=== PATIENT | male | born 1935 | race Caucasian/White ===

== ENCOUNTER → 2016-08-16 | Outpatient (REF) | payer MEDICARE ==
[~2016-08-16] MED LIST: /RISE35TA; /TAMS4CA PO; AMLO5TAB2 PO; ATEN25TA PO; BABY81CH PO; CALC600T10; CALCTAB54 PO; GABA300T; LISI10TA4; LOVA20TA2; LOVA40TA PO; NEUR100C; PLAV75TA2 PO; PREV15CA PO; TYLE325T5 PO; VITA-122 PO; VITAMIN D; VITAMIN D50000 UNT; ZEST20TA8 PO
== END ==
LOC: M LAB REF 16:19
PROVIDERS: ATTEND Internal Medicine
DX: E79.0 Hyperuricemia without signs of inflammatory arthritis and tophaceous disease (principal)

== ENCOUNTER → 2016-11-24 | Outpatient (REF) | payer MEDICARE | LOC: M LAB REF 16:22 | PROVIDERS: ATTEND Internal Medicine | DX: E79.0 Hyperuricemia without signs of inflammatory arthritis and tophaceous disease (principal) ==

== ENCOUNTER → 2017-02-07 | Outpatient (REF) | payer MEDICARE ==
[~2017-02-07] MED LIST changes: +ACET30TAB PO; +AMOX500C PO; +ASPI81TA24 PO; +CARB25TA PO; +CLOT10TR MT; +COLA100C5 PO; +COLC1TAB13 PO; +DOXY100C PO; +FERR1TAB8 PO; +FLOM5CAP PO; +HYDR12.55 PO; +HYDR25TAB PO; +LANS15CA PO; +MAGN400T5 PO; +MAGN64TASA PO; +MIRT1TAB PO; +PLAV1TAB2 PO; +SIMV20TA2 PO; +TRAM50TA2 PO; +VITA100066 PO; +ZYLO300T4 PO
[2017-02-07 21:30] LABS: BASO # 0.1 K/mm3 (0.0-0.2); BASO % 0.8 % (0.0-1.0); EOS # 0.3 K/mm3 (0.0-0.50); EOS % 3.5 % (0.0-3.0); LARGE UNSTAINED CELL # 0.1 K/mm3 (0.0-0.4); LARGE UNSTAINED CELL % 0.9 % (0.0-4.0); LYMPH # 1.4 K/mm3 (1.5-4.5); LYMPH % 16.7 % (24.0-44.0); MEAN CORPUSCULAR HEMOGLOBIN 33.7 pg (27.0-33.0); MEAN CORPUSCULAR HGB CONC 32.7 g/dl (32.0-36.5); MONO # 0.5 K/mm3 (0.0-0.8); MONO % 6.9 % (0.0-5.0); NEUTROPHILS # 5.6 K/mm3 (1.8-7.7); NEUTROPHILS % 71.3 % (36.0-66.0); PLATELET COUNT, AUTOMATED 304 k/mm3 (150-450); RED CELL DISTRIBUTION WIDTH 13.6 % (11.5-14.5); WHITE BLOOD COUNT 7.9 K/mm3 (4.0-10.0)
[2017-02-07 21:34] LABS: ALBUMIN 3.2 GM/DL (3.2-5.2); ALBUMIN/GLOBULIN RATIO 0.78 (1.00-1.93); BILIRUBIN,TOTAL 0.7 MG/DL (0.2-1.0); CREATININE FOR GFR 1.67 MG/DL (0.70-1.30); GLOMERULAR FILTRATION RATE 42.4 (>35); POTASSIUM SERUM 4.3 MEQ/L (3.5-5.1); TOTAL PROTEIN 7.3 GM/DL (6.4-8.2)
[2017-02-10 08:07] LABS: Lyme Disease IgG Ab 18 kDa Ban Absent (.); Lyme Disease IgG Ab 23 kDa Ban Absent (.); Lyme Disease IgG Ab 28 kDa Ban Absent (.); Lyme Disease IgG Ab 30 kDa Ban Absent (.); Lyme Disease IgG Ab 39 kDa Ban Absent (.); Lyme Disease IgG Ab 41 kDa Ban Absent (.); Lyme Disease IgG Ab 45 kDa Ban Absent (.); Lyme Disease IgG Ab 58 kDa Ban Absent (.); Lyme Disease IgG Ab 66 kDa Ban Absent (.); Lyme Disease IgG Ab 93 kDa Ban Absent (.); Lyme Disease IgG West Blot Int Negative (.); Lyme Disease IgG/IgM Antibodie <0.91 ISR (0.00-0.90); Lyme Disease IgM Ab 23 kDa Ban Present (.); Lyme Disease IgM Ab 39 kDa Ban Absent (.); Lyme Disease IgM Ab 41 kDa Ban Present (.); Lyme Disease IgM Ab Quantitati 1.52 index (0.00-0.79); Lyme Disease IgM West Blot Int Positive (.)
== END ==
LOC: M LABDRWAD 20:54
PROVIDERS: ATTEND Physician Assistant
DX: R53.83 Other fatigue (principal)

== ENCOUNTER 2017-02-18 11:31 | Emergency (ER) | payer MEDICARE ==
[~2017-02-18] VITALS: Ht 167.6 cm; Wt 75.5 kg
[~2017-02-18 11:31] MED LIST changes: -ACET30TAB PO; -AMOX500C PO; -ASPI81TA24 PO; -CARB25TA PO; -CLOT10TR MT; -COLA100C5 PO; -COLC1TAB13 PO; -DOXY100C PO; -FERR1TAB8 PO; -FLOM5CAP PO; -HYDR12.55 PO; -HYDR25TAB PO; -LANS15CA PO; -MAGN400T5 PO; -MAGN64TASA PO; -MIRT1TAB PO; -PLAV1TAB2 PO; -SIMV20TA2 PO; -TRAM50TA2 PO; -VITA100066 PO; -ZYLO300T4 PO
[2017-02-18 11:32] VITALS: BP_DIAS 74
[2017-02-18] MEDS ORDERED: DOXY100C PO (11:50)
[2017-02-18] MEDS ORDERED: COLC1TAB13 PO (11:50)
[2017-02-18] MEDS ORDERED: HYDR12.55 PO (11:50)
[2017-02-18] MEDS ORDERED: MAGN64TASA PO (11:51)
[2017-02-18] MEDS ORDERED: MORPHINE 2 MG/ML 1ML SYRINGE IV ONE (12:15)
[2017-02-18 12:42] LABS: BASO # 0.1 K/mm3 (0.0-0.2); BASO % 0.6 % (0.0-1.0); EOS % 0.2 % (0.0-3.0); LARGE UNSTAINED CELL # 0.1 K/mm3 (0.0-0.4); LYMPH # 1.1 K/mm3 (1.5-4.5); LYMPH % 10.7 % (24.0-44.0); MEAN CORPUSCULAR HEMOGLOBIN 33.5 pg (27.0-33.0); MEAN CORPUSCULAR HGB CONC 32.9 g/dl (32.0-36.5); MEAN CORPUSCULAR VOLUME 101.9 fl (80.0-96.0); MONO # 0.7 K/mm3 (0.0-0.8); MONO % 6.4 % (0.0-5.0); NEUTROPHILS # 8.5 K/mm3 (1.8-7.7); PLATELET COUNT, AUTOMATED 327 k/mm3 (150-450); RED CELL DISTRIBUTION WIDTH 13.7 % (11.5-14.5); WHITE BLOOD COUNT 10.5 K/mm3 (4.0-10.0)
[2017-02-18 13:05] LABS: ALBUMIN 2.6 GM/DL (3.2-5.2); ALBUMIN/GLOBULIN RATIO 0.62 (1.00-1.93); BILIRUBIN,DIRECT 0.3 MG/DL (0.0-0.2); BILIRUBIN,TOTAL 0.9 MG/DL (0.2-1.0); CALCIUM LEVEL 9.3 MG/DL (8.8-10.2); CREATININE FOR GFR 1.52 MG/DL (0.70-1.30); GLOMERULAR FILTRATION RATE 47.2 (>35); POTASSIUM SERUM 4.2 MEQ/L (3.5-5.1); TOTAL PROTEIN 6.8 GM/DL (6.4-8.2)
[2017-02-18 13:33] LABS: ERYTHROCYTE SEDIMENTATION RATE 80 mm/hr (0-20)
[2017-02-18 13:52] VITALS: BP_SYST 120
[2017-02-18 14:03] LABS: INR 1.28
[2017-02-18] MEDS ORDERED: AMOX500C PO (14:32)
[2017-02-18] MEDS ORDERED: ACET30TAB PO (14:32)
--- NOTE | 2017-02-20 02:14 | ECGEPIP ---
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
== END 2017-02-18 14:45 | disposition home or self-care (01) ==
LOC: M ED 11:31
DX: A69.23 Arthritis due to Lyme disease (principal); I10 Essential (primary) hypertension; K21.9 Gastro-esophageal reflux disease without esophagitis; Z86.73 Personal history of transient ischemic attack (TIA), and cerebral infarction without residual deficits; Z87.891 Personal history of nicotine dependence; Z79.899 Other long term (current) drug therapy; Z79.82 Long term (current) use of aspirin; Z79.02 Long term (current) use of antithrombotics/antiplatelets; Z95.1 Presence of aortocoronary bypass graft

== ENCOUNTER → 2017-02-23 | Outpatient (REF) | payer MEDICARE ==
[~2017-02-23] MED LIST changes: +ACET30TAB PO; +AMOX500C PO; +ASPI81TA24 PO; +CARB25TA PO; +CLOT10TR MT; +COLA100C5 PO; +COLC1TAB13 PO; +DOXY100C PO; +FERR1TAB8 PO; +FLOM5CAP PO; +HYDR12.55 PO; +HYDR25TAB PO; +LANS15CA PO; +MAGN400T5 PO; +MAGN64TASA PO; +MIRT1TAB PO; +PLAV1TAB2 PO; +SIMV20TA2 PO; +TRAM50TA2 PO; +VITA100066 PO; +ZYLO300T4 PO
== END ==
LOC: M LAB REF 16:33
PROVIDERS: ATTEND Nurse Practitioner Adult Health
DX: R79.82 Elevated C-reactive protein (CRP) (principal); N18.3 Chronic kidney disease, stage 3 (moderate); I12.9 Hypertensive chronic kidney disease with stage 1 through stage 4 chronic kidney disease, or unspecified chronic kidney disease

== ENCOUNTER 2017-02-28 09:04 | Inpatient (IN) | payer MEDICARE ==
[~2017-02-28] VITALS: Ht 167.6 cm; Wt 69.4 kg
[~2017-02-28 09:04] MED LIST changes: -ASPI81TA24 PO; -CARB25TA PO; -CLOT10TR MT; -COLA100C5 PO; -FERR1TAB8 PO; -FLOM5CAP PO; -HYDR25TAB PO; -LANS15CA PO; -MAGN400T5 PO; -MIRT1TAB PO; -PLAV1TAB2 PO; -SIMV20TA2 PO; -TRAM50TA2 PO; -VITA100066 PO; -ZYLO300T4 PO
[2017-02-28] MEDS ORDERED: TRAM50TA2 PO ×2 (09:22→14:24)
[2017-02-28] MEDS ORDERED: CLOT10TR MT ×2 (09:22→14:24)
[2017-02-28 09:47] LABS: BASO % 0.3 % (0.0-1.0); EOS % 0.4 % (0.0-3.0); LARGE UNSTAINED CELL # 0.1 K/mm3 (0.0-0.4); LARGE UNSTAINED CELL % 0.6 % (0.0-4.0); LYMPH # 0.7 K/mm3 (1.5-4.5); LYMPH % 6.1 % (24.0-44.0); MEAN CORPUSCULAR HEMOGLOBIN 33.8 pg (27.0-33.0); MEAN CORPUSCULAR VOLUME 102.5 fl (80.0-96.0); MONO # 0.8 K/mm3 (0.0-0.8); MONO % 7.6 % (0.0-5.0); NEUTROPHILS # 9.2 K/mm3 (1.8-7.7); PLATELET COUNT, AUTOMATED 396 k/mm3 (150-450); RED CELL DISTRIBUTION WIDTH 13.9 % (11.5-14.5); WHITE BLOOD COUNT 10.8 K/mm3 (4.0-10.0)
[2017-02-28 10:08] LABS: ALBUMIN 2.4 GM/DL (3.2-5.2); ALBUMIN/GLOBULIN RATIO 0.49 (1.00-1.93); BILIRUBIN,DIRECT 0.3 MG/DL (0.0-0.2); BILIRUBIN,TOTAL 0.7 MG/DL (0.2-1.0); CALCIUM LEVEL 9.3 MG/DL (8.8-10.2); CREATININE FOR GFR 1.6 MG/DL (0.70-1.30); GLOMERULAR FILTRATION RATE 44.5 (>35); POTASSIUM SERUM 4.4 MEQ/L (3.5-5.1); TOTAL PROTEIN 7.3 GM/DL (6.4-8.2)
[2017-02-28 10:23] LABS: ERYTHROCYTE SEDIMENTATION RATE 107 mm/hr (0-20)
--- NOTE | 2017-02-28 10:23 | REP ---
CT Head without contrast HISTORY: Trauma COMPARISON: 02/23/2017 Areas of decreased attenuation are present in the periventricular white matter. This represents small-vessel ischemic disease. There is no intraparenchymal hemorrhage, acute infarct, mass or midline shift. The ventricular system and cortical sulci as well as subarachnoid space in the posterior fossa are dilated consistent with moderate volume loss. There is no extra cerebral collection. There is no fracture. The visualized sinuses are clear. IMPRESSION: 1. Small vessel ischemic disease. 2. Moderate volume loss. Signed by Angel Wick MD 02/28/2017 10:15 A
--- NOTE | 2017-02-28 10:52 | REP ---
CT CERVICAL SPINE WITHOUT CONTRAST: HISTORY: Trauma. There is no acute fracture or subluxation. Disc bulges are present at the C2-3 and C3-4 levels. Disc bulges with associated osteophyte formation are present at the C4-5 through C6-7 levels. There is minimal narrowing of the spinal canal. Uncinate process and/or facet hypertrophy are present at the C2-3 through C7-T1 levels. These finding produce minimal to moderate narrowing of the neural foramina. The C3-4 through C7-T1 intervertebral discs are decreased in height consistent with disc degeneration. Bridging osteophytes are present on C3 through T1. Anterior osteophytes are present at the C1-2 level. IMPRESSION: 1. There is no acute fracture or subluxation. 2. There is cervical spondylosis the C1-2 through C7-T1 levels. Signed by Angel Wick MD 02/28/2017 11:04 A
--- NOTE | 2017-02-28 11:00 | REP ---
THORACIC SPINE: Three views of the thoracic spine are performed in the AP and lateral projections. There is no compression fracture or malalignment with normal thoracic kyphosis. Diffuse bridging osteophytosis is noted particularly in the mid to lower thoracic spine. There is mild disc space narrowing and subchondral sclerosis at all levels. Posterior elements appear intact. IMPRESSION: Diffuse degenerative changes without evidence of acute fracture or dislocation. Signed by Danish Medina MD 03/01/2017 08:38 A
--- NOTE | 2017-02-28 12:25 | REP ---
MRI BRAIN WITHOUT CONTRAST: HISTORY: Infarction. COMPARISON: 05/22/2012. A punctate focus of increased signal intensity on diffusion and T2-weighted images is present in the right frontal lobe. This is decreased in signal intensity on ADC images and is consistent with an acute infarction. A small area of increased signal intensity on T2-weighted images is present in the left cerebellum. This represents an old lacunar infarction. Several punctate areas of increased signal intensity on T2-weighted images are present in the periventricular and subcortical white matter and cerebellum. This represents small vessel ischemic disease. There is no intraparenchymal hemorrhage, mass or midline shift. The ventricular system and cortical sulci, as well as subarachnoid space of the posterior fossa are dilated consistent with moderate volume loss. There is no extracerebral collection. The sinuses are clear. IMPRESSION: 1. Punctate acute right frontal lobe infarction . 2. Old left cerebellar lacunar infarction. 3. Small vessel ischemic disease. 4. Moderate volume loss. Signed by Angel Wick MD 02/28/2017 12:30 P
--- NOTE | 2017-02-28 14:15 | HPEPDOC ---
Medical History and Physical Date of Admission 02/28/17 History and Physical ATTENDING: Dr. Bains PCP: Dr Puga CC: Fall HPI: 81yoM with a past medical history significant for HTN, HLD,GERD, who reports he fell in the bathroom and hit his back on the vanity, Dtr reported he had hit his head as well. Reported that he had fallen 3 times in past 1 week. Daughter states he has been getting up in the morning to go to the bathroom and not using his walker. He typically loses his balance and has been falling. They state his symptoms began approximately 1 week ago when he was seen in the emergency department 02/18/17 and was diagnosed with Lyme disease. His daughter states he has lost 20 pounds in the past 3 weeks. Generally he has been feeling fatigued and achy. He reports generalized weakness however no paresthesias. Denies blurred vision, diplopia, vertigo, dysarthria. He does report some difficulty swallowing. He does not cough when swallowing. Denies any fevers, chills,YORK, CP, SOB, cough, palpitations, abdominal pain, N/V/ D or changes in bowel or bladder habits. Upon presentation to the hospital the patient was found to have acute CVA, thus the hospitalist team was consulted. PMHx: HTN HLD GERD BPH CKD3 baseline 1.4-1.6 H/O TIA 10/12 H/O kidney stones unsteady gait/H/O fall. Pt declines to use walker at home Lyme disease PSHX: CABG Fempop bypass AAA repair Rt inguinal hernia appendectomy SOCHX: Resides in: [facility] Marital Status: Kids: 5 Employment: retired [employer] Tobacco use: denies ETOH: denies Illicit Drugs: Denies Recent travel: denies Advanced directives: None FAMHX: Siblings: Alive, hypertension, CAD, lung cancer Children: Alive, breast cancer Unexpected deaths due to medical reasons: None. ROS: As noted in HPI, otherwise 11pt ROS of systems reviewed and remarkable only for pt seen in ED 02/18/17 for joint pains and was treated for Lyme disease. PE: GEN: 81yoM, appears stated age. Well-nourished, well developed. No acute distress. Alert and oriented x 3. Pleasant, interactive. HEENT: Normocephalic, atraumatic. Pupils are equal, round, and reactive to light. Extraocular movements are intact. No nystagmus appreciated. Sclera are nonicteric. Conjunctiva without injection. Nose midline. Nasal turbinates without bogginess. No facial asymmetry. Moist mucous membranes. Dentition fair. Pharynx pink and moist, no cobblestoning. Neck supple, trachea midline. No lymphadenopathy or thyromegaly appreciated. CHEST: Regular rate and rhythm, +S1, +S2 LUNGS: Clear to auscultation bilaterally. No wheezes, rales, or rhonchi. Breathing appears symmetric and easy. Patient is speaking in full sentences. No accessory muscle use. ABD: Round, soft, non-tender, non-distended. +Bowel sounds throughout. No rebound or guarding. No costovertebral angle tenderness. EXT: Pulses 2+ bilaterally dorsalis pedis and radial. No lower extremity edema appreciated. SKIN: [place], dry, warm. Capillary refill <2sec. There is an ecchymotic area noted upper thoracic area. NEURO: Alert and oriented x 3. Cranial nerves III-XII are intact. No focal deficits appreciated. MRI brain 1. Punctate acute right frontal lobe infarction . 2. Old left cerebellar lacunar infarction. 3. Small vessel ischemic disease. 4. Moderate volume loss. CT: head 1. Small vessel ischemic disease. 2. Moderate volume loss CT C spine 1. There is no acute fracture or subluxation. 2. There is cervical spondylosis the C1-2 through C7-T1 levels. EKG: pending XR Thoracic Diffuse degenerative changes without evidence of acute fracture or dislocation. A&P: 81yoM with a past medical history significant for HTN, HLD,GERD, who reports he fell in the bathroomand hit his back on the vanity, Dtr reported he had hit his head as well. Reported that he had fallen 3 times in past 1 week 1. The patient will be admitted to PCU for at least [address] Bains' s service. 2. Acute CVA. Neurology consulted, spoke with Dr Mills who will see the pt. Continue lovastatin 40 mg daily. Add fasting lipids. PT/OT/speech therapy. Carotid U/S pending TTE pending. 3. Lyme disease. Patient currently on amoxicillin 500 mg Q8hrs,D9/10. Tramadol as needed for joint pain. Possibly consider ID opinion when available. 4. CAD/CABG. Serial CIP/Troponin. EKG pending. Continue statin. Continue aspirin 81 mg/Plavix 75 mg daily. 5. HTN. Hold HCTZ. Monitor blood pressures. Check orthostatic VS as well. 6. HLD. Continue statin. Check fasting lipids in AM. 7 BPH. Continue tamsulosin. 8. CKD 3. Baseline 1.4-1.6. Monitor. 9. Gout. Continue allopurinol. 10. Hypomagnesemia. Cont supplement. Check Mag level. 11. Anemia. Check Fe Studies, B12. folate. Stool OB. No previous colonoscopy on record. DVT prophylaxis. The patient is a Full code Vital Signs Vital Signs Date Time Temp Pulse Resp B/P (MAP) Pulse Ox O2 Delivery O2 Flow Rate FiO2 02/28/17 12:52 99.2 76 16 122/61 (81) 97 Room Air Laboratory Data Labs 24H Laboratory Tests 2 02/28/17 09:35: Anion Gap 11, Glomerular Filtration Rate 44.5, Calcium Level 9.3, Aspartate Amino Transf (AST/SGOT) 25, Alanine Aminotransferase (ALT/SGPT) 26, Alkaline Phosphatase 81, Total Bilirubin 0.7, Direct Bilirubin 0.3H, C-Reactive Protein, Quantitative 14.00H, Total Protein 7.3, Albumin 2.4L, Albumin/Globulin Ratio 0.49L 02/28/17 09:36: White Blood Count 10.8H, Red Blood Count 3.10L, Hemoglobin 10.5L, Hematocrit 31.8L, Mean Corpuscular Volume 102.5H, Mean Corpuscular Hemoglobin 33.8H, Mean Corpuscular Hemoglobin Concent 33.0, Red Cell Distribution Width 13.9, Platelet Count 396, Neutrophils (%) (Auto) 85.0H, Lymphocytes (%) (Auto) 6.1L, Monocytes (%) (Auto) 7.6H, Eosinophils (%) (Auto) 0.4, Basophils (%) (Auto) 0.3, Neutrophils # (Auto) 9.2H, Lymphocytes # (Auto) 0.7L, Monocytes # (Auto) 0.8, Eosinophils # (Auto) 0.0, Basophils # (Auto) 0.0, Large Unclassified Cells % 0.6 , Large Unclassified Cells # 0.1, Erythrocyte Sedimentation Rate 107H CBC/BMP Item Value Date Time Lyme Disease IgG/IgM Antibodies <0.91 ISR 02/07/17 140 Lyme Disease IgG Ab 18 kDa Band Absent 02/07/171402 Lyme Disease IgG Ab 23 kDa Band Absent 02/07/17 140 Lyme Disease IgG Ab 28 kDa Band Absent 02/07/171402 Lyme Disease IgG Ab 30 kDa Band Absent 02/07/17 140 Lyme Disease IgG Ab 39 kDa Band Absent 02/07/17 140 Lyme Disease IgG Ab 41 kDa Band Absent 02/07/17 140 Lyme Disease IgG Ab 45 kDa Band Absent 02/07/171402 Lyme Disease IgG Ab 58 kDa Band Absent 02/07/171402 Lyme Disease IgG Ab 66 kDa Band Absent 02/07/171402 Lyme Disease IgG Ab 93 kDa Band Absent 02/07/171402 Lyme Disease IgG West Blot Interp Negative 02/07/171402 Lyme Disease IgM Ab Quantitation 1.52 index H 02/07/171402 Lyme Disease IgM Ab 23 kDa Band Present A 02/07/171402 Lyme Disease IgM Ab 39 kDa Band Absent 02/07/171402 Lyme Disease IgM Ab 41 kDa Band Present A 02/07/173 Lyme Disease IgM West Blot Interp Positive A 02/07/171402 Laboratory Tests 02/28/17 09:35 02/28/17 09:36 Red Blood Count 3.10 L, Mean Corpuscular Volume 102.5 H, Mean Corpuscular Hemoglobin 33.8 H, Mean Corpuscular Hemoglobin Concent 33.0, Red Cell Distribution Width 13.9, Neutrophils (%) (Auto) 85.0 H, Lymphocytes (%) (Auto) 6.1 L, Monocytes (%) (Auto) 7.6 H, Eosinophils (%) (Auto) 0.4, Basophils (%) ( Auto) 0.3, Neutrophils # (Auto) 9.2 H, Lymphocytes # (Auto) 0.7 L, Monocytes # ( Auto) 0.8, Eosinophils # (Auto) 0.0, Basophils # (Auto) 0.0 Home Medications Scheduled Allopurinol (Zyloprim) 300 Mg Tab, 300 MG PO DAILY Amoxicillin (Amoxicillin) 500 Mg Cap, 500 MG PO Q8H FILLED 02/18/17 FOR 10 DAYS Aspirin (Aspirin EC) 81 Mg Tab, 81 MG PO DAILY Cholecalciferol (Vitamin D) 1,000 Unit Tab, 1,000 UNIT PO DAILY Clopidogrel Bisulfate (Plavix) 75 Mg Tab, 75 MG PO DAILY Clotrimazole (Clotrimazole) 10 Mg Troc, 10 MG MT TID FILLED 02/25/17 FOR 10 DAYS Colchicine (Colchicine) 0.6 Mg Tab, 0.6 MG PO DAILY Docusate Sodium (Colace) 100 Mg Cap, 100 MG PO BID Hydrochlorothiazide (Hydrochlorothiazide) 25 Mg Tab, 12.5 MG PO DAILY Lansoprazole (Lansoprazole) 15 Mg Cap, 15 MG PO QPM Lovastatin (Lovastatin) 40 Mg Tab, 40 MG PO DAILY HAS BEEN ON HOLD DUE TO JOINT PAIN AND TRYING TO DETERMINE IF THIS IS THE CAUSE Magnesium Oxide (Magnesium Oxide 400) 400 Mg Tab, 400 MG PO BID Mirtazapine (Mirtazapine) 7.5 Mg Tab, 7.5 MG PO QHS Tamsulosin Hydrochloride (Flomax) 0.4 Mg Cap, 0.4 MG PO DAILY Scheduled PRN Tramadol HCl (Tramadol HCl) 50 Mg Tab, 50 MG PO QID PRN for PAIN Allergies Coded Allergies: No Known Drug Allergy (Verified Allergy, Unknown, 02/28/17) Kristan Alexander Feb 28, 2017 14:15
[2017-02-28] MEDS ORDERED: AMOX500C PO (14:24)
[2017-02-28] MEDS ORDERED: COLA100C5 PO (14:24)
[2017-02-28] MEDS ORDERED: MIRT1TAB PO (14:24)
[2017-02-28] MEDS ORDERED: ZYLO300T4 PO (14:24)
[2017-02-28] MEDS ORDERED: HYDR25TAB PO (14:24)
[2017-02-28] MEDS ORDERED: COLC1TAB13 PO (14:24)
[2017-02-28] MEDS ORDERED: ASPI81TA24 PO (14:24)
[2017-02-28] MEDS ORDERED: PLAV1TAB2 PO (14:24)
[2017-02-28] MEDS ORDERED: LOVA40TA PO (14:24)
[2017-02-28] MEDS ORDERED: VITA100066 PO (14:24)
[2017-02-28] MEDS ORDERED: MAGN400T5 PO (14:24)
[2017-02-28] MEDS ORDERED: LANS15CA PO (14:24)
[2017-02-28] MEDS ORDERED: FLOM5CAP PO (14:24)
[2017-02-28] MEDS ORDERED: traMADol 50 MG TAB PO PRN (15:30)
[2017-02-28] MEDS ORDERED: ACETAMINOPHEN TAB 650MG DOSE (2X325MG) PO PRN (15:30)
[2017-02-28 15:44] LABS: FOLATE 6.8 NG/ML (>5.4)
[2017-02-28] MEDS: CLOTRIMAZOLE 10 MG TROCHE MT SCH ×2 (16:00→21:51)
[2017-02-28 16:03] LABS: MAGNESIUM LEVEL 2.4 MG/DL (1.8-2.4); PERCENT SATURATION 20.4 % (19.7-50.0)
[2017-02-28 17:34] VITALS: BP 137/87
--- NOTE | 2017-02-28 17:44 | REP ---
BILATERAL CAROTID DUPLEX ULTRASOUND: 02/28/2017. Clinical history: CVA Findings: No prior study. Standard duplex techniques show the right common carotid with scattered soft plaque and intimal thickening. There is some mixed plaque in the distal common carotid and bulb extending into the ICA and ECA. The left internal carotid also shows intimal thickening with some soft plaque and then mixed plaque in the mid and distal CCA, bulb and into both ICA and ECA on the left. Peak velocities chart Right Left CCA systolic 1.82 m/s 0.88 m/s ICA systolic 0.63 m/s 0.63 m/s ICA diastolic 0.17 m/s 0.17 m/s ECA systolic 0.60 m/s 0.88 m/s ICA/CCA ratio 0.35 0.71 The Doppler waveform analysis does not show significant spectral broadening or filling in of the systolic window for either the right or the left internal carotid. However, there is an irregular rhythm. Vertebral artery flow is cranial direction on the left. It cannot be identified on the right. Impression: 1. Atherosclerotic plaque with less than 50% stenosis of the ICA on both sides, no hemodynamically significant or flow restricting lesion. High peak velocity in the right CCA suggests a more proximal right CCA stenosis. ICAs do not have such data suggesting severe stenosis. 2. Cranial direction of flow in the left vertebral artery, the right is not seen. 3. Atherosclerotic plaque in the distal CCA, bulb and proximal ICAs on both sides. Signed by Haider Juan MD 03/01/2017 10:24 A
[2017-02-28] MEDS: TAMSULOSIN 0.4 MG CAP PO SCH (18:34)
[2017-02-28] MEDS: ASPIRIN 81 MG ENTERIC TAB PO SCH (18:34)
[2017-02-28] MEDS: CLOPIDOGREL 75 MG TAB PO SCH (18:35)
[2017-02-28] MEDS: VITAMIN D 1,000 INTERNATIONAL UNITS TABLET PO SCH (18:35)
[2017-02-28] MEDS: ALLOPURINOL 300 MG TAB PO SCH (18:35)
[2017-02-28] MEDS: PANTOPRAZOLE 40MG TAB (PROTONIX) PO SCH (18:35)
[2017-02-28] MEDS: ENOXAPARIN 30 MG/0.3 ML SYR (J1650) SC SCH (18:37)
[2017-02-28] MEDS: SIMVASTATIN 20 MG TAB PO SCH (18:37)
[2017-02-28] MEDS: AMOXICILLIN 500 MG CAP PO SCH ×2 (18:38→21:51)
[2017-02-28 19:18] VITALS: BP 153/70
[2017-02-28 19:19] VITALS: BP_SYST 140; BP_SYST 150; BP_DIAS 63; BP_DIAS 67
[2017-02-28 20:00] VITALS: BP 126/65
[2017-02-28] MEDS: DOCUSATE SODIUM 100 MG CAP PO SCH (21:51)
[2017-02-28] MEDS: MIRTAZAPINE 7.5MG PER 1/2 TABLET PO SCH (21:51)
[2017-02-28] MEDS: MAGNESIUM OXIDE 400 MG TAB (MAG-OX) PO SCH (21:52)
[2017-02-28 23:59] VITALS: BP 99/55
[2017-03-01] VITALS (9 sets, daily range): BP systolic 67–178; BP diastolic 46–83
[2017-03-01] MEDS ORDERED: SODIUM CHLORIDE 0.9% 1000 ML IV ONE ×2 (04:00→04:30)
[2017-03-01 05:10] LABS: BASO % 0.5 % (0.0-1.0); EOS # 0.1 K/mm3 (0.0-0.50); EOS % 1.7 % (0.0-3.0); LARGE UNSTAINED CELL # 0.1 K/mm3 (0.0-0.4); LARGE UNSTAINED CELL % 0.7 % (0.0-4.0); LYMPH # 0.9 K/mm3 (1.5-4.5); MEAN CORPUSCULAR HEMOGLOBIN 32.7 pg (27.0-33.0); MEAN CORPUSCULAR HGB CONC 32.2 g/dl (32.0-36.5); MEAN CORPUSCULAR VOLUME 101.5 fl (80.0-96.0); MONO # 0.6 K/mm3 (0.0-0.8); MONO % 7.4 % (0.0-5.0); NEUTROPHILS # 6.2 K/mm3 (1.8-7.7); NEUTROPHILS % 78.8 % (36.0-66.0); PLATELET COUNT, AUTOMATED 330 k/mm3 (150-450); RED CELL DISTRIBUTION WIDTH 14.2 % (11.5-14.5); WHITE BLOOD COUNT 7.9 K/mm3 (4.0-10.0)
[2017-03-01 05:13] LABS: ALBUMIN/GLOBULIN RATIO 0.5 (1.00-1.93); BILIRUBIN,TOTAL 0.5 MG/DL (0.2-1.0); CALCIUM LEVEL 8.5 MG/DL (8.8-10.2); CREATININE FOR GFR 1.3 MG/DL (0.70-1.30); GLOMERULAR FILTRATION RATE 56.5 (>35); MAGNESIUM LEVEL 2.4 MG/DL (1.8-2.4); POTASSIUM SERUM 4.1 MEQ/L (3.5-5.1); URIC ACID 3.4 MG/DL (3.5-7.2)
[2017-03-01] MEDS: AMOXICILLIN 500 MG CAP PO SCH (06:01)
[2017-03-01] MEDS: MAGNESIUM OXIDE 400 MG TAB (MAG-OX) PO SCH ×2 (09:00→22:08)
[2017-03-01] MEDS: FERROUS SULFATE 325MG TAB PO SCH ×2 (09:00→22:07)
--- NOTE | 2017-03-01 09:02 | CR ---
DATE OF CONSULTATION: 02/28/2017 REFERRING PHYSICIAN: Vu Bains MD REASON FOR CONSULTATION: Imbalance and incoordination. HISTORY OF PRESENT ILLNESS: Shreyas Miner is an 81-year-old man with history of hypertension, acid reflux, chronic back pain, who was at his baseline state of health until three weeks ago when he developed more joint pain and started falling down. He has fallen three times in the last one week. They have been more in the morning when he is trying to get out of bed to go to bathroom. He does not use walker. He denies any loss of consciousness. He was diagnosed with Lyme disease 5 years ago and was appropriately treated. He was again diagnosed with Lyme disease in the emergency department and was started on doxycycline, which was recently changed to amoxicillin. He has difficulty swallowing. He has lost 20 pounds of weight over the last couple of months. He denies any neck pain. He denies any headaches. He denies any loss of consciousness or urinary incontinence. The patient has history of chronic back pain. He was diagnosed with lumbosacral spinal stenosis many years ago. He was seen by Dr. Tommy Carrera, who did not recommend lumbosacral laminectomy. He was going to pain clinic for epidural injections which did not help his back pain. PAST MEDICAL HISTORY: 1. Hypertension. 2. Benign prostate enlargement 3. Acid reflux 4. Chronic kidney disease 5. History of stroke in 2011 6. Kidney stones. 5. Lyme disease 6. Coronary artery bypass graft 7. Peripheral arterial bypass graft in legs 8. Abdominal aortic aneurysm repair 9. Inguinal hernia 10. Appendectomy. SOCIAL HISTORY: He denies smoking, alcohol or illicit drugs. He lives with his . FAMILY HISTORY: One of his daughters had breast cancer. One sibling had lung cancer. REVIEW OF SYSTEMS: All systems were reviewed and were found to be noncontributory except as mentioned history present illness. HOME MEDICATIONS: - allopurinol 300 mg by mouth daily - amoxicillin 5 mg by mouth every 8 hours - aspirin 81 mg by mouth daily - Plavix 75 mg by mouth daily - vitamin D3 1000 units by mouth daily - colchicine 0.6 mg by mouth daily - hydrochlorothiazide 25 mg by mouth half a tablet daily - Prevacid 15 mg by mouth daily - lovastatin 40 mg by mouth daily - Remeron 7.5 mg by mouth at bedtime (q.h.s.) - Flomax 0.4 mg by mouth daily - tramadol 50 mg by mouth four times a day as needed. PHYSICAL EXAMINATION: Temperature 99.2, pulse 76, respiratory 16, blood pressure 122/61, 97% saturation on room air. HEART: Regular rate and rhythm. LUNGS: clear to auscultation. ABDOMEN: Soft, nontender, nondistended. NEUROLOGIC EXAM: The patient is awake, alert, oriented to place, person and time. Normal speech, comprehension and repetition. Extraocular muscles are intact. No facial weakness. Tongue Uvula midline. 5/5 strength in all four extremities. Deep tendon flexes are 2+ throughout. Plantars are downgoing. He has normal light touch, pinprick, vibration sensation, etc in his feet. His gait is unsteady and mildly shuffling. I do not see clear rigidity or tremor. He cannot do tandem walking. His Romberg testing is mildly positive. DIAGNOSTIC STUDIES: His Magnetic Resonance Imaging (MRI) scan of brain showed a small right frontal acute ischemic stroke. His Lyme IgM Western blot is positive in addition to positive WOOD. His white blood count (WBC) was 10.8, hematocrit 31.8, platelet count 396, creatinine 1.6, vitamin B12 313, folic acid 6.8 and TSH was 1.4. ASSESSMENT: 1. Multifactorial gait difficulty. 2. Small right frontal acute ischemic stroke. 3. Lyme disease which likely is not the cause of his imbalance and incoordination. 4. Lumbosacral spinal stenosis for which the patient was not a surgical candidate in past and failed pain management. PLAN: 1. Physical and occupational therapy. 2. Telemetry monitoring and echocardiogram. 3. Continue aspirin 81 mg by mouth daily and Plavix 75 mg by mouth daily. 4. I cannot exclude parkinsonism in his current state and that will be reassessed during his hospitalization once his acute symptoms improve. Trial of Sinemet 25/100 by mouth four times a day will also be considered. 5. Family declined Magnetic Resonance Imaging (MRI) scan of his lumbosacral spine as they do not want to pursue any surgical options. He has multilevel degenerative cervical changes seen on CT scan of cervical spine. 6. Follow with our office in 2-3 weeks after hospital discharge.
[2017-03-01] MEDS: TAMSULOSIN 0.4 MG CAP PO SCH (09:58)
[2017-03-01] MEDS: ENOXAPARIN 30 MG/0.3 ML SYR (J1650) SC SCH (09:58)
[2017-03-01] MEDS: PANTOPRAZOLE 40MG TAB (PROTONIX) PO SCH (09:58)
[2017-03-01] MEDS: CLOPIDOGREL 75 MG TAB PO SCH (09:58)
[2017-03-01] MEDS: VITAMIN D 1,000 INTERNATIONAL UNITS TABLET PO SCH (09:59)
[2017-03-01] MEDS: DOCUSATE SODIUM 100 MG CAP PO SCH ×2 (09:59→22:07)
[2017-03-01] MEDS: ALLOPURINOL 300 MG TAB PO SCH (09:59)
[2017-03-01] MEDS: SIMVASTATIN 20 MG TAB PO SCH (09:59)
[2017-03-01] MEDS: ASPIRIN 81 MG ENTERIC TAB PO SCH (09:59)
[2017-03-01] MEDS: CLOTRIMAZOLE 10 MG TROCHE MT SCH ×3 (10:02→22:08)
--- NOTE | 2017-03-01 13:56 | IPN ---
DATE OF EXAMINATION: 03/01/2017 SUBJECTIVE: The patient tells me that he is feeling weak. He denies shortness of breath, but he tells me that when he stands up or gets up, he does feel weak. He denies lightheadedness, dizziness, chest pain, paralysis, paresthesias. or slurred speech. OBJECTIVE: VITAL SIGNS: Temperature is 98, pulse 65, respiratory rate 20, blood pressure (BP) 123/60, oxygen (O2) saturation 97% on room air. GENERAL: He is a pleasant elderly man sitting up in bed eating breakfast. He does not appear to be in acute distress. HEENT: Cranial nerves II-XII are grossly intact. Appears to be mildly dysarthric. His tongue is midline. CARDIOVASCULAR EXAMINATION: S1, S2, regular. RESPIRATORY EXAMINATION: Is clear. ABDOMINAL EXAMINATION: Is benign. EXTREMITIES: No clubbing, cyanosis, or edema. He has 5/5 strength in all four extremities. NEUROLOGICAL EXAMINATION: Appears to be nonfocal. LABORATORY STUDIES: WBC 7.9, hemoglobin 8.8 down from 10.5, hematocrit 27.2, platelet count 330, erythrocyte sedimentation rate (ESR) was 107 yesterday. Chemistry panel: Sodium 139, potassium 4.1, chloride 104, bicarbonate 26, BUN 27, creatinine 1.3 down from 1.6, hemoglobin A1c of 5.8. He has a TSH within normal limits. Multiple sets of cardiac enzymes, which are negative. A CRP which was 14 yesterday. Lipid panel with a low non-HDL. His B12 and folate appear to be within normal limits. His MCV is elevated at 101.5. His iron level is low. His total iron-binding capacity (TIBC) is low. His ferritin is elevated. IMAGING: The patient did have a thoracic spine review that revealed diffuse degenerative changes without evidence of acute fracture or dislocations. He did have a CT scan of the head that revealed small vessel ischemic disease, moderate volume loss. He had a cervical spine CT that revealed no acute fracture or subluxation. There was cervical spondyloses at C1-2 through C7-T1. He did have an MRI of the brain that revealed punctate acute right frontal lobe infarction, old left cerebellar lacunar infarction, small vessel ischemic disease, and moderate volume loss. He did have a vascular ultrasound that revealed no hemodynamically significant or flow restricting lesions on the ICA of both sides. High peak velocity in the right CCA suggests a more proximal right CCA stenosis atherosclerotic plaque in the distal CCA. ASSESSMENT AND PLAN: This is an 81-year-old man with multifactorial gait difficulties. PROBLEMS: 1. Multifactorial gait difficulty and small right frontal acute ischemic stroke. Dr. Mills's help, of neurology, is greatly appreciated. The patient has lumbosacral spinal stenosis. The patient was reportedly told he was not a surgical candidate and failed pain management in the past. The family declined MRI of the lumbosacral spine, as they do not want to pursue any surgical options. The patient is on aspirin, Plavix, and Zocor. Physical therapy (PT) and occupational therapy (OT) have been ordered, as well as a speech therapy evaluation. The patient remains on telemetry. We are awaiting an echocardiogram, which has been ordered. Dr. Mills could not exclude parkinsonism. Sinemet will possibly be considered once his acute symptoms have resolved. He will have to followup with neurology on the outpatient setting. 2. Constipation. Continue with Colace. 3. Insomnia. Continue with Remeron. 4. Lyme disease. The patient is on amoxicillin. Continue. 5. Gout. Continue with allopurinol. 6. Vitamin D deficiency. Continue with supplementation. 7. Benign prostatic hypertrophy (BPH). Continue with Flomax. 8. Gastroesophageal reflux disease. Continue with Protonix. 9. Deep venous thrombosis (DVT) prophylaxis. The patient is on Lovenox. 10. Iron-deficiency anemia. Will start the patient on iron supplementation. He should have an outpatient colonoscopy. MASOOD
[2017-03-01] MEDS: SINEMET 25-100 MG TAB PO SCH (18:52)
[2017-03-01] MEDS: MIRTAZAPINE 7.5MG PER 1/2 TABLET PO SCH (22:40)
[2017-03-02 00:27] VITALS: BP 130/66
[2017-03-02 05:26] LABS: BASO % 0.7 % (0.0-1.0); EOS # 0.2 K/mm3 (0.0-0.50); EOS % 2.3 % (0.0-3.0); LARGE UNSTAINED CELL # 0.1 K/mm3 (0.0-0.4); LARGE UNSTAINED CELL % 1.5 % (0.0-4.0); LYMPH # 1.1 K/mm3 (1.5-4.5); LYMPH % 15.6 % (24.0-44.0); MEAN CORPUSCULAR HGB CONC 32.6 g/dl (32.0-36.5); MEAN CORPUSCULAR VOLUME 101.1 fl (80.0-96.0); MONO # 0.5 K/mm3 (0.0-0.8); MONO % 7.4 % (0.0-5.0); NEUTROPHILS # 4.9 K/mm3 (1.8-7.7); NEUTROPHILS % 72.5 % (36.0-66.0); PLATELET COUNT, AUTOMATED 340 k/mm3 (150-450); RED CELL DISTRIBUTION WIDTH 14.2 % (11.5-14.5); WHITE BLOOD COUNT 6.7 K/mm3 (4.0-10.0)
[2017-03-02 05:37] LABS: ALBUMIN/GLOBULIN RATIO 0.49 (1.00-1.93); BILIRUBIN,TOTAL 0.5 MG/DL (0.2-1.0); CALCIUM LEVEL 8.3 MG/DL (8.8-10.2); CREATININE FOR GFR 1.3 MG/DL (0.70-1.30); GLOMERULAR FILTRATION RATE 56.5 (>35); POTASSIUM SERUM 4.1 MEQ/L (3.5-5.1); TOTAL PROTEIN 6.1 GM/DL (6.4-8.2)
[2017-03-02 05:40] VITALS: BP_SYST 102; BP_SYST 128; BP_SYST 151; BP_DIAS 59; BP_DIAS 60; BP_DIAS 62
--- NOTE | 2017-03-02 07:33 | ECHO ---
DATE OF PROCEDURE: 03/01/2017 REFERRING PHYSICIAN: Dr. Vu Bains. INDICATION: Cerebrovascular accident. History of coronary artery bypass graft (CABG). HEIGHT: 67 inches. WEIGHT: 156 pounds. DIMENSION: IVS: 1.2 LV: 4.4 LVPW: 1.2 LA: 5.5 Aorta: 3.7 RV: 3.6 LV systolic: 3.2 FINDINGS: The study is of acceptable technical quality. Left ventricle is of normal size and grossly normal contractility. There is septal wall motion abnormality likely related to prior open heart surgery. Right ventricle is also normal size and systolic function. Left atrium is severely enlarged. Right atrium appears grossly normal. Aortic valve is mildly sclerotic but it has three cusps and normal contractility. Mitral and tricuspid valves appear normal. Pulmonic valve was not well seen. No pericardial effusion is noted. Inferior vena cava was not visualized. Aortic root is normal. Aortic arch and abdominal aorta were not well seen. Doppler interrogation reveals no significant aortic stenosis or insufficiency. There is mild or naye-ww-fqjmdasa mitral insufficiency and only trace tricuspid insufficiency. Estimated pulmonary artery pressure is within normal limits, but based on fair quality of TR jet and consequently should not be considered completely reliable. Evaluation of the diastolic function is inconclusive. There is normal mitral inflow pattern and normal flow in pulmonary veins but tissue Doppler velocities were not obtained. CONCLUSIONS: 1. Study is of acceptable technical quality. 2. Normal LV size with mild left ventricular hypertrophy and grossly preserved LV systolic function. 3. Spfw-di-hmsjfwvl mitral insufficiency. 4. No further significant valvular disease. 5. Unable to estimate central venous pressure and pulmonary artery pressure. COMMENT: Subacute bacterial endocarditis (SBE) prophylaxis is not recommended. Study does not provide obvious explanation for cerebrovascular accident.
[2017-03-02 08:00] VITALS: BP_SYST 107; BP_SYST 131; BP_SYST 68; BP_DIAS 51; BP_DIAS 59; BP_DIAS 68
[2017-03-02] MEDS: MAGNESIUM OXIDE 400 MG TAB (MAG-OX) PO SCH ×2 (09:00→21:15)
[2017-03-02] MEDS: ENOXAPARIN 30 MG/0.3 ML SYR (J1650) SC SCH (09:59)
[2017-03-02] MEDS: SIMVASTATIN 20 MG TAB PO SCH (10:00)
[2017-03-02] MEDS: TAMSULOSIN 0.4 MG CAP PO SCH (10:00)
[2017-03-02] MEDS: PANTOPRAZOLE 40MG TAB (PROTONIX) PO SCH (10:00)
[2017-03-02] MEDS: CLOPIDOGREL 75 MG TAB PO SCH (10:00)
[2017-03-02] MEDS: ALLOPURINOL 300 MG TAB PO SCH (10:00)
[2017-03-02] MEDS: VITAMIN D 1,000 INTERNATIONAL UNITS TABLET PO SCH (10:00)
[2017-03-02] MEDS: SINEMET 25-100 MG TAB PO SCH ×3 (10:00→16:47)
[2017-03-02] MEDS: FERROUS SULFATE 325MG TAB PO SCH ×2 (10:00→21:15)
[2017-03-02] MEDS: ASPIRIN 81 MG ENTERIC TAB PO SCH (10:00)
[2017-03-02] MEDS: DOCUSATE SODIUM 100 MG CAP PO SCH ×2 (10:00→21:00)
[2017-03-02] MEDS: CLOTRIMAZOLE 10 MG TROCHE MT SCH ×3 (10:01→21:15)
[2017-03-02 11:40] LABS: MAGNESIUM LEVEL 2.6 MG/DL (1.8-2.4)
[2017-03-02] MEDS ORDERED: MOM 30ML SUSPENSION UDC PO PRN (11:45)
[2017-03-02 12:00] VITALS: BP 119/58
--- NOTE | 2017-03-02 12:52 | IPN ---
DATE: 03/02/2017 SUBJECTIVE: Today the patient tells me that he feels fine. He tells me that he did have a fall last evening when he stood up from the toilet. He denies lightheadedness or dizziness upon standing and he did not lose consciousness or hit his head. He tells me that he does not feel lightheadedness or dizziness when he stands this morning either and that he feels well without any complaints. OBJECTIVE: Vital signs while lying supine: Blood pressure is 138/68 with a pulse of 89. While standing his blood pressure is 68/51 with pulse of 57. Temperature is 98.9, pulse 55, respiratory rate 18, oxygen saturation 96% on room air. General: He is a frail, elderly, male lying flat in bed. He did not appear to be in any acute distress. He is awake, alert, oriented times three. HEENT: Cranial nerves II through XII appear to be grossly intact. He has moist mucous membranes and elevation of CVP. Cardiovascular exam: S1, S2, regular. Respiratory exam: Fairly clear. Abdominal exam: Benign. Somewhat scaphoid. Extremities: No clubbing, cyanosis or edema. He does appear wasted. LABORATORY STUDIES: WBC 6.7, hemoglobin 8.7, hematocrit 26.7, platelet count 340. MCV 101. Chemistry panel: Sodium 138, potassium 4.1, chloride 105, bicarbonate 27, BUN 24, creatinine 1.3. Magnesium is 2.6. Both sets of cardiac enzymes are negative. Folate, B12, and TSH levels are all within normal limits. No new imaging. ASSESSMENT AND PLAN: This is an 81-year-old man with multifactorial gait difficulties. PROBLEMS: 1. Multifactorial gait difficulties. Dr. Mills's help was greatly appreciated. The patient has a small right frontal acute ischemic stroke. Patient has lumbosacral spinal stenosis and he was told he is not a surgical candidate. Family declined an MRI of the lumbosacral region. Patient is also notably orthostatic. There is also concern the patient may have Parkinson's and as such, he has begun a trial of Sinemet. The patient is also anemic with a hemoglobin in the 8s and he does have symptoms of orthostasis. All of the above are likely contributing factors to his gait difficulty and falls. 2. Acute ischemic stroke. No clear etiology is determined at this time. He is on Plavix, aspirin, Zocor. Physical therapy and occupational therapy are working with him. Speech therapy has recommended mechanical soft diet. Dr. Mills's help has been appreciated. 3. Suspected Parkinsonism. The patient is orthostatic, hypotensive. He does have some Parkinsonism features. He has been started on Sinemet yesterday evening. He only received one dose and did not notice any significant change in his symptoms. Will continue to monitor closely. 4. Symptomatic anemia. The patient had a blood transfusion apparently 1 month ago he tells me from his primary care provider Dr. Puga. He tells me he had a colonoscopy many, many years ago and does not remember the results. Given that he has had weight loss, poor appetite and is orthostatic, I will transfuse him two units of packed red blood cells and I have asked Dr. Solo of general surgery to evaluate him for the need for potential colonoscopy to rule out a colonic malignancy given that he has symptomatic iron deficiency anemia and an elderly man. 5. Lumbosacral spinal stenosis. Patient was told he was not a surgical candidate in the past. Family declined further work and further imaging. Patient continues to work with physical therapy. 6. Non-sustained ventricular tachycardia. The patient had several episodes of tachycardia and revealed a preserved ejection fraction. His electrolytes have been optimized. Simply monitor for now. He is asymptomatic during brief episodes of PVCs. 7. Chronic constipation, continue with bowel regimen. 8. Lyme disease. The patient completed a 10 day course of amoxicillin as per outpatient provider. 9. Mood disorder. The patient is on Remeron at night. This could be a contributing factor to his orthostatics, however, he is on a very low dose. For now, we will try a trial of fluid resuscitation with blood products and continue to monitor. If his orthostatics fail to improve, could consider discontinuing this medication. 10. Gout. Continue with allopurinol. 11. Vitamin D deficiency. Continue with supplementation. 12. Decreased oral intake. Unclear etiology. He is on a soft mechanical diet. He has no evidence of dysphagia. He has had a swallow evaluation but I do have concern for an occult malignancy and as such, colonoscopy has been requested by Dr. Solo. 13. Benign prostatic hypertrophy (BPH), the patient is on Flomax. 14. Gastroesophageal reflux disease, patient is on Protonix. 15. Deep venous thrombosis (DVT) prophylaxis. Patient is on Lovenox. Will continue to follow this patient very closely. MTDD
[2017-03-02] MEDS: SENOKOT S TAB PO SCH ×2 (13:43→21:15)
[2017-03-02 19:32] VITALS: BP 137/71
--- NOTE | 2017-03-02 19:56 | ECGEPIP ---
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
--- NOTE | 2017-03-02 20:51 | CR ---
DATE OF CONSULTATION: 03/02/2017 REASON FOR CONSULTATION: Iron-deficient anemia. HISTORY OF PRESENT ILLNESS: The patient is an 81-year-old male with a history of hypertension, hyperlipidemia, gastroesophageal reflux disease (GERD), stroke, and coronary artery disease presents to the hospital on 02/28/2017 with a history of multiple falls and weakness as well as a 20-pound weight loss over the last 3 weeks. He currently is being treated for a new onset of frontal lobe stroke. However, during this admission they have noticed increasing drop of his hemoglobin. He has had an outpatient transfusion by Dr. Puga just over a month ago and his hemoglobin has now dropped back down to 8.7. He is positive orthostatic hypotension and will be receiving two more units of blood this afternoon. Because of this anemia that is without a source, I was asked to see him for possible colonoscopy and endoscopy. There is no signs of difficulty swallowing and coughing with swallowing from the records. However, the patient denies any difficulty with eating or swallowing to me and he says that he has just had a lack of appetite for last 3 weeks. He does admit to the weight loss, but again he says it is not because he eating, it just because of lack of interest in food. Denies any fevers or chills. No night sweats. No family history of colon cancer or colon diseases. He thinks he had a colonoscopy many years ago, but is not sure of what it was or what they found. No signs of any blood in his stool. No coughing up blood. No vomiting blood. I talked to him about a colonoscopy and at this point he is completely uninterested. PAST MEDICAL HISTORY: Hypertension. Hyperlipidemia. GERD. Benign prostatic hypertrophy (BPH). Chronic kidney disease. History of transient ischemic attack (TIA). History of kidney stones. Unsteady gait. Lyme disease. PAST SURGICAL HISTORY: Coronary artery bypass graft (CABG). Fem-pop bypass. Abdominal aortic aneurysm repair. Right inguinal hernia. Appendectomy. SOCIAL HISTORY: Denies drug, alcohol, tobacco usage. FAMILY HISTORY: Noncontributory. REVIEW OF SYSTEMS: Pertinent positive and negatives stated in the HPI. PHYSICAL EXAMINATION: General: Patient is awake and alert, oriented times three. Vitals: Temperature 98, pulse 80, respirations 18, blood pressure 119/58, pulse oximetry 94% on room air. HEENT: Pupils equal, round, react to light and accommodation. Heart: S1-S2, regular rate and rhythm. Lungs: Clear to auscultation bilaterally. Abdomen: Soft, nontender, nondistended. Bowel sounds positive. Extremities: No clubbing, cyanosis or edema. LABORATORY DATA: White count 6.7, hemoglobin 10.5 on admission, down to 8.7 today, platelets 340. Iron is 28, total iron-binding concentration is 137, albumin is 2. IMAGING STUDIES: Brain MRI shows a punctate acute right frontal lobe infarct, old left cerebellar lacunar infarct. Small vessel ischemic disease and moderate volume loss. ASSESSMENT/PLAN: Patient is an 81-year-old male currently being hospitalized for stroke. He has weight loss of over 20 pounds in the past month as well as loss of appetite. There is possibility of some dysphagia and he has got iron-deficient anemia that he has already received one outpatient transfusion for and he has receiving another one today due to orthostatic hypotension. I was asked to evaluate him for upper and lower endoscopy to find a source for this anemia. However, after discussing this with the patient, he is uninterested at this time. I had this conversation with him as well as his and his daughter in the room and none of them seemed interested in having any endoscopy completed. So at this point we will continue to watch the patient; if he does well after this transfusion then he will likely be discharged home. However, if he shows signs of continued blood loss then I would recommend he see me as an outpatient to have this endoscopy completed.
[2017-03-02] MEDS: MIRALAX *UNIT DOSE* 17GM PACKET PO SCH (21:14)
[2017-03-02] MEDS: MIRTAZAPINE 7.5MG PER 1/2 TABLET PO SCH (21:15)
[2017-03-02 23:56] VITALS: BP_SYST 101; BP_SYST 102; BP_SYST 138; BP_DIAS 58; BP_DIAS 62; BP_DIAS 80
[2017-03-03 05:56] LABS: BASO # 0.1 K/mm3 (0.0-0.2); BASO % 0.6 % (0.0-1.0); EOS # 0.1 K/mm3 (0.0-0.50); EOS % 0.7 % (0.0-3.0); LARGE UNSTAINED CELL # 0.1 K/mm3 (0.0-0.4); LARGE UNSTAINED CELL % 0.9 % (0.0-4.0); LYMPH # 1.1 K/mm3 (1.5-4.5); LYMPH % 10.9 % (24.0-44.0); MEAN CORPUSCULAR HEMOGLOBIN 32.7 pg (27.0-33.0); MEAN CORPUSCULAR HGB CONC 32.8 g/dl (32.0-36.5); MEAN CORPUSCULAR VOLUME 99.8 fl (80.0-96.0); MONO # 0.5 K/mm3 (0.0-0.8); MONO % 5.5 % (0.0-5.0); NEUTROPHILS # 7.6 K/mm3 (1.8-7.7); NEUTROPHILS % 81.3 % (36.0-66.0); PLATELET COUNT, AUTOMATED 326 k/mm3 (150-450); RED CELL DISTRIBUTION WIDTH 16.4 % (11.5-14.5); WHITE BLOOD COUNT 9.3 K/mm3 (4.0-10.0)
[2017-03-03 06:02] LABS: ALBUMIN 2.1 GM/DL (3.2-5.2); ALBUMIN/GLOBULIN RATIO 0.49 (1.00-1.93); BILIRUBIN,TOTAL 0.9 MG/DL (0.2-1.0); CALCIUM LEVEL 8.6 MG/DL (8.8-10.2); CREATININE FOR GFR 1.24 MG/DL (0.70-1.30); GLOMERULAR FILTRATION RATE 59.7 (>35); POTASSIUM SERUM 4.3 MEQ/L (3.5-5.1); TOTAL PROTEIN 6.4 GM/DL (6.4-8.2)
[2017-03-03] MEDS ORDERED: PREVNAR 13 VACCINE SYRINGE (CPT CODE:90670) IM ONE (09:00)
[2017-03-03] MEDS: MIRALAX *UNIT DOSE* 17GM PACKET PO SCH ×2 (09:36→20:30)
[2017-03-03] MEDS: SENOKOT S TAB PO SCH ×2 (09:37→20:30)
[2017-03-03] MEDS: SINEMET 25-100 MG TAB PO SCH ×3 (09:37→17:12)
[2017-03-03] MEDS: ENOXAPARIN 30 MG/0.3 ML SYR (J1650) SC SCH (09:37)
[2017-03-03] MEDS: FERROUS SULFATE 325MG TAB PO SCH ×2 (09:37→20:30)
[2017-03-03] MEDS: TAMSULOSIN 0.4 MG CAP PO SCH (09:38)
[2017-03-03] MEDS: ASPIRIN 81 MG ENTERIC TAB PO SCH (09:38)
[2017-03-03] MEDS: ALLOPURINOL 300 MG TAB PO SCH (09:38)
[2017-03-03] MEDS: VITAMIN D 1,000 INTERNATIONAL UNITS TABLET PO SCH (09:38)
[2017-03-03] MEDS: SIMVASTATIN 20 MG TAB PO SCH (09:38)
[2017-03-03] MEDS: PANTOPRAZOLE 40MG TAB (PROTONIX) PO SCH (09:38)
[2017-03-03] MEDS: CLOPIDOGREL 75 MG TAB PO SCH (09:38)
[2017-03-03] MEDS: DOCUSATE SODIUM 100 MG CAP PO SCH ×2 (09:38→20:30)
[2017-03-03] MEDS: CLOTRIMAZOLE 10 MG TROCHE MT SCH ×3 (09:38→20:30)
[2017-03-03 11:15] VITALS: BP 114/64
[2017-03-03 11:28] LABS: MAGNESIUM LEVEL 2.6 MG/DL (1.8-2.4)
[2017-03-03] MEDS: MAGNESIUM OXIDE 400 MG TAB (MAG-OX) PO SCH (12:10)
--- NOTE | 2017-03-03 12:56 | IPN ---
DATE: 03/03/2017 SUBJECTIVE: Today the patient tells me that he still feels weak, although he feels somewhat better after getting blood. Denies chest pain, shortness of breath, fevers, chills, nausea, vomiting. He still complains of poor appetite, unsteadiness on his feet. OBJECTIVE: VITAL SIGNS: Temperature 98.6, pulse 84, respiratory rate 20, blood pressure 114/64, oxygen saturation 100% on room air. General: He is a pleasant, elderly, male lying flat in bed. He is accompanied by his daughter, who is at [facility]. He does not appear to be in any acute distress. HEENT: Cranial nerves II through XII are grossly intact. He has moist mucous membranes. No elevation of central venous pressure. Cardiovascular exam: S1, S2, regular. Respiratory exam: Fairly clear. Abdominal exam: Benign. Extremities: No clubbing, cyanosis or edema. LABORATORY STUDIES: WBC 9.3, hemoglobin 11.1, up from 8.7, hematocrit 33.8, platelet count 326. Chemistry panel: Sodium 141, potassium 4.3, chloride 107, bicarbonate 25, BUN 20, creatinine 1.2. Occult stool for blood was positive. No new imaging. ASSESSMENT AND PLAN: This is an 81-year-old man with multifactorial gait difficulties. PROBLEMS: 1. Multifactorial gait difficulties. Dr. Mills's help was greatly appreciated. Many contributing factors. He has had a small acute right frontal ischemic stroke, he has lumbosacral spinal stenosis and declined interventions and further evaluation regarding it in the past. There is also concern that he may have Parkinson's, as well as he has been orthostatic and iron deficiency anemia. He is continuing to work with physical therapy. I have encouraged physical therapy to work with him today. 2. Acute ischemic stroke. No clear etiology. He is on aspirin, Plavix and Zocor. He continues to work with physical therapy and occupational therapy. Dr. Mills's help is appreciated. 3. Suspected Parkinsonism. He has orthostasis, maybe related to this. He has been started on Sinemet. He does not notice any significant change in his complaints. We will defer to neurology. 4. Symptomatic anemia. He did receive a transfusion of 2 units yesterday. He is still orthostatic this morning following that. As such, I feel that it is less likely that he is volume depleted and this more likely related an autonomic dysfunction. A B12 level and TSH were within normal limits. At this time, I will discontinue his mirtazapine, as it could be potential etiology. If this fails to improve, I suspect that it is likely related to autonomic dysfunction and will warrant further outpatient workup. 5. Lumbosacral spinal stenosis. Patient has been told that he is not a surgical candidate in the past. Family declined further workup, including MRI at this time. As outlined above. 6. With weight loss, poor oral intake, decreased appetite, iron deficiency anemia, occult stool positive for blood, there is certainly concern for colon cancer. I have asked Dr. Solo to see the patient and consider a colonoscopy. At this time, the patient declines it. He is considering do not resuscitate and do not intubate, but is not prepared to sign the paperwork. It seems as though he is very limited in what medical interventions he wants. Given his advanced age, it is certainly a conversation that should be completed; however, he is declining this now and it can be considered in the outpatient setting. 7. Lyme disease. The patient completed a 10 day course of amoxicillin as per outpatient provider. 8. Mood disorder. We are discontinuing his Remeron as outlined above. Should his orthostatics fail to improve after discontinuing this low dose of Remeron, could consider restarting it. 9 Gout. Continue with allopurinol. 10. Vitamin D deficiency. Continue with supplementation. 11. Benign prostatic hypertrophy (BPH), the patient is on Flomax. 12. Gastroesophageal reflux disease, patient is on Protonix. 13. Deep venous thrombosis (DVT) prophylaxis. He is on Lovenox. Awaiting physical therapy (PT) recommendations. He may be a candidate for Physical Medicine and Rehabilitation (PM R). WE will discuss further with neurology. He may be able to be discharged in the next 24 to 48 hours.
[2017-03-03 14:00] VITALS: BP 143/79
[2017-03-03 18:00] VITALS: BP 129/72
[2017-03-03 21:00] VITALS: BP_SYST 102; BP_SYST 129; BP_SYST 76; BP_DIAS 50; BP_DIAS 63; BP_DIAS 73
[2017-03-04 02:00] VITALS: BP 124/73
[2017-03-04 06:00] VITALS: BP 154/75
[2017-03-04 07:07] LABS: ALBUMIN 2.2 GM/DL (3.2-5.2); ALBUMIN/GLOBULIN RATIO 0.51 (1.00-1.93); BILIRUBIN,TOTAL 0.5 MG/DL (0.2-1.0); CALCIUM LEVEL 8.4 MG/DL (8.8-10.2); CREATININE FOR GFR 1.28 MG/DL (0.70-1.30); GLOMERULAR FILTRATION RATE 57.6 (>35); MAGNESIUM LEVEL 2.7 MG/DL (1.8-2.4); POTASSIUM SERUM 4.5 MEQ/L (3.5-5.1); TOTAL PROTEIN 6.5 GM/DL (6.4-8.2)
[2017-03-04 07:12] LABS: BASO % 0.6 % (0.0-1.0); EOS # 0.2 K/mm3 (0.0-0.50); EOS % 2.2 % (0.0-3.0); LARGE UNSTAINED CELL # 0.1 K/mm3 (0.0-0.4); LARGE UNSTAINED CELL % 0.9 % (0.0-4.0); LYMPH # 0.9 K/mm3 (1.5-4.5); MEAN CORPUSCULAR HEMOGLOBIN 32.1 pg (27.0-33.0); MEAN CORPUSCULAR VOLUME 100.2 fl (80.0-96.0); MONO # 0.6 K/mm3 (0.0-0.8); MONO % 7.3 % (0.0-5.0); NEUTROPHILS # 5.9 K/mm3 (1.8-7.7); PLATELET COUNT, AUTOMATED 398 k/mm3 (150-450); RED CELL DISTRIBUTION WIDTH 15.9 % (11.5-14.5); WHITE BLOOD COUNT 7.6 K/mm3 (4.0-10.0)
[2017-03-04 08:26] VITALS: BP_SYST 127; BP_SYST 142; BP_SYST 89; BP_DIAS 50; BP_DIAS 59; BP_DIAS 66
[2017-03-04] MEDS: CLOPIDOGREL 75 MG TAB PO SCH (08:34)
[2017-03-04] MEDS: VITAMIN D 1,000 INTERNATIONAL UNITS TABLET PO SCH (08:34)
[2017-03-04] MEDS: ALLOPURINOL 300 MG TAB PO SCH (08:34)
[2017-03-04] MEDS: SIMVASTATIN 20 MG TAB PO SCH (08:34)
[2017-03-04] MEDS: PANTOPRAZOLE 40MG TAB (PROTONIX) PO SCH (08:34)
[2017-03-04] MEDS: ASPIRIN 81 MG ENTERIC TAB PO SCH (08:34)
[2017-03-04] MEDS: SINEMET 25-100 MG TAB PO SCH ×2 (08:34→12:23)
[2017-03-04] MEDS: TAMSULOSIN 0.4 MG CAP PO SCH (08:34)
[2017-03-04] MEDS: ENOXAPARIN 30 MG/0.3 ML SYR (J1650) SC SCH (08:35)
[2017-03-04] MEDS: MIRALAX *UNIT DOSE* 17GM PACKET PO SCH (08:35)
[2017-03-04] MEDS: CLOTRIMAZOLE 10 MG TROCHE MT SCH (08:35)
[2017-03-04] MEDS: SENOKOT S TAB PO SCH (08:35)
[2017-03-04] MEDS: DOCUSATE SODIUM 100 MG CAP PO SCH (08:35)
[2017-03-04] MEDS: FERROUS SULFATE 325MG TAB PO SCH (08:35)
[2017-03-04 10:00] VITALS: BP 132/69
[2017-03-04] MEDS ORDERED: SIMV20TA2 PO (11:33)
[2017-03-04] MEDS ORDERED: CARB25TA PO (11:33)
[2017-03-04] MEDS ORDERED: FERR1TAB8 PO (11:33)
--- NOTE | 2017-03-05 21:40 | DSES ---
DATE OF ADMISSION: 02/28/2917 DATE OF DISCHARGE: 03/04/2017 CONSULTS: 1. Dr. Mills, neurology. 2. Dr. Solo, general surgery. DISCHARGE DIAGNOSIS: Multifactorial gait difficulties. SECONDARY DIAGNOSES: 1. Acute right frontal cerebrovascular accident (CVA). 2. 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 3. Symptomatic anemia. 4. Lumbosacral spinal stenosis. 5. Lyme disease. 6. Mood disorder. 7. Gout. 8. Vitamin D deficiency. 9. Benign prostatic hypertrophy (BPH). 10. Gastroesophageal reflux disease. HOSPITAL COURSE: The patient is an 81-year-old man who presented on 02/28/2017, who had a fall in the bathroom and hit his back on the vanity. Patient reportedly had three falls in the last one week and then he has reportedly been getting up and going to the bathroom without using his walker. Patient has recently been seen in the emergency room on 02/18/2017 and diagnosed with Lyme disease. He also has had significant weight loss over the last several weeks. Patient was admitted to the hospitalist service on telemetry unit. He did have a supraventricular tachycardia (SVT). An echocardiogram did not reveal any gross abnormalities. He had preserved ejection fraction, mild to moderate mitral insufficiency. He was seen by Dr. Mills of neurology who thought that he had multifactorial gait difficulty secondary to many of the above: Parkinsonism, lumbosacral spinal stenosis, orthostasis, symptomatic anemia, acute ischemic stroke. SUBJECTIVE: This morning, the patient reports he is feeling well. He has no complaints. He denies feeling lightheaded or dizzy when standing up. OBJECTIVE: VITAL SIGNS: Temperature 97, pulse 82, respiratory rate 20, blood pressure 142/66 while laying supine and standing 89/50, oxygen saturation 99% on room air. GENERAL: He is a pleasant, elderly man sitting up eating breakfast. He does not appear to be in any acute distress. He is awake, alert, oriented times three. HEENT: Cranial nerves II-XII are grossly intact. He has moist mucous membranes. He does have a flat, masklike face. CARDIOVASCULAR EXAMINATION: S1, S2. Regular rhythm. CHEST EXAMINATION: Clear. ABDOMINAL EXAMINATION: Benign. EXTREMITIES: No clubbing, cyanosis or edema. There is some cogwheel rigidity appreciated. LABORATORY STUDIES: WBC 7.6, hemoglobin 11.2, MCV 100.2, platelet count 398. Chemistry panel: Sodium 144, potassium 4.5, chloride 109, bicarbonate 28, BUN 22, creatinine 1.2. He had three sets of cardiac enzymes, which were negative. Folate and B12 levels are within normal limits. He did have a stool occult for blood, which was positive. He had a vascular ultrasound which revealed less than 50% stenosis of the internal carotid artery (ICA). No hemodynamically significant flow. Proximal right common carotid artery (CCA) stenosis with high peak velocity. Cranial direction flow of the left vertebral artery. Atherosclerotic plaque in the distal common carotid artery. Patient had an MRI of the brain, which revealed punctate acute right frontal lobe infarction, old left cerebellar lacunar infarction. Cervical CT revealed spondylosis C1-2 through C7-T1. No fractures or subluxation. Patient did have a CT scan of the head that reveals small vessel ischemic disease and moderate volume loss. He had a thoracic spine x-ray that revealed diffuse degenerative changes without evidence of acute fracture or dislocation. ASSESSMENT AND PLAN: This is an 81-year-old man with an acute cerebrovascular accident (CVA) and multifactorial gait difficulty. PROBLEMS: 1. Multifactorial gait difficulty. Dr. Mills's help is appreciated. Many contributing factors, including Parkinsonism, new diagnosis with orthostasis, lumbosacral spinal stenosis, iron deficiency anemia. 2. Acute cerebrovascular accident (CVA). No clear etiology. He is on aspirin, Plavix and Zocor. Dr. Mills of neurology's help is greatly appreciated. Will be on secondary prevention. He will follow up with neurology in the outpatient setting. He continues to work with physical therapy (PT) and occupational therapy (OT). A swallowing evaluation was conducted while he was here. He will be discharged to physical medicine and rehabilitation (PM and R) to continue physical therapy. 3. Suspected Parkinsonism. He has been started on Sinemet as a trial. He will follow up with neurology. His orthostasis may be related to this. All medications have been reviewed and optimized. He will require gait training with physical medicine and rehabilitation (PM and R) and continued rehabilitation. 4. Symptomatic anemia. He received 2 units of packed red blood cells while in hospital. It has not improved his orthostasis, but he did feel better after it. He has had weight loss and poor oral intake. Given his occult stool for being positive, there is certainly concern for an occult malignancy. I did discuss this in great length with the patient and his daughter. They declined any colonoscopy at this time, which was offered by Dr. Solo. When explained the severity of the situation, they suggested they might be more willing to do it on the outpatient setting, but not while in the hospital. I did discuss code status with the patient. He did express to me he wished to be a DO NOT RESUSCITATE/DO NOT INTUBATE, but he was never prepared to sign any forms, despite numerous visits and conversations. He wanted to discuss further with family and, although much of family has been bedside during these conversations, he wished to discuss it with other family. 5. Lyme disease. The patient completed a 10-day course of amoxicillin, as per prescribed prior to his hospitalization. 6. Lumbosacral spinal stenosis. Patient has been told he is not a surgical candidate in the past and the family declined any further workup including MRI of the lumbosacral spine at this time. 7. Mood disorder. Patient was admitted to the hospital on Remeron, but as he did have orthostasis, we will discontinue this and monitor orthostatics in the outpatient setting and see if his orthostatics improve with discontinuing of this medication. 8. Gout. Continue allopurinol. 9. Vitamin D deficiency. Continue with supplementation. 10. Benign prostatic hypertrophy (BPH). Continue with Flomax. 11. Gastroesophageal reflux disease. He is on Protonix. 12. Deep venous thrombosis (DVT) prophylaxis. He has been on Lovenox. DISPOSITION: The patient is being discharged to physical medicine and rehabilitation (PM and R). I did give an oral assignment to Dr. Bar and discussed the case with Dr. Mills and Dr. Solo. He is to follow up with neurology in two weeks. Follow up with Dr. Solo in one month and his primary care provider (PCP) within seven days. Activity as tolerated. Diet is soft mechanical. MEDICATIONS AT TIME OF DISCHARGE: - Sinemet 250/100 one tablet three times a day - ferrous sulfate 325 mg twice a day - simvastatin 40 mg daily - allopurinol 300 mg daily - aspirin 81 mg daily - vitamin D 1000 units daily - Plavix 75 mg daily - clotrimazole 10 mg three times a day - Colace 100 mg twice a day - lansoprazole 50 mg every evening - magnesium oxide 400 mg twice a day - tamsulosin 0.4 mg daily - tramadol 50 mg four times a day Greater than 30 spent organizing disposition.
== END 2017-03-04 15:00 | DRG 65 ==
LOC: M ED 09:04 → M ED INP 15:34 → M PCU 17:33 → OBSVTOIN 03-01 08:45 → M MSPAV 03-03 11:18
PROVIDERS: ADMIT Internal Medicine; ATTEND Internal Medicine
PROC: 30253N1 (ICD-10-PCS; principal; 2017-03-02)
DX: I63.9 Cerebral infarction, unspecified (principal); A69.20 Lyme disease, unspecified; I12.9 Hypertensive chronic kidney disease with stage 1 through stage 4 chronic kidney disease, or unspecified chronic kidney disease; E78.5 Hyperlipidemia, unspecified; K21.9 Gastro-esophageal reflux disease without esophagitis; R29.6 Repeated falls; N40.0 Benign prostatic hyperplasia without lower urinary tract symptoms; N18.3 Chronic kidney disease, stage 3 (moderate); R26.81 Unsteadiness on feet; M48.06 Spinal stenosis, lumbar region; D50.9 Iron deficiency anemia, unspecified; G20 Parkinson's disease; M10.9 Gout, unspecified; Z95.1 Presence of aortocoronary bypass graft; I95.1 Orthostatic hypotension; K59.00 Constipation, unspecified; F39 Unspecified mood [affective] disorder; E55.9 Vitamin D deficiency, unspecified; R63.4 Abnormal weight loss; Z98.62 Peripheral vascular angioplasty status; Z79.82 Long term (current) use of aspirin; Z79.02 Long term (current) use of antithrombotics/antiplatelets; Z79.899 Other long term (current) drug therapy

== ENCOUNTER 2017-03-04 14:55 | Inpatient (IN) | payer MEDICARE ==
[~2017-03-04 14:55] MED LIST changes: +ASPI81TA24 PO; +CARB25TA PO; +CLOT10TR MT; +COLA100C5 PO; +FERR1TAB8 PO; +FLOM5CAP PO; +HYDR25TAB PO; +LANS15CA PO; +MAGN400T5 PO; +MIRT1TAB PO; +PLAV1TAB2 PO; +SIMV20TA2 PO; +TRAM50TA2 PO; +VITA100066 PO; +ZYLO300T4 PO
[2017-03-04 15:10] VITALS: BP 114/70
[2017-03-04] MEDS ORDERED: MIRALAX *UNIT DOSE* 17GM PACKET PO PRN (15:45)
[2017-03-04] MEDS ORDERED: MOM 30ML SUSPENSION UDC PO PRN (15:45)
[2017-03-04] MEDS ORDERED: traMADol 50 MG TAB PO PRN (15:45)
[2017-03-04] MEDS ORDERED: ACETAMINOPHEN TAB 650MG DOSE (2X325MG) PO PRN (15:45)
[2017-03-04] MEDS: SINEMET 25-100 MG TAB PO SCH (17:33)
[2017-03-04 20:30] VITALS: BP 134/63
[2017-03-04] MEDS: DOCUSATE SODIUM 100 MG CAP PO SCH (21:20)
[2017-03-04] MEDS: SENOKOT S TAB PO SCH (21:20)
[2017-03-04] MEDS: FERROUS SULFATE 325MG TAB PO SCH (21:20)
[2017-03-05 05:38] VITALS: BP_SYST 121; BP_SYST 126; BP_SYST 158; BP_DIAS 61; BP_DIAS 69; BP_DIAS 77
[2017-03-05 07:18] LABS: BASO # 0.1 K/mm3 (0.0-0.2); BASO % 0.8 % (0.0-1.0); EOS # 0.2 K/mm3 (0.0-0.50); EOS % 2.4 % (0.0-3.0); LARGE UNSTAINED CELL # 0.1 K/mm3 (0.0-0.4); LARGE UNSTAINED CELL % 0.8 % (0.0-4.0); LYMPH # 1.1 K/mm3 (1.5-4.5); LYMPH % 12.3 % (24.0-44.0); MEAN CORPUSCULAR HEMOGLOBIN 31.8 pg (27.0-33.0); MEAN CORPUSCULAR HGB CONC 31.9 g/dl (32.0-36.5); MEAN CORPUSCULAR VOLUME 99.7 fl (80.0-96.0); MONO # 0.5 K/mm3 (0.0-0.8); MONO % 6.4 % (0.0-5.0); NEUTROPHILS # 6.5 K/mm3 (1.8-7.7); NEUTROPHILS % 77.4 % (36.0-66.0); PLATELET COUNT, AUTOMATED 361 k/mm3 (150-450); RED CELL DISTRIBUTION WIDTH 16.1 % (11.5-14.5); WHITE BLOOD COUNT 8.3 K/mm3 (4.0-10.0)
[2017-03-05 07:36] LABS: ALBUMIN 2.2 GM/DL (3.2-5.2); ALBUMIN/GLOBULIN RATIO 0.61 (1.00-1.93); ALKALINE PHOSPHATASE 73 U/L (45-117); ALT/SGPT 10 U/L (12-78); ANION GAP 9 MEQ/L (8-16); AST/SGOT 11 U/L (15-37); BILIRUBIN,TOTAL 0.6 MG/DL (0.2-1.0); BLOOD UREA NITROGEN 23 MG/DL (7-18); CALCIUM LEVEL 8.7 MG/DL (8.8-10.2); CARBON DIOXIDE LEVEL 26 MEQ/L (21-32); CHLORIDE LEVEL 105 MEQ/L (98-107); CREATININE FOR GFR 1.19 MG/DL (0.70-1.30); GLOMERULAR FILTRATION RATE > 60.0 (>35); GLUCOSE, FASTING 89 MG/DL (83-110); MAGNESIUM LEVEL 2.4 MG/DL (1.8-2.4); POTASSIUM SERUM 4.8 MEQ/L (3.5-5.1); SODIUM LEVEL 140 MEQ/L (136-145); TOTAL PROTEIN 5.8 GM/DL (6.4-8.2)
[2017-03-05] MEDS: VITAMIN D 1,000 INTERNATIONAL UNITS TABLET PO SCH (09:14)
[2017-03-05] MEDS: PANTOPRAZOLE 40MG TAB (PROTONIX) PO SCH (09:14)
[2017-03-05] MEDS: SIMVASTATIN 40 MG TAB PO SCH (09:14)
[2017-03-05] MEDS: CLOPIDOGREL 75 MG TAB PO SCH (09:14)
[2017-03-05] MEDS: FERROUS SULFATE 325MG TAB PO SCH ×2 (09:14→20:25)
[2017-03-05] MEDS: DOCUSATE SODIUM 100 MG CAP PO SCH ×2 (09:14→20:25)
[2017-03-05] MEDS: ALLOPURINOL 300 MG TAB PO SCH (09:14)
[2017-03-05] MEDS: SINEMET 25-100 MG TAB PO SCH ×3 (09:14→16:39)
[2017-03-05] MEDS: ASPIRIN 81 MG ENTERIC TAB PO SCH (09:14)
[2017-03-05] MEDS: SENOKOT S TAB PO SCH ×2 (09:14→20:25)
[2017-03-05] MEDS: TAMSULOSIN 0.4 MG CAP PO SCH (09:14)
[2017-03-05] MEDS: ENOXAPARIN 30 MG/0.3 ML SYR (J1650) SC SCH (09:15)
--- NOTE | 2017-03-05 11:07 | PMRHPE ---
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 The patient is also status post old cerebellar CVA. HISTORY OF PRESENT ILLNESS: The patient is an 81-year-old right handed white male who has fallen three times in the last 2 weeks and even fell off the toilet while inpatient. The patient had hit his head. 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 However, the patient has been noted to have increased tone in the upper and lower extremities, shaky gait, and has been plagued by orthostatic hypotension when moved fairly rapidly from sitting to standing or from lying to sitting. The patient has been assessed for a variety of reasons and no clear source has been found, that combined with tone and occasional spontaneous movements suggest the patient may have Parkinson's disease and is now being started on a trial of Sinemet. The patient has recently been seen and felt to have exposure to Lyme disease and has completed an antibiotic course for that. PAST MEDICAL HISTORY: Includes: 1. Atherosclerotic cardiovascular disease, including hypertension, hyperlipidemia, transient ischemic attack in April 2012. 2. Gastroesophageal reflux disease (GERD). 3. Benign prostatic hypertrophy (BPH). 4. Chronic kidney disease stage III with baseline creatinine of 1.4 to 1.6. 5. History of kidney stones. 6. Recent Lyme disease. PAST SURGICAL HISTORY: Includes: 1. Coronary artery bypass graft (CABG). The family believes it is three vessel. 2. Status post femoral-popliteal bypass. 3. Abdominal aortic aneurysm repair. 4. Right inguinal hernia repair. 5. Appendectomy. ALLERGIES: No known drug allergies. MEDICATIONS: On admission: - Tylenol - allopurinol for gout - enteric coated aspirin - Sinemet 25/100 three times a day - Plavix 75 mg daily - Senokot S one tablet twice a day - Colace 100 mg twice a day - Lovenox for deep vein thrombosis (DVT) prevention, 30 mg daily - iron sulfate 325 mg twice a day for anemia - milk of magnesia 30 mg as needed for constipation - omeprazole 40 mg daily for GERD - MiraLAX one packet daily as needed for constipation - simvastatin 40 mg daily for hyperlipidemia - tamsulosin 0.4 mg daily for benign prostatic hypertrophy (BPH) - Tramadol 50 mg every 6 hours as needed for pain - vitamin D 1000 units daily REVIEW OF SYSTEMS: Basically, those things reviewed in the history above. 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 PHYSICAL EXAMINATION: The patient is slightly below average height, 5 feet 7 inches, 72 kg, elderly, white male who looks stated age with extensive balding with a little bit of hair left at the temples and graying of the hair. HEENT: Pupils are equal, round and reactive to light and accommodation at approximately 4 mm in diameter. Extraocular motions are intact. Hearing is fair. Oropharynx shows a little bit of thrush on the posterior tongue, otherwise no significant lesions. Nasal passages are open with straight septum. NECK: Supple. Thyroid is normal size and texture. No carotid bruits are appreciated. LUNGS: Clear in all garcia to auscultation. CORONARY: Shows a regular rate and rhythm with normal S1, S2 with a little bit of holosystolic murmur, about grade 3 present. 2/4 bilateral radial pulses. ABDOMEN: Benign with normal bowel sounds in all quadrants. No masses present. A little bit tympany distributed throughout. EXTREMITIES: Upper and lower extremities with functional range of motion; however, the patient does have cogwheeling tone on movement to the upper and also, to a lesser degree, lower extremities. NEUROLOGIC: The patient is alert and oriented to person, place, general time and general situation. Speech is clear, coherent and appropriate. Affect is pleasant and cooperative. Memory was not tested. Daughter tends to fill in the answers for him anyway. Motor strength is 4+ to 5 in the upper and lower extremities. Rapid alternating movements are decreased. The patient tends to have rolling continuous motions with his thumbs and questionable mild resting tremor. However, clearly cogwheeling in bilateral arms. Deep tendon reflexes are 1 to 2 out of 4 bilateral upper and lower extremities. Light touch is intact to bilateral upper and lower extremities. ASSESSMENT AND PLAN: 1. Rehabilitation of neurologic deficits leading to falls, most likely a combination of CVA and new onset very likely Parkinson's disease. The patient chemically is being treated with anti Parkinson medication, Sinemet, but additionally balance training with physical and occupational therapy using adaptive equipment for better support, such as a walker and stretching and tone control techniques should be beneficial to this gentleman. 2. Atherosclerotic cardiovascular diseae. Medicine consult has been sent. They are familiar with the patient. We will continue aspirin for clot prevention, along with the Lovenox for deep vein thrombosis (DVT) prevention at this time and the tamsulosin, which is also helping blood pressure, as well as the urinary retention from the benign prostatic hypertrophy (BPH). Also for prevention of clots, the patient will continue on Plavix 75 mg daily. 3. Chronic kidney disease with a history of kidney stones and elevated creatinine. We will continue the patient on current diet and have medicine service advise if any changes need to be made. POST ADMISSION PHYSICAL EVALUATION: Patient is consistent with his preadmission screening and definitely needs to learn appropriate compensation to avoid future recurrent falls. I am hopeful that we can get appropriate support hose to try and keep him from having drop outs of his blood pressure and whether or not we are able to get a good response to Parkinson medications for the autonomic dysfunction, but also teaching the patient to make slow adjustments between levels and other techniques, such as muscle tightening in the legs to prevent a drop in pressure may be of help and avoid these falls. I do think that the patient should be able to tolerate the three hours of therapy today and anticipating discharging him to home with family. I think his prognosis is fair to good. I estimate his length of stay to be approximately 10 days. Time spent on chart review, history and physical and documentation is greater than 70 minutes. MASOOD
[2017-03-05 14:00] VITALS: BP 108/61
[2017-03-05 20:00] VITALS: BP 116/68
[2017-03-06 04:30] VITALS: BP 150/76
[2017-03-06] MEDS: TAMSULOSIN 0.4 MG CAP PO SCH (09:16)
[2017-03-06] MEDS: CLOPIDOGREL 75 MG TAB PO SCH (09:16)
[2017-03-06] MEDS: VITAMIN D 1,000 INTERNATIONAL UNITS TABLET PO SCH (09:16)
[2017-03-06] MEDS: PANTOPRAZOLE 40MG TAB (PROTONIX) PO SCH (09:16)
[2017-03-06] MEDS: ALLOPURINOL 300 MG TAB PO SCH (09:16)
[2017-03-06] MEDS: SIMVASTATIN 40 MG TAB PO SCH (09:16)
[2017-03-06] MEDS: SINEMET 25-100 MG TAB PO SCH ×3 (09:16→16:12)
[2017-03-06] MEDS: ENOXAPARIN 30 MG/0.3 ML SYR (J1650) SC SCH (09:16)
[2017-03-06] MEDS: DOCUSATE SODIUM 100 MG CAP PO SCH ×2 (09:16→19:47)
[2017-03-06] MEDS: FERROUS SULFATE 325MG TAB PO SCH ×2 (09:17→19:47)
[2017-03-06] MEDS: SENOKOT S TAB PO SCH ×2 (09:17→19:47)
[2017-03-06] MEDS: ASPIRIN 81 MG ENTERIC TAB PO SCH (09:17)
[2017-03-06 14:00] VITALS: BP 126/69
[2017-03-06 20:00] VITALS: BP 121/61
[2017-03-07 08:10] LABS: MEAN CORPUSCULAR HEMOGLOBIN 32.3 pg (27.0-33.0); MEAN CORPUSCULAR VOLUME 100.8 fl (80.0-96.0)
[2017-03-07] MEDS: SIMVASTATIN 40 MG TAB PO SCH (08:53)
[2017-03-07] MEDS: TAMSULOSIN 0.4 MG CAP PO SCH (08:53)
[2017-03-07] MEDS: ALLOPURINOL 300 MG TAB PO SCH (08:53)
[2017-03-07] MEDS: ENOXAPARIN 30 MG/0.3 ML SYR (J1650) SC SCH (08:53)
[2017-03-07] MEDS: SINEMET 25-100 MG TAB PO SCH ×3 (08:53→16:27)
[2017-03-07] MEDS: DOCUSATE SODIUM 100 MG CAP PO SCH ×2 (08:53→21:11)
[2017-03-07] MEDS: SENOKOT S TAB PO SCH ×2 (08:53→21:11)
[2017-03-07] MEDS: FERROUS SULFATE 325MG TAB PO SCH ×2 (08:54→21:11)
[2017-03-07] MEDS: VITAMIN D 1,000 INTERNATIONAL UNITS TABLET PO SCH (08:54)
[2017-03-07] MEDS: PANTOPRAZOLE 40MG TAB (PROTONIX) PO SCH (08:54)
[2017-03-07] MEDS: CLOPIDOGREL 75 MG TAB PO SCH (08:54)
[2017-03-07] MEDS: ASPIRIN 81 MG ENTERIC TAB PO SCH (08:54)
--- NOTE | 2017-03-07 11:15 | IPNPDOC ---
Date Seen The patient was seen on 03/07/17. Progress Note HPI: 81yoM transferred to ARU to the care of Dr Bar S/P acute Right frontal CVA. Pt completed 10 day treatment for Lyme disease. Was seen by Neurology with suspected Parkinsonism with orthostasis. Denies any fevers, chills,YORK, CP, SOB, cough, palpitations, abdominal pain, N/V/ D or changes in bowel or bladder habits. Hospitalist consulted for medical management. PMHx: HTN HLD GERD BPH CKD3 baseline 1.4-1.6 H/O TIA 10/12 H/O kidney stones unsteady gait/H/O fall. Pt declines to use walker at home Lyme disease Suspected Parkinson's disease Fe def anemia. Declined colonoscopy. LS Spinal stenosis. PSHX: CABG Fempop bypass AAA repair Rt inguinal hernia appendectomy PE: GEN: 81yoM, appears stated age. Well-nourished, well developed. No acute distress. Alert and oriented x 3. Pleasant, interactive. HEENT: Normocephalic, atraumatic. Sclera are nonicteric. Conjunctiva without injection. Nose midline. No facial asymmetry. Moist mucous membranes. Dentition fair. Pharynx pink and moist. Neck supple, trachea midline. CHEST: Regular rate and rhythm, +S1, +S2 LUNGS: Clear to auscultation bilaterally. No wheezes, rales, or rhonchi. ABD: Round, soft, non-tender, non-distended. +Bowel sounds throughout. No rebound or guarding. No costovertebral angle tenderness. EXT: Pulses 2+ bilaterally dorsalis pedis and radial. No lower extremity edema appreciated. SKIN: [place], dry, warm. Capillary refill <2sec. There is an ecchymotic area noted upper thoracic area. NEURO: Alert and oriented x 3. Cranial nerves III-XII are intact. No focal deficits appreciated. MRI brain 1. Punctate acute right frontal lobe infarction . 2. Old left cerebellar lacunar infarction. 3. Small vessel ischemic disease. 4. Moderate volume loss. CT: head 1. Small vessel ischemic disease. 2. Moderate volume loss CT C spine 1. There is no acute fracture or subluxation. 2. There is cervical spondylosis the C1-2 through C7-T1 levels. XR Thoracic Diffuse degenerative changes without evidence of acute fracture or dislocation. Carotid U/S 1. Atherosclerotic plaque with less than 50% stenosis of the ICA on both sides, no hemodynamically significant or flow restricting lesion. High peak velocity in the right CCA suggests a more proximal right CCA stenosis. ICAs do not have such data suggesting severe stenosis. 2. Cranial direction of flow in the left vertebral artery, the right is not seen. 3. Atherosclerotic plaque in the distal CCA, bulb and proximal ICAs on both sides. A&P: 81yoM transferred to ARU to the care of Dr Bar S/P acute Right frontal CVA. Pt completed treatment for Lyme disease. Was seen by Neurology with suspected Parkinson's disease with orthostasis. 1. The patient is admitted to ARU to Dr. Bar's service. 2. Acute CVA. ASA 81mg daily Plavix 75 mg daily. Zocor 40 mg daily Outpt F/U with Neurology. PT/OT/speech therapy as per Dr Bar. pain control as per Dr Bar. DVT prophylaxis. As per Dr Bar. Lovenox. 3. Lyme disease. Patient completed 10 day course of amoxicillin. 4. CAD/CABG. Zocor 40 mg daily. Continue aspirin 81 mg/Plavix 75 mg daily. 5. HTN. Monitor blood pressures. Monitor orthostatic VS as well. 6. HLD. Continue statin. 7 BPH. Continue tamsulosin. 8. CKD 3. Baseline 1.4-1.6. Monitor. 9. Gout. Continue allopurinol. 10. Suspected Parkinsonism. Mgmt as per Neurology. Sinemet TID. Oupt f/u. Possibly also contributing to orthostasis. Apply TEDS during day. Monitor. 11. Fe def Anemia. Cont Fe supplement. 2 u PRBC 03/02/17. Stool OB pos. No previous colonoscopy on record. This was discussed with Pt and Dtr as per D/C Summary. Pt was seen by Dr Solo. Pt declines colonoscopy however possibly considering as outpt. VS, I&O, 24H, Fishbone Vital Signs/I&O Vital Signs Date Time Temp Pulse Resp B/P (MAP) Pulse Ox O2 Delivery O2 Flow Rate FiO2 03/06/17 20:00 99.3 62 18 121/61 (81) 97 Room Air I&O- Last 24 Hours up to 6 AM 03/07/17 05:59 Intake Total 1200 ml Output Total 200 ml Balance 1000 ml Laboratory Data 24H LABS Laboratory Tests 2 03/07/17 07:43: Magnesium Level 2.5H CBC/BMP Laboratory Tests 03/07/17 07:43 Red Blood Count 3.26 L, Mean Corpuscular Volume 100.8 H, Mean Corpuscular Hemoglobin 32.3, Mean Corpuscular Hemoglobin Concent 32.0, Red Cell Distribution Width 16.0 H Kristan Alexander Mar 07, 2017 11:15
[2017-03-07 14:53] VITALS: BP 114/76
--- NOTE | 2017-03-07 17:31 | IPNPDOC ---
[facility] Progress Note DATE OF SERVICE: 03/07/17 DATE OF ADMISSION: Mar 04, 2017 at 14:55 INPATIENT REHABILITATION ADMISSION DAY: #4 SUBJECTIVE: Patient is a The patient is an 81-year-old right handed white male who has fallen three times in the last 2 weeks and even fell off the toilet while inpatient. The patient had hit his head. 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 ALLERGIES: See Below MEDICATIONS: Reviewed, see below. OBJECTIVE: VITAL SIGNS: Please see below. PHYSICAL EXAMINATION: GENERAL: All elderly white male who is alert and general well oriented in no acute distress. Patient seen in his room standing using a standard walker gaiting his blood pressure checked by occupational therapy. HEENT: Normocephalic/atraumatic with no tremors or pill-rolling. CARDIOVASCULAR: Regular rate and rhythm with a holosystolic murmur. 2 out 4 bilateral radial pulses. Blood pressure on initial standing 84/37 with patient denying a lightheadedness and a heart rate of 82. After sitting for a minute blood pressure 100/57 with a pulse of 80. LUNGS: All garcia clear to auscultation. ABDOMEN: Benign with normal bowel sounds in all quadrants. NEUROLOGICAL: Patient alert and oriented to person place and most elements of time with good understanding of situation. Clock drawing test however shows organizational problems and skewing to the right. Patient continues to have cogwheeling tone in the upper extremities but improved from Tuesday. However balance was stable with the walker. There is a mild resting tremor and some element of intention tremor present on upper extremity actions. SKIN: Grossly intact. LABORATORY DATA: Reviewed. Please see below. MICROBIOLOGY: Please see below. IMAGING: No new imaging. DVT prophylaxis ordered?: Lovenox and XIMENA hose. We'll look to get 20 to 30 mm compression thigh high support hose which will will be more helpful and she'll also keep blood pressure from dropping as much when patient sits up and then stands up. ASSESSMENT AND PLAN: 1. Rehabilitation of CVA and Parkinson's disease: Patient clearly has features of Parkinson's and very little of his deficits in mobility and safety seem to be consistent with right frontal lobe CVA. Patient is participating well in physical and occupational therapy and showing gains in endurance and balance. Rehabilitation team rounds: In light of the clock drawing test and some other deficits patient has shown I will go ahead and have speech-language pathology did a more formal cognitive assessment of this gentleman. Overall patient is doing very well and should reach discharge to home goals with family around March 11. It is anticipated he will need a commode. In light of the stroke and the very likely nature of having Parkinson's disease I do not feel patient is appropriate to return to driving until cleared by the [facility].. 2. Hypotension: Patient seems to be not dropping as low and tolerating it better , but definitely if given a little bit time at each level and doing some muscle contractions in the leg doesn't seem to drop blood pressure is much. I definitely think that support hose will make a difference for this gentleman will try to get him some appropriate thigh high 20-30 mg compression hose. 3. Anemia: Overall seems reasonably stable with a hemoglobin of 10.5 and hematocrit of 32.8%. Of concern is the macrocytosis which we will continue to watch. 4. Hypo-albumenemia: Currently 2.3 and we will watch this. 5. Magnesium: Currently elevated at 2.5 we will reassess this. TIME SPENT: Chart Review, examination and documentation required greater than 25 minutes. Allergies Coded Allergies: No Known Drug Allergy (Verified Allergy, Unknown, 02/28/17) Vital Signs Vital Signs Date Time Temp Pulse Resp B/P (MAP) Pulse Ox O2 Delivery O2 Flow Rate FiO2 03/07/17 14:53 98.9 87 20 114/76 (89) 96 Room Air Laboratory Data CBC/BMP Laboratory Tests 03/07/17 07:43 Red Blood Count 3.26 L, Mean Corpuscular Volume 100.8 H, Mean Corpuscular Hemoglobin 32.3, Mean Corpuscular Hemoglobin Concent 32.0, Red Cell Distribution Width 16.0 H Labs 24H Laboratory Tests 2 03/07/17 07:43: Magnesium Level 2.5H Current Medications Current Medications Current Medications Acetaminophen (Tylenol Tab) 650 mg Q6HP PRN PO PAIN OR FEVER; Start 03/04/17 at 15:45; Stop 04/03/17 at 15:44 Allopurinol (Zyloprim) 300 mg DAILY PO Last administered on 03/07/17t 08:53; Start 03/05/17 at 09:00; Stop 04/04/17 at 08:59 Aspirin (Ecotrin) 81 mg DAILY PO Last administered on 03/07/17 08:54; Start at 09:00; Stop 04/04/17 at 08:59 Carbidopa/Levodopa (Sinemet 25/100) 1 tab TID@0800,1200,1600 PO Last administered on 03/07/17 16:27; Start 03/04/17 at 16:00; Stop 04/03/17 at 15:59 Clopidogrel Bisulfate (PLAVix) 75 mg DAILY PO Last administered on 03/07/17 08 :54; Start 03/05/17 at 09:00; Stop 04/04/17 at 08:59 Docusate Sodium (Colace) 100 mg BID PO Last administered on 03/07/17 08:53; Start 03/04/17 at 21:00; Stop 04/03/17 at 20:59 Enoxaparin Sodium (Lovenox) 30 mg DAILY SC Last administered on 03/07/17 08:53 ; Start 03/05/17 at 09:00; Stop 03/10/17 at 08:59 Ferrous Sulfate (Ferrous Sulfate) 325 mg BID PO Last administered on 03/07/17 08:54; Start 03/04/17 at 21:00; Stop 04/03/17 at 20:59 Magnesium Hydroxide (Milk Of Magnesia) 30 ml BIDP PRN PO CONSTIPATION; Start at 15:45; Stop 04/03/17 at 15:44 Pantoprazole Sodium (Protonix) 40 mg DAILY PO Last administered on 03/07/17 08 :54; Start 03/05/17 at 09:00; Stop 04/04/17 at 08:59 Polyethylene Glycol (Miralax) 1 pkt DAILY PRN PO CONSTIPATION; Start 03/04/17 at 15:45; Stop 04/03/17 at 15:44 Senna/Docusate Sodium (Senokot S) 1 tab BID PO Last administered on 03/07/17 08:53; Start 03/04/17 at 21:00; Stop 04/03/17 at 20:59 Simvastatin (Zocor) 40 mg DAILY PO Last administered on 03/07/17 08:53; Start 03/05/17 at 09:00; Stop 04/04/17 at 08:59 Tamsulosin HCl (Flomax) 0.4 mg DAILY PO Last administered on 03/07/17 08:53; Start 03/05/17 at 09:00; Stop 04/04/17 at 08:59 Tramadol HCl (Ultram) 50 mg Q6HP PRN PO PAIN; Start 03/04/17 at 15:45; Stop at 15:44 Vitamin D (Vitamin D) 1,000 units DAILY PO Last administered on 03/07/17 08:54 ; Start 03/05/17 at 09:00; Stop 04/04/17 at 08:59 DENISHA KNAPP MD Mar 07, 2017 17:31
[2017-03-07 20:00] VITALS: BP 123/64
[2017-03-08 06:00] VITALS: BP 141/74
[2017-03-08] MEDS: SENOKOT S TAB PO SCH ×2 (08:22→20:33)
[2017-03-08] MEDS: ENOXAPARIN 30 MG/0.3 ML SYR (J1650) SC SCH (08:22)
[2017-03-08] MEDS: ALLOPURINOL 300 MG TAB PO SCH (08:23)
[2017-03-08] MEDS: FERROUS SULFATE 325MG TAB PO SCH ×2 (08:23→20:33)
[2017-03-08] MEDS: TAMSULOSIN 0.4 MG CAP PO SCH (08:23)
[2017-03-08] MEDS: DOCUSATE SODIUM 100 MG CAP PO SCH ×2 (08:23→20:33)
[2017-03-08] MEDS: SIMVASTATIN 40 MG TAB PO SCH (08:23)
[2017-03-08] MEDS: SINEMET 25-100 MG TAB PO SCH ×3 (08:23→16:54)
[2017-03-08] MEDS: VITAMIN D 1,000 INTERNATIONAL UNITS TABLET PO SCH (08:23)
[2017-03-08] MEDS: PANTOPRAZOLE 40MG TAB (PROTONIX) PO SCH (08:23)
[2017-03-08] MEDS: ASPIRIN 81 MG ENTERIC TAB PO SCH (08:23)
[2017-03-08] MEDS: CLOPIDOGREL 75 MG TAB PO SCH (08:23)
--- NOTE | 2017-03-08 11:13 | IPNPDOC ---
Drug Abuse Program Coordinator Progress Note DATE OF SERVICE: 03/08/17 DATE OF ADMISSION: Mar 04, 2017 at 14:55 INPATIENT REHABILITATION ADMISSION DAY: #5 SUBJECTIVE: Patient is a The patient is an 81-year-old right handed white male who has fallen three times in the last 2 weeks and even fell off the toilet while inpatient. The patient had hit his head. 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 He denies any recent lightheadedness or dizziness. No pain complaints. ALLERGIES: See Below MEDICATIONS: Reviewed, see below. OBJECTIVE: VITAL SIGNS: Please see below. PHYSICAL EXAMINATION: GENERAL: All elderly white male who is alert and general well oriented in no acute distress. Patient seen in his room standing using a standard walker gaiting his blood pressure checked by occupational therapy. HEENT: Normocephalic/atraumatic with no tremors or pill-rolling. CARDIOVASCULAR: Regular rate and rhythm with a holosystolic murmur. 2 out 4 bilateral radial pulses. LUNGS: All garcia clear to auscultation. ABDOMEN: Benign with normal bowel sounds in all quadrants. NEUROLOGICAL: Patient alert and oriented to person place and most elements of time with good understanding of situation. Clock drawing test however shows organizational problems and skewing to the right. Patient continues to have cogwheeling tone in the upper extremities but improved from Tuesday. However balance was stable with the walker. There is a mild resting tremor and some element of intention tremor present on upper extremity actions. SKIN: Grossly intact. LABORATORY DATA: Reviewed. Please see below. MICROBIOLOGY: Please see below. IMAGING: No new imaging. DVT prophylaxis ordered?: Lovenox and XIMENA hose. We'll look to get 20 to 30 mm compression thigh high support hose which will will be more helpful and she'll also keep blood pressure from dropping as much when patient sits up and then stands up. ASSESSMENT AND PLAN: 1. Rehabilitation of CVA and Parkinson's disease: Patient clearly has features of Parkinson's and very little of his deficits in mobility and safety seem to be consistent with right frontal lobe CVA. Patient is participating well in physical and occupational therapy and showing gains in endurance and balance. Rehabilitation team rounds: In light of the clock drawing test and some other deficits patient has shown I will go ahead and have speech-language pathology did a more formal cognitive assessment of this gentleman. Overall patient is doing very well and should reach discharge to home goals with family around March 11. It is anticipated he will need a commode. In light of the stroke and the very likely that he has Parkinson's disease, I do not feel patient is appropriate to return to driving until cleared by the [facility]. 2. Hypotension: Patient seems to be not dropping as low and tolerating it better , but definitely if given a little bit time at each level and doing some muscle contractions in the leg doesn't seem to drop blood pressure as much. I definitely think that support hose will make a difference for this gentleman will try to get him some appropriate thigh high 20-30 mg compression hose, but for now Sammy wrapping. 3. Anemia: Overall seems reasonably stable with a hemoglobin of 10.5 and hematocrit of 32.8% on 03/07/17. Of concern is the macrocytosis which we will continue to watch. 4. Hypo-albuminemia: On 03/07/17 was 2.3 and we will watch this. 5. Magnesium: Currently normal at 2.3, we will watch this. TIME SPENT: Chart Review, examination and documentation required greater than 25 minutes. Allergies Coded Allergies: No Known Drug Allergy (Verified Allergy, Unknown, 02/28/17) Vital Signs Vital Signs Date Time Temp Pulse Resp B/P (MAP) Pulse Ox O2 Delivery O2 Flow Rate FiO2 03/08/17 09:00 Room Air 03/08/17 06:00 98.9 69 18 141/74 (96) 97 Laboratory Data Labs 24H Laboratory Tests 2 03/08/17 07:06: Magnesium Level 2.3 Current Medications Current Medications Current Medications Acetaminophen (Tylenol Tab) 650 mg Q6HP PRN PO PAIN OR FEVER; Start 03/04/17 at 15:45; Stop 04/03/17 at 15:44 Allopurinol (Zyloprim) 300 mg DAILY PO Last administered on 03/08/17 08:23; Start 03/05/17 at 09:00; Stop 04/04/17 at 08:59 Aspirin (Ecotrin) 81 mg DAILY PO Last administered on 03/08/17 08:23; Start at 09:00; Stop 04/04/17 at 08:59 Carbidopa/Levodopa (Sinemet 25/100) 1 tab TID@0800,1200,1600 PO Last administered on 03/08/17 08:23; Start 03/04/17 at 16:00; Stop 04/03/17 at 15:59 Clopidogrel Bisulfate (PLAVix) 75 mg DAILY PO Last administered on 03/08/17 08 :23; Start 03/05/17 at 09:00; Stop 04/04/17 at 08:59 Docusate Sodium (Colace) 100 mg BID PO Last administered on 03/08/17 08:23; Start 03/04/17 at 21:00; Stop 04/03/17 at 20:59 Enoxaparin Sodium (Lovenox) 30 mg DAILY SC Last administered on 03/08/17 08:22 ; Start 03/05/17 at 09:00; Stop 03/15/17 at 23:55 Ferrous Sulfate (Ferrous Sulfate) 325 mg BID PO Last administered on 03/08/17 08:23; Start 03/04/17 at 21:00; Stop 04/03/17 at 20:59 Magnesium Hydroxide (Milk Of Magnesia) 30 ml BIDP PRN PO CONSTIPATION; Start at 15:45; Stop 04/03/17 at 15:44 Pantoprazole Sodium (Protonix) 40 mg DAILY PO Last administered on 03/08/17 08 :23; Start 03/05/17 at 09:00; Stop 04/04/17 at 08:59 Polyethylene Glycol (Miralax) 1 pkt DAILY PRN PO CONSTIPATION; Start 03/04/17 at 15:45; Stop 04/03/17 at 15:44 Senna/Docusate Sodium (Senokot S) 1 tab BID PO Last administered on 03/08/17 08:22; Start 03/04/17 at 21:00; Stop 04/03/17 at 20:59 Simvastatin (Zocor) 40 mg DAILY PO Last administered on 03/08/17 08:23; Start 03/05/17 at 09:00; Stop 04/04/17 at 08:59 Tamsulosin HCl (Flomax) 0.4 mg DAILY PO Last administered on 03/08/17 08:23; Start 03/05/17 at 09:00; Stop 04/04/17 at 08:59 Tramadol HCl (Ultram) 50 mg Q6HP PRN PO PAIN; Start 03/04/17 at 15:45; Stop at 15:44 Vitamin D (Vitamin D) 1,000 units DAILY PO Last administered on 03/08/17t 08:23 ; Start 03/05/17 at 09:00; Stop 04/04/17 at 08:59 DENISHA KNAPP MD Mar 08, 2017 11:13
[2017-03-08 14:00] VITALS: BP 117/61
[2017-03-08 20:00] VITALS: BP 118/60
[2017-03-09 06:00] VITALS: BP 140/76
[2017-03-09] MEDS: ENOXAPARIN 30 MG/0.3 ML SYR (J1650) SC SCH (08:38)
[2017-03-09] MEDS: TAMSULOSIN 0.4 MG CAP PO SCH (08:38)
[2017-03-09] MEDS: CLOPIDOGREL 75 MG TAB PO SCH (08:38)
[2017-03-09] MEDS: DOCUSATE SODIUM 100 MG CAP PO SCH ×2 (08:38→21:21)
[2017-03-09] MEDS: SENOKOT S TAB PO SCH ×2 (08:38→21:21)
[2017-03-09] MEDS: SINEMET 25-100 MG TAB PO SCH ×3 (08:38→15:36)
[2017-03-09] MEDS: SIMVASTATIN 40 MG TAB PO SCH (08:38)
[2017-03-09] MEDS: ASPIRIN 81 MG ENTERIC TAB PO SCH (08:39)
[2017-03-09] MEDS: FERROUS SULFATE 325MG TAB PO SCH ×2 (08:39→21:21)
[2017-03-09] MEDS: VITAMIN D 1,000 INTERNATIONAL UNITS TABLET PO SCH (08:39)
[2017-03-09] MEDS: ALLOPURINOL 300 MG TAB PO SCH (08:39)
[2017-03-09] MEDS: PANTOPRAZOLE 40MG TAB (PROTONIX) PO SCH (08:39)
[2017-03-09 14:00] VITALS: BP 126/72
--- NOTE | 2017-03-09 14:56 | IPNPDOC ---
[facility] Progress Note DATE OF SERVICE: 03/09/17 DATE OF ADMISSION: Mar 04, 2017 at 14:55 INPATIENT REHABILITATION ADMISSION DAY: #6 SUBJECTIVE: Patient is a The patient is an 81-year-old right handed white male who has fallen three times in the last 2 weeks and even fell off the toilet while inpatient. The patient had hit his head. 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 He denies any recent lightheadedness or dizziness. No pain complaints. ALLERGIES: See Below MEDICATIONS: Reviewed, see below. OBJECTIVE: VITAL SIGNS: Please see below. PHYSICAL EXAMINATION: GENERAL: All elderly white male who is alert and general well oriented in no acute distress. Patient seen in his room standing using a standard walker gaiting his blood pressure checked by occupational therapy. HEENT: Normocephalic/atraumatic with no tremors or pill-rolling. CARDIOVASCULAR: Generally a regular rate and rhythm with a holosystolic murmur and today some PVC beats every 15 to 20 seconds. 2 out 4 bilateral radial pulses. LUNGS: All garcia clear to auscultation. ABDOMEN: Benign with normal bowel sounds in all quadrants. NEUROLOGICAL: Patient alert and oriented to person place and most elements of time with good understanding of situation. Clock drawing test however showed organizational problems and skewing to the right. Patient continues to have cogwheeling tone in the upper extremities. However balance was stable with the walker. There is a mild resting tremor and some element of intention tremor present on upper extremity actions. SKIN: Grossly intact. LABORATORY DATA: Reviewed. Please see below. MICROBIOLOGY: Please see below. IMAGING: No new imaging. DVT prophylaxis ordered?: Lovenox and XIMENA hose. We'll look to get 20 to 30 mm compression thigh high support hose which will will be more helpful and she'll also keep blood pressure from dropping as much when patient sits up and then stands up. ASSESSMENT AND PLAN: 1. Rehabilitation of CVA and Parkinson's disease: Patient clearly has features of Parkinson's and very little of his deficits in mobility and safety seem to be consistent with right frontal lobe CVA. Patient is participating well in physical and occupational therapy and showing gains in endurance and balance. Rehabilitation team rounds: In light of the clock drawing test and some other deficits patient has shown I will go ahead and have speech-language pathology did a more formal cognitive assessment of this gentleman. Overall patient is doing very well and should reach discharge to home goals with family around March 11. It is anticipated he will need a commode. In light of the stroke and the very likely that he has Parkinson's disease, I do not feel patient is appropriate to return to driving until cleared by the [facility]. Patient progressing well, and will look to d/c to home with family on Tuesday. 2. Hypotension: Patient seems to be not dropping as low and tolerating it better , but definitely if given a little bit time at each level and doing some muscle contractions in the leg doesn't seem to drop blood pressure as much. I definitely think that support hose will make a difference for this gentleman will try to get him some appropriate thigh high 20-30 mg compression hose, but for now Sammy wrapping. Thigh high XIMENA hose inadequate, but since being on Sinemet , BP not dropping as much and no complaints of lightheadedness. 3. Anemia: Overall seems reasonably stable with a hemoglobin of 10.5 and hematocrit of 32.8% on 03/07/17. Of concern is the macrocytosis which we will continue to watch. 4. Hypo-albuminemia: On 03/07/17 was 2.3 and we will watch this. 5. Magnesium: 03/08/17 normal at 2.3, we will watch this. TIME SPENT: Chart Review, examination and documentation required greater than 25 minutes. Allergies Coded Allergies: No Known Drug Allergy (Verified Allergy, Unknown, 02/28/17) Vital Signs Vital Signs Date Time Temp Pulse Resp B/P (MAP) Pulse Ox O2 Delivery O2 Flow Rate FiO2 03/09/17 14:00 97.5 84 17 126/72 (90) 99 Room Air Current Medications Current Medications Current Medications Acetaminophen (Tylenol Tab) 650 mg Q6HP PRN PO PAIN OR FEVER; Start 03/04/17 at 15:45; Stop 04/03/17 at 15:44 Allopurinol (Zyloprim) 300 mg DAILY PO Last administered on 03/09/17t 08:39; Start 03/05/17 at 09:00; Stop 04/04/17 at 08:59 Aspirin (Ecotrin) 81 mg DAILY PO Last administered on 03/09/17 08:39; Start at 09:00; Stop 04/04/17 at 08:59 Carbidopa/Levodopa (Sinemet 25/100) 1 tab TID@0800,1200,1600 PO Last administered on 03/09/17 12:07; Start 03/04/17 at 16:00; Stop 04/03/17 at 15:59 Clopidogrel Bisulfate (PLAVix) 75 mg DAILY PO Last administered on 03/09/17 08 :38; Start 03/05/17 at 09:00; Stop 04/04/17 at 08:59 Docusate Sodium (Colace) 100 mg BID PO Last administered on 03/09/17 08:38; Start 03/04/17 at 21:00; Stop 04/03/17 at 20:59 Enoxaparin Sodium (Lovenox) 30 mg DAILY SC Last administered on 03/09/17 08:38 ; Start 03/05/17 at 09:00; Stop 03/15/17 at 23:55 Ferrous Sulfate (Ferrous Sulfate) 325 mg BID PO Last administered on 03/09/17 08:39; Start 03/04/17 at 21:00; Stop 04/03/17 at 20:59 Magnesium Hydroxide (Milk Of Magnesia) 30 ml BIDP PRN PO CONSTIPATION; Start at 15:45; Stop 04/03/17 at 15:44 Pantoprazole Sodium (Protonix) 40 mg DAILY PO Last administered on 03/09/17 08 :39; Start 03/05/17 at 09:00; Stop 04/04/17 at 08:59 Polyethylene Glycol (Miralax) 1 pkt DAILY PRN PO CONSTIPATION; Start 03/04/17 at 15:45; Stop 04/03/17 at 15:44 Senna/Docusate Sodium (Senokot S) 1 tab BID PO Last administered on 03/09/17 08:38; Start 03/04/17 at 21:00; Stop 04/03/17 at 20:59 Simvastatin (Zocor) 40 mg DAILY PO Last administered on 03/09/17 08:38; Start 03/05/17 at 09:00; Stop 04/04/17 at 08:59 Tamsulosin HCl (Flomax) 0.4 mg DAILY PO Last administered on 03/09/17 08:38; Start 03/05/17 at 09:00; Stop 04/04/17 at 08:59 Tramadol HCl (Ultram) 50 mg Q6HP PRN PO PAIN; Start 03/04/17 at 15:45; Stop at 23:55 Vitamin D (Vitamin D) 1,000 units DAILY PO Last administered on 03/09/17 08:39 ; Start 03/05/17 at 09:00; Stop 04/04/17 at 08:59 DENISHA KNAPP MD Mar 09, 2017 14:56
[2017-03-09 20:00] VITALS: BP 138/76
[2017-03-10 06:00] VITALS: BP 131/69
[2017-03-10 07:32] LABS: MEAN CORPUSCULAR HGB CONC 33.6 g/dl (32.0-36.5); MEAN CORPUSCULAR VOLUME 98.4 fl (80.0-96.0); RED CELL DISTRIBUTION WIDTH 15.6 % (11.5-14.5)
[2017-03-10] MEDS: SINEMET 25-100 MG TAB PO SCH ×3 (09:16→15:47)
[2017-03-10] MEDS: CLOPIDOGREL 75 MG TAB PO SCH (09:16)
[2017-03-10] MEDS: TAMSULOSIN 0.4 MG CAP PO SCH (09:16)
[2017-03-10] MEDS: SENOKOT S TAB PO SCH ×2 (09:16→20:25)
[2017-03-10] MEDS: VITAMIN D 1,000 INTERNATIONAL UNITS TABLET PO SCH (09:16)
[2017-03-10] MEDS: ASPIRIN 81 MG ENTERIC TAB PO SCH (09:16)
[2017-03-10] MEDS: PANTOPRAZOLE 40MG TAB (PROTONIX) PO SCH (09:17)
[2017-03-10] MEDS: DOCUSATE SODIUM 100 MG CAP PO SCH ×2 (09:17→20:25)
[2017-03-10] MEDS: SIMVASTATIN 40 MG TAB PO SCH (09:17)
[2017-03-10] MEDS: FERROUS SULFATE 325MG TAB PO SCH ×2 (09:17→20:25)
[2017-03-10] MEDS: ALLOPURINOL 300 MG TAB PO SCH (09:17)
[2017-03-10] MEDS: ENOXAPARIN 30 MG/0.3 ML SYR (J1650) SC SCH (09:17)
--- NOTE | 2017-03-10 10:49 | IPNPDOC ---
Laser/Elect[employer]ics Technician Progress Note DATE OF SERVICE: 03/10/17 DATE OF ADMISSION: Mar 04, 2017 at 14:55 INPATIENT REHABILITATION ADMISSION DAY: #7 SUBJECTIVE: Patient is a The patient is an 81-year-old right handed white male who has fallen three times in the last 2 weeks and even fell off the toilet while inpatient. The patient had hit his head. 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 He denies any recent lightheadedness or dizziness. No pain complaints. ALLERGIES: See Below MEDICATIONS: Reviewed, see below. OBJECTIVE: VITAL SIGNS: Please see below. PHYSICAL EXAMINATION: GENERAL: All elderly white male who is alert and general well oriented in no acute distress. Patient seen in his room standing using a standard walker gaiting his blood pressure checked by occupational therapy. HEENT: Normocephalic/atraumatic with no tremors or pill-rolling. CARDIOVASCULAR: Generally a regular rate and rhythm with a holosystolic murmur and today some PVC beats every 15 to 20 seconds. 2 out 4 bilateral radial pulses. LUNGS: All garcia clear to auscultation. ABDOMEN: Benign with normal bowel sounds in all quadrants. NEUROLOGICAL: Patient alert and oriented to person place and most elements of time with good understanding of situation. Clock drawing test however showed organizational problems and skewing to the right, but less today in [facility]. Patient continues to have cogwheeling tone in the upper extremities. However balance was stable with the walker. There is a mild resting tremor and some element of intention tremor present on upper extremity actions. SKIN: Grossly intact. LABORATORY DATA: Reviewed. Please see below. MICROBIOLOGY: Please see below. IMAGING: No new imaging. DVT prophylaxis ordered?: Lovenox and XIMENA hose. We'll looking to get 20 to 30 mm compression thigh high support hose which will will be more helpful and they should also keep blood pressure from dropping as much when patient sits up and then stands up. ASSESSMENT AND PLAN: 1. Rehabilitation of CVA and Parkinson's disease: Patient clearly has features of Parkinson's and very little of his deficits in mobility and safety seem to be consistent with right frontal lobe CVA. Patient is participating well in physical and occupational therapy and showing gains in endurance and balance. Rehabilitation team rounds: In light of the clock drawing test and some other deficits patient has shown I will go ahead and have speech-language pathology did a more formal cognitive assessment of this gentleman. Overall patient is doing very well and should reach discharge to home goals with family around March 11. It is anticipated he will need a commode. In light of the stroke and the very likely that he has Parkinson's disease, I do not feel patient is appropriate to return to driving until cleared by the [facility]. Patient progressing well, and will look to d/c to home with family on Tuesday. 2. Hypotension: Patient seems to be not dropping as low and tolerating it better , but definitely if given a little bit time at each level and doing some muscle contractions in the leg doesn't seem to drop blood pressure as much. I definitely think that support hose will make a difference for this gentleman will try to get him some appropriate thigh high 20-30 mg compression hose, but for now Sammy wrapping. Thigh high XIMENA hose inadequate, but since being on Sinemet , BP not dropping as much and no complaints of lightheadedness. 3. Anemia: Overall seems reasonably stable with a hemoglobin of 10.5 and hematocrit of 31.3% on 03/10/17. Of concern is the macrocytosis which we will continue to watch. 4. Hypo-albuminemia: On 03/07/17 was 2.3 and we will watch this. 5. Magnesium: 03/08/17 normal at 2.3, we will watch this. TIME SPENT: Chart Review, examination and documentation required greater than 25 minutes. Allergies Coded Allergies: No Known Drug Allergy (Verified Allergy, Unknown, 02/28/17) Vital Signs Vital Signs Date Time Temp Pulse Resp B/P (MAP) Pulse Ox O2 Delivery O2 Flow Rate FiO2 03/10/17 06:00 99.1 63 18 131/69 (89) 97 Room Air Laboratory Data CBC/BMP Laboratory Tests 03/10/17 07:11 Red Blood Count 3.18 L, Mean Corpuscular Volume 98.4 H, Mean Corpuscular Hemoglobin 33.0, Mean Corpuscular Hemoglobin Concent 33.6, Red Cell Distribution Width 15.6 H Current Medications Current Medications Current Medications Acetaminophen (Tylenol Tab) 650 mg Q6HP PRN PO PAIN OR FEVER; Start 03/04/17 at 15:45; Stop 04/03/17 at 15:44 Allopurinol (Zyloprim) 300 mg DAILY PO Last administered on 03/10/17 09:17; Start 03/05/17 at 09:00; Stop 04/04/17 at 08:59 Aspirin (Ecotrin) 81 mg DAILY PO Last administered on 03/10/17 09:16; Start at 09:00; Stop 04/04/17 at 08:59 Carbidopa/Levodopa (Sinemet 25/100) 1 tab TID@0800,1200,1600 PO Last administered on 03/10/17 09:16; Start 03/04/17 at 16:00; Stop 04/03/17 at 15:59 Clopidogrel Bisulfate (PLAVix) 75 mg DAILY PO Last administered on 03/10/17 09 :16; Start 03/05/17 at 09:00; Stop 04/04/17 at 08:59 Docusate Sodium (Colace) 100 mg BID PO Last administered on 03/10/17 09:17; Start 03/04/17 at 21:00; Stop 04/03/17 at 20:59 Enoxaparin Sodium (Lovenox) 30 mg DAILY SC Last administered on 03/10/17 09:17 ; Start 03/05/17 at 09:00; Stop 03/15/17 at 23:55 Ferrous Sulfate (Ferrous Sulfate) 325 mg BID PO Last administered on 03/10/17 09:17; Start 03/04/17 at 21:00; Stop 04/03/17 at 20:59 Magnesium Hydroxide (Milk Of Magnesia) 30 ml BIDP PRN PO CONSTIPATION; Start at 15:45; Stop 04/03/17 at 15:44 Pantoprazole Sodium (Protonix) 40 mg DAILY PO Last administered on 03/10/17 09 :17; Start 03/05/17 at 09:00; Stop 04/04/17 at 08:59 Polyethylene Glycol (Miralax) 1 pkt DAILY PRN PO CONSTIPATION; Start 03/04/17 at 15:45; Stop 04/03/17 at 15:44 Senna/Docusate Sodium (Senokot S) 1 tab BID PO Last administered on 03/10/17 09:16; Start 03/04/17 at 21:00; Stop 04/03/17 at 20:59 Simvastatin (Zocor) 40 mg DAILY PO Last administered on 03/10/17 09:17; Start 03/05/17 at 09:00; Stop 04/04/17 at 08:59 Tamsulosin HCl (Flomax) 0.4 mg DAILY PO Last administered on 03/10/17 09:16; Start 03/05/17 at 09:00; Stop 04/04/17 at 08:59 Tramadol HCl (Ultram) 50 mg Q6HP PRN PO PAIN; Start 03/04/17 at 15:45; Stop at 23:55 Vitamin D (Vitamin D) 1,000 units DAILY PO Last administered on 03/10/17 09:16 ; Start 03/05/17 at 09:00; Stop 04/04/17 at 08:59 DENISHA KNAPP MD Mar 10, 2017 10:49
[2017-03-10 14:00] VITALS: BP_SYST 138; BP_SYST 85; BP_SYST 95; BP_DIAS 53; BP_DIAS 63; BP_DIAS 65
[2017-03-10 14:03] VITALS: BP 102/76
[2017-03-10 19:39] VITALS: BP 115/71
[2017-03-11 05:19] VITALS: BP 130/64
[2017-03-11] MEDS: CLOPIDOGREL 75 MG TAB PO SCH (08:11)
[2017-03-11] MEDS: ALLOPURINOL 300 MG TAB PO SCH (08:11)
[2017-03-11] MEDS: TAMSULOSIN 0.4 MG CAP PO SCH (08:11)
[2017-03-11] MEDS: ASPIRIN 81 MG ENTERIC TAB PO SCH (08:11)
[2017-03-11] MEDS: FERROUS SULFATE 325MG TAB PO SCH (08:11)
[2017-03-11] MEDS: SIMVASTATIN 40 MG TAB PO SCH (08:12)
[2017-03-11] MEDS: VITAMIN D 1,000 INTERNATIONAL UNITS TABLET PO SCH (08:12)
[2017-03-11] MEDS: SENOKOT S TAB PO SCH (08:12)
[2017-03-11] MEDS: SINEMET 25-100 MG TAB PO SCH (08:12)
[2017-03-11] MEDS: PANTOPRAZOLE 40MG TAB (PROTONIX) PO SCH (08:13)
[2017-03-11] MEDS: DOCUSATE SODIUM 100 MG CAP PO SCH (08:13)
[2017-03-11] MEDS: ENOXAPARIN 30 MG/0.3 ML SYR (J1650) SC SCH (08:13)
[2017-03-11] MEDS ORDERED: SIMV20TA2 PO (09:38)
[2017-03-11] MEDS ORDERED: CARB25TA PO (09:38)
[2017-03-11] MEDS ORDERED: FERR1TAB8 PO (09:38)
[2017-03-11] MEDS ORDERED: FLOM5CAP PO (09:38)
[2017-03-11] MEDS ORDERED: PLAV1TAB2 PO (09:38)
--- NOTE | 2017-03-13 22:01 | PMRDS ---
DATE OF ADMISSION: 03/04/2017 DATE OF DISCHARGE: 03/11/2017 DISCHARGE DIAGNOSES: 1. Rehabilitation of right frontal cerebrovascular accident (CVA) with apparent new-onset Parkinson's disease causing recurrent falls and physical trauma. 2. History of old cerebellar CVA along with atherosclerotic cardiovascular disease including hypertension, hyperlipidemia, transient ischemic attack. 3. Recent Lyme disease completing a course of antibiotics during this admission. 4. Gastroesophageal reflux disease (GERD). 5. Benign prostatic hypertrophy (BPH) with urinary retention. 6. Chronic kidney disease stage III. 7. History of kidney disease. 8. Past surgical history includes coronary artery bypass grafting of three vessels, status post femoral-popliteal bypass, status post abdominal aortic aneurysm repairs, status post right inguinal hernia repair, and status post appendectomy. PROCEDURES PERFORMED DURING THIS ADMISSION: None. DIAGNOSTIC LABORATORY DATA: The patient with mild to moderate anemia consistent showing hemoglobin and hematocrit (H and H) of around 10.5 and 31.3 for hematocrit with elevation of the MCV most recently 98.4, and RDW elevated at 15.6, and platelet count normal at 300. Chemistry showing magnesium elevated at one point to 2.5, but otherwise has been in the normal range, including most recent at 2.3 with normal electrolytes, BUN of 23 and creatinine of 1.19 on admission to the unit. Normal liver function tests and diminished albumin of 2.2, with secondary decline in calcium at 8.7. HOSPITAL COURSE: Patient admitted on 03/04/2017, for evaluation which includes physical therapy, occupational therapy and speech therapy, along with rehabilitation nursing, physiatry and medicine. Examination has basically been consistent with Parkinson's disease, and there is some concern with the anemia of possibility of bowel cancer; however, the patient's family have declined further evaluation and workup though Dr. Solo would like a followup visit as an outpatient, and we will arrange that. The patient in participating in occupational therapy (OT) has gone from standby and contact guard assistance levels in mobility with only fair plus standing balances to modified independent in transferring, standby assistance to independent in bathing, dressing and grooming, and modified independent in toileting with good sitting and standing balances. Physical therapy showing ambulation distance initially of 150 feet with contact guard assistance not up to attempting stairs, to standby assistance greater than 150 feet, increase in repetitive exercises, and able to do 14 stairs with a rail on the right side ascending or bilateral rales both ascending and descending. Speech therapy cognitive lingual assessment and work with patient to provide structure and mnemonic techniques to facilitate memory and self organization. DISCHARGE MEDICATIONS: - allopurinol 300 mg for gout - aspirin 81 mg a day for clot prevention - vitamin D 1000 international units daily - Plavix 75 mg daily for clot prevention and improved perfusion - Colace 100 mg twice a day for bowel program - iron sulfate 325 mg twice a day for anemia - lansoprazole 15 mg a day for GERD protection - simvastatin 40 mg daily for cholesterol control - Sinemet 25/100 one tablet three times a day - tamsulosin hydrochloride 0.4 mg at bedtime for urinary retention and BPH. DISCHARGE INSTRUCTIONS: The patient is to followup with his primary care, Dr. Solo, and also Dr. Mills in neurology for further assessment of what is probably Parkinson's disease. The patient is discharged on a regular diet. TIME SPENT ON DISCHARGE: Greater than 35 minutes. [facility]
== END 2017-03-11 11:00 | disposition home health service (06) | DRG 57 ==
LOC: M PM&R 14:55
PROVIDERS: ADMIT Physical Medicine & Rehabilitation; ATTEND Physical Medicine & Rehabilitation
DX: I69.398 Other sequelae of cerebral infarction (principal); B37.0 Candidal stomatitis; R26.81 Unsteadiness on feet; G20 Parkinson's disease; I25.10 Atherosclerotic heart disease of native coronary artery without angina pectoris; K21.9 Gastro-esophageal reflux disease without esophagitis; N40.1 Benign prostatic hyperplasia with lower urinary tract symptoms; M48.07 Spinal stenosis, lumbosacral region; D50.9 Iron deficiency anemia, unspecified; E88.09 Other disorders of plasma-protein metabolism, not elsewhere classified; Z66 Do not resuscitate; R33.9 Retention of urine, unspecified; N18.3 Chronic kidney disease, stage 3 (moderate); E83.42 Hypomagnesemia; R29.6 Repeated falls; Z87.442 Personal history of urinary calculi; Z95.1 Presence of aortocoronary bypass graft; Z98.62 Peripheral vascular angioplasty status; Z79.02 Long term (current) use of antithrombotics/antiplatelets; Z79.891 Long term (current) use of opiate analgesic; Z79.899 Other long term (current) drug therapy

== ENCOUNTER → 2017-03-14 | Outpatient (REF) | payer MEDICARE ==
[2017-03-14 12:38] LABS: MEAN CORPUSCULAR HEMOGLOBIN 31.9 pg (27.0-33.0); MEAN CORPUSCULAR HGB CONC 31.4 g/dl (32.0-36.5); MEAN CORPUSCULAR VOLUME 101.5 fl (80.0-96.0); RED CELL DISTRIBUTION WIDTH 15.8 % (11.5-14.5); WHITE BLOOD COUNT 8.4 K/mm3 (4.0-10.0)
[2017-03-14 13:15] LABS: CALCIUM LEVEL 9.1 MG/DL (8.8-10.2); CREATININE FOR GFR 1.34 MG/DL (0.70-1.30); GLOMERULAR FILTRATION RATE 54.6 (>35); POTASSIUM SERUM 4.5 MEQ/L (3.5-5.1)
== END ==
LOC: M LAB REF 11:25
PROVIDERS: ATTEND Physical Medicine & Rehabilitation
DX: D64.9 Anemia, unspecified (principal); N17.9 Acute kidney failure, unspecified

== ENCOUNTER → 2017-05-10 | Outpatient (CLI) | payer MEDICARE ==
[2017-05-10 18:48] LABS: CALCIUM LEVEL 9.5 MG/DL (8.8-10.2); CREATININE FOR GFR 1.28 MG/DL (0.70-1.30); GLOMERULAR FILTRATION RATE 57.6 (>35); PHOSPHORUS LEVEL 3.4 MG/DL (2.5-4.9); POTASSIUM SERUM 4.5 MEQ/L (3.5-5.1); URIC ACID 3.8 MG/DL (3.5-7.2)
== END ==
LOC: M WUC 12:39
PROVIDERS: ATTEND Physician Assistant
DX: M10.00 Idiopathic gout, unspecified site (principal)

== ENCOUNTER → 2017-08-29 | Outpatient (REF) | payer MEDICARE ==
[2017-08-29 19:44] LABS: IRON (FE) 28 UG/DL (65-175); PERCENT SATURATION 17.6 % (19.7-50.0); TOTAL IRON BINDING CAPACITY 159 UG/DL (250-450)
[2017-08-29 19:44] LABS: URIC ACID 3.6 MG/DL (3.5-7.2)
== END ==
LOC: M LAB REF 18:51
DX: E79.0 Hyperuricemia without signs of inflammatory arthritis and tophaceous disease (principal); D64.9 Anemia, unspecified
CPT/HCPCS: 83550

== ENCOUNTER → 2017-11-28 | Outpatient (REF) | payer MEDICARE ==
[2017-11-28 13:21] LABS: IRON (FE) 45 UG/DL (65-175); TOTAL IRON BINDING CAPACITY 155 UG/DL (250-450)
== END ==
LOC: M LAB REF 12:05
DX: D64.9 Anemia, unspecified (principal)
CPT/HCPCS: 83550

== ENCOUNTER → 2018-04-17 | Outpatient (REF) | payer MEDICARE ==
[2018-04-17 18:58] LABS: URIC ACID 7.2 MG/DL (3.5-7.2)
== END ==
LOC: M LAB REF 17:39
DX: E79.0 Hyperuricemia without signs of inflammatory arthritis and tophaceous disease (principal)
CPT/HCPCS: 84550

== ENCOUNTER 2018-06-01 07:04 | Day surgery (SDC) | payer MEDICARE ==
[2018-06-01] MEDS ORDERED: MIDAZOLAM INJ 2 MG/2 ML VIAL (J2250) As Ordered (07:14)
[2018-06-01] MEDS: PHENYLEPHRINE 2.5% OPHTH SOL 2ML OS (07:52)
[2018-06-01] MEDS: PROPARACAINE 0.5% OPHTH SOL 15ML OS (07:52)
[2018-06-01] MEDS: TROPICAMIDE 1% OPHTH SOLN 2ML OS (07:52)
[2018-06-01] MEDS: OFLOXACIN 0.3 % (OCUFLOX) OPTH SOL 5ML OS (07:52)
[2018-06-01] MEDS: POVIDONE-IODINE 5% OPHTH PREP SOL 30ML As Ordered (09:13)
[2018-06-01] MEDS: LIDOCAINE 0.75%/EPINEPHRINE 0.025% IN BSS 1ML SYR INTRACAMERAL (OR ONLY) As Ordered (09:18)
[2018-06-01] MEDS: DUOVISC (0.50ML VISCOAT/0.55ML PROVISC) OPHTH KIT As Ordered (09:23)
[2018-06-01] MEDS: BALANCED SALT IRRIGATION SOLUTION 500ML BAG (FOR OR EYE MACHINE) As Ordered (09:23)
[2018-06-01] MEDS: CEFUROXIME 1MG/0.1ML INTRACAMERAL INJ As Ordered (09:24)
== END 2018-06-01 10:20 | disposition home or self-care (01) ==
LOC: M SDC 07:04
DX: H25.12 Age-related nuclear cataract, left eye (principal); I10 Essential (primary) hypertension; Z79.82 Long term (current) use of aspirin; Z79.01 Long term (current) use of anticoagulants; M10.9 Gout, unspecified; K21.9 Gastro-esophageal reflux disease without esophagitis; F03.90 Unspecified dementia, unspecified severity, without behavioral disturbance, psychotic disturbance, mood disturbance, and anxiety; Z86.73 Personal history of transient ischemic attack (TIA), and cerebral infarction without residual deficits; N40.0 Benign prostatic hyperplasia without lower urinary tract symptoms
CPT/HCPCS: 66984

== ENCOUNTER 2018-06-08 09:22 | Day surgery (SDC) | payer MEDICARE ==
[~2018-06-08 09:22] MED LIST changes: -/RISE35TA; -/TAMS4CA PO; -ACET30TAB PO; -AMLO5TAB2 PO; -AMOX500C PO; -ASPI81TA24 PO; -ATEN25TA PO; -BABY81CH PO; -CALC600T10; -CALCTAB54 PO; -CARB25TA PO; -CLOT10TR MT; -COLA100C5 PO; -COLC1TAB13 PO; -DOXY100C PO; -FERR1TAB8 PO; -FLOM5CAP PO; -GABA300T; -HYDR12.55 PO; -HYDR25TAB PO; -LANS15CA PO; -LISI10TA4; -LOVA20TA2; -LOVA40TA PO; -MAGN400T5 PO; -MAGN64TASA PO; +MIDAZOLAM INJ 2 MG/2 ML VIAL (J2250) As Ordered; -MIRT1TAB PO; -NEUR100C; -PLAV1TAB2 PO; -PLAV75TA2 PO; -PREV15CA PO; -SIMV20TA2 PO; -TRAM50TA2 PO; -TYLE325T5 PO; -VITA-122 PO; -VITA100066 PO; -VITAMIN D; -VITAMIN D50000 UNT; -ZEST20TA8 PO; -ZYLO300T4 PO; +fentaNYL 100 MCG/2 ML INJECTION (J3010) As Ordered
[2018-06-08] MEDS: TROPICAMIDE 1% OPHTH SOLN 2ML OD (10:24)
[2018-06-08] MEDS: PROPARACAINE 0.5% OPHTH SOL 15ML OD (10:24)
[2018-06-08] MEDS: PHENYLEPHRINE 2.5% OPHTH SOL 2ML OD (10:24)
[2018-06-08] MEDS: OFLOXACIN 0.3 % (OCUFLOX) OPTH SOL 5ML OD (10:25)
[2018-06-08] MEDS: POVIDONE-IODINE 5% OPHTH PREP SOL 30ML As Ordered (11:30)
[2018-06-08] MEDS: DUOVISC (0.50ML VISCOAT/0.55ML PROVISC) OPHTH KIT As Ordered (11:35)
[2018-06-08] MEDS: BALANCED SALT IRRIGATION SOLUTION 500ML BAG (FOR OR EYE MACHINE) As Ordered (11:35)
[2018-06-08] MEDS: CEFUROXIME 1MG/0.1ML INTRACAMERAL INJ As Ordered (11:35)
[2018-06-08] MEDS: LIDOCAINE 0.75%/EPINEPHRINE 0.025% IN BSS 1ML SYR INTRACAMERAL (OR ONLY) As Ordered (11:35)
== END 2018-06-08 12:25 | disposition home or self-care (01) ==
LOC: M SDC 09:22
DX: H25.11 Age-related nuclear cataract, right eye (principal); I10 Essential (primary) hypertension; I73.9 Peripheral vascular disease, unspecified; M10.9 Gout, unspecified; G20 Parkinson's disease; K21.9 Gastro-esophageal reflux disease without esophagitis; M12.9 Arthropathy, unspecified; F03.90 Unspecified dementia, unspecified severity, without behavioral disturbance, psychotic disturbance, mood disturbance, and anxiety; N40.0 Benign prostatic hyperplasia without lower urinary tract symptoms; D64.9 Anemia, unspecified; I71.4 Abdominal aortic aneurysm, without rupture; Z79.899 Other long term (current) drug therapy; Z79.01 Long term (current) use of anticoagulants; Z79.82 Long term (current) use of aspirin; Z98.42 Cataract extraction status, left eye; Z86.73 Personal history of transient ischemic attack (TIA), and cerebral infarction without residual deficits; Z87.891 Personal history of nicotine dependence; Z95.1 Presence of aortocoronary bypass graft; Z95.828 Presence of other vascular implants and grafts
CPT/HCPCS: 66984

== ENCOUNTER → 2019-04-03 | Outpatient (REF) | payer MEDICARE ==
[~2019-04-03] MED LIST changes: +/RISE35TA; +ACET-716 PO; +AMLO5TAB2 PO; +AMOX500C PO; +ASPI81TA24 PO; +ATEN25TA PO; +BABY81CH PO; +CALC600T10; +CALCTAB54 PO; +CARB25TA9 PO; +CARBIDOPA PA; +CLOT10TR MT; +COLA100C5 PO; +COLC1TAB13 PO; +DOXY100C PO; +FERR1TAB8 PO; +FLOM0.4C39 PO; +GABA300T; +HYDR12.55 PO; +HYDR25TAB PO; +LANS15CA PO; +LEVODOPA PA; +LISI10TA4; +LOVA20TA2; +LOVA40TA PO; +MAGN400C2 PO; +MAGN400T5 PO; +MAGN64TASA PO; -MIDAZOLAM INJ 2 MG/2 ML VIAL (J2250) As Ordered; +MIRT-15 PO; +MIRT1TAB PO; +NEUR100C; +PLAV1TAB2 PO; +PLAV75TA2 PO; +PREV15CA PO; +SIMV20TA2 PO; +TRAM50TA2 PO; +TYLE325T5 PO; +VITA-122 PO; +VITA100066 PO; +VITAMIN D; +VITAMIN D50000 UNT; +ZEST20TA8 PO; +ZYLO300T6 PO; -fentaNYL 100 MCG/2 ML INJECTION (J3010) As Ordered
[2019-04-03 17:56] LABS: PERCENT SATURATION 37.4 % (19.7-50.0)
== END ==
LOC: M LAB REF 16:30
PROVIDERS: ATTEND Internal Medicine
DX: D64.9 Anemia, unspecified (principal)

== ENCOUNTER 2019-04-15 19:50 | Inpatient (IN) | payer MEDICARE ==
[~2019-04-15] VITALS: Ht 170.2 cm; Wt 86.0 kg
--- NOTE | 2019-04-15 20:20 | REPVR ---
PROCEDURE INFORMATION: Exam: CT Head Without Contrast Exam date and time: 04/15/2019 8:12 PM Clinical history: 83 years old, male; Numbness / parasthesia and speech disturbance; Bilateral; Dysphasia; Additional info: Possible stroke TECHNIQUE: Imaging protocol: Computed tomography of the head without contrast. Radiation optimization: All CT scans at this facility use at least one of these dose optimization techniques: automated exposure control; mA and/or kV adjustment per patient size (includes targeted exams where dose is matched to clinical indication); or iterative reconstruction. Other technique: STROKE PROTOCOL was implemented. COMPARISON: CT Head without contrast 02/28/2017 9:57 AM FINDINGS: Brain: No intracranial mass, focal mass effect or midline shift. No acute intracranial hemorrhage. Mild decreased attenuation in periventricular/centrum semiovale white matter. No focal effacement of cortical sulci to indicate acute cortical infarct. Punctate remote left cerebellar lacunar infarct. Ventricles: Prominent ventricles and CSF spaces suggest parenchymal volume loss. Bones/joints: No calvarial fracture or destructive process. Sinuses: Visualized paranasal sinuses are unremarkable. Mastoid air cells: Mastoid air cells are normally aerated. Orbits: Visualized globes and orbits are unremarkable. Soft tissues: No focal extracranial soft tissue swelling. IMPRESSION: 1. No acute intracranial abnormality. 2. Atrophy and chronic microangiopathic change in supratentorial white matter. ASSESSMENT: ASPECTS ([place] Stroke Program Early CT Score) is 10 Electronically signed by: Arnold Barrios On 04/15/2019 20:19:49 PM
[2019-04-15] MEDS ORDERED: NS 500 ML IV ONE (20:30)
[2019-04-15 20:40] LABS: BASO # 0.1 10^3/uL (0.0-0.2); BASO % 0.5 % (0.0-1.0); EOS % 0.2 % (0.0-3.0); HEMATOCRIT 34.8 % (42.0-52.0); HEMOGLOBIN 10.9 g/dl (13.5-17.5); LYMPH # 0.9 10^3/uL (1.5-5.0); MEAN CORPUSCULAR HEMOGLOBIN 33.7 pg (27.0-33.0); MEAN CORPUSCULAR HGB CONC 31.3 g/dl (32.0-36.5); MEAN CORPUSCULAR VOLUME 107.7 fl (80.0-96.0); MONO # 0.9 10^3/uL (0.0-0.8); MONO % 9.7 % (0.0-5.0); NEUTROPHILS # 7.6 10^3/uL (1.5-8.5); NEUTROPHILS % 79.6 % (36.0-66.0); PLATELET COUNT, AUTOMATED 149 10^3/uL (150-450); RED BLOOD COUNT 3.23 10^6/uL (4.30-6.10); WHITE BLOOD COUNT 9.6 10^3/uL (4.0-10.0)
[2019-04-15 20:58] LABS: ALBUMIN 3.4 GM/DL (3.2-5.2); BILIRUBIN,DIRECT 0.2 MG/DL (0.0-0.2); BILIRUBIN,TOTAL 0.8 MG/DL (0.2-1.0); CALCIUM LEVEL 8.8 MG/DL (8.8-10.2); CK-MB VALUE MASS 2.4 NG/ML (<3.6); CREATININE FOR GFR 2.08 MG/DL (0.70-1.30); ETHYL ALCOHOL (ETHANOL) 0.003 % (0.000-0.010); GLOMERULAR FILTRATION RATE 32.7 (>35); MB/CK RELATIVE INDEX 1.22 (< OR =4); POTASSIUM SERUM 4.3 MEQ/L (3.5-5.1); THYROID STIMULATING HORMONE 1.18 uIU/ML (0.358-3.740); TOTAL PROTEIN 7.3 GM/DL (6.4-8.2); TROPONIN I 0.04 NG/ML (< 0.10)
--- NOTE | 2019-04-15 21:41 | REPVR ---
PROCEDURE INFORMATION: Exam: US Duplex Bilateral Lower Extremity Veins Exam date and time: 04/15/2019 9:19 PM Clinical history: 83 years old, male; Edema, localized; Lower extremity, bilateral; Additional info: B/l lower extremity swelling TECHNIQUE: Imaging protocol: Real-time duplex ultrasound of the Bilateral Lower Extremities with 2-D hahn scale, color Doppler flow and spectral waveform analysis with image documentation. Complete exam focused on the bilateral lower extremity veins. COMPARISON: No relevant prior studies available. FINDINGS: Vascular structures evaluated include bilateral common femoral, superficial femoral, greater saphenous and popliteal veins into the proximal calf. Doppler evaluation shows normal venous flow with respiratory variation and augmentation with distal compression. No intraluminal filling defect. Doppler waveforms and flow directionality are normal. No abnormal focal fluid collections present. IMPRESSION: No evidence of deep venous thrombosis in visualized lower extremity veins. Electronically signed by: Arnold Barrios On 04/15/2019 21:41:37 PM
[2019-04-15] MEDS: GASTROGRAFIN SOLUTION 30ML PO SCH ×2 (22:20→23:12)
[2019-04-15] MEDS ORDERED: PLAV1TAB2 PO (22:38)
[2019-04-15] MEDS ORDERED: ACET-897 PO (22:40)
[2019-04-15] MEDS ORDERED: SINE25TA5 PO (22:40)
[2019-04-15] MEDS ORDERED: REME15TA PO (22:40)
[2019-04-15] MEDS ORDERED: FERR1TAB8 PO (22:40)
[2019-04-15] MEDS ORDERED: FLOM0.4C39 PO (22:41)
--- NOTE | 2019-04-16 00:01 | REPVR ---
PROCEDURE INFORMATION: Exam: CT Abdomen and Pelvis Without Contrast Exam date and time: 04/15/2019 11:37 PM Clinical history: 83 years old, male; Abdominal pain; Additional info: N/v/d, loss of appetite TECHNIQUE: Imaging protocol: Computed tomography of the abdomen and pelvis without contrast. Radiation optimization: All CT scans at this facility use at least one of these dose optimization techniques: automated exposure control; mA and/or kV adjustment per patient size (includes targeted exams where dose is matched to clinical indication); or iterative reconstruction. COMPARISON: No relevant prior studies available. FINDINGS: Lungs: Atelectatic change is present at the left lung base. Mediastinum: Hiatal hernia is present. Liver: Noncontrast liver shows no obvious lesion. Gallbladder and bile ducts: Gallstones are present in the gallbladder lumen. No adjacent fluid or duct dilatation. Pancreas: Noncontrast pancreas shows no obvious mass or adjacent fluid. Spleen: Noncontrast spleen shows no obvious focal deformity. Adrenals: Adrenal glands are normal in appearance. Kidneys and ureters: Kidneys demonstrate no obstruction. Punctate right renal stone Simple fluid density 2.3 cm exophytic right renal cyst Stomach and bowel: No evidence of small bowel obstruction. Diverticular changes are present within the colon without inflammation. Appendix: Appendix is not seen. No RLQ inflammation to suggest appendicitis. Intraperitoneal space: No pneumoperitoneum. Vasculature: Aortoiliac endograft is present, spanning a 5 cm abdominal aortic aneurysm. Femoral-femoral graft is present with adjacent probable scarring. Lymph nodes: No enlarged lymph nodes. Bladder: Urinary bladder appears normal. Bones/joints: Bony structures show no acute fracture or destructive process. Soft tissues: Unremarkable. Other findings: Evaluation of solid organs is limited without IV contrast. Exam is limited by artifact from patient being scanned with arms at the sides. Images are limited due to patient motion. IMPRESSION: 1. No acute bowel process. 2. Colonic diverticulosis without evidence of active inflammation. 3. Nonobstructive right renal calculus. 4. Large hiatal hernia with adjacent atelectasis. Electronically signed by: Arnold Barrios On 04/16/2019 00:01:18 AM
[2019-04-16] MEDS ORDERED: MOM 30ML SUSPENSION UDC PO PRN (01:15)
[2019-04-16] MEDS ORDERED: ACETAMINOPHEN TAB 650MG DOSE (2X325MG) PO PRN (01:15)
[2019-04-16] MEDS ORDERED: MAALOX 30 ML SUSP *UDC PO PRN (01:15)
[2019-04-16] MEDS ORDERED: ONDANSETRON 4MG/2ML VIAL (J2405) IV PRN (01:30)
--- NOTE | 2019-04-16 02:15 | HPEPDOC ---
General Date of Admission Apr 16, 2019 at 01:13 Date of Service: Apr 16, 2019 Chief Complaint The patient is a 83-year-old male admitted with a reason for visit of Acute Kidney Injury. Source: Patient, Family Exam Limitations: No limitations Timing/Duration: Day(s) Severity: Moderate History of Present Illness Mr. Miner is an 83 years old man with hx/o Parkinson's disease, CVA and PAD. He was brought to ER tonight for evaluation of multiple problems: right arm difficulty, leaning to the right, unable to walk, three episodes of loose watery diarrhea and poor oral intake (no dysphagia). This happened today. Recently he has been generally weak; baseline leg swelling has worsened; he used to take diuretic, but is not prescribed anymore. Pt has slurry voice which is old. Pt denies chest pain, fever, chills, SOB or cough. In ER, pt had normal vitals. Mental status is good. CT head, CXT are negative for any acute process. US of the legs are negative for DVT. Labs are significant for Cr 2.08 (baseline 1.2) and Lactate of 3.4. Tongue and skin are dry. There is JVD. Pt has received half liter of IV fluid int he ER. Home Medications Scheduled Acetaminophen (Tylenol Extra Strength) 500 Mg Tablet, 1,000 MG PO BID, (Reported) Aspirin (Aspirin EC) 81 Mg Tab, 81 MG PO DAILY, (Reported) Carbidopa/Levodopa (Sinemet 25-100 mg Tablet) 1 Each Tablet, 1 TAB PO BID, (Reported) Clopidogrel Bisulfate (Plavix) 75 Mg Tablet, 75 MG PO DAILY, (Reported) Ferrous Sulfate (Ferrous Sulfate) 325 Mg Tablet, 325 MG PO DAILY, (Reported) Lansoprazole (Lansoprazole) 15 Mg Cap, 15 MG PO QPM, (Reported) Magnesium Oxide (Magnesium) 400 Mg Cap, 400 MG PO DAILY, (Reported) Mirtazapine (Remeron) 15 Mg Tablet, 15 MG PO QPM, (Reported) Tamsulosin HCl (Flomax) 0.4 Mg Capsule, 0.4 MG PO QPM, (Reported) Allergies Coded Allergies: No Known Drug Allergies (Verified Allergy, Unknown, 04/15/19) Past Medical History Medical History Parkinson's disease, CVA, PAD, CKD 3, Anemia, BPH Family History Significant Family History: No pertinent family hx Social History * Smoker: Denies Alcohol: Denies Drugs: denies A-FIB/CHADSVASC A-FIB History Current/History of A-Fib/PAF?: No Review of Systems Constitutional: Reports: Weakness; Denies: Chills, Fever, Malaise Eyes: Denies: Pain, Vision change ENT: Denies: Head Aches, Ear Pain, Dysphagia, Sore Throat Skin: Denies: Rash, Lesions, Breakdown Pulmonary: Denies: Dyspnea, Cough, Pleuritic Chest Pain Cardiovascular: Reports: Edema; Denies: Chest Pain, Palpitations, Paroxysmal Noc. Dyspnea Gastrointestinal: Reports: Diarrhea; Denies: Nausea, Vomiting, Abdominal Pain Genitourinary: Denies: Dysuria, Frequency Hematologic: Denies: Bruising, Bleeding Excessively Endocrine: Denies: Polydipsia, Polyphagia Musculoskeletal: Denies: Neck Pain, Back Pain Neurological: Reports: Weakness; Denies: Numbness, Change in speech, Confusion, Seizures Psych: Reports: Mood Normal; Denies: Anxiety, Depression Physical Examination General Exam: Positive: Alert, Cooperative, No Acute Distress Eye Exam: Positive: PERRLA, Conjunctiva & lids normal ENT Exam: Positive: Atraumatic, Other ENT (dry oral mucosa) Neck Exam: Positive: Supple, JVD Chest Exam: Positive: Clear to auscultation, Normal air movement Heart Exam: Positive: Rate Normal, Regular Rhythm; Negative: Murmurs Abdomen Exam: Positive: Normal bowel sounds, Soft; Negative: Tenderness Extremity Exam: Positive: Edema (3+ edema of both legs), Normal pulses; Negative: Tenderness Skin Exam: Positive: Other skin issue (poor skin turgor); Negative: Rash Neuro Exam: Positive: Normal Speech (chronic slurred speech), Strength at 5/5 X4 ext, Normal Tone, Cranial Nerves 3-12 NL, Reflexes 2+ Psych Exam: Positive: Mental status NL, Mood NL, Memory Intact, Oriented x 3; Negative: Anxiety Vital Signs Vital Signs Date Time Temp Pulse Resp B/P (MAP) Pulse Ox O2 Delivery O2 Flow Rate FiO2 04/16/19 01:45 63 151/78 (102) 94 04/16/19 01:30 20 04/15/19 20:04 99.0 04/15/19 19:54 Room Air Laboratory Data Labs 24H Laboratory Tests 2 04/15/19 19:55: Immature Granulocyte % (Auto) 1.0, White Blood Count 9.6, Red Blood Count 3.23L, Hemoglobin 10.9L, Hematocrit 34.8L, Mean Corpuscular Volume 107.7H, Mean Corpuscular Hemoglobin 33.7H, Mean Corpuscular Hemoglobin Concent 31.3L, Red Cell Distribution Width 14.2, Platelet Count 149L, Neutrophils (%) (Auto) 79.6H, Lymphocytes (%) (Auto) 9.0L, Monocytes (%) (Auto) 9.7H, Eosinophils (%) (Auto) 0.2, Basophils (%) (Auto) 0.5, Neutrophils # (Auto) 7.6, Lymphocytes # (Auto) 0.9L, Monocytes # (Auto) 0.9H, Eosinophils # (Auto) 0.0, Basophils # (Auto) 0.1, Nucleated Red Blood Cells % (auto) 0.0, Anion Gap 12, Glomerular Filtration Rate 32.7L, Lactic Acid Level 3.4*H, Calcium Level 8.8, Aspartate Amino Transf (AST/SGOT) 13, Alanine Aminotransferase (ALT/SGPT) 9L, Alkaline Phosphatase 74, Total Bilirubin 0.8, Direct Bilirubin 0.2, Total Creatine Kinase 197, Creatine Kinase MB 2.4, Creatine Kinase MB Relative Index 1.22, Troponin I 0.04, Total Protein 7.3, Albumin 3.4, Albumin/Globulin Ratio 0.87L, Thyroid Stimulating Hormone (TSH) 1.180, Ethyl Alcohol Level 0.003 04/15/19 20:36: Bedside Glucose (Misc Panel) 108 04/16/19 01:03: Lactic Acid Followup at 4 Hours 1.1 CBC/BMP Laboratory Tests 04/15/19 19:55 Red Blood Count 3.23 L, Mean Corpuscular Volume 107.7 H, Mean Corpuscular Hemo globin 33.7 H, Mean Corpuscular Hemoglobin Concent 31.3 L, Red Cell Distribution Width 14.2, Neutrophils (%) (Auto) 79.6 H, Lymphocytes (%) (Auto) 9.0 L, Monocytes (%) (Auto) 9.7 H, Eosinophils (%) (Auto) 0.2, Basophils (%) (Auto) 0.5, Neutrophils # (Auto) 7.6, Lymphocytes # (Auto) 0.9 L, Monocytes # (Auto) 0.9 H, Eosinophils # (Auto) 0.0, Basophils # (Auto) 0.1 Microbiology Microbiology 04/16/19 Blood Culture, Received Pending 04/15/19 Blood Culture, Received Pending 04/16/19 Gastrointestinal Tract Panel (PCR), Received Pending Assessment/Plan Peripheral Edema, JVD in the setting of SALOMON; Suspect CHF - Admit to inpatient - Avoid IV fluid for now - low dose Lasix - Check BNP - Echo in the morning - I/O, daily weight Balance Problem, worsening of Parkinson's or r/o stroke - MRI brain in the morning - neuro watch - Pt/OT Continue home meds for other chronic conditions. Plan / VTE VTE Prophylaxis Ordered?: Yes Plan Diet: Continue Current Activity: Continue Current Therapy: PT, OT Diagnostics: Repeat Labs in AM Anticipated Discharge: Home With Services VALENTINA TURK MD Apr 16, 2019 02:15
[2019-04-16 02:30] VITALS: BP 141/54
[2019-04-16] MEDS ORDERED: CIPROFLOXACIN 250 MG TAB PO ONE (03:30)
[2019-04-16] MEDS: VANCOMYCIN ORAL SOL 250MG/5ML ORAL SYRINGE PO SCH ×3 (05:05→18:34)
[2019-04-16 06:00] VITALS: BP 138/79
--- NOTE | 2019-04-16 07:51 | REP ---
Portable chest, 08:39 p.m., single AP view with the patient upright: Comparison is 05/22/2012. The lung garcia are clear. Cardiac size is upper normal for portable positioning, unchanged. The gwen, mediastinum, skeletal structures are unchanged. There is a hiatal hernia. 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 There are sternotomy wires, unchanged. Impression: There are no acute cardiopulmonary findings. Electronically Signed by Danish Ron MD 04/16/2019 07:43 A
[2019-04-16 08:38] LABS: HEMATOCRIT 30.8 % (42.0-52.0); HEMOGLOBIN 9.9 g/dl (13.5-17.5); MEAN CORPUSCULAR HEMOGLOBIN 33.9 pg (27.0-33.0); MEAN CORPUSCULAR HGB CONC 32.1 g/dl (32.0-36.5); MEAN CORPUSCULAR VOLUME 105.5 fl (80.0-96.0); PLATELET COUNT, AUTOMATED 146 10^3/uL (150-450); RED BLOOD COUNT 2.92 10^6/uL (4.30-6.10); WHITE BLOOD COUNT 7.3 10^3/uL (4.0-10.0)
[2019-04-16] MEDS ORDERED: FUROSEMIDE 20 MG TAB PO SCH (09:00)
[2019-04-16 09:05] LABS: ALBUMIN 2.9 GM/DL (3.2-5.2); BILIRUBIN,TOTAL 0.6 MG/DL (0.2-1.0); CALCIUM LEVEL 8.8 MG/DL (8.8-10.2); CREATININE FOR GFR 1.68 MG/DL (0.70-1.30); GLOMERULAR FILTRATION RATE 41.9 (>35); POTASSIUM SERUM 4.4 MEQ/L (3.5-5.1); TOTAL PROTEIN 6.6 GM/DL (6.4-8.2)
[2019-04-16] MEDS: SINEMET 25-100 MG TAB PO SCH ×2 (09:25→18:33)
[2019-04-16] MEDS: FERROUS SULFATE 325MG TAB PO SCH (09:25)
[2019-04-16] MEDS: ASPIRIN 81 MG ENTERIC TAB PO SCH (09:25)
[2019-04-16] MEDS: CLOPIDOGREL 75 MG TAB PO SCH (09:25)
[2019-04-16] MEDS: ENOXAPARIN 30 MG/0.3 ML SYR (J1650) SC SCH (09:26)
[2019-04-16 14:00] VITALS: BP 131/63
[2019-04-16] MEDS: NS 1,000 ML IV SCH (16:42)
--- NOTE | 2019-04-16 16:49 | IPNPDOC ---
Subjective Date Seen The patient was seen on 04/16/19. Subjective Chief Complaint/HPI Diarrhea persists. Afebrile, hemodynamics are stable, does not feel any better after admission. Objective Physical Examination General Exam: Positive: Alert, Cooperative, Other (appears ill) Eye Exam: Positive: PERRLA, Conjunctiva & lids normal ENT Exam: Positive: Atraumatic, Other ENT (very dry oral mucosa, oral ulcers noted) Neck Exam: Positive: Supple, JVD Chest Exam: Positive: Clear to auscultation, Normal air movement Heart Exam: Positive: Rate Normal, Regular Rhythm; Negative: Murmurs Telemetry: Positive: Atrial fibrillation (rate controlled afib overnight) Abdomen Exam: Positive: Normal bowel sounds, Soft, Other (diarrhea); Negative: Tenderness Extremity Exam: Positive: Edema (2+ edema of legs and ankles), Normal pulses; Negative: Tenderness Skin Exam: Positive: Other skin issue (poor skin turgor); Negative: Rash Neuro Exam: Positive: Normal Speech (chronic slurred speech), Strength at 5/5 X4 ext, Normal Tone, Cranial Nerves 3-12 NL, Reflexes 2+ Psych Exam: Positive: Mental status NL, Memory Intact, Oriented x 3; Negative: Anxiety Assessment /Plan Assessment # Acute Infectious diarrhea (GI panel +ve for c.diff, enterohemorrhagic e. coli, and yersinia) - continue vanco 125 mg q 6 orally - cipro 250 mg bid - no evidence of STEC continue with abx - LA has normalized from 3.4 to 1 - gentle hydration ns @ 75 ml/hr # Right sided/Generalized weakness - MRI brain pending to r/o CVA - Likely due to acute diarrhea/dehydration - PT/OT - May need placement at discharge # Bilateral LE swelling - Echo 2017 reviewed and normal - repeat Echo pending, NT-proBNP 4025, CXR clear - holding lasix with acute volume loss associated with diarrhea - B/l venous duplex normal on admission # Acute on Chronic renal failure/CKD stage 3 (baseline creat 1.4-1.6) - creat improved overnight with fluid bolus - start IVFs @ 75 ml/hr and monitor - avoid nephrotoxins # Rate controlled Paroxysmal atrial fib likely exaccerbated by acute diarrhea/dehydration - CHADS2-Vasc2 = 5, will need transition to coumadin or renal dose eliquis during this hospitalization once acute issues resolve - Echo pending - TSH 1.18 - not on rate control medications # Parkinson's Disease - continue Sinemet, monitor for toxic side effects # Chronic CVA - continue asa + Plavix, consider transition to OAC if patient desires. # Chronic CAD - stable # S/p 3V CABG # S/p AAA repair # S/p fem-pop bypass for PAD # Chronic anemia with macrocytosis - continue iron tablets - check b12, folate levels # BPH - continue Flomax # Insomnia - continue Remeron # Hx of Lyme disease - treated with amoxicillin in the past # DVT prophylaxis - SCDs + lovenox 30 mg Plan/VTE VTE Prophylaxis Ordered?: Yes VTE Exclusion Mechanical Proph: N/A:VTE Prophy Ordered VTE Exclusion Pharmacological: N/A:VTE Prophy Ordered VS, I&O, 24H, Fishbone Vital Signs/I&O Vital Signs Date Time Temp Pulse Resp B/P (MAP) Pulse Ox O2 Delivery O2 Flow Rate FiO2 04/16/19 14:00 98.9 62 18 131/63 (85) 92 04/15/19 19:54 Room Air I&O- Last 24 Hours up to 6 AM 04/16/19 06:00 Intake Total 500 ml Output Total 500 ml Balance 0 ml Laboratory Data 24H LABS Laboratory Tests 2 04/15/19 19:55: Immature Granulocyte % (Auto) 1.0, White Blood Count 9.6, Red Blood Count 3.23L, Hemoglobin 10.9L, Hematocrit 34.8L, Mean Corpuscular Volume 107.7H, Mean Corpuscular Hemoglobin 33.7H, Mean Corpuscular Hemoglobin Concent 31.3L, Red Cell Distribution Width 14.2, Platelet Count 149L, Neutrophils (%) (Auto) 79.6H, Lymphocytes (%) (Auto) 9.0L, Monocytes (%) (Auto) 9.7H, Eosinophils (%) (Auto) 0.2, Basophils (%) (Auto) 0.5, Neutrophils # (Auto) 7.6, Lymphocytes # (Auto) 0.9L, Monocytes # (Auto) 0.9H, Eosinophils # (Auto) 0.0, Basophils # (Auto) 0.1, Nucleated Red Blood Cells % (auto) 0.0, Anion Gap 12, Glomerular Filtration Rate 32.7L, Lactic Acid Level 3.4*H, Calcium Level 8.8, Aspartate Amino Transf (AST/SGOT) 13, Alanine Aminotransferase (ALT/SGPT) 9L, Alkaline Phosphatase 74, Total Bilirubin 0.8, Direct Bilirubin 0.2, Total Creatine Kinase 197, Creatine Kinase MB 2.4, Creatine Kinase MB Relative Index 1.22, Troponin I 0.04, [id number]-Type Natriuretic Peptide 4025H, Total Protein 7.3, Albumin 3.4, Albumin/Globulin Ratio 0.87L, Thyroid Stimulating Hormone (TSH) 1.180, Ethyl Alcohol Level 0.003 04/15/19 20:36: Bedside Glucose (Misc Panel) 108 04/16/19 01:03: Lactic Acid Followup at 4 Hours 1.1 04/16/19 02:55: Urine Color YELLOW, Urine Appearance HAZY, Urine pH 5.0, Urine Specific [place] 1.015, Urine Protein NEGATIVE, Urine Glucose (UA) NEGATIVE, Urine Ketones NEGATIVE, Urine Blood 1+H, Urine Nitrite NEGATIVE, Urine Bilirubin NEGATIVE, Urine Urobilinogen 0.2, Urine Leukocyte Esterase TRACEH, Urine WBC (Auto) 2, Urine RBC (Auto) 2, Urine Hyaline Casts (Auto) 6, Urine Bacteria (Auto) NEGATIVE, Urine Squamous Epithelial Cells 0, Urine Transitional Epithelial Cells <1, Urine Mucus (Auto) SMALL, Urine Sperm (Auto) 04/16/19 08:08: Nucleated Red Blood Cells % (auto) 0.0, Anion Gap 7L, Glomerular Filtration Rate 41.9, Blood Urea Nitrogen 21H, Creatinine 1.68H, Sodium Level 138, Potassium Level 4.4, Chloride Level 107, Carbon Dioxide Level 24, Calcium Level 8.8, Aspartate Amino Transf (AST/SGOT) 17, Alanine Aminotransferase (ALT/SGPT) 12, Alkaline Phosphatase 62, Total Bilirubin 0.6, Total Protein 6.6, Albumin 2.9L, Albumin/Globulin Ratio 0.78L CBC/BMP Laboratory Tests 04/15/19 19:55 Red Blood Count 3.23 L, Mean Corpuscular Volume 107.7 H, Mean Corpuscular Hemoglobin 33.7 H, Mean Corpuscular Hemoglobin Concent 31.3 L, Red Cell Distribution Width 14.2, Neutrophils (%) (Auto) 79.6 H, Lymphocytes (%) (Auto) 9.0 L, Monocytes (%) (Auto) 9.7 H, Eosinophils (%) (Auto) 0.2, Basophils (%) (Auto) 0.5, Neutrophils # (Auto) 7.6, Lymphocytes # (Auto) 0.9 L, Monocytes # (Auto) 0.9 H, Eosinophils # (Auto) 0.0, Basophils # (Auto) 0.1 04/16/19 08:08 Red Blood Count 2.92 L, Mean Corpuscular Volume 105.5 H, Mean Corpuscular Hemoglobin 33.9 H, Mean Corpuscular Hemoglobin Concent 32.1, Red Cell Distribution Width 14.0, Calcium Level 8.8, Aspartate Amino Transf (AST/SGOT) 17, Alanine Aminotransferase (ALT/SGPT) 12, Alkaline Phosphatase 62, Total Bilirubin 0.6, Total Protein 6.6, Albumin 2.9 L Microbiology Microbiology 04/16/19 Blood Culture, Received Pending 04/15/19 Blood Culture, Received Pending 04/16/19 Gastrointestinal Tract Panel (PCR) - Final, Complete Clostridium Difficile A/B Yersinia Enterocolitica Sp Enteropathogenic E.coli 04/16/19 Urine Culture, Received Pending JEVON WALTERS MD Apr 16, 2019 16:49
[2019-04-16 17:22] LABS: HEMATOCRIT 30.8 % (42.0-52.0)
--- NOTE | 2019-04-16 17:39 | REP ---
MRI brain without contrast: History: Right-sided balance problems. Acute kidney injury. Technique: Axial and sagittal imaging planes are utilized for T1 and T2-weighted scans. Sequences include spin-echo, fast spin echo, FLAIR, and diffusion weighted sequences. Comparison MRI study of the brain is from a February 28, 2017. Comparison CT study April 15, 2019. MRI findings: No bony calvarial lesion is seen. Craniocervical junction upper cervical cord are unremarkable. There is a lacunar infarct again noted in the left cerebellar hemisphere. This is unchanged. There is generalized volume loss as noted previously. Diffusion weighted scans show no evidence to suggest acute ischemia. The recently noted punctate focus of a restricted diffusion in the right frontal lobe is no longer visible. No new evidence of restricted diffusion is seen to suggest an acute infarct. No mass or midline shift is observed. Impression: Moderate to marked generalized volume loss. No evidence of acute infarct, bleed, mass or midline shift. Old lacunar infarct left cerebellar hemisphere. Electronically Signed by Marcus Bennett MD 04/17/2019 08:47 A
[2019-04-16] MEDS ORDERED: PANTOPRAZOLE 40MG TAB (PROTONIX) PO SCH (18:00)
[2019-04-16] MEDS: MIRTAZAPINE 15 MG TAB PO SCH (18:33)
[2019-04-16] MEDS: CIPROFLOXACIN 250 MG TAB PO SCH (18:33)
[2019-04-16] MEDS: TAMSULOSIN 0.4 MG CAP PO SCH (18:33)
--- NOTE | 2019-04-16 21:18 | ECGEPIP ---
[facility] - ED Test Date: 2019-04-15 Pat Name: TORIBIO ZARAGOZA Department: Room: [place] [address] Gender: Male Chief Console Operator: ALEJA : [id number] Requested By: RADHA Duarte Order Number: [id number] Reading MD: Alexx Soto Measurements Intervals [place] Rate: 81 P: [place]: 0 QRS: 7 QRSD: 102 T: 10 QT: 388 QTc: 452 Interpretive Statements ATRIAL FIBRILLATION MODERATE ST DEPRESSION Previous tracing done 02-28-17 was sinus rhythm Baseline artifact Electronically Signed on 04-16-2019 21:17:44 EDT by Alexx Soto
[2019-04-16 22:00] VITALS: BP 126/76
[2019-04-17] MEDS: VANCOMYCIN ORAL SOL 250MG/5ML ORAL SYRINGE PO SCH ×5 (00:31→23:26)
[2019-04-17] MEDS: CIPROFLOXACIN 250 MG TAB PO SCH ×2 (05:32→18:50)
[2019-04-17] MEDS: NS 1,000 ML IV SCH (05:33)
[2019-04-17 06:00] VITALS: BP 119/74
[2019-04-17] MEDS: ASPIRIN 81 MG ENTERIC TAB PO SCH (08:12)
[2019-04-17] MEDS: SINEMET 25-100 MG TAB PO SCH ×2 (08:12→18:49)
[2019-04-17] MEDS: FERROUS SULFATE 325MG TAB PO SCH (08:12)
[2019-04-17] MEDS: ENOXAPARIN 30 MG/0.3 ML SYR (J1650) SC SCH (08:13)
[2019-04-17] MEDS: CLOPIDOGREL 75 MG TAB PO SCH (08:13)
[2019-04-17 09:53] LABS: HEMATOCRIT 32.1 % (42.0-52.0); HEMOGLOBIN 10.2 g/dl (13.5-17.5); MEAN CORPUSCULAR HEMOGLOBIN 33.9 pg (27.0-33.0); MEAN CORPUSCULAR HGB CONC 31.8 g/dl (32.0-36.5); MEAN CORPUSCULAR VOLUME 106.6 fl (80.0-96.0); PLATELET COUNT, AUTOMATED 153 10^3/uL (150-450); RED BLOOD COUNT 3.01 10^6/uL (4.30-6.10); WHITE BLOOD COUNT 5.8 10^3/uL (4.0-10.0)
[2019-04-17 10:11] LABS: CALCIUM LEVEL 9.1 MG/DL (8.8-10.2); CREATININE FOR GFR 1.62 MG/DL (0.70-1.30); GLOMERULAR FILTRATION RATE 43.6 (>35); POTASSIUM SERUM 4.3 MEQ/L (3.5-5.1)
[2019-04-17 14:00] VITALS: BP 153/86
[2019-04-17] MEDS: MIRTAZAPINE 15 MG TAB PO SCH (18:49)
[2019-04-17] MEDS: TAMSULOSIN 0.4 MG CAP PO SCH (18:50)
--- NOTE | 2019-04-17 19:10 | IPNPDOC ---
Text Note Date of Service The patient was seen on 04/17/19. NOTE Subjective: Feels better this morning Afebrile, hemodynamically stable Objective Physical Examination General Exam: Awake, alert, sitting up and visiting with family, cooperative Eye Exam: Positive: PERRLA, EOMI, anicteric ENT Exam: Atraumatic, MMM, shallow oral ulcers Neck Exam: Supple Chest Exam: CTAB Heart Exam: Rate Normal, Regular Rhythm with a few skipped beats, no murmurs Telemetry: Atrial fibrillation (rate controlled afib overnight) Abdomen Exam: Normoactive bowel sounds, soft, non tender Extremity Exam: 2+ LE edema to midshins, 2+ DP normal pulses, non tender Neuro Exam: Positive: Chronic slurred speech, otherwise unchanged, Strength at 5/5 X4 ext, Normal Tone, Cranial Nerves 3-12 NL Psych Exam: Positive: Mental status NL, Memory Intact, Oriented x 3; Assessment /Plan 83 yo M who was admitted for infectious colitis with C.diff, yersinia and e.coli on vanc and cipro with improvement of copious diarrhea and dehydration s/p fluids, whose couse has been c/b significant asymptomatic ectopy with paroxysmal AFib and NSVT. This afternoon I discussed his risk for clots with the family and patient and they were open to the idea of anticoagulation. Will speak with cardiology about management since he was placed on ASA/plavix. Assessment # Acute Infectious diarrhea (GI panel +ve for c.diff, enterohemorrhagic e. coli, and yersinia) - continue vanco 125 mg q 6 orally - cipro 250 mg bid - no evidence of STEC continue with abx - DC gentle hydration ns @ 75 ml/hr given significant volume overloaded state and improved PO and no dryness anymore on exam # Right sided/Generalized weakness - MRI brain was w/o evidence of an acute CVA - Likely due to acute diarrhea/dehydration - PT/OT -> May need placement at discharge # Bilateral LE swelling - Echo 2017 reviewed and normal - repeat TTE pending, NT-proBNP 4025, CXR clear - holding lasix with acute volume loss associated with diarrhea, although significant LE edema, remains stable on room air without vascular congestion. - B/l venous duplex normal on admission # Acute on Chronic renal failure/CKD stage 3 (baseline creat 1.4-1.6) - creat improved with fluids - DC fluids at this time - avoid nephrotoxins # Rate controlled Paroxysmal atrial fib likely exaccerbated by acute diarrhea/dehydration - CHADS2-Vasc2 = 5, will need transition to renal dose eliquis during this hospitalization once acute issues resolve, to discuss this with cardiology since he is on DAPT - f/u TTE - TSH 1.18 - has not required rate control, continue to monitor # Parkinson's Disease - continue Sinemet, monitor for toxic side effects # Chronic CVA - continue asa + Plavix, consider transition to ASA/eliquis, will discuss with cardiology first # Chronic CAD - stable # S/p 3V CABG # S/p AAA repair # S/p fem-pop bypass for PAD # Chronic anemia with macrocytosis - continue iron tablets - check b12, folate levels # BPH - continue Flomax # Insomnia - continue Remeron # Hx of Lyme disease - treated with amoxicillin in the past # DVT prophylaxis - SCDs + lovenox 30 mg Plan/VTE VTE Prophylaxis Ordered?: Yes VTE Exclusion Mechanical Proph: N/A:VTE Prophy Ordered VTE Exclusion Pharmacological: N/A:VTE Prophy Ordered VS,Fishbone, I+O VS, Fishbone, I+O Laboratory Tests 04/17/19 08:59 Red Blood Count 3.01 L, Mean Corpuscular Volume 106.6 H, Mean Corpuscular Hemoglobin 33.9 H, Mean Corpuscular Hemoglobin Concent 31.8 L, Red Cell Distribution Width 13.9, Calcium Level 9.1 Vital Signs Date Time Temp Pulse Resp B/P (MAP) Pulse Ox O2 Delivery O2 Flow Rate FiO2 04/17/19 14:00 98.0 95 20 153/86 (108) 86 04/15/19 19:54 Room Air I&O- Last 24 Hours up to 6 AM 04/17/19 06:00 Intake Total 1675 ml Output Total 50 ml Balance 1625 ml ALMA BRADLEY MD Apr 17, 2019 19:10
[2019-04-17 22:00] VITALS: BP 147/88
[2019-04-18] MEDS: CIPROFLOXACIN 250 MG TAB PO SCH ×2 (05:21→17:55)
[2019-04-18] MEDS: VANCOMYCIN ORAL SOL 250MG/5ML ORAL SYRINGE PO SCH ×3 (05:21→17:54)
[2019-04-18 06:00] VITALS: BP 127/69
--- NOTE | 2019-04-18 06:04 | ECGEPIP ---
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
[2019-04-18 06:06] LABS: HEMOGLOBIN 9.6 g/dl (13.5-17.5); MEAN CORPUSCULAR HEMOGLOBIN 33.2 pg (27.0-33.0); MEAN CORPUSCULAR VOLUME 103.8 fl (80.0-96.0); PLATELET COUNT, AUTOMATED 159 10^3/uL (150-450); RED BLOOD COUNT 2.89 10^6/uL (4.30-6.10); WHITE BLOOD COUNT 4.8 10^3/uL (4.0-10.0)
[2019-04-18 06:32] LABS: CALCIUM LEVEL 9.1 MG/DL (8.8-10.2); CREATININE FOR GFR 1.51 MG/DL (0.70-1.30); GLOMERULAR FILTRATION RATE 47.3 (>35); MAGNESIUM LEVEL 2.1 MG/DL (1.8-2.4); POTASSIUM SERUM 4.2 MEQ/L (3.5-5.1)
[2019-04-18] MEDS: CLOPIDOGREL 75 MG TAB PO SCH (08:22)
[2019-04-18] MEDS: SINEMET 25-100 MG TAB PO SCH ×2 (08:23→17:55)
[2019-04-18] MEDS: ASPIRIN 81 MG ENTERIC TAB PO SCH (08:23)
[2019-04-18] MEDS: FERROUS SULFATE 325MG TAB PO SCH (08:23)
[2019-04-18] MEDS: ENOXAPARIN 30 MG/0.3 ML SYR (J1650) SC SCH (08:23)
[2019-04-18] MEDS ORDERED: AMIODARONE 200 MG TAB (PACERONE) PO SCH (12:00)
[2019-04-18 14:00] VITALS: BP 154/82
--- NOTE | 2019-04-18 14:14 | IPNPDOC ---
Text Note Date of Service The patient was seen on 04/18/19. NOTE Subjective: Feels well this morning Afebrile, hemodynamically stable, no chest pain, shortness of breath or palpitations Objective Physical Examination General Exam: Awake, alert, sitting up, eating Eye Exam: Positive: PERRLA, EOMI, anicteric ENT Exam: Atraumatic, MMM Neck Exam: Supple Chest Exam: CTAB Heart Exam: Rate Normal, Regular Rhythm, no murmurs Abdomen Exam: Normoactive bowel sounds, soft, non tender Extremity Exam: 2+ LE edema to ankles, 2+ DP normal pulses, non tender Neuro Exam: Positive: Normal speech with a slight slurring per baseline, Strength at 5/5 X4 ext, Normal Tone, Cranial Nerves 3-12 NL Psych Exam: Positive: Mental status NL, Memory Intact, Oriented x 3; Assessment /Plan 83 yo M who was admitted for infectious colitis with C.diff, yersinia and e.coli on vanc and cipro with improvement of copious diarrhea and dehydration s/p fluids, whose couse has been c/b significant asymptomatic ectopy with paroxysmal AFib and NSVT. Consulted cardiology about ectopy and paroxysmal AF management since he was placed on ASA/plavix. Assessment # Acute Infectious diarrhea (GI panel +ve for c.diff, enterohemorrhagic e. coli, and yersinia) - continue vanco 125 mg q 6 orally - cipro 250 mg bid - no evidence of STEC continue with abx # Right sided/Generalized weakness: much improved - MRI brain was w/o evidence of an acute CVA - Likely due to acute diarrhea/dehydration - PT/OT -> May need placement at discharge # Bilateral LE swelling - Echo 2017 reviewed and normal - repeat TTE pending, NT-proBNP 4025, CXR clear - restart home lasix that was held with acute volume loss associated with diarrhea, that is now resolving - B/l venous duplex normal on admission # Acute on Chronic renal failure/CKD stage 3 (baseline creat 1.4-1.6): prerenal azotemia in the setting of GI losses - creat improved with fluids - avoid nephrotoxins # Rate controlled Paroxysmal atrial fib likely exacerbated by acute diarrhea/dehydration and infection - CHADS2-Vasc2 = 5, in speaking with Dr. Flores, will start eliquis 2.5 BID and discontinue plavix, such that he will be on ASA/eliquis -Dr. Flores also suggested 200 QID amio, but given the patient is also on cipro which is QT prolonging, will await his final recs. - f/u TTE - TSH 1.18 - has not required rate control, continue to monitor # Parkinson's Disease - continue Sinemet, monitor for toxic side effects # Chronic CVA - continue asa, dc Plavix, now transitioning to ASA 81/eliquis 2.5 BID # Chronic CAD - stable # S/p 3V CABG # S/p AAA repair # S/p fem-pop bypass for PAD # Chronic anemia with macrocytosis - continue iron tablets - check b12, folate levels # BPH - continue Flomax # Insomnia - continue Remeron # Hx of Lyme disease - treated with amoxicillin in the past # DVT prophylaxis - SCDs + lovenox 30 mg DVT prophylaxis: on eliquis Dispo: pending clinical improvement, stool starting to be formed. VS,Fishbone, I+O VS, Fishbone, I+O Laboratory Tests 04/18/19 05:43 Red Blood Count 2.89 L, Mean Corpuscular Volume 103.8 H, Mean Corpuscular Hemoglobin 33.2 H, Mean Corpuscular Hemoglobin Concent 32.0, Red Cell Distribution Width 13.7, Calcium Level 9.1 Vital Signs Date Time Temp Pulse Resp B/P (MAP) Pulse Ox O2 Delivery O2 Flow Rate FiO2 04/18/19 06:00 98.1 69 17 127/69 (88) 98 04/15/19 19:54 Room Air I&O- Last 24 Hours up to 6 AM 04/18/19 05:59 Intake Total 975 ml Output Total 1025 ml Balance -50 ml ALMA BRADLEY MD Apr 18, 2019 14:14
[2019-04-18] MEDS: AMIODARONE 200 MG TAB (PACERONE) PO SCH (17:55)
[2019-04-18] MEDS: TAMSULOSIN 0.4 MG CAP PO SCH (17:55)
[2019-04-18] MEDS: MIRTAZAPINE 15 MG TAB PO SCH (17:55)
[2019-04-18] MEDS: APIXABAN 2.5 MG TAB (ELIQUIS) PO SCH (20:00)
[2019-04-18 22:00] VITALS: BP_SYST 118; BP_SYST 149; BP_DIAS 69; BP_DIAS 76
--- NOTE | 2019-04-18 22:08 | ECHO ---
DATE OF PROCEDURE: 04/18/2019 AGE: 83 GENDER: Male HEIGHT: 67 inches WEIGHT: 194 pounds BODY SURFACE AREA: 1.99 m2 PATIENT LOCATION: Inpatient, [address] [place] [address], room 4213 REFERRING PHYSICIAN: Jose Sanon MD INDICATION: Leg swelling. 2-D MEASUREMENTS: RV: 4.2 cm LV: 5.0 cm Septum: 1.6 cm Posterior wall: 1.44 cm Aortic root: 4.2 cm LA: 4.8 cm LVEF: 60% DOPPLER MEASUREMENTS AV: 1.56 m/s LVOT: 0.99 m/s LVOT diameter: 2.2 cm MV-E: 95, A: 52, EA ratio 1.8 Early mitral deceleration time: 186 ms E prime: 6.3, A prime: 5.8, E/E prime ratio: 15 PCWP: 17.3 mmHg PV: 1.0 m/s Pulmonary artery acceleration time: 95 ms RVSP: 40 mmHg IVC: 2.4 cm COMMENTS Sinus arrhythmia without intraventricular conduction disturbance. Rate averaging 70 bpm. Technically challenging study in light of the patient's body habitus, but diagnostically useful information was still obtained. M-mode and two-dimensional echocardiography was performed with pulsed, continuous wave, color flow and moderate concentric left ventricle hypertrophy with subtle straightening of the septum suggestive of right ventricular pressure overload yet preserved global resting left ventricular systolic function. Moderately dilated left atrium with Doppler evidence of impairment of LV diastolic function and at least mildly elevated mean left atrial pressure. Mildly dilated right heart chambers with normal wall motion with Doppler evidence of at least moderate pulmonary hypertension. Mildly dilated inferior vena cava with slightly reduced respiratory collapse in keeping with elevated central venous pressure. Mild aortic valvular sclerosis without functional abnormality. Mildly dilated aortic root. Moderate mitral annular calcification without inflow tract obstruction and only very mild insufficiency. Normal appearing tricuspid valve with very mild insufficiency. No apparent intracardiac mass or pericardial effusion.
[2019-04-19] MEDS: VANCOMYCIN ORAL SOL 250MG/5ML ORAL SYRINGE PO SCH ×4 (00:38→17:20)
[2019-04-19] MEDS: AMIODARONE 200 MG TAB (PACERONE) PO SCH ×2 (00:38→05:13)
[2019-04-19] MEDS: CIPROFLOXACIN 250 MG TAB PO SCH ×2 (05:13→17:19)
[2019-04-19 06:00] VITALS: BP 158/77
[2019-04-19 07:15] LABS: HEMATOCRIT 31.9 % (42.0-52.0); MEAN CORPUSCULAR HEMOGLOBIN 33.3 pg (27.0-33.0); MEAN CORPUSCULAR HGB CONC 31.3 g/dl (32.0-36.5); MEAN CORPUSCULAR VOLUME 106.3 fl (80.0-96.0); PLATELET COUNT, AUTOMATED 189 10^3/uL (150-450); WHITE BLOOD COUNT 4.1 10^3/uL (4.0-10.0)
[2019-04-19 07:42] LABS: CREATININE FOR GFR 1.54 MG/DL (0.70-1.30); GLOMERULAR FILTRATION RATE 46.3 (>35); POTASSIUM SERUM 4.4 MEQ/L (3.5-5.1)
--- NOTE | 2019-04-19 08:19 | IPNPDOC ---
Text Note Date of Service The patient was seen on 04/19/19. NOTE Subjective: Feels well this morning Afebrile, hemodynamically stable, no chest pain, shortness of breath or palpitations Interim events: -Dc'd plavix, started on eliqius, also placed on [address] Flores for the frequent ectopy and pAF Objective: Physical Examination General Exam: Awake, alert, sitting up, eating breakfast Eye Exam: Positive: PERRLA, EOMI, anicteric ENT Exam: Atraumatic, MMM Neck Exam: Supple Chest Exam: CTAB Heart Exam: RRR this AM, no mrg Abdomen Exam: Normoactive bowel sounds, soft, non tender Extremity Exam: 2+ LE edema to ankles, 2+ DP normal pulses, non tender Neuro Exam: Normal speech, Strength at 5/5 X4 ext, Cranial Nerves 3-12 NL Psych Exam: Positive: Mental status NL, Memory Intact, Oriented x 3 Assessment /Plan 83 yo M who was admitted for infectious colitis with C.diff, yersinia and e.coli on vanc and cipro with improvement of copious diarrhea and dehydration s/p fluids, whose couse has been c/b significant asymptomatic ectopy with paroxysmal AFib and NSVT. Consulted cardiology about ectopy and paroxysmal AF management since he was placed on ASA/plavix and per Dr. Flores, started on amio 200QID as well as dc'd plavix and started eliquis, tolerating it well. Assessment # Acute Infectious diarrhea (GI panel +ve for c.diff, enterohemorrhagic e. coli, and yersinia) - continue vanco 125 mg q 6 orally - cipro 250 mg bid - no evidence of STEC continue with abx # Right sided/Generalized weakness: much improved - MRI brain was w/o evidence of an acute CVA - Likely due to acute diarrhea/dehydration - PT/OT # Bilateral LE swelling - f/u TTE report, NT-proBNP 4025, CXR clear - B/l venous duplex normal on admission - monitor, stable on room air # Acute on Chronic renal failure/CKD stage 3 (baseline creat 1.4-1.6): prerenal azotemia in the setting of GI losses - creat improved with fluids - avoid nephrotoxins # Rate controlled Paroxysmal atrial fib likely exacerbated by acute diarrhea/dehydration and infection - CHADS2-Vasc2 = 5, in speaking with Dr. Flores, will start eliquis 2.5 BID and discontinue plavix, such that he will be on ASA/eliquis -Dr. Flores also suggested 200 QID amio, but given the patient is also on cipro which is QT prolonging, will await his final recs. - f/u TTE report - TSH 1.18 - has not required rate control, continue to monitor, however started on amio [address] Flores consult -Dc'd plavix and started on eliquis 2.5 BID, therefore now on ASA81/eliquis 2.5 BID # Parkinson's Disease - continue Sinemet, monitor for toxic side effects # Chronic CVA - continue asa, dc Plavix, now on ASA 81/eliquis 2.5 BID # Chronic CAD - stable # S/p 3V CABG # S/p AAA repair # S/p fem-pop bypass for PAD # Chronic anemia with macrocytosis - continue iron tablets - check b12, folate levels # BPH - continue Flomax # Insomnia - continue Remeron # Hx of Lyme disease - treated with amoxicillin in the past # DVT prophylaxis - SCDs + dc'd lovenox DVT prophylaxis: on eliquis Dispo: pending clinical improvement Saritha DURAN, I+O VSSaritha, I+O Laboratory Tests 04/19/19 06:40 Red Blood Count 3.00 L, Mean Corpuscular Volume 106.3 H, Mean Corpuscular Hemoglobin 33.3 H, Mean Corpuscular Hemoglobin Concent 31.3 L, Red Cell Distribution Width 13.7, Calcium Level 9.0 Vital Signs Date Time Temp Pulse Resp B/P (MAP) Pulse Ox O2 Delivery O2 Flow Rate FiO2 04/19/19 06:00 98.1 77 18 158/77 (104) 94 04/15/19 19:54 Room Air I&O- Last 24 Hours up to 6 AM 04/19/19 06:00 Intake Total 1000 ml Output Total 1025 ml Balance -25 ml ALMA BRADLEY MD Apr 19, 2019 08:19
[2019-04-19] MEDS: APIXABAN 2.5 MG TAB (ELIQUIS) PO SCH ×2 (08:44→20:23)
[2019-04-19] MEDS: FERROUS SULFATE 325MG TAB PO SCH (08:44)
[2019-04-19] MEDS: ASPIRIN 81 MG ENTERIC TAB PO SCH (08:44)
[2019-04-19] MEDS: SINEMET 25-100 MG TAB PO SCH ×2 (08:44→17:20)
[2019-04-19 14:00] VITALS: BP 156/70
[2019-04-19] MEDS: MIRTAZAPINE 15 MG TAB PO SCH (17:19)
[2019-04-19] MEDS: TAMSULOSIN 0.4 MG CAP PO SCH (17:19)
[2019-04-19 22:00] VITALS: BP 157/87
--- NOTE | 2019-04-19 23:11 | CR ---
DATE OF CONSULTATION: 04/19/2019 CARDIOLOGY CONSULTATION REFERRING PHYSICIAN: Dr. Ashley Wang INDICATION: Suspected atrial fibrillation and nonsustained ventricular tachycardia (VT). HISTORY: This 83-year-old father, retired resident of [place], [place] has been followed by Dr. Puga for multiple medical problems including generalized vascular disease (carotid, coronary, aortic and peripheral vascular disease) and longstanding hypertension. Has also had a history of worsening chronic renal insufficiency. Current limitation is fatigue and lower leg weakness with history of spinal stenosis. Presented to the emergency room April 15, 2019 with change in mental status, suspected cerebrovascular accident with possible right arm weakness. Had also been having a problem with loose bowel movements, anorexia and weakness. Was found to have significant lower leg swelling with chest x-ray showing cardiomegaly and pro-BNP level 4025. Was given a dose of Lasix by mouth and admitted to a telemetry floor. An echocardiogram/Doppler study was ordered. Cardiology consultation was placed in light of EKG interpretation of atrial fibrillation, suspected recent onset and nonsustained runs of ventricular tachycardia. At this point, the patient is relatively sedentary, walks only short distances limited by leg weakness and discomfort. Will become dyspneic with effort but denies orthopnea or nocturnal dyspnea. Has noticed increasing lower leg swelling. Had previously been on diuretic therapy, but this was discontinued some time ago. He is unaware of a diagnosis of congestive heart failure or cardiac enlargement. Coronary bypass surgery 20 years ago without recurrent chest pain. Last stress study was years ago. Treated hypertension since his 50s. Denies any awareness of his heart action. Falls have been related to balance problems. Denies dizziness or loss of consciousness. History of transient ischemic attack 2011 and cerebral infarction February [address] scans and MRIs of the brain showing severe cerebral atrophy, evidence of chronic small-vessel disease, and old left cerebellar lacunar infarct. This was unchanged from prior study dating back to 2017. Denies any current claudication. Unaware of prior rheumatic fever or heart murmur. CORONARY RISK FACTORS: Advanced age. Male gender. Chronic hypertension. Weight problem. Remote smoking history. No diabetes mellitus. Hyperlipidemia. FAMILY HISTORY: Not applicable. OTHER PAST MEDICAL/SURGICAL HISTORY: Prior renal colic, osteoporosis, lumbosacral spondylosis with degenerative disc disease and spinal stenosis. Esophageal reflux. Benign prostatic hypertrophy. Chronic renal insufficiency. Peripheral vascular disease. Abdominal aortic aneurysm, status post endovascular grafting. Prior iron deficiency anemia. Prior gout. Parkinson's disease. MEDICATIONS: At the time of admission, he was taking aspirin 81 mg daily, Plavix 75 mg daily, lansoprazole 15 mg daily, carbidopa-levadopa 25-100 one tablet twice a day, Remeron 15 mg nightly, Flomax 0.4 mg nightly, ferrous sulfate 325 mg by mouth daily, magnesium oxide 400 mg daily and Tylenol Extra Strength by mouth twice a day. ALLERGIES: He had no known allergies. PHYSICAL EXAMINATION: Constitutional: Pleasant elderly male, slightly barrel-chested and mildly overweight, lay comfortably flat. Vital signs: Heart rate 75 beats per minute and regular with some irregularity. Blood pressure 156/70 supine, respiratory rate 18, oxygen (O2) saturation 98% on room air. Afebrile. Weight 190 pounds, height 67 inches, body mass index (BMI) 27.7. Eyes: Normal conjunctivae and lids. No xanthelasma. ENT/mouth: Edentulous with normal oral moisture. No central cyanosis. Neck: Trachea midline. Neck veins were elevated 4- 6 cm above the sternal angle. Thyroid not enlarged. Respiratory: Slightly increased anteroposterior chest diameter with well-healed sternotomy incision. Fairly good air entry over both lung garcia with no inspiratory rales. Slight prolongation of expiration but no audible wheeze. Cardiovascular: Apical impulse not palpable. Heart sounds were somewhat distant. Unable to detect S2 splitting. S4 gallop with systolic ejection murmur grade 1-2 out of 6 along the left sternal border radiating to right base but not to the neck. No diastolic murmur or rub. Normal carotid upstrokes and volume. No bruits. Abdominal aorta was not palpable. Femoral pulses were symmetrical. Pedal pulses were difficult to palpate through edema fluid. Asymmetrical swelling of both lower legs, especially the left related to his remote saphenous vein donor site incision but also had pitting over his sacrum and lower lumbar spine posteriorly. Extremities: No clubbing, peripheral cyanosis or splinter hemorrhages. GI: Soft, nontender abdomen with palpable liver edge but no splenomegaly. Normal bowel sounds. Rectal examination not indicated. Musculoskeletal: No obvious joint deformities. Spinal curvature appeared to be normal. Proximal muscle weakness but normal tone. Neurologic/psych: Bright, alert and oriented, gave a fair history. Eye, facial, and extremity movements appear to be symmetrical and normal with no involuntary movements. Skin: Some degenerative changes skin both lower legs but no rashes, ecchymotic lesions, pallor or icterus. INVESTIGATIONS: Chest x-ray: Portable upright study taken in the emergency room April 15, 2019 was reviewed independently and shows cardiomegaly even allowing for this portable technique. Obvious sternotomy wire sutures and multiple vascular clips related to his remote bypass surgery. Slightly prominent pulmonary vasculature but no localized infiltrate or obvious pleural effusion. Some degenerative changes of his thoracic spine. EKGs: Serial studies were reviewed, officially interpreted as showing atrial fibrillation in error. On close scrutiny, there is a P-wave prior to each QRS complex but of varying morphology consistent with multifocal atrial rhythm. Somewhat low voltages with incomplete right bundle branch block. No evidence of prior infarction but diffuse ST/T-wave abnormalities that are not evolving. ECHOCARDIOGRAM: April 18, 2019 showed moderate concentric left ventricular hypertrophy with septal wall motion abnormality due to right ventricular pressure overload, but preserved global left ventricular systolic function, left ventricular ejection fraction (LVEF) 60%. Moderately dilated left atrium with impairment of LV diastolic function and at least mildly elevated estimated mean left atrial pressure. Mildly dilated right heart chambers with normal wall motion and at least moderate pulmonary hypertension. Mildly dilated inferior vena cava with reduced respiratory collapse in keeping with elevated central venous pressure. Mildly dilated aortic root measuring 4.2 cm with mild aortic valvular sclerosis without functional abnormality. There was moderate mitral annular calcification with only very mild insufficiency. Normal tricuspid valve with very mild insufficiency. No intracardiac mass or pericardial effusion. LABORATORY DATA: Blood work today shows a hemoglobin of 10. Normal white blood cell count and platelet count. Chemistry today showed electrolyte balance with BUN 24, creatinine 1.5. These values are actually somewhat improved from admission values of 22 and 2.0, albumin was 2.9 on admission but other liver function studies were normal. Ultrasensitive TSH was normal at 1.18. Troponin I level was indeterminate, meaningless in the setting his renal insufficiency. Pro-BNP level 4025. IMPRESSION/PLAN: 1. Multifocal atrial rhythm: Initially reported as atrial fibrillation and started on amiodarone. As discussed with her primary provider, there is no need for amiodarone or oral anticoagulation here. In fact, amiodarone may provoke symptomatic bradyarrhythmia. This rhythm disturbance is usually a manifestation of sinus node dysfunction and likely a reflection of his cor pulmonale. He will be restarted on his combination Plavix and aspirin. 2. Heart failure (diastolic/acute on chronic): Has echocardiographic evidence to suggest longstanding hypertensive heart disease as well as pulmonary heart disease. I suspect his gradually worsening renal insufficiency is contributing to his congested state. Condition of some chronicity in light of his lack of respiratory symptoms. I have placed him on a modest salt and fluid intake restriction and have started low-dose torsemide 10 mg daily with spirolactone 12.5 mg daily. Angiotensin-converting enzyme (ANTOINE) inhibitor or angiotensin receptor katerina somewhat contraindicated in light of his renal insufficiency. We will monitor his chemistry closely with you, but judging from his available recorded weights, he has gained approximately 8 kg of fluid since last fall. 3. Abnormal EKG: Appearance the result of a combination of his body habitus, pulmonary disease and hypertension. Fortunately no serial repolarization changes. 4. Coronary artery disease ([place] vessel)/post CABG: Has done remarkably well with surgical revascularization 20 years ago. No evidence of acute myocardial ischemic event. Beta katerina relatively contraindicated in light of his sinus node dysfunction. ANTOINE inhibitor/angiotensin receptor katerina somewhat contraindicated in light of his renal insufficiency. We are resuming his combination aspirin and Plavix therapies. I would also suggest resuming at least low-dose atorvastatin 20 mg daily. 5. Hypertensive heart disease (benign with heart failure): Current systolic blood pressure is slightly suboptimally controlled, but I anticipate the initiation of diuretic therapy, as mentioned above, will manage this. We will continue to monitor his electrolytes and renal function closely with you. 6. Cor pulmonale/right heart failure: Undoubtedly his right heart failure is related to his left heart failure, but echocardiographic findings are clearly out of keeping with his left ventricular disease alone. Has a septal wall motion abnormality due to right ventricular pressure overload. We have requested a nocturnal oximetry be performed. With his current sedentary situation, we have started him on low-dose Lovenox as we have stopped his oral anticoagulation. We will plan on monitoring him closely with you for the time being and appreciate the opportunity to participate in his care. MASOOD
[2019-04-20] MEDS: VANCOMYCIN ORAL SOL 250MG/5ML ORAL SYRINGE PO SCH ×4 (00:03→17:01)
[2019-04-20 03:37] LABS: MB/CK RELATIVE INDEX 3.28 (< OR =4); TROPONIN I 0.04 NG/ML (< 0.10)
[2019-04-20] MEDS: CIPROFLOXACIN 250 MG TAB PO SCH ×2 (05:56→17:00)
[2019-04-20 06:00] VITALS: BP 146/57
[2019-04-20 06:52] LABS: HEMATOCRIT 29.2 % (42.0-52.0); HEMOGLOBIN 9.5 g/dl (13.5-17.5); MEAN CORPUSCULAR HEMOGLOBIN 33.2 pg (27.0-33.0); MEAN CORPUSCULAR HGB CONC 32.5 g/dl (32.0-36.5); MEAN CORPUSCULAR VOLUME 102.1 fl (80.0-96.0); PLATELET COUNT, AUTOMATED 199 10^3/uL (150-450); RED BLOOD COUNT 2.86 10^6/uL (4.30-6.10); WHITE BLOOD COUNT 4.6 10^3/uL (4.0-10.0)
[2019-04-20 07:23] LABS: CALCIUM LEVEL 8.7 MG/DL (8.8-10.2); CREATININE FOR GFR 1.51 MG/DL (0.70-1.30); GLOMERULAR FILTRATION RATE 47.3 (>35); POTASSIUM SERUM 4.1 MEQ/L (3.5-5.1)
--- NOTE | 2019-04-20 08:14 | IPNPDOC ---
Text Note Date of Service The patient was seen on 04/20/19. NOTE Subjective: Feels well this morning Afebrile, hemodynamically stable, no chest pain, shortness of breath or palpitations Interim events: -Was seen by Dr. Flores and determined to not have had any evidence of Afib but multifocal atrial arrythmias, therefore eliquis was stopped was restored back to [id number]/[id number], and amiodarone was stopped as well Objective: Physical Examination General Exam: Awake, alert, sitting up, eating breakfast Eye Exam: Positive: PERRLA, EOMI, anicteric ENT Exam: Atraumatic, MMM Neck Exam: Supple Chest Exam: CTAB Heart Exam: RRR, no mrg Abdomen Exam: Normoactive bowel sounds, soft, non tender Extremity Exam: 2+ LE edema to ankles, 2+ DP normal pulses, non tender Neuro Exam: Normal speech, Strength at 5/5 X4 ext, Cranial Nerves 3-12 NL Psych Exam: Positive: Mental status NL, Memory Intact, Oriented x 3 Assessment /Plan 83 yo M who was admitted for infectious colitis with C.diff, yersinia and e.coli on vanc and cipro with improvement of copious diarrhea and dehydration s/p fluids, whose couse has been c/b significant asymptomatic ectopy with paroxysmal AFib and NSVT. Consulted cardiology about ectopy and paroxysmal AF management since he was placed on ASA/plavix and briefly placed on amio 200QID as well as dc'd plavix and started eliquis, however after evaluation by Dr. Flores really did not have any evidence of Afib and thus amio and eliquis were stopped and restarted on plavix, as we as started heart failure optimization as stated below. Otherwise doing well, diarrhea resolved, tolerating diet. Assessment # Acute Infectious diarrhea (GI panel +ve for c.diff, enterohemorrhagic e. coli, and yersinia) - continue vanco 125 mg q 6 orally - cipro 250 mg bid - no evidence of STEC continue with abx #Multifocal atrial rhythm: Initially reported as atrial fibrillation and started on amiodarone and eliquis, now both discontinued per cardiology. -Per Dr. Flores, his MAT is likely a reflection of his cor pulmonale that was noted on TTE, he was therefore restarted on his ASA81/Plavix 75 #Acute on chronic diastolic heart failure: -TTE suggestive of longstanding hypertensive heart disease as well as pulmonary heart disease and Dr. Flores thought his volume overload was also exercabated by his ongoing SALOMON -Was placed on 2g salt restriction and fluid restriction and was started on torsemide 10 mg daily with spirolactone 12.5 mg daily. -No ACEi/ARB in the setting of his ongoing SALOMON. # Acute on Chronic renal failure/CKD stage 3 (baseline creat 1.4-1.6): prerenal azotemia in the setting of GI losses - creat improved with fluids - avoid nephrotoxins # Right sided/Generalized weakness: much improved - MRI brain was w/o evidence of an acute CVA - Likely due to acute diarrhea/dehydration - PT/OT # Parkinson's Disease - continue Sinemet, monitor for toxic side effects # Chronic CVA - continue asa, restart Plavix now that eliquis 2.5 BID is discontinued # Chronic CAD - stable # S/p 3V CABG, continue restart statin therapy, 20 lipitor, while on DAPT # S/p AAA repair # S/p fem-pop bypass for PAD # Chronic anemia with macrocytosis - continue iron tablets - check b12, folate levels # BPH - continue Flomax # Insomnia - continue Remeron # Hx of Lyme disease - treated with amoxicillin in the past # DVT prophylaxis - SCDs + lovenox DVT prophylaxis: on lovenox Dispo: pending clinical improvement VS,Fishbone, I+O VS, Fishbone, I+O Laboratory Tests 04/20/19 06:30 Red Blood Count 2.86 L, Mean Corpuscular Volume 102.1 H, Mean Corpuscular Hemoglobin 33.2 H, Mean Corpuscular Hemoglobin Concent 32.5, Red Cell Distribution Width 13.5, Calcium Level 8.7 L Vital Signs Date Time Temp Pulse Resp B/P (MAP) Pulse Ox O2 Delivery O2 Flow Rate FiO2 04/20/19 06:00 98.0 69 20 146/57 (86) 96 04/15/19 19:54 Room Air I&O- Last 24 Hours up to 6 AM 04/20/19 06:00 Intake Total 1380 ml Output Total 1150 ml Balance 230 ml ALMA BRADLEY MD Apr 20, 2019 08:14
[2019-04-20] MEDS: SINEMET 25-100 MG TAB PO SCH ×2 (08:29→17:00)
[2019-04-20] MEDS: FERROUS SULFATE 325MG TAB PO SCH (08:30)
[2019-04-20] MEDS: CLOPIDOGREL 75 MG TAB PO SCH (08:30)
[2019-04-20] MEDS: TORSEMIDE 10 MG TABLET PO SCH (08:30)
[2019-04-20] MEDS: ASPIRIN 81 MG ENTERIC TAB PO SCH (08:30)
[2019-04-20] MEDS: SPIRONOLACTONE 12.5MG PER 1/2 TABLET PO SCH (08:30)
[2019-04-20 14:00] VITALS: BP 145/65
[2019-04-20] MEDS: TAMSULOSIN 0.4 MG CAP PO SCH (16:59)
[2019-04-20] MEDS: MIRTAZAPINE 15 MG TAB PO SCH (17:00)
--- NOTE | 2019-04-20 17:26 | IPN ---
DATE: 04/20/2019 CARDIOLOGY PROGRESS NOTE SUBJECTIVE: The patient's diarrhea has settled down for the most part. He has been up in the room without feeling dizzy. Currently does not feel short of breath. He is happy that his lower leg swelling appears to have improved with introduction of diuretic therapy earlier today. Remains free of any chest discomfort. OBJECTIVE: Pleasant, elderly male, slightly overweight, sat comfortably on the edge of the bed. No obvious pallor or cyanosis. Normal oral moisture. Heart rate 76 beats per minute and irregular, blood pressure 145/65 sitting, respiratory rate 18, oxygen saturation 100% on room air. Afebrile. Neck veins remain elevated approximately 8 cm above the sternal angle, even visible with him sitting. Few bibasilar inspiratory crepitations. Still has a degree of sacral pitting but lower leg swelling has improved with 1 mm pitting one-half of the way up both lower legs, more so on the left than the right related to his prior saphenous vein surgery for his bypass operation. LABORATORY DATA: Blood work today showed hemoglobin of 9.5. Normal white blood cell count and platelet count. His electrolytes were in balance, BUN 24, creatinine 1.5. IMPRESSION / PLAN: 1. Heart failure (diastolic / acute on chronic): Has remarkably few symptoms despite his congestion but systemic edema appears less following introduction of diuretic therapy earlier today. No medication change was made today. Remains on low-dose torsemide and spironolactone. 2. Multifocal atrial rhythm. Continues to have a pulse irregularity with telemetry showing multifocal atrial rhythm not atrial fibrillation. 3. Abnormal EKG: No repeat study was obtained today. 4. Coronary artery disease ([place] vessel) / post CABG: Remains free of symptomatic myocardial ischemia. Continues on combination low-dose atorvastatin, aspirin and Plavix. 5. Hypertensive heart disease (benign with heart failure): Renal function has remained stable. Continues to have a slightly elevated systolic blood pressure that we anticipate will improve with diuretic therapy. 6. Cor pulmonale / right heart failure. Nocturnal oxygen saturation / [facility] for obstructive sleep apnea. My associate Dr. Alegre will be assuming cardiology service as of [facility].
[2019-04-20] MEDS ORDERED: CALCIUM CARBONATE 500 MG CHEW U/D PO PRN (19:00)
[2019-04-20] MEDS: ATORVASTATIN 20 MG TAB PO SCH (20:05)
--- NOTE | 2019-04-20 21:13 | ECGEPIP ---
[facility] Test Date: 2019-04-20 Pat Name: TORIBIO ZARAGOZA Department: Room: [place] [address] Gender: Male Director Hematology: : 1935 Requested By: LINDA TRUJILLO Order Number: [id number] Reading MD: Ramses Scott Measurements Intervals [place] Rate: 80 P: ND: 0 QRS: 30 QRSD: 96 T: 6 QT: 407 QTc: 471 Interpretive Statements Atrial fibrillation with controlled ventricular response Incomplete right bundle branch block Delayed anterior R wave progression Nonspecific ST-T wave abnormalities No significant change when compared to prior tracing of 04/17/2019 Electronically Signed on 04-20-2019 21:13:19 EDT by Ramses Scott
[2019-04-20 22:00] VITALS: BP 116/66
[2019-04-21] MEDS: VANCOMYCIN ORAL SOL 250MG/5ML ORAL SYRINGE PO SCH ×5 (00:12→23:52)
[2019-04-21] MEDS: CIPROFLOXACIN 250 MG TAB PO SCH ×2 (05:29→18:09)
[2019-04-21 06:00] VITALS: BP 138/72
[2019-04-21 07:07] LABS: HEMATOCRIT 31.9 % (42.0-52.0); HEMOGLOBIN 10.2 g/dl (13.5-17.5); MEAN CORPUSCULAR HEMOGLOBIN 32.8 pg (27.0-33.0); MEAN CORPUSCULAR VOLUME 102.6 fl (80.0-96.0); PLATELET COUNT, AUTOMATED 252 10^3/uL (150-450); RED BLOOD COUNT 3.11 10^6/uL (4.30-6.10); WHITE BLOOD COUNT 6.2 10^3/uL (4.0-10.0)
--- NOTE | 2019-04-21 07:22 | IPNPDOC ---
Text Note Date of Service The patient was seen on 04/21/19. NOTE Subjective: Feels well this morning, continues to have asymptomatic ectopy on telemetry Afebrile, hemodynamically stable, no chest pain, shortness of breath or palpitations Objective: Physical Examination General Exam: Awake, alert, sitting up, eating breakfast Eye Exam: Positive: PERRLA, EOMI, anicteric ENT Exam: Atraumatic, MMM Neck Exam: Supple Chest Exam: CTAB Heart Exam: RRR, no mrg Abdomen Exam: Normoactive bowel sounds, soft, non tender Extremity Exam: 2+ LE edema to ankles, 2+ DP normal pulses, non tender Neuro Exam: Normal speech, Strength at 5/5 X4 ext, Cranial Nerves 3-12 NL Psych Exam: Positive: Mental status NL, Memory Intact, Oriented x 3 Assessment /Plan 83 yo M who was admitted for infectious colitis with C.diff, yersinia and e.coli on vanc and cipro with improvement of copious diarrhea and dehydration s/p fluids, whose couse has been c/b significant asymptomatic ectopy with paroxysmal AFib and NSVT. Consulted cardiology about ectopy and paroxysmal AF management since he was placed on ASA/plavix and briefly placed on amio 200QID as well as dc'd plavix and started eliquis, however after evaluation by Dr. Flores really did not have any evidence of Afib and thus amio and eliquis were stopped and restarted on plavix, as we as started heart failure optimization as stated below. Otherwise doing well, diarrhea resolved, tolerating diet. Assessment # Acute Infectious diarrhea (GI panel +ve for c.diff, enterohemorrhagic e. coli, and yersinia) - continue vanco 125 mg q 6 orally - cipro 250 mg bid - no evidence of STEC continue with abx #Multifocal atrial rhythm: Initially reported as atrial fibrillation and started on amiodarone and eliquis, now both discontinued per cardiology. Ectopic activity persists. -Per Dr. Flores, his MAT is likely a reflection of his cor pulmonale that was noted on TTE, he was therefore restarted on his ASA81/Plavix 75 #Acute on chronic diastolic heart failure: -TTE suggestive of longstanding hypertensive heart disease as well as pulmonary heart disease and Dr. Flores thought his volume overload was also exercabated by his ongoing SALOMON -Was placed on 2g salt restriction and fluid restriction and was started on torsemide 10 mg daily with spirolactone 12.5 mg daily. -No ACEi/ARB in the setting of his ongoing SALOMON. # Acute on Chronic renal failure/CKD stage 3 (baseline creat 1.4-1.6): prerenal azotemia in the setting of GI losses - creatinine improved with fluids - avoid nephrotoxins # Right sided/Generalized weakness: much improved - MRI brain was w/o evidence of an acute CVA - Likely due to acute diarrhea/dehydration - PT/OT # Parkinson's Disease - continue Sinemet, monitor for toxic side effects # Chronic CVA - continue asa, restart Plavix now that eliquis 2.5 BID is discontinued # Chronic CAD - stable # S/p 3V CABG, continue restart statin therapy, 20 lipitor, while on DAPT # S/p AAA repair # S/p fem-pop bypass for PAD # Chronic anemia with macrocytosis - continue iron tablets - check b12, folate levels # BPH - continue Flomax # Insomnia - continue Remeron # Hx of Lyme disease - treated with amoxicillin in the past # DVT prophylaxis - SCDs + lovenox DVT prophylaxis: on lovenox Dispo: pending clinical improvement VS,Saritha, I+O VS, Fishbone, I+O Laboratory Tests 04/21/19 06:31 Red Blood Count 3.11 L, Mean Corpuscular Volume 102.6 H, Mean Corpuscular Hemoglobin 32.8, Mean Corpuscular Hemoglobin Concent 32.0, Red Cell Distribution Width 13.5 Vital Signs Date Time Temp Pulse Resp B/P (MAP) Pulse Ox O2 Delivery O2 Flow Rate FiO2 04/21/19 06:00 97.8 75 16 138/72 (94) 97 04/15/19 19:54 Room Air I&O- Last 24 Hours up to 6 AM 04/21/19 05:59 Intake Total 1320 ml Output Total 1650 ml Balance -330 ml ALMA BRADLEY MD Apr 21, 2019 07:22
[2019-04-21 07:41] LABS: CALCIUM LEVEL 9.7 MG/DL (8.8-10.2); CREATININE FOR GFR 1.74 MG/DL (0.70-1.30); GLOMERULAR FILTRATION RATE 40.2 (>35); MAGNESIUM LEVEL 2.3 MG/DL (1.8-2.4); POTASSIUM SERUM 4.4 MEQ/L (3.5-5.1)
[2019-04-21] MEDS: SINEMET 25-100 MG TAB PO SCH ×2 (09:27→18:09)
[2019-04-21] MEDS: ASPIRIN 81 MG ENTERIC TAB PO SCH (09:27)
[2019-04-21] MEDS: SPIRONOLACTONE 12.5MG PER 1/2 TABLET PO SCH (09:27)
[2019-04-21] MEDS: TORSEMIDE 10 MG TABLET PO SCH (09:27)
[2019-04-21] MEDS: FERROUS SULFATE 325MG TAB PO SCH (09:27)
[2019-04-21] MEDS: CLOPIDOGREL 75 MG TAB PO SCH (09:27)
[2019-04-21 14:00] VITALS: BP 135/75
[2019-04-21] MEDS: MIRTAZAPINE 15 MG TAB PO SCH (18:09)
[2019-04-21] MEDS: TAMSULOSIN 0.4 MG CAP PO SCH (18:09)
[2019-04-21] MEDS: ATORVASTATIN 20 MG TAB PO SCH (21:56)
[2019-04-21 22:00] VITALS: BP 126/66
[2019-04-22] MEDS: CIPROFLOXACIN 250 MG TAB PO SCH ×2 (05:29→17:32)
[2019-04-22] MEDS: VANCOMYCIN ORAL SOL 250MG/5ML ORAL SYRINGE PO SCH ×3 (05:29→17:33)
[2019-04-22 06:00] VITALS: BP 143/75
[2019-04-22] MEDS: CLOPIDOGREL 75 MG TAB PO SCH (07:34)
[2019-04-22] MEDS: SINEMET 25-100 MG TAB PO SCH ×2 (07:34→17:32)
[2019-04-22] MEDS: FERROUS SULFATE 325MG TAB PO SCH (07:34)
[2019-04-22] MEDS: ASPIRIN 81 MG ENTERIC TAB PO SCH (07:34)
[2019-04-22] MEDS: TORSEMIDE 10 MG TABLET PO SCH (07:34)
[2019-04-22 07:42] LABS: HEMATOCRIT 31.4 % (42.0-52.0); HEMOGLOBIN 10.2 g/dl (13.5-17.5); MEAN CORPUSCULAR HEMOGLOBIN 34.1 pg (27.0-33.0); MEAN CORPUSCULAR HGB CONC 32.5 g/dl (32.0-36.5); PLATELET COUNT, AUTOMATED 252 10^3/uL (150-450); RED BLOOD COUNT 2.99 10^6/uL (4.30-6.10); WHITE BLOOD COUNT 6.1 10^3/uL (4.0-10.0)
--- NOTE | 2019-04-22 08:16 | IPNPDOC ---
Text Note Date of Service The patient was seen on 04/22/19. NOTE Subjective: Feels well this morning, unfortunately continues to have loose stools, frequency has improved but diarrhea persists Afebrile, hemodynamically stable, no chest pain, shortness of breath or palpitations Objective: Physical Examination General Exam: Awake, alert, sitting up, eating breakfast Eye Exam: Positive: PERRLA, EOMI, anicteric ENT Exam: Atraumatic, MMM Neck Exam: Supple Chest Exam: CTAB Heart Exam: RRR, no mrg Abdomen Exam: Normoactive bowel sounds, soft, non tender Extremity Exam: 2+ LE edema to ankles, 2+ DP normal pulses, non tender Neuro Exam: Normal speech, Strength at 5/5 X4 ext, Cranial Nerves 3-12 NL Psych Exam: Positive: Mental status NL, Memory Intact, Oriented x 3 Assessment /Plan 83 yo M who was admitted for infectious colitis with C.diff, yersinia and e.coli on vanc and cipro with improvement of copious diarrhea and dehydration s/p fluids, whose course has been c/b significant asymptomatic ectopy. Consulted cardiology about ectopy and presumed paroxysmal AF and briefly placed on amio 200QID as well as dc'd plavix and started eliquis, however after evaluation by Dr. Flores really did not have any evidence of Afib and thus amio and eliquis were stopped and restarted on plavix, as we as started heart failure optimizatio n as stated below. Otherwise doing well, diarrhea improved, tolerating diet. Assessment # Acute Infectious diarrhea (GI panel +ve for c.diff, enterohemorrhagic e. coli, and yersinia) - continue vanco 125 mg q 6 orally - cipro 250 mg bid - no evidence of STEC continue with abx #Multifocal atrial rhythm: Initially reported as atrial fibrillation and started on amiodarone and eliquis, now both discontinued per cardiology. Ectopic activity persists. -Per Dr. Flores, his MAT is likely a reflection of his cor pulmonale that was noted on TTE, he was therefore restarted on his ASA81/Plavix 75 #Acute on chronic diastolic heart failure: -TTE suggestive of longstanding hypertensive heart disease as well as pulmonary heart disease and Dr. Flores thought his volume overload was also exercabated by his ongoing SALOMON -Was placed on 2g salt restriction and fluid restriction and was started on torsemide 10 mg daily with spirolactone 12.5 mg daily. -No ACEi/ARB in the setting of his ongoing SALOMON. # Acute on Chronic renal failure/CKD stage 3 (baseline creat 1.4-1.6): prerenal azotemia in the setting of GI losses - creatinine improved with fluids - avoid nephrotoxins # Right sided/Generalized weakness: much improved - MRI brain was w/o evidence of an acute CVA - Likely due to acute diarrhea/dehydration - PT/OT # Parkinson's Disease - continue Sinemet, monitor for toxic side effects # Chronic CVA - continue asa, restart Plavix now that eliquis 2.5 BID is discontinued # Chronic CAD - stable # S/p 3V CABG, continue restart statin therapy, 20 lipitor, while on DAPT # S/p AAA repair # S/p fem-pop bypass for PAD # Chronic anemia with macrocytosis - continue iron tablets - check b12, folate levels # BPH - continue Flomax # Insomnia - continue Remeron # Hx of Lyme disease - treated with amoxicillin in the past # DVT prophylaxis - SCDs + lovenox DVT prophylaxis: on lovenox Dispo: pending clinical improvement VS,Fishbone, I+O VS, Fishbone, I+O Laboratory Tests 04/22/19 07:14 Red Blood Count 2.99 L, Mean Corpuscular Volume 105.0 H, Mean Corpuscular Hemoglobin 34.1 H, Mean Corpuscular Hemoglobin Concent 32.5, Red Cell Distrib ution Width 13.6 Vital Signs Date Time Temp Pulse Resp B/P (MAP) Pulse Ox O2 Delivery O2 Flow Rate FiO2 04/22/19 06:00 98.2 71 18 143/75 (97) 94 I&O- Last 24 Hours up to 6 AM 04/22/19 05:59 Intake Total 1854 ml Output Total 1350 ml Balance 504 ml ALMA BRADLEY MD Apr 22, 2019 08:16
[2019-04-22 08:30] LABS: CALCIUM LEVEL 9.5 MG/DL (8.8-10.2); CREATININE FOR GFR 1.76 MG/DL (0.70-1.30); GLOMERULAR FILTRATION RATE 39.7 (>35); MAGNESIUM LEVEL 2.3 MG/DL (1.8-2.4); POTASSIUM SERUM 4.5 MEQ/L (3.5-5.1)
[2019-04-22 14:00] VITALS: BP 102/54
[2019-04-22] MEDS: TAMSULOSIN 0.4 MG CAP PO SCH (17:32)
[2019-04-22] MEDS: MIRTAZAPINE 15 MG TAB PO SCH (17:33)
[2019-04-22] MEDS: ATORVASTATIN 20 MG TAB PO SCH (20:04)
[2019-04-22 22:00] VITALS: BP 121/61
[2019-04-23] MEDS: VANCOMYCIN ORAL SOL 250MG/5ML ORAL SYRINGE PO SCH ×5 (00:36→23:19)
[2019-04-23] MEDS: CIPROFLOXACIN 250 MG TAB PO SCH ×2 (05:34→17:33)
[2019-04-23 06:00] VITALS: BP 137/81
[2019-04-23 06:13] LABS: HEMOGLOBIN 10.4 g/dl (13.5-17.5); MEAN CORPUSCULAR HEMOGLOBIN 33.3 pg (27.0-33.0); MEAN CORPUSCULAR HGB CONC 32.5 g/dl (32.0-36.5); MEAN CORPUSCULAR VOLUME 102.6 fl (80.0-96.0); PLATELET COUNT, AUTOMATED 306 10^3/uL (150-450); RED BLOOD COUNT 3.12 10^6/uL (4.30-6.10); WHITE BLOOD COUNT 8.1 10^3/uL (4.0-10.0)
[2019-04-23 06:34] LABS: CALCIUM LEVEL 9.2 MG/DL (8.8-10.2); CREATININE FOR GFR 2.02 MG/DL (0.70-1.30); GLOMERULAR FILTRATION RATE 33.8 (>35); MAGNESIUM LEVEL 2.4 MG/DL (1.8-2.4); POTASSIUM SERUM 4.7 MEQ/L (3.5-5.1)
--- NOTE | 2019-04-23 09:02 | IPNPDOC ---
Text Note Date of Service The patient was seen on 04/23/19. NOTE Subjective: Feels well this morning, diarrhea persists, sometimes is more formed. Afebrile, hemodynamically stable, no chest pain, shortness of breath or palpitations Objective: Physical Examination General Exam: Awake, alert, sitting up, eating breakfast Eye Exam: Positive: PERRLA, EOMI, anicteric ENT Exam: Atraumatic, MMM Neck Exam: Supple Chest Exam: CTAB Heart Exam: RRR, no mrg Abdomen Exam: Normoactive bowel sounds, soft, non tender Extremity Exam: improved LE edema to ankles still 2+ but tense skin is begin to tent, 2+ DP normal pulses, non tender Neuro Exam: Normal speech, Strength at 5/5 X4 ext, Cranial Nerves 3-12 NL Psych Exam: Positive: Mental status NL, Memory Intact, Oriented x 3 Assessment /Plan 83 yo M who was admitted for infectious colitis with C.diff, yersinia and e.coli on vanc and cipro with improvement of copious diarrhea and dehydration s/p fluids, whose course has been c/b significant asymptomatic ectopy. Consulted cardiology about ectopy and presumed paroxysmal AF and briefly placed on amio 200QID as well as dc'd plavix and started eliquis, however after evaluation by Dr. Flores really did not have any evidence of Afib and thus amio and eliquis were stopped and restarted on plavix, as we as started heart failure optimizati on as stated below. Otherwise doing well, diarrhea mildly improved, tolerating diet. Assessment # Acute Infectious diarrhea (GI panel +ve for c.diff, enterohemorrhagic e. coli, and yersinia) - continue vanco 125 mg q 6 orally - cipro 250 mg bid - no evidence of STEC continue with abx #Multifocal atrial rhythm: Initially reported as atrial fibrillation and started on amiodarone and eliquis, now both discontinued per cardiology. Ectopic activity persists. -Per Dr. Flores, his MAT is likely a reflection of his cor pulmonale that was noted on TTE, he was therefore restarted on his ASA81/Plavix 75 #Acute on chronic diastolic heart failure: -TTE suggestive of longstanding hypertensive heart disease as well as pulmonary heart disease and Dr. Flores thought his volume overload was also exercabated by his ongoing SALOMON -Was placed on 2g salt restriction and fluid restriction and was started on torsemide 10 mg daily with spirolactone 12.5 mg daily. However will hold torsemide today given rising Cr. -No ACEi/ARB in the setting of his ongoing SALOMON. # Acute on Chronic renal failure/CKD stage 3 (baseline creat 1.4-1.6): prerenal azotemia in the setting of GI losses - creatinine initially improved with fluids, now uptrending since starting diuretics, will hold torsemide - avoid nephrotoxins # Right sided/Generalized weakness: much improved - MRI brain was w/o evidence of an acute CVA - Likely due to acute diarrhea/dehydration - PT/OT # Parkinson's Disease - continue Sinemet, monitor for toxic side effects # Chronic CVA - continue asa, restart Plavix now that eliquis 2.5 BID is discontinued # Chronic CAD - stable # S/p 3V CABG, continue restart statin therapy, 20 lipitor, while on DAPT # S/p AAA repair # S/p fem-pop bypass for PAD # Chronic anemia with macrocytosis - continue iron tablets - check b12, folate levels # BPH - continue Flomax # Insomnia - continue Remeron # Hx of Lyme disease - treated with amoxicillin in the past # DVT prophylaxis - SCDs + lovenox DVT prophylaxis: on lovenox Dispo: pending clinical improvement VSSaritha, I+O VSSaritha, I+O Laboratory Tests 04/23/19 05:49 Red Blood Count 3.12 L, Mean Corpuscular Volume 102.6 H, Mean Corpuscular Hemoglobin 33.3 H, Mean Corpuscular Hemoglobin Concent 32.5, Red Cell Distribution Width 13.5, Calcium Level 9.2 Vital Signs Date Time Temp Pulse Resp B/P (MAP) Pulse Ox O2 Delivery O2 Flow Rate FiO2 04/23/19 06:00 98.5 79 16 137/81 (99) 93 I&O- Last 24 Hours up to 6 AM 04/23/19 06:00 Intake Total 660 ml Output Total 1700 ml Balance -1040 ml ALMA BRADLEY MD Apr 23, 2019 09:02
[2019-04-23] MEDS: SINEMET 25-100 MG TAB PO SCH ×2 (09:28→17:33)
[2019-04-23] MEDS: FERROUS SULFATE 325MG TAB PO SCH (09:28)
[2019-04-23] MEDS: ASPIRIN 81 MG ENTERIC TAB PO SCH (09:28)
[2019-04-23] MEDS: CLOPIDOGREL 75 MG TAB PO SCH (09:28)
[2019-04-23 14:00] VITALS: BP 131/76
[2019-04-23] MEDS: TAMSULOSIN 0.4 MG CAP PO SCH (17:33)
[2019-04-23] MEDS: MIRTAZAPINE 15 MG TAB PO SCH (17:33)
[2019-04-23 20:00] VITALS: BP 138/70
[2019-04-23] MEDS: ATORVASTATIN 20 MG TAB PO SCH (20:08)
[2019-04-23 22:00] VITALS: BP 138/70
[2019-04-24] MEDS: CIPROFLOXACIN 250 MG TAB PO SCH ×2 (05:32→17:29)
[2019-04-24] MEDS: VANCOMYCIN ORAL SOL 250MG/5ML ORAL SYRINGE PO SCH ×4 (05:33→23:27)
[2019-04-24 05:58] LABS: HEMATOCRIT 32.9 % (42.0-52.0); HEMOGLOBIN 10.5 g/dl (13.5-17.5); MEAN CORPUSCULAR HEMOGLOBIN 33.2 pg (27.0-33.0); MEAN CORPUSCULAR HGB CONC 31.9 g/dl (32.0-36.5); MEAN CORPUSCULAR VOLUME 104.1 fl (80.0-96.0); PLATELET COUNT, AUTOMATED 294 10^3/uL (150-450); RED BLOOD COUNT 3.16 10^6/uL (4.30-6.10); WHITE BLOOD COUNT 7.6 10^3/uL (4.0-10.0)
[2019-04-24 06:00] VITALS: BP 136/72
[2019-04-24 06:24] LABS: CALCIUM LEVEL 9.3 MG/DL (8.8-10.2); CREATININE FOR GFR 1.89 MG/DL (0.70-1.30); GLOMERULAR FILTRATION RATE 36.5 (>35); MAGNESIUM LEVEL 2.5 MG/DL (1.8-2.4); POTASSIUM SERUM 4.9 MEQ/L (3.5-5.1)
[2019-04-24] MEDS: ASPIRIN 81 MG ENTERIC TAB PO SCH (08:57)
[2019-04-24] MEDS: FERROUS SULFATE 325MG TAB PO SCH (08:57)
[2019-04-24] MEDS: CLOPIDOGREL 75 MG TAB PO SCH (08:57)
[2019-04-24] MEDS: SINEMET 25-100 MG TAB PO SCH ×2 (08:57→17:28)
--- NOTE | 2019-04-24 11:57 | NOCOX ---
DATE OF PROCEDURE: 04/21/2019 The study was performed on room air. The total valid sampling time was 6 hours and 7 minutes. The highest pulse was 106, lowest heart rate was 61. The highest oxygen saturation was 99% with a low of 86%. The time spent with an oxygen saturation less than 88% was 32 seconds. Graphically patient was noted to have periods of desaturation with a pattern consistent with possible Maksim-Quintana respiration. IMPRESSION: Abnormal nocturnal oximetry study. Patient did not have any significant desaturation to qualify for nocturnal oxygen supplementation. Graphically he did have evidence of possible Maksim-Quintana respirations with some periodic brief desaturations overnight related to these respiration pattern. Would correlate clinically. If there is still suspicion for sleep apnea can refer patient for more formal testing as an outpatient.
--- NOTE | 2019-04-24 12:35 | IPNPDOC ---
Text Note Date of Service The patient was seen on 04/24/19. NOTE Subjective: Patient seen and examined at bedside. Feels his diarrhea is improving. Objective: General: NAD, sitting comfortably in chair HEENT: NC/AT, EOMI Lungs: CTA B/L Heart: +S1S2, RRR Abd: soft, NT, +BS Ext: no edema Assessment /Plan 83 yo M who was admitted for infectious colitis with C.diff, yersinia and e.coli on vanc/cipro, complicated with significant asymptomatic ectopy. Consulted cardiology about ectopy and presumed paroxysmal AF and briefly placed on amio 2 00QID as well as dc'd plavix and started eliquis, however after evaluation by Dr. Flores really did not have any evidence of Afib and thus amio and eliquis were stopped and restarted on plavix, in addition to optimization of heart failure medication. # Acute Infectious diarrhea (GI panel +ve for c.diff, enterohemorrhagic e. coli, and yersinia) - continue vanco 125 mg q 6 orally - cipro 250 mg bid - no evidence of STEC continue with abx #Multifocal atrial rhythm: Initially reported as atrial fibrillation and started on amiodarone and eliquis, now both discontinued per cardiology. Ectopic activity persists. -Per Dr. Flores, his MAT is likely a reflection of his cor pulmonale that was noted on TTE, he was therefore restarted on his ASA81/Plavix 75 #Acute on chronic diastolic heart failure: -TTE suggestive of longstanding hypertensive heart disease as well as pulmonary heart disease and Dr. Flores thought his volume overload was also exercabated by his ongoing SALOMON -Was placed on 2g salt restriction and fluid restriction and was started on torsemide 10 mg daily with spirolactone 12.5 mg daily. However will hold torsemide today given rising Cr. -No ACEi/ARB in the setting of his ongoing SALOMON. # Acute on Chronic renal failure/CKD stage 3 (baseline creat 1.4-1.6): prerenal azotemia in the setting of GI losses - creatinine initially improved with fluids, now uptrending since starting diuretics, will hold torsemide - avoid nephrotoxins # Right sided/Generalized weakness: much improved - MRI brain was w/o evidence of an acute CVA - Likely due to acute diarrhea/dehydration - PT/OT # Parkinson's Disease - continue Sinemet, monitor for toxic side effects # Chronic CVA - continue asa, restart Plavix now that eliquis 2.5 BID is discontinued # Chronic CAD/PAD -S/p 3V CABG, continue restart statin therapy, 20 lipitor, while on DAPT - S/p AAA repair -S/p fem-pop bypass for PAD # Chronic anemia with macrocytosis - continue iron tablets - check b12, folate levels # BPH - continue Flomax # Insomnia - continue Remeron # Hx of Lyme disease - treated with amoxicillin in the past # DVT prophylaxis - SCDs + lovenox DVT prophylaxis: on lovenox Dispo: pending clinical improvement VS,Beboe, I+O VS, Beboe, I+O Laboratory Tests 04/24/19 05:46 Red Blood Count 3.16 L, Mean Corpuscular Volume 104.1 H, Mean Corpuscular Hemoglobin 33.2 H, Mean Corpuscular Hemoglobin Concent 31.9 L, Red Cell Distribution Width 13.4, Calcium Level 9.3 Vital Signs Date Time Temp Pulse Resp B/P (MAP) Pulse Ox O2 Delivery O2 Flow Rate FiO2 04/24/19 06:00 98.3 75 18 136/72 (93) 92 I&O- Last 24 Hours up to 6 AM 04/24/19 06:00 Intake Total 1355 ml Output Total 1100 ml Balance 255 ml DENISHA WATSON MD Apr 24, 2019 12:35
[2019-04-24 14:00] VITALS: BP 138/72
[2019-04-24] MEDS: TAMSULOSIN 0.4 MG CAP PO SCH (17:28)
[2019-04-24] MEDS: MIRTAZAPINE 15 MG TAB PO SCH (17:29)
[2019-04-24] MEDS: ATORVASTATIN 20 MG TAB PO SCH (20:02)
[2019-04-24 22:00] VITALS: BP 135/72
[2019-04-25] MEDS: VANCOMYCIN ORAL SOL 250MG/5ML ORAL SYRINGE PO SCH ×3 (05:09→18:20)
[2019-04-25] MEDS: CIPROFLOXACIN 250 MG TAB PO SCH ×2 (05:09→18:20)
[2019-04-25 06:00] VITALS: BP 147/86
[2019-04-25] MEDS: SINEMET 25-100 MG TAB PO SCH ×2 (08:04→18:20)
[2019-04-25] MEDS: ASPIRIN 81 MG ENTERIC TAB PO SCH (08:04)
[2019-04-25] MEDS: CLOPIDOGREL 75 MG TAB PO SCH (08:04)
[2019-04-25] MEDS: FERROUS SULFATE 325MG TAB PO SCH (08:04)
--- NOTE | 2019-04-25 11:21 | IPNPDOC ---
Text Note Date of Service The patient was seen on 04/25/19. NOTE Subjective: Patient seen and examined at bedside. Feels his diarrhea is improving. Objective: General: NAD, sitting comfortably in chair HEENT: NC/AT, EOMI Lungs: CTA B/L Heart: +S1S2, RRR Abd: soft, NT, +BS Ext: no edema Assessment /Plan 83 yo M who was admitted for infectious colitis with C.diff, yersinia and e.coli on vanc/cipro, complicated with significant asymptomatic ectopy. Consulted cardiology about ectopy and presumed paroxysmal AF and briefly placed on amio 200QID as well as dc'd plavix and started eliquis, however after evaluation by Dr. Flores really did not have any evidence of Afib and thus amio and eliquis were stopped and restarted on plavix, in addition to optimization of heart failure medication. # Acute Infectious diarrhea (GI panel +ve for c.diff, enterohemorrhagic e. coli, and yersinia) - continue vanco 125 mg q 6 orally - completing 10 day course today - cipro 250 mg bid - no evidence of STEC continue with abx #Multifocal atrial rhythm: Initially reported as atrial fibrillation and sta rted on amiodarone and eliquis, now both discontinued per cardiology. Ectopic activity persists. -Per Dr. Flores, his MAT is likely a reflection of his cor pulmonale that was noted on TTE, he was therefore restarted on his ASA81/Plavix 75 #Acute on chronic diastolic heart failure: -TTE suggestive of longstanding hypertensive heart disease as well as pulmonary heart disease and Dr. Flores thought his volume overload was also exercabated by his ongoing SALOMON -Was placed on 2g salt restriction and fluid restriction and was started on torsemide 10 mg daily with spirolactone 12.5 mg daily. However will hold torsemide today given rising Cr. -No ACEi/ARB in the setting of his ongoing SALOMON. # Acute on Chronic renal failure/CKD stage 3 (baseline creat 1.4-1.6): prerenal azotemia in the setting of GI losses - creatinine initially improved with fluids, now uptrending since starting diur etics, will hold torsemide - avoid nephrotoxins # Right sided/Generalized weakness: much improved - MRI brain was w/o evidence of an acute CVA - Likely due to acute diarrhea/dehydration - PT/OT # Parkinson's Disease - continue Sinemet, monitor for toxic side effects # Chronic CVA - continue asa, restart Plavix now that eliquis 2.5 BID is discontinued # Chronic CAD/PAD -S/p 3V CABG, continue restart statin therapy, 20 lipitor, while on DAPT - S/p AAA repair -S/p fem-pop bypass for PAD # Chronic anemia with macrocytosis - continue iron tablets - check b12, folate levels # BPH - continue Flomax # Insomnia - continue Remeron # Hx of Lyme disease - treated with amoxicillin in the past # DVT prophylaxis - SCDs + lovenox DVT prophylaxis: on lovenox Dispo: anticipate discharge in 24 hours VS,Fishbone, I+O VS, Fishbone, I+O Vital Signs Date Time Temp Pulse Resp B/P (MAP) Pulse Ox O2 Delivery O2 Flow Rate FiO2 04/25/19 06:00 97.4 81 20 147/86 (106) 94 I&O- Last 24 Hours up to 6 AM 04/25/19 05:59 Intake Total 1580 ml Output Total 1175 ml Balance 405 ml DENISHA WATSON MD Apr 25, 2019 11:21
[2019-04-25 14:00] VITALS: BP 131/69
[2019-04-25] MEDS: MIRTAZAPINE 15 MG TAB PO SCH (18:20)
[2019-04-25] MEDS: TAMSULOSIN 0.4 MG CAP PO SCH (18:20)
[2019-04-25] MEDS: ATORVASTATIN 20 MG TAB PO SCH (21:10)
[2019-04-25 22:00] VITALS: BP 143/76
[2019-04-26] MEDS: VANCOMYCIN ORAL SOL 250MG/5ML ORAL SYRINGE PO SCH ×3 (00:17→11:29)
[2019-04-26] MEDS: CIPROFLOXACIN 250 MG TAB PO SCH (05:02)
[2019-04-26 06:00] VITALS: BP 142/74
[2019-04-26] MEDS: ASPIRIN 81 MG ENTERIC TAB PO SCH (08:22)
[2019-04-26] MEDS: CLOPIDOGREL 75 MG TAB PO SCH (08:23)
[2019-04-26] MEDS: SINEMET 25-100 MG TAB PO SCH (08:23)
[2019-04-26] MEDS: FERROUS SULFATE 325MG TAB PO SCH (08:23)
[2019-04-26] MEDS ORDERED: ATOR1TAB21 PO (10:19)
== END 2019-04-26 12:00 | disposition home health service (06) | DRG 371 ==
LOC: M ED 19:50 → M ED INP 04-16 01:13 → M MSPAV 04-16 02:16
PROVIDERS: ADMIT Internal Medicine; ATTEND Internal Medicine
DX: A04.72 Enterocolitis due to Clostridium difficile, not specified as recurrent (principal); I50.33 Acute on chronic diastolic (congestive) heart failure; N17.9 Acute kidney failure, unspecified; I13.0 Hypertensive heart and chronic kidney disease with heart failure and stage 1 through stage 4 chronic kidney disease, or unspecified chronic kidney disease; A04.0 Enteropathogenic Escherichia coli infection; A04.6 Enteritis due to Yersinia enterocolitica; G20 Parkinson's disease; I73.9 Peripheral vascular disease, unspecified; N40.0 Benign prostatic hyperplasia without lower urinary tract symptoms; D53.9 Nutritional anemia, unspecified; N18.3 Chronic kidney disease, stage 3 (moderate); I48.0 Paroxysmal atrial fibrillation; I25.10 Atherosclerotic heart disease of native coronary artery without angina pectoris; M47.816 Spondylosis without myelopathy or radiculopathy, lumbar region; I27.81 Cor pulmonale (chronic); I50.814 Right heart failure due to left heart failure; E86.0 Dehydration; G47.00 Insomnia, unspecified; Z86.73 Personal history of transient ischemic attack (TIA), and cerebral infarction without residual deficits; Z95.1 Presence of aortocoronary bypass graft; Z79.899 Other long term (current) drug therapy; Z79.02 Long term (current) use of antithrombotics/antiplatelets

== ENCOUNTER 2019-05-30 10:37 | Observation (INO) | payer MEDICARE ==
[~2019-05-30] VITALS: Ht 170.2 cm; Wt 77.3 kg
[~2019-05-30 10:37] MED LIST changes: +ACET-897 PO; +ATOR1TAB21 PO; +REME15TA PO; +SINE25TA5 PO
[2019-05-30 12:00] VITALS: BP 143/67
[2019-05-30] MEDS ORDERED: FAMO40TA3 PO (12:15)
[2019-05-30 12:47] LABS: HEMOGLOBIN 10.4 g/dl (13.5-17.5); MEAN CORPUSCULAR HEMOGLOBIN 33.7 pg (27.0-33.0); MEAN CORPUSCULAR HGB CONC 30.6 g/dl (32.0-36.5); PLATELET COUNT, AUTOMATED 186 10^3/uL (150-450); RED BLOOD COUNT 3.09 10^6/uL (4.30-6.10); WHITE BLOOD COUNT 5.1 10^3/uL (4.0-10.0)
[2019-05-30 12:59] LABS: INR 1.2; PARTIAL THROMBOPLASTIN TIME 30.8 SECONDS (25.0-38.4); PROTHROMBIN TIME 14.9 SECONDS (11.8-14.0)
[2019-05-30] MEDS ORDERED: KCL 20MEQ in NS 1000ML 1,000 ML IV SCH (13:00)
--- NOTE | 2019-05-30 13:05 | HPE ---
DATE OF ADMISSION: 05/30/2019 PRIMARY CARE PROVIDER: Dr. Narinder Puga ATTENDING PHYSICIAN: Dr. Brisa Schultz CHIEF COMPLAINT: Esophageal obstruction. HISTORY: Shreyas Miner is an 83-year-old who was referred by Dr. Puga for direction admission for esophageal obstruction. He has been having progressive problems swallowing for over 2 weeks, according to his daughter who is present. She says that he initially was having trouble with solids and now solids and liquids are problematic. He tries to swallow and he cannot complete the ingestion, has to vomit up the swallowed contents. He has lost weight from this. Denies any hematemesis. I ordered a recent CT of the abdomen and pelvis, which showed a hiatal hernia but no esophageal abnormality. PAST MEDICAL HISTORY: Atrial arrhythmia, for which he was recently hospitalized in 03/2019, coronary artery bypass graft (CABG) 20 years ago. Last stress test was many years ago. Hypertensive heart disease, history of transient ischemic attack in 2012, stroke in 2017. MRI showed severe cerebral atrophy, chronic small vessel disease and left cerebellar lacunar infarct. Other past history shows chronic kidney disease stage III, history of gastroesophageal reflux disease (GERD), benign prostatic hypertrophy (BPH), peripheral arterial disease, abdominal aortic aneurysm, status post endovascular stenting, history of iron deficiency anemia, Parkinson's disease and gout. He has lumbosacral degenerative disc disease and spinal stenosis. He has a history of congestive heart failure (CHF) with preserved ejection fraction. Echocardiogram 03/2019 showed an ejection fraction of 60%, left atrial enlargement of 48 mm, diastolic dysfunction noted, dilated right heart chambers with at least moderate pulmonary hypertension noted, mitral annular calcification with very mild insufficiency and no stenosis, aortic sclerosis without stenosis, dilated aortic root of 42 mm. SOCIAL HISTORY: He does not smoke or drink any alcohol. He is . FAMILY HISTORY: Unremarkable. REVIEW OF SYSTEMS: As above, otherwise negative. MEDICATIONS: - Tylenol - aspirin 81 mg daily - atorvastatin 20 mg daily - Sinemet 25/100 one twice a day - Plavix 75 mg daily - iron supplementation - mirtazapine 15 mg at bedtime - tamsulosin 0.4 mg daily - Lansoprazole 15 mg daily - magnesium oxide 400 mg daily ALLERGIES: None known. PHYSICAL EXAMINATION: VITAL SIGNS: Not yet recorded. He is alert, conversant and in no distress. HEENT: Pupils are equal and reactive to light. Tympanic membranes normal. Oropharynx benign. NECK: No masses. LUNGS: Clear. HEART: Regular rhythm with frequent ectopy. 1/6 systolic ejection murmur. ABDOMEN: Soft, nontender. No masses. Nondistended. EXTREMITIES: No clubbing or cyanosis. Trace peripheral edema. Normal strength in the arms and legs. LABORATORIES: Pending. His baseline GFR is in the mid 30s with a creatinine of 1.9. Baseline hemoglobin is around 10. He had iron studies done in 03/2019 that suggested anemia of chronic disease with low TIBC and high ferritin. IMPRESSION: 1. Esophageal obstruction. Case discussed with Dr. Vanegas of GI service. He will see the patient in consultation. The patient is nothing by mouth pending procedure. IV Protonix has been ordered. IV fluids have been ordered starting with normal saline with supplemental potassium and this can be changed based upon results of the pending lab work. 2. Diastolic congestive heart failure (CHF)/heart failure with preserved ejection fraction. He is compensated at this time. We need to watch his volume status on the IV fluids. 3. Coronary artery disease/cerebrovascular disease with history of stroke. Aspirin and Plavix are on hold pending procedure. 4. Hyperlipidemia. Statin is held until the patient is taking orally again. 5. Parkinson's disease. Sinemet is on hold until the patient is taking orally again. 6. Chronic anemia, looks like anemia of chronic disease. He is on iron supplement, but iron studies did not show any iron deficiency. Would advise against restarting this after discharge. The hospitalist service will be following this patient after admission.
[2019-05-30 13:27] LABS: ALBUMIN 3.6 GM/DL (3.2-5.2); BILIRUBIN,TOTAL 0.5 MG/DL (0.2-1.0); CALCIUM LEVEL 8.9 MG/DL (8.8-10.2); CREATININE FOR GFR 1.77 MG/DL (0.70-1.30); GLOMERULAR FILTRATION RATE 39.4 (>35); TOTAL PROTEIN 7.5 GM/DL (6.4-8.2)
[2019-05-30] MEDS: PANTOPRAZOLE 40MG INJ (PROTONIX) (C9113) IV SCH (14:08)
[2019-05-30 15:07] VITALS: BP 151/73
[2019-05-30] MEDS: NS 1,000 ML IV SCH (17:57)
[2019-05-30 20:00] VITALS: BP 138/68
[2019-05-31 00:30] VITALS: BP 133/62
[2019-05-31] MEDS: NS 1,000 ML IV SCH ×2 (01:33→10:28)
[2019-05-31 06:00] VITALS: BP 144/64
[2019-05-31 06:45] LABS: HEMATOCRIT 28.9 % (42.0-52.0); HEMOGLOBIN 8.8 g/dl (13.5-17.5); MEAN CORPUSCULAR HEMOGLOBIN 33.5 pg (27.0-33.0); MEAN CORPUSCULAR HGB CONC 30.4 g/dl (32.0-36.5); MEAN CORPUSCULAR VOLUME 109.9 fl (80.0-96.0); PLATELET COUNT, AUTOMATED 151 10^3/uL (150-450); RED BLOOD COUNT 2.63 10^6/uL (4.30-6.10); WHITE BLOOD COUNT 3.8 10^3/uL (4.0-10.0)
[2019-05-31 07:04] LABS: CALCIUM LEVEL 8.1 MG/DL (8.8-10.2); CREATININE FOR GFR 1.62 MG/DL (0.70-1.30); GLOMERULAR FILTRATION RATE 43.6 (>35); POTASSIUM SERUM 4.7 MEQ/L (3.5-5.1)
[2019-05-31] MEDS: PANTOPRAZOLE 40MG INJ (PROTONIX) (C9113) IV SCH (08:50)
[2019-05-31] MEDS ORDERED: OMEP40CA97 PO (10:44)
--- NOTE | 2019-05-31 15:22 | DS.PDOC ---
Discharge Summary General Date of Admission May 30, 2019 at 11:03 Date of Discharge 05/31/19 Discharge Summary PROCEDURES PERFORMED DURING STAY: [None]. ADMITTING DIAGNOSES: Esophageal obstruction Diastolic congestive heart failure (CHF)/heart failure with preserved ejection fraction Coronary artery disease/cerebrovascular disease with history of stroke Hyperlipidemia Parkinson's disease Chronic anemia DISCHARGE DIAGNOSES: Esophageal obstruction Diastolic congestive heart failure (CHF)/heart failure with preserved ejection fraction Coronary artery disease/cerebrovascular disease with history of stroke Hyperlipidemia Parkinson's disease Chronic anemia COMPLICATIONS/CHIEF COMPLAINT: Esophageal Obstruction. HISTORY OF PRESENT ILLNESS:Shreyas Miner is an 83-year-old who was referred by Dr. Puga for direction admission for esophageal obstruction. He has been having progressive problems swallowing for over 2 weeks, according to his daughter who is present. She says that he initially was having trouble with solids and now solids and liquids are problematic. He tries to swallow and he cannot complete the ingestion, has to vomit up the swallowed contents. He has lost weight from this.Recent CT of the abdomen and pelvis, which showed a hiatal hernia but no esophageal abnormality Denies any hematemesis. HOSPITAL COURSE: EGD with possible stricture dilatation was postponed because keon herrera was on Plavix. The procedure will be done in 10 days after Plavix discontinuation DISCHARGE MEDICATIONS: Please see below. ALLERGIES: Please see below. PHYSICAL EXAMINATION ON DISCHARGE: VITAL SIGNS: Please see below. General: Alert and oriented x 3, not in distress HEENT: NO pallor, no icterus. Normal oropharynx, NO cervical lymph nodes. Chest: symmetric with bilateral clear air entry, CVS: S1, S2 heard, normal, no murmurs . Abdomen: non-distended, no surgical scars, soft, non-tender, no palpable masses, normal bowel sounds heard. Rectal exam: Patient refused / Deferred at this time in view of scheduled colonoscopy. Extremities: no pedal edema, pulses palpable. 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 Moves all extremities Skin: no rash. LABORATORY DATA: Please see below. PROGNOSIS: Favorable ACTIVITY: As tolerated. DIET: Cardiac DISCHARGE PLAN: Home, follow-up with mutuel teller for upcoming procedure DISPOSITION: Home, Self-Care. DISCHARGE INSTRUCTIONS: Soft mechanical diet ITEMS TO FOLLOWUP ON ON OUTPATIENT: PCP in 3-5 days DISCHARGE CONDITION: Stable TIME SPENT ON DISCHARGE: Greater than 20 minutes. Vital Signs/I&Os Vital Signs Date Time Temp Pulse Resp B/P (MAP) Pulse Ox O2 Delivery O2 Flow Rate FiO2 05/31/19 06:00 97.8 72 18 144/64 (90) 97 Room Air I&O- Last 24 Hours up to 6 AM 05/31/19 06:00 Intake Total 1000 ml Output Total 700 ml Balance 300 ml Laboratory Data Labs 24H Laboratory Tests 2 05/31/19 06:29: Nucleated Red Blood Cells % (auto) 0.0, Anion Gap 4L, Glomerular Filtration Rate 43.6, Calcium Level 8.1L CBC/BMP Laboratory Tests 05/31/19 06:29 Discharge Medications Scheduled Acetaminophen (Tylenol Extra Strength) 500 Mg Tablet, 1,000 MG PO BID, (Reported) Aspirin (Aspirin EC) 81 Mg Tab, 81 MG PO DAILY, (Reported) Carbidopa/Levodopa (Sinemet 25-100 mg Tablet) 1 Each Tablet, 1 TAB PO BID, (Reported) Ferrous Sulfate (Ferrous Sulfate) 325 Mg Tablet, 325 MG PO BID, (Reported) Magnesium Oxide (Magnesium) 400 Mg Cap, 400 MG PO DAILY, (Reported) Mirtazapine (Remeron) 15 Mg Tablet, 15 MG PO QPM, (Reported) Omeprazole (Omeprazole) 40 Mg Capsule.dr, 40 MG PO DAILY Tamsulosin HCl (Flomax) 0.4 Mg Capsule, 0.4 MG PO QPM, (Reported) Allergies Coded Allergies: No Known Drug Allergies (Verified Allergy, Unknown, 04/15/19) JENNIFER REEVES DO May 31, 2019 15:22
--- NOTE | 2019-05-31 16:32 | CR.PDOC ---
General Date of Consultation: May 30, 2019 Referring Provider: Aaron Tobias MD Attending Physician: MELISSA CHADWICK MD Consultation Primary physician/ hospitalist: Dr. Tobias, Dr. Colón / PCP Dr. Puga. Reason for consult: Esophageal obstruction. HPI: 83-year-old male patient with HTn, PVD ( remote h/o CVA no residual deficits), CAD s/p CABG many years ago, Diastolic CHF, Multifocal atrial tachycardia ( currently on ASA 81 mg and Plavix 75 mg), parkinson' sdisease, recent hospitalization for Diarrhea ( treated for C. difficile and symptoms resolved), was admitted directly from PCP clinic for difficulty in swallowing. Patient is AAO x 3 and able to provide detailed history. Patient reports having gradually worsening symptoms of difficulty in swallowing for past 4 weeks, and is currently only tolerated liquid to soft diet only with few episodes of vomiting, last being around 2 weeks ago. Patient had Esophagogram in [facility] ( report mentioning possible Achalasia, images not available to review now). Patient also reports chronic h/o acid reflux symptoms which are well controlled by acid suppressants. Patient denies any significant weight loss due to this as he has good appetite and able to get some food down. Pertinent negative GI symptoms: Patient denies fever, sick contacts, recent travel, nausea, diarrhea, abdominal pain, loss of appetite, early satiety or unintentional weight loss. No history of hematemesis, melena or hematochezia. Review of Systems: GI: as stated above CVS: No chest pain, No palpitations, No leg swelling. 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 Skin: No rash : No hematuria, No burning sensation of the urine ENT: No ear discharge/ pain, No dysphagia. Eyes: No photophobia. Jaundice Home medications: reviewed. Antithrombotic agents - ASA 81 mg, Plavix 75 mg. Medical h/o: As above. Surgical h/o: no scars on abdomen. Social h/o: Alcohol - denies , smoking- denies, IVDA/ drugs - denies. Family h/o of GI cancers - None Prior Endoscopies: None. Prior GI evaluations: None in [facility]. Exam: Vitals: reviewed General: Alert and oriented x 3, not in distress HEENT: NO pallor, no icterus. Normal oropharynx, NO cervical lymph nodes. Chest: symmetric with bilateral clear air entry, CVS: S1, S2 heard, normal, no murmurs . Abdomen: non-distended, no surgical scars, soft, non-tender, no palpable masses, normal bowel sounds heard. Rectal exam: Patient refused. Extremities: no pedal edema, pulses palpable. 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 Moves all extremities Skin: no rash. Labs: reviewed. Imaging: -- will review the radiology images from [facility]. Impression: - Progressive dysphagia with prior Esophagogram showing possible Achalasia. -- needs EGD with dilation ( while off Plavix). other possible differentials include -- possible GERD with esophagitis and stricture vs barretts esophagus vs Esophageal cancer. Recommendations: - Patient educated about the test results, possible differential diagnoses and All questions answered. - to Continue omeprazole 40 mg daily. - Follow strictly the Anti-reflux measures. - Avoid NSAIDs. - Discussed the need for being off anti-coagulants for atleast 7- 10 days prior to EGD with dilation as it had elevated risk of bleeding. - Patient to hold plavix for 10 days after clearance from primary team. - Patient will be scheduled for EGD with dilation electively. The procedure, indications, risks (bleeding, perforation, infection, hypotension, respiratory depression, allergy, need for endotracheal intubation, surgery, colostomy, cardiac arrest, even ), benefits, limitations (e.g., missing a lesion), and all other alternatives (including no intervention) were explained to the patient who understood and agreed for the procedure. - As per request of the patient, the above plan was also discussed with patient's daughter. Plan of care discussed with patient and primary team. Patient verbalized understanding and agreed with the plan. Vital Signs/I&O Vital Signs Date Time Temp Pulse Resp B/P (MAP) Pulse Ox O2 Delivery O2 Flow Rate FiO2 05/30/19 12:00 97.1 72 18 143/67 (92) 100 Room Air Laboratory Data Labs 24H Laboratory Tests 2 05/30/19 11:56: Nucleated Red Blood Cells % (auto) 0.0, Prothrombin Time 14.9H, Prothromb Time International Ratio 1.20, Activated Partial Thromboplast Time 30.8, Anion Gap 7L, Glomerular Filtration Rate 39.4, Calcium Level 8.9, Total Bilirubin 0.5, Aspartate Amino Transf (AST/SGOT) 16, Alanine Aminotransferase (ALT/SGPT) 19, Alkaline Phosphatase 70, Total Protein 7.5, Albumin 3.6, Albumin/Globulin Ratio 0.92L CBC/BMP Laboratory Tests 05/30/19 11:56 Allergies Coded Allergies: No Known Drug Allergies (Verified Allergy, Unknown, 04/15/19) Home Medications Scheduled Acetaminophen (Tylenol Extra Strength) 500 Mg Tablet, 1,000 MG PO BID, (Reported) Aspirin (Aspirin EC) 81 Mg Tab, 81 MG PO DAILY, (Reported) Carbidopa/Levodopa (Sinemet 25-100 mg Tablet) 1 Each Tablet, 1 TAB PO BID, (Reported) Ferrous Sulfate (Ferrous Sulfate) 325 Mg Tablet, 325 MG PO BID, (Reported) Magnesium Oxide (Magnesium) 400 Mg Cap, 400 MG PO DAILY, (Reported) Mirtazapine (Remeron) 15 Mg Tablet, 15 MG PO QPM, (Reported) Omeprazole (Omeprazole) 40 Mg Capsule.dr, 40 MG PO DAILY for 30 Days, #30 Tamsulosin HCl (Flomax) 0.4 Mg Capsule, 0.4 MG PO QPM, (Reported) MELISSA CHADWICK MD May 30, 2019 14:43
== END 2019-05-31 12:00 | disposition home or self-care (01) ==
LOC: INTOOBSV 11:03 → M MS4PR 11:03
PROVIDERS: ADMIT Internal Medicine; ATTEND Internal Medicine
DX: K22.2 Esophageal obstruction (principal); R13.10 Dysphagia, unspecified; I50.30 Unspecified diastolic (congestive) heart failure; I25.10 Atherosclerotic heart disease of native coronary artery without angina pectoris; Z86.73 Personal history of transient ischemic attack (TIA), and cerebral infarction without residual deficits; E78.49 Other hyperlipidemia; G20 Parkinson's disease; D64.9 Anemia, unspecified; M10.9 Gout, unspecified; K21.9 Gastro-esophageal reflux disease without esophagitis; N18.3 Chronic kidney disease, stage 3 (moderate); N40.0 Benign prostatic hyperplasia without lower urinary tract symptoms; I73.9 Peripheral vascular disease, unspecified; Z79.02 Long term (current) use of antithrombotics/antiplatelets; Z79.82 Long term (current) use of aspirin; Z79.899 Other long term (current) drug therapy; Z95.1 Presence of aortocoronary bypass graft
CPT/HCPCS: 36415; 80048; 80053; 85027; 85610; 85730; 96361; 96374; 96376; C9113; G0378

== ENCOUNTER 2019-06-12 09:05 | Inpatient (IN) | payer MEDICARE ==
[~2019-06-12] VITALS: Ht 167.6 cm; Wt 83.6 kg
[~2019-06-12 09:05] MED LIST changes: +DEXTROSE 50% 50 ML SYRINGE IV PRN; +FAMO40TA3 PO; +GLUCAGON FOR INJ 1 MG VIAL (J1610) SC PRN; +GLUCOSE 4 GM CHEW TABLET PO PRN; +OMEP40CA97 PO
[2019-06-12 09:25] VITALS: BP 154/74
[2019-06-12 09:56] LABS: HEMOGLOBIN 10.7 g/dl (13.5-17.5); MEAN CORPUSCULAR HEMOGLOBIN 34.7 pg (27.0-33.0); MEAN CORPUSCULAR HGB CONC 31.5 g/dl (32.0-36.5); MEAN CORPUSCULAR VOLUME 110.4 fl (80.0-96.0); PLATELET COUNT, AUTOMATED 175 10^3/uL (150-450); RED BLOOD COUNT 3.08 10^6/uL (4.30-6.10); WHITE BLOOD COUNT 4.3 10^3/uL (4.0-10.0)
[2019-06-12 10:06] LABS: INR 1.18; PROTHROMBIN TIME 14.7 SECONDS (11.8-14.0)
[2019-06-12] MEDS ORDERED: FAMO40TA3 PO (10:14)
[2019-06-12 10:28] LABS: ALBUMIN 3.7 GM/DL (3.2-5.2); BILIRUBIN,TOTAL 0.3 MG/DL (0.2-1.0); CALCIUM LEVEL 9.3 MG/DL (8.8-10.2); CREATININE FOR GFR 1.8 MG/DL (0.70-1.30); GLOMERULAR FILTRATION RATE 38.6 (>35); POTASSIUM SERUM 5.3 MEQ/L (3.5-5.1); TOTAL PROTEIN 7.7 GM/DL (6.4-8.2)
[2019-06-12] MEDS: D5W/0.45% SODIUM CHLORIDE 1,000 ML IV SCH ×2 (11:00→22:25)
[2019-06-12 11:54] LABS: PARTIAL THROMBOPLASTIN TIME 30.3 SECONDS (25.0-38.4)
--- NOTE | 2019-06-12 12:06 | REP ---
Two-view chest: 06/12/2019. Indication: Preoperative assessment. Comparison: New . Findings: Postoperative sequelae are present. No focal airspace consolidation is present. There is no pleural effusion or pneumothorax. Bibasilar atelectasis is present, but improved compared to the previous study. Right greater than left glenohumeral joint degenerative sequelae are present. Hiatal hernia is noted. Impression: No acute cardiopulmonary process. Electronically Signed by Bora Rodriguez DO 06/12/2019 11:58 A
--- NOTE | 2019-06-12 12:26 | HPE ---
DATE OF ADMISSION: 06/12/2019 PRIMARY CARE PROVIDER: Dr. Puga CHIEF COMPLAINT: Dysphagia, odynophagia, weight loss of 10 pounds. HISTORY OF PRESENT ILLNESS: This is an 84-year-old male with a history of dysphagia for a few months, before the Clostridium (C.) difficile was diagnosis here. He has been having dysphagia to solids and often times gags when he tries to drink liquids after eating something solid. He has had a 10 pound weight loss and complains of odynophagia when the food gets stuck in his throat and has a lot of phlegm when he tries to get it out. No shortness of breath, fever or chills. The patient denies any bright red blood per rectum, melena, black tarry stools. No history of Serrano's esophagus, peptic ulcer disease. He does have a history of reflux disease, coronary artery disease, diastolic heart failure. The patient has been off anticoagulation/antiplatelet therapy for 10 days and is admitted currently for elective esophagogastroduodenoscopy (EGD) with possible dilation, biopsy extraction. The patient denies any current chest pain, pressure, tightness, lightheadedness, dizziness. No nausea, vomiting, diarrhea, abdominal pain. Denies any fevers, chills, sore throat, ear pain, ear discharge, phlegm production aside from when he tries to cough out his food when he feels like it is getting stuck. The patient denies any changes in appetite, but has been on a soft diet and liquids and has had a 10 pound weight loss. Denies any hematemesis, bright red blood per rectum, black tarry stools. The hospitalist was asked to admit. Director Multimedia, Dr. Vaengas, is to do an EGD with dilation with biopsy at 2:30 this afternoon. PAST MEDICAL HISTORY: 1. Hypertensive heart disease. 2. Abdominal aortic aneurysm, status post endovascular grafting. 3. Lumbosacral spondylolysis. 4. Degenerative joint disease. 5. Spinal stenosis. 6. Diastolic heart failure. 7. Peripheral vascular disease. 8. Carotid disease. 9. Coronary artery disease. 10. Prior iron deficiency anemia. 11. Parkinson's disease. 12. 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 13. History of kidney stones. 14. Renal colic. 15. Osteoporosis. 16. Reflux. 17. Benign prostatic hypertrophy (BPH). 18. Chronic kidney disease stage III, baseline creatinine 1.4 to 1.6. 19. Unsteady gait. 20. History of falls. Does not use a walker at home. 21. Lyme disease. 22. Gout. PAST SURGICAL HISTORY: 1. Coronary artery bypass graft (CABG). 2. Fem-pop bypass. 3. Abdominal aortic aneurysm repair. 4. Right inguinal hernia repair. 5. Appendectomy. SOCIAL HISTORY: Resides in [place]. , has five children. Retired [employer]. Denies tobacco, alcohol or illicit drug use. No recent travel. The patient is DO NOT RESUSCITATE, DO NOT INTUBATE. FAMILY HISTORY: Siblings with hypertension, coronary artery disease, cancer of the lung. Children, one with breast cancer. Unexpected due to heart disease is none. REVIEW OF SYSTEMS: As per history of present illness. 12-point review of systems otherwise negative. PHYSICAL EXAMINATION: Temperature 97.5, pulse 70, respiratory rate 20, blood pressure 154/74, 98% on room air. GENERAL: The patient is awake, alert, oriented to person, place and time. Answering questions appropriately. No jugular venous distention (JVD). No thyromegaly. No cervical lymphadenopathy. Face is symmetric. The patient speaks in full sentences. LUNGS: Clear to auscultation. No wheezing, rales or rhonchi. HEART: S1, S2. Sinus rhythm. Systolic ejection murmur at the left lower sternal border. Increased AP diameter. Sternotomy scar. ABDOMEN: Soft, nontender, nondistended. Positive bowel sounds times four quadrants. No rebound or guarding. No hepatosplenomegaly. EXTREMITIES: Lower extremity, the patient has saphenous graft site incision that is well healed. Otherwise, trace edema. Multiple ecchymotic areas. SKIN: The patient has erythematous patches on bilateral arms and neck, which the daughter says has been there for years. Electrocardiogram (EKG) showed sinus rhythm, ventricular rate 68, right ventricular conduction delay, moderate ST depressions, chronic incomplete right bundle branch block, diffuse ST-T wave changes. Previous echocardiogram in March 2019, moderate LVH, ejection fraction of 60%, diastolic dysfunction, moderate pulmonary hypertension, septal wall motion abnormality due to right ventricle pressure load. LABORATORY DATA: White count 4.3, hemoglobin 10, hematocrit 34, platelet count 175. Sodium 140, potassium 5.2, chloride 109, bicarbonate 27, BUN 23, creatinine 1.8, glucose 97, calcium 9.3, total bilirubin 0.3, AST 20, ALT 18, alkaline phosphatase 70, total protein 7.7, albumin 3.7. Chest x-ray is pending. ASSESSMENT AND PLAN: This is an 84-year-old, DO NOT RESUSCITATE, DO NOT INTUBATE, male with a history of hypertension, hyperlipidemia, reflux, benign prostatic hypertrophy (BPH), chronic kidney disease, CVA without residual, left cerebellar lacunar infarct, AAA with endovascular grafting, diastolic heart failure, ejection fraction of 65%, coronary artery disease, kidney stones, Lyme disease, gout, coronary artery bypass graft (CABG), fem-pop, admitted for elective EGD, biopsy and possible dilation due to complaints of dysphagia and weight loss. ACUTE ISSUES: 1. Esophagela obstruction with complaints of Dysphagia, weight loss with episodes of odynophagia when the food gets stuck. The patient has alarm symptoms of weight loss of 10 pound, undergoing EGD with biopsy and dilation today with Dr. Vanegas. He is kept nothing by mouth on IV fluids with fingersticks every 6 hours while waiting for the procedure and hyperglycemic protocol. Differential diagnosis includes achalasia, stricture, Zenker's diverticulum, defer to GI for further management. 2. Preoperative medical clearance. The patient currently denies any acute ischemic symptoms, chest pain, pressure, tightness, shortness of breath. Not fluid overloaded on examination, has clear lungs and no lower extremity edema. The patient is medically optimized to proceed with his EGD. His EKG has chronic right bundle branch block, which is incomplete, otherwise no acute ST-T wave changes. Chest x-ray shows no acute edema. 3. History of coronary artery disease and CABG, currently not complaining of any acute ischemic symptoms. Aspirin, antiplatelet and anticoagulation have been held due to EGD today. 4. Diastolic heart failure with preserved ejection fraction, not acutely volume overloaded. 5. Hypertension. Resume on home medications post EGD. Currently nothing by mouth status with IV fluids and hyperglycemic protocol. 6. Parkinson's. On carbidopa levodopa. 7. Chronic anemia. On ferrous sulfate. 8. Benign prostatic hypertrophy (BPH). On Flomax. 9. Deep vein thrombosis (DVT) prophylaxis. Compression stockings as the patient is going for an EGD and biopsy. MTDD
[2019-06-12] MEDS: SINEMET 25-100 MG TAB PO SCH ×2 (12:33→22:25)
[2019-06-12] MEDS: FERROUS SULFATE 325MG TAB PO SCH ×2 (12:33→22:26)
[2019-06-12] MEDS: ACETAMINOPHEN 500 MG TAB PO SCH ×2 (12:33→22:25)
[2019-06-12] MEDS ORDERED: CALCIUM GLUCONATE 1,000 MG in D5W MINI-BAG PLUS 100 ML IV ONE (13:00)
[2019-06-12 14:00] VITALS: BP 166/77
[2019-06-12] MEDS ORDERED: ISOVUE-300 61% 50ML VIAL (Q9967) As Ordered ONE (15:41)
--- NOTE | 2019-06-12 17:45 | CR.PDOC ---
General Date of Consultation: Jun 12, 2019 Referring Provider: KIARA GARCIA MD Attending Physician: MELISSA CHADWICK MD Consultation Primary physician/ hospitalist: Dr. Garcia / PCP - Dr. Puga. Reason for consult: Esophageal obstruction, weight loss. HPI: 84-year-old male patient with HTN, PVD ( remote h/o CVA no residual deficits), CAD s/p CABG many years ago, Diastolic CHF, Multifocal atrial tachycardia ( currently on ASA 81 mg and Plavix 75 mg), parkinson' s disease, recent hospitalization for Diarrhea ( treated for C. difficile and symptoms resolved), was initially seen by me on his hospital admission around 1 week ago for progressive difficulty in swallowing and esophagogram reported as achalasia ( esophagogram done in [facility], but report obtained). As patient was on plavix, after extensive discussion, patient was planned for EGD after holding plavix for atleast 7- 10 days. Today patient is admitted for observation, for planned EGD procedure. Patient is AAO x 3 and able to provide detailed history. Patient reports having gradually worsening symptoms of difficulty in swallowing for past 4 weeks, and is currently only tolerated liquid to soft diet, a ssociated with few episodes of vomiting. Patient also reports he brings up phlegm intermittently. Patient also reports chronic h/o acid reflux symptoms which are well controlled by acid suppressants. Patient denied any significant weight loss in past but in this visit, reports around 10 pounds weight loss due to dysphagia. Patient reports stopping his plavix since 05/31/2019. Pertinent negative GI symptoms: Patient denies fever, sick contacts, recent travel, nausea, diarrhea, abdominal pain, loss of appetite, early satiety. No history of hematemesis, melena or hematochezia. Review of Systems: GI: as stated above CVS: No chest pain, No palpitations, No leg swelling. RS: No Shortness of breath, No Wheezing, no cough GUEST EXPERIENCE MANAGER: No dizziness, No motor weakness, No sensory problems Hematology: No bruising, No gum bleeding, Musculoskeletal: No joint pain, ambulating well. Skin: No rash : No hematuria, No burning sensation of the urine ENT: No ear discharge/ pain, No dysphagia. Eyes: No photophobia. Jaundice Home medications: reviewed. Antithrombotic agents - ASA 81 mg, Plavix 75 mg. Medical h/o: As above. Surgical h/o: no scars on abdomen. Social h/o: Alcohol - denies , smoking- denies, IVDA/ drugs - denies. Family h/o of GI cancers - None Prior Endoscopies: None. Prior GI evaluations: None in [facility]. Exam: Vitals: reviewed General: Alert and oriented x 3, not in distress HEENT: NO pallor, no icterus. Normal oropharynx, NO cervical lymph nodes. Chest: symmetric with bilateral clear air entry, CVS: S1, S2 heard, normal, no murmurs . Abdomen: non-distended, no surgical scars, soft, non-tender, no palpable masses, normal bowel sounds heard. Rectal exam: Patient refused. Extremities: no pedal edema, pulses palpable. GUEST EXPERIENCE MANAGER: no focal motor or sensory deficits. Moves all extremities Skin: no rash. Labs: reviewed. Imaging: Impression: - Progressive dysphagia with prior Esophagogram showing possible Achalasia. other possible differentials include -- possible GERD with esophagitis and stricture vs barretts esophagus vs Esophageal cancer. Needs further evaluation. - Anemia - macrocytic / normocytic with normal Iron studies in recent past. -- Likely anemia of CKD vs rule out chronic GI blood loss. Recommendations: - Patient educated about the test results, possible differential diagnoses and All questions answered. - to Continue omeprazole 40 mg daily. - NO Contra- indication for use of aspirin 81 mg from GI stand point. Continue to hold plavix for now until procedure ( cleared by Primary team in past). - Avoid NSAIDs. - Will proceed with EGD with biopsy and possible achalasia balloon dilation today. The procedure, indications, risks (bleeding, perforation, infection, hypotension, respiratory depression, allergy, need for endotracheal intubation, surgery, colostomy, cardiac arrest, even ), benefits, limitations (e.g., missing a lesion), and all other alternatives (including no intervention) were explained to the patient who understood and agreed for the procedure. - As per request of the patient, the above plan was also discussed with patient's daughter. - Further work up for anemia based on the EGD findings. - Follow procedure note for post procedure recommendations. Plan of care discussed with patient and primary team. Patient verbalized understanding and agreed with the plan Laboratory Data CBC/BMP Laboratory Tests 06/12/19 09:45 Allergies Coded Allergies: No Known Drug Allergies (Verified Allergy, Unknown, 04/15/19) Home Medications Scheduled Acetaminophen (Tylenol Extra Strength) 500 Mg Tablet, 1,000 MG PO BID, (Reported) Aspirin (Aspirin EC) 81 Mg Tab, 81 MG PO DAILY, (Reported) Carbidopa/Levodopa (Sinemet 25-100 mg Tablet) 1 Each Tablet, 1 TAB PO BID, (Reported) Famotidine (Famotidine) 40 Mg Tablet, 40 MG PO DAILY, (Reported) Ferrous Sulfate (Ferrous Sulfate) 325 Mg Tablet, 325 MG PO BID, (Reported) Magnesium Oxide (Magnesium) 400 Mg Cap, 400 MG PO DAILY, (Reported) Mirtazapine (Remeron) 15 Mg Tablet, 15 MG PO QPM, (Reported) Tamsulosin HCl (Flomax) 0.4 Mg Capsule, 0.4 MG PO QPM, (Reported) MELISSA CHADWICK MD Jun 12, 2019 17:45
[2019-06-12] MEDS ORDERED: PHENYLephrine HCL 500 MCG/5 ML (100MCG/ML) SYRINGE (J2370) As Ordered ONE (19:11)
[2019-06-12] MEDS ORDERED: ePHEDrine SULFATE 25 MG/5 ML(5MG/ML) SYRINGE As Ordered ONE (19:11)
[2019-06-12] MEDS ORDERED: PROPOFOL 200 MG/20 ML VIAL As Ordered ONE (19:11)
[2019-06-12] MEDS ORDERED: LIDOCAINE 2% INJ 100 MG/5 ML SDV (FOR ANES.) As Ordered ONE (19:11)
[2019-06-12] MEDS ORDERED: fentaNYL 100 MCG/2 ML INJECTION (J3010) As Ordered ONE (19:11)
[2019-06-12] MEDS ORDERED: MIDAZOLAM INJ 2 MG/2 ML VIAL (J2250) As Ordered ONE (19:11)
[2019-06-12] MEDS ORDERED: CALCIUM CHLORIDE 10% 1 GM/10 ML SYR As Ordered ONE (19:16)
--- NOTE | 2019-06-12 19:37 | ROOR ---
Patient Name: Shreyas Miner Procedure Date: 06/12/2019 6:39 PM Date of : 1935 Age: 84 Room: Main OR Gender: Male Note Status: Finalized Procedure: Upper GI endoscopy Indications: Dysphagia Providers: Erick Vanegas MD Referring MD: 2. Inpatient 2. Inpatient Requesting Provider: Medicines: Monitored Anesthesia Care Complications: No immediate complications. Procedure: Pre-Anesthesia Assessment: - Prior to the procedure, a History and Physical was performed, and patient medications and allergies were reviewed. The patient is competent. The risks and benefits of the procedure and the sedation options and risks were discussed with the patient. All questions were answered and informed consent was obtained. Patient identification and proposed procedure were verified by the physician, the nurse and the anesthesiologist in the procedure room. Mental Status Examination: alert and oriented. Airway Examination: normal oropharyngeal airway and neck mobility. Respiratory Examination: clear to auscultation. CV Examination: normal. Prophylactic Antibiotics: The patient does not require prophylactic antibiotics. Prior Anticoagulants: The patient has taken no previous anticoagulant or antiplatelet agents. ASA Grade Assessment: III - A patient with severe systemic disease. After reviewing the risks and benefits, the patient was deemed in satisfactory condition to undergo the procedure. The anesthesia plan was to use monitored anesthesia care (MAC). Immediately prior to administration of medications, the patient was re-assessed for adequacy to receive sedatives. The heart rate, respiratory rate, oxygen saturations, blood pressure, adequacy of pulmonary ventilation, and response to care were monitored throughout the procedure. The physical status of the patient was re-assessed after the procedure. The Endoscope was introduced through the mouth, and advanced to the second part of duodenum. The upper GI endoscopy was accomplished without difficulty. The patient tolerated the procedure well. Findings: One benign-appearing, intrinsic moderate (circumferential scarring or stenosis; an endoscope may pass) stenosis was found in the distal esophagus. This stenosis measured 8 mm (inner diameter). The stenosis was traversed. Biopsies were taken with a cold forceps for histology. Verification of patient identification for the specimen was done by the physician and nurse using the patient's name, date and medical record number. Estimated blood loss was minimal. A TTS dilator was passed through the scope. Dilation with a 10-11-12 mm balloon and a 15-16.5-18 mm balloon dilator was performed to 15 mm under fluoroscopic guidance. The dilation site was examined following endoscope reinsertion and showed mild mucosal disruption, moderate improvement in luminal narrowing and no perforation. Estimated blood loss was minimal. A large hiatal hernia was present. Patchy mild inflammation characterized by erythema was found in the gastric antrum. Biopsies were taken with a cold forceps for Helicobacter pylori testing. Two localized erosions without bleeding were found in the duodenal bulb. The second portion of the duodenum was normal. Impression: - Benign-appearing esophageal stenosis. Biopsied. Dilated. - Large hiatal hernia. - Gastritis. Biopsied. - Duodenal erosions without bleeding. - Normal second portion of the duodenum. Recommendation: - Patient has a contact number available for emergencies. The signs and symptoms of potential delayed complications were discussed with the patient. Return to normal activities tomorrow. Written discharge instructions were provided to the patient. - Full liquid diet today, then advance as tolerated to chopped diet. - Continue present medications. - Use Protonix (pantoprazole) 40 mg PO twice daily - to be taken in morning (1/2 hour before breakfast) and at bedtime ( atleast 3 hours after last meal) for 3 months. - Await pathology results. - If Biopsy shows H. pylori will need therapy with antibiotic course.. - Observe patient's clinical course. - Repeat upper endoscopy in 3 months depending on the symptoms and clinical response. - Return to GI clinic in [facility] (address [address], [address], [place], [place]) in 4 -- 6 weeks. Please call GI clinic @ [phone] for apppointment date and time. - Return to primary care physician. Erick Vanegas MD Erick Vanegas MD 06/12/2019 7:37:16 PM Electronically signed by Erick Vanegas MD Number of Addenda: 0 Note Initiated On: 06/12/2019 6:39 PM Estimated Blood Loss: Estimated blood loss was minimal.
[2019-06-12] MEDS: LACTOBACILLUS ACIDOPHILUS CAP (BACID) PO SCH (20:00)
[2019-06-12 20:20] VITALS: BP 135/66
[2019-06-12] MEDS ORDERED: TAMSULOSIN 0.4 MG CAP PO SCH (21:00)
[2019-06-12] MEDS ORDERED: MIRTAZAPINE 15 MG TAB PO SCH (21:00)
[2019-06-12 21:20] VITALS: BP 133/65
--- NOTE | 2019-06-12 21:51 | ECGEPIP ---
[facility] Test Date: 2019-06-12 Pat Name: TORIBIO ZARAGOZA Department: Room: [place] [address] Gender: Male Santa'S Helper: DAWIT : 1935 Requested By: MELISSA Voss Order Number: [id number] Reading MD: Glenn Juan Measurements Intervals [place] Rate: 68 P: -31 KS: 187 QRS: 17 QRSD: 97 T: 23 QT: 405 QTc: 431 Interpretive Statements SINUS RHYTHM POSSIBLE RIGHT VENTRICULAR CONDUCTION DELAY MINIMAL ST DEPRESSION COMPARED TO THE 5 TRACINGS IN THE SYSTEM, PATIENT SEEMS TO HAVE PRIOR EPISODES OF ATRIAL FIBRILLATION Electronically Signed on 06-12-2019 21:50:45 EST by Glenn Juan
[2019-06-12] MEDS: PANTOPRAZOLE 40MG TAB (PROTONIX) PO SCH (22:25)
[2019-06-13 00:22] VITALS: BP 132/65
[2019-06-13 06:30] VITALS: BP 129/62
[2019-06-13 06:49] LABS: HEMATOCRIT 31.1 % (42.0-52.0); HEMOGLOBIN 9.9 g/dl (13.5-17.5); MEAN CORPUSCULAR HEMOGLOBIN 33.9 pg (27.0-33.0); MEAN CORPUSCULAR HGB CONC 31.8 g/dl (32.0-36.5); MEAN CORPUSCULAR VOLUME 106.5 fl (80.0-96.0); PLATELET COUNT, AUTOMATED 167 10^3/uL (150-450); RED BLOOD COUNT 2.92 10^6/uL (4.30-6.10); WHITE BLOOD COUNT 10.5 10^3/uL (4.0-10.0)
[2019-06-13 07:23] LABS: ALBUMIN 3.2 GM/DL (3.2-5.2); BILIRUBIN,TOTAL 0.7 MG/DL (0.2-1.0); CALCIUM LEVEL 8.6 MG/DL (8.8-10.2); CREATININE FOR GFR 1.56 MG/DL (0.70-1.30); GLOMERULAR FILTRATION RATE 45.5 (>35); POTASSIUM SERUM 4.8 MEQ/L (3.5-5.1); TOTAL PROTEIN 7.2 GM/DL (6.4-8.2)
--- NOTE | 2019-06-13 08:20 | REP ---
CHEST SERIES: 11 VIEWS. HISTORY: Intraprocedural imaging. EGD with balloon dilation and fluoroscopy. 5 seconds of fluoroscopy time is reported. FINDINGS: A sequence of 11, last image hold, fluoroscopically obtained spot radiographs of the chest document endoscopic cannulation, balloon dilation, and contrast injection of the esophagus. Electronically Signed by Marcus Bennett MD 06/13/2019 09:49 A
[2019-06-13] MEDS: FERROUS SULFATE 325MG TAB PO SCH (08:45)
[2019-06-13] MEDS: PANTOPRAZOLE 40MG TAB (PROTONIX) PO SCH (08:45)
[2019-06-13] MEDS: LACTOBACILLUS ACIDOPHILUS CAP (BACID) PO SCH (08:45)
[2019-06-13] MEDS: ACETAMINOPHEN 500 MG TAB PO SCH (08:46)
[2019-06-13] MEDS: SINEMET 25-100 MG TAB PO SCH (08:50)
[2019-06-13] MEDS ORDERED: FAMOTIDINE 20 MG TAB PO SCH (09:00)
[2019-06-13 10:23] LABS: FOLATE 6.2 NG/ML (>5.4)
[2019-06-13] MEDS ORDERED: PANT40TA3 PO (10:59)
--- NOTE | 2019-06-13 11:16 | DS.PDOC ---
Discharge Summary General Date of Admission Jun 12, 2019 at 09:10 Date of Discharge 06/13/2019 Attending Physician: JOSE CONTRERAS MD Discharge Summary PROCEDURES PERFORMED DURING STAY: None. ADMITTING DIAGNOSES: 1. Esophageal stenosis. DISCHARGE DIAGNOSES: 1. Esophageal stenosis. COMPLICATIONS/CHIEF COMPLAINT: Esophageal Obstruction. HISTORY OF PRESENT ILLNESS: 84-year-old male with past medical history of coronary artery disease status post CABG, CHF, hypertension, Parkinson's disease, chronic kidney disease, CVA and dysphagia was admitted for EGD. Patient was having odynophagia, dysphagia 10 pound weight loss over the past few months, status post EGD, which showed distal esophageal obstruction, biopsies were taken, benign-appearing, dilated, no acute complications and dilation. Patient did well overnight, no complaints at this time, denies any shortness of breath, chest pain, nausea, vomiting, abdominal pain or diarrhea, tolerating liquids overnight, atraumatic. Some the morning without difficulty. He does not have any odynophagia or dysphagia this time to solids or liquids. Patient is clinically and hemodynamically stable for discharge with outpatient follow-up with GI and PCP. HOSPITAL COURSE: As above. DISCHARGE MEDICATIONS: Please see below. ALLERGIES: Please see below. PHYSICAL EXAMINATION: VITAL SIGNS: Please see below. GENERAL: No distress HEENT: Normocephalic, atraumatic, moist mucous membranes NECK: Supple CARDIOVASCULAR EXAMINATION: S1, S2, no murmurs RESPIRATORY EXAMINATION: Clear to auscultation, no wheezing ABDOMINAL EXAMINATION: Soft, nontender, nondistended, positive bowel sounds EXTREMITIES: Range of motion intact SKIN: No rash NEUROLOGICAL EXAMINATION: Alert and oriented 3, no focal deficits PSYCHIATRIC EXAMINATION: Calm and cooperative LABORATORY DATA: Please see below. PROGNOSIS: Fair ACTIVITY: As tolerated. DIET: Cardiac DISCHARGE PLAN: Follow-up with GI in 4-6 weeks and PCP 1-2 weeks DISPOSITION: Home. DISCHARGE INSTRUCTIONS: 1. As above. DISCHARGE CONDITION: Stable. TIME SPENT ON DISCHARGE: Greater than 34 minutes. Vital Signs/I&Os Vital Signs Date Time Temp Pulse Resp B/P (MAP) Pulse Ox O2 Delivery O2 Flow Rate FiO2 06/13/19 06:30 97.6 72 16 129/62 (84) 93 Room Air 06/12/19 19:35 10 I&O- Last 24 Hours up to 6 AM 06/13/19 06:00 Intake Total 480 ml Output Total 600 ml Balance -120 ml Laboratory Data Labs 24H Laboratory Tests 2 06/12/19 12:10: Bedside Glucose (Misc Panel) 77L 06/13/19 00:20: Bedside Glucose (Misc Panel) 101 06/13/19 06:36: Nucleated Red Blood Cells % (auto) 0.0, Anion Gap 6L, Glomerular Filtration Rate 45.5, Calcium Level 8.6L, Total Bilirubin 0.7#, Aspartate Amino Transf (AST/SGOT) 16, Alanine Aminotransferase (ALT/SGPT) 13, Alkaline Phosphatase 65, Total Protein 7.2, Albumin 3.2, Albumin/Globulin Ratio 0.80L, Vitamin B12 Level 257, Folate 6.2 CBC/BMP Laboratory Tests 06/13/19 06:36 FSBS Laboratory Tests Test 06/12/19 12:10 06/13/19 00:20 Range/Units Bedside Glucose (Misc Panel) 77 101 83-110 MG/DL Discharge Medications Scheduled Acetaminophen (Tylenol Extra Strength) 500 Mg Tablet, 1,000 MG PO BID, (Reported) Aspirin (Aspirin EC) 81 Mg Tab, 81 MG PO DAILY, (Reported) Carbidopa/Levodopa (Sinemet 25-100 mg Tablet) 1 Each Tablet, 1 TAB PO BID, (Reported) Famotidine (Famotidine) 40 Mg Tablet, 40 MG PO DAILY, (Reported) Ferrous Sulfate (Ferrous Sulfate) 325 Mg Tablet, 325 MG PO BID, (Reported) Magnesium Oxide (Magnesium) 400 Mg Cap, 400 MG PO DAILY, (Reported) Mirtazapine (Remeron) 15 Mg Tablet, 15 MG PO QPM, (Reported) Pantoprazole Sodium (Pantoprazole Sodium) 40 Mg Tablet.dr, 40 MG PO BID Tamsulosin HCl (Flomax) 0.4 Mg Capsule, 0.4 MG PO QPM, (Reported) Allergies Coded Allergies: No Known Drug Allergies (Verified Allergy, Unknown, 04/15/19) JOSE CONTRERAS MD Jun 13, 2019 11:16
== END 2019-06-13 12:30 | disposition home or self-care (01) | DRG 392 ==
LOC: EDSTATUS 09:05 → M MS4PR 09:10
PROVIDERS: ADMIT Internal Medicine Gastroenterology; ATTEND Internal Medicine
PROC: 0DB78ZZ Excision of Stomach, Pylorus, Via Natural or Artificial Opening Endoscopic (ICD-10-PCS; 2019-06-12)
PROC: 0DB38ZZ Excision of Lower Esophagus, Via Natural or Artificial Opening Endoscopic (ICD-10-PCS; principal; 2019-06-12 07:01)
DX: K22.2 Esophageal obstruction (principal); I50.30 Unspecified diastolic (congestive) heart failure; I13.0 Hypertensive heart and chronic kidney disease with heart failure and stage 1 through stage 4 chronic kidney disease, or unspecified chronic kidney disease; I25.10 Atherosclerotic heart disease of native coronary artery without angina pectoris; Z95.1 Presence of aortocoronary bypass graft; G20 Parkinson's disease; Z79.82 Long term (current) use of aspirin; Z79.899 Other long term (current) drug therapy; R13.10 Dysphagia, unspecified; K21.9 Gastro-esophageal reflux disease without esophagitis; I73.9 Peripheral vascular disease, unspecified; Z86.73 Personal history of transient ischemic attack (TIA), and cerebral infarction without residual deficits; M81.0 Age-related osteoporosis without current pathological fracture; M10.9 Gout, unspecified; R29.6 Repeated falls; N18.3 Chronic kidney disease, stage 3 (moderate); N40.0 Benign prostatic hyperplasia without lower urinary tract symptoms; Z66 Do not resuscitate; Z87.442 Personal history of urinary calculi; D64.9 Anemia, unspecified; K44.9 Diaphragmatic hernia without obstruction or gangrene

== ENCOUNTER 2019-06-21 10:42 | Emergency (ER) | payer MEDICARE ==
[~2019-06-21] VITALS: Ht 170.2 cm; Wt 77.3 kg
[~2019-06-21 10:42] MED LIST changes: -DEXTROSE 50% 50 ML SYRINGE IV PRN; -GLUCAGON FOR INJ 1 MG VIAL (J1610) SC PRN; -GLUCOSE 4 GM CHEW TABLET PO PRN; +PANT40TA3 PO; -SIMV20TA2 PO; +SIMV20TA22 PO
[2019-06-21] MEDS ORDERED: CLOP75TA2 (10:50)
[2019-06-21] MEDS ORDERED: NS 1,000 ML IV SCH (11:08)
[2019-06-21 11:45] LABS: BASO % 0.7 % (0.0-1.0); EOS # 0.2 10^3/uL (0.0-0.5); EOS % 3.5 % (0.0-3.0); HEMATOCRIT 33.6 % (42.0-52.0); HEMOGLOBIN 10.2 g/dl (13.5-17.5); LYMPH # 0.8 10^3/uL (1.5-5.0); LYMPH % 13.3 % (24.0-44.0); MEAN CORPUSCULAR HEMOGLOBIN 33.3 pg (27.0-33.0); MEAN CORPUSCULAR HGB CONC 30.4 g/dl (32.0-36.5); MEAN CORPUSCULAR VOLUME 109.8 fl (80.0-96.0); MONO # 0.6 10^3/uL (0.0-0.8); MONO % 9.5 % (0.0-5.0); NEUTROPHILS # 4.2 10^3/uL (1.5-8.5); NEUTROPHILS % 69.8 % (36.0-66.0); PLATELET COUNT, AUTOMATED 210 10^3/uL (150-450); RED BLOOD COUNT 3.06 10^6/uL (4.30-6.10)
[2019-06-21 12:12] LABS: ALBUMIN 3.4 GM/DL (3.2-5.2); ALT/SGPT 17 U/L (12-78); BILIRUBIN,DIRECT < 0.1 MG/DL (0.0-0.2); BILIRUBIN,TOTAL 0.3 MG/DL (0.2-1.0); BLOOD UREA NITROGEN 19 MG/DL (7-18); CALCIUM LEVEL 8.8 MG/DL (8.8-10.2); CARBON DIOXIDE LEVEL 24 MEQ/L (21-32); CHLORIDE LEVEL 115 MEQ/L (98-107); CREATININE FOR GFR 1.78 MG/DL (0.70-1.30); GLOMERULAR FILTRATION RATE 39.1 (>35); GLUCOSE, FASTING 104 MG/DL (70-100); LIPASE 136 U/L (73-393); POTASSIUM SERUM 4.4 MEQ/L (3.5-5.1); SODIUM LEVEL 144 MEQ/L (136-145); TOTAL PROTEIN 7.7 GM/DL (6.4-8.2)
[2019-06-21 14:05] VITALS: BP 152/84
== END 2019-06-21 14:20 | disposition home or self-care (01) ==
LOC: M ED 10:42
DX: E86.0 Dehydration (principal); I11.0 Hypertensive heart disease with heart failure; N18.9 Chronic kidney disease, unspecified; I50.9 Heart failure, unspecified; G20 Parkinson's disease; Z79.899 Other long term (current) drug therapy; Z79.82 Long term (current) use of aspirin

== ENCOUNTER 2019-08-04 07:17 | Inpatient (IN) | payer MEDICARE ==
[~2019-08-04] VITALS: Ht 177.8 cm; Wt 87.0 kg
[~2019-08-04 07:17] MED LIST changes: +CLOP75TA2 PO
[2019-08-04] MEDS ORDERED: NS 500 ML IV ONE (07:45)
[2019-08-04] MEDS ORDERED: ONDANSETRON 4MG/2ML VIAL (J2405) IV ONE (07:45)
[2019-08-04 07:49] LABS: BASO % 0.4 % (0.0-1.0); EOS % 0.1 % (0.0-3.0); HEMOGLOBIN 10.7 g/dl (13.5-17.5); LYMPH # 0.7 10^3/uL (1.5-5.0); LYMPH % 6.7 % (24.0-44.0); MEAN CORPUSCULAR HEMOGLOBIN 32.7 pg (27.0-33.0); MEAN CORPUSCULAR HGB CONC 30.6 g/dl (32.0-36.5); MONO # 0.8 10^3/uL (0.0-0.8); NEUTROPHILS # 8.5 10^3/uL (1.5-8.5); NEUTROPHILS % 83.9 % (36.0-66.0); PLATELET COUNT, AUTOMATED 189 10^3/uL (150-450); RED BLOOD COUNT 3.27 10^6/uL (4.30-6.10); WHITE BLOOD COUNT 10.1 10^3/uL (4.0-10.0)
[2019-08-04 08:12] LABS: ALBUMIN 4.1 GM/DL (3.2-5.2); BILIRUBIN,DIRECT 0.4 MG/DL (0.0-0.2); CALCIUM LEVEL 9.1 MG/DL (8.8-10.2); CREATININE FOR GFR 2.37 MG/DL (0.70-1.30); GLOMERULAR FILTRATION RATE 28.1 (>35); POTASSIUM SERUM 4.6 MEQ/L (3.5-5.1); TOTAL PROTEIN 8.3 GM/DL (6.4-8.2)
[2019-08-04] MEDS ORDERED: PANT40TA3 PO (08:26)
[2019-08-04] MEDS ORDERED: fentaNYL 100 MCG/2 ML INJECTION (J3010) IV ONE (08:30)
[2019-08-04] MEDS: GASTROGRAFIN SOLUTION 30ML (Q9963) PO SCH ×2 (08:56→09:30)
--- NOTE | 2019-08-04 09:10 | REP ---
ABDOMINAL SERIES: Supine and erect views of the abdomen demonstrate no free air and no compelling evidence for obstruction. Air is scattered throughout the GI tract in a nonspecific pattern. Multiple sigmoid and left colonic diverticula are seen, presumably due to residual barium from upper GI series 05/24/2019. There is aortobiiliac stent again noted. Metallic clips are seen in both inguinal regions. There are degenerative changes of the spine and hips. An accompanying view of the chest demonstrates chronic bibasilar fibroatelectatic changes which are stable. There is a large hiatal hernia. Cardiomediastinal silhouette is unchanged. There are multiple sternal wires and mediastinal clips present. IMPRESSION: No free air or obstruction. Nonspecific bowel gas pattern. Chronic stable findings in the lungs. Electronically Signed by Danish Medina MD 08/04/2019 03:38 P
[2019-08-04] MEDS ORDERED: NS 1,000 ML IV SCH (12:00)
--- NOTE | 2019-08-04 12:25 | REP ---
CT ABDOMEN AND PELVIS WITHOUT CONTRAST WITH ORAL CONTRAST: CT abdomen and pelvis performed with oral contrast only. Sagittal and coronal reconstruction images are performed. Comparison is made with prior CT abdomen and pelvis 04/15/2019. There is bibasilar fibroatelectatic change. There is moderate cardiomegaly. There is ectasia of the ascending thoracic aorta with atherosclerotic calcification. Maximum AP diameter is 4.6 cm. There is a large hiatal hernia. 5 cm abdominal aortic aneurysm is present. Scattered atherosclerotic calcifications are seen of the abdominal aorta. There is again noted an aortobiiliac stent graft. The aneurysm is unchanged in size. There is also dilatation of the common iliac arteries. There is a crossover graft connecting the common femoral arteries. Liver demonstrates probable tiny cyst on the right lobe. Gallbladder contains gallstones and there is no evidence of gallbladder wall edema. I do not see a definite biliary dilatation. The spleen is normal in size with no definite intrinsic abnormality. The left adrenal gland is normal. The right adrenal gland demonstrates a small adenoma unchanged since the CT of 10/21/2007. Pancreas is grossly unremarkable. There is bilateral cortical thinning of the kidneys. Three subcentimeter calculi are seen in the left renal collecting system mid to upper aspect. There is no left hydroureteronephrosis. There is a nodule 1.4 cm in diameter of the upper pole of the left kidney medially. This is not definitely measuring water density and could represent a complex cyst or solid nodule. Recommend followup ultrasound. A 3 mm stone is seen at the right ureterovesical junction causing moderate degree of right hydroureteronephrosis. There are two cysts in the mid to lower right kidney, the largest in the mid aspect is exophytic measuring 2.2 cm in maximum diameter. I see no adenopathy. There is no free air or free fluid. There is no bowel wall thickening. There is no evidence of appendicitis. There is sigmoid and left colonic diverticulosis without acute diverticulitis. Urinary bladder is otherwise unremarkable. There are degenerative changes of the spine. There is a stable old compression deformity of L2. IMPRESSION: There is a 3 mm calculus at the right ureterovesical junction causing moderate right hydroureteronephrosis. There are three subcentimeter intrarenal calculi in the left. In addition exophytic nodule of the upper pole of the left kidney measures 1.4 cm in maximum diameter. This is not definitely a cyst. It could represent a solid nodule or complex cyst. Recommend followup ultrasound to further evaluate. There are other chronic findings as discussed in detail above. No other acute finding. Electronically Signed by Danish Medina MD 08/04/2019 04:01 P
[2019-08-04] MEDS ORDERED: ONDANSETRON 4MG/2ML VIAL (J2405) IV PRN (13:30)
--- NOTE | 2019-08-04 13:46 | HPEPDOC ---
General Date of Admission 08/04/19 Date of Service: Aug 04, 2019 Chief Complaint The patient is a 84-year-old male admitted with a reason for visit of Abdominal Pain. Source: Patient, Family Exam Limitations: No limitations Timing/Duration: Day(s) Associated Symptoms: Loss of appetite, Nausea, Vomiting History of Present Illness Patient is 84 years old male with past history of Parkinson diseases, nephrolit hiasis, diastolic CHF, coronary artery diseases presented hospital with mild confusion and right flank and abdominal pain. His family at bedside, patient and family provided history that for past 2 days patient has been nauseated, had a few episodes of vomiting. Also he developed diffuse abdominal pain in the lower quadrants and right flank pain. Today patient developed some visual hallucinations, he saw cows in his yard. Family stated that he didn't eat for 2 days and didn't have enough fluid intake. Patient didn't have any diarrhea, fever, chest pain, palpitations. In ER patient was found to have leukocytes count of 10.1, hemoglobin 10.7, lactic acid 3.5, potassium 4.6, creatinine 2.37. Abdomen/pelvis CT showed 3 mm calculus at the right ureterovesical junction causing moderate right hydroureteronephrosis. During my interview patient alert, awake, not confused Home Medications Scheduled Acetaminophen (Tylenol Extra Strength) 500 Mg Tablet, 1,000 MG PO BID, (Reported) Aspirin (Aspirin EC) 81 Mg Tab, 81 MG PO DAILY, (Reported) Carbidopa/Levodopa (Sinemet 25-100 mg Tablet) 1 Each Tablet, 1 TAB PO BID, (Reported) Clopidogrel Bisulfate (Clopidogrel) 75 Mg Tablet, 75 MG PO DAILY, (Reported) Ferrous Sulfate (Ferrous Sulfate) 325 Mg Tablet, 325 MG PO BID, (Reported) Magnesium Oxide (Magnesium) 400 Mg Cap, 400 MG PO DAILY, (Reported) Mirtazapine (Remeron) 15 Mg Tablet, 15 MG PO QHS, (Reported) Pantoprazole Sodium (Pantoprazole Sodium) 40 Mg Tablet.dr, 40 MG PO BID, (Reported) Tamsulosin HCl (Flomax) 0.4 Mg Capsule, 0.4 MG PO QPM, (Reported) Allergies Coded Allergies: No Known Drug Allergies (Verified Allergy, Unknown, 04/15/19) Past Medical History Medical History 1. Hypertensive heart disease. 2. Abdominal aortic aneurysm, status post endovascular grafting. 3. Lumbosacral spondylolysis. 4. Degenerative joint disease. 5. Spinal stenosis. 6. Diastolic heart failure. 7. Peripheral vascular disease. 8. Carotid disease. 9. Coronary artery disease. 10. Prior iron deficiency anemia. 11. Parkinson's disease. 12. 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 13. History of kidney stones. 14. Renal colic. 15. Osteoporosis. 16. Reflux. 17. Benign prostatic hypertrophy (BPH). 18. Chronic kidney disease stage III, baseline creatinine 1.4 to 1.6. 19. Unsteady gait. 20. History of falls. Does not use a walker at home. 21. Lyme disease. 22. Gout. Surgical History PAST SURGICAL HISTORY: 1. Coronary artery bypass graft (CABG). 2. Fem-pop bypass. 3. Abdominal aortic aneurysm repair. 4. Right inguinal hernia repair. 5. Appendectomy Family History Siblings with hypertension, coronary artery disease, cancer of the lung. Children, one with breast cancer. Unexpected due to heart disease is none. Social History * Smoker: Denies Alcohol: Denies Drugs: denies A-FIB/CHADSVASC A-FIB History Current/History of A-Fib/PAF?: No Current PO Anticoag Therapy: No Review of Systems Constitutional: Reports: Weakness Eyes: Denies: Pain, Vision change ENT: Denies: Head Aches Skin: Denies: Rash Pulmonary: Denies: Dyspnea, Cough Cardiovascular: Denies: Chest Pain, Palpitations Gastrointestinal: Reports: Nausea, Vomiting, Abdominal Pain Genitourinary: Denies: Dysuria Hematologic: Denies: Bruising Endocrine: Denies: Polydipsia, Polyphagia Musculoskeletal: Denies: Neck Pain Neurological: Denies: Weakness, Numbness Psych: Reports: Mood Normal Physical Examination General Exam: Positive: Alert, Cooperative Eye Exam: Positive: PERRLA ENT Exam: Positive: Atraumatic, Mucous membr. moist/pink Neck Exam: Positive: Supple; Negative: JVD Chest Exam: Positive: Clear to auscultation Heart Exam: Positive: Rate Normal Telemetry: Positive: No significant arrhythmia Abdomen Exam: Positive: Normal bowel sounds, Tenderness (lower right quadrant tenderness) Extremity Exam: Negative: Clubbing, Cyanosis Skin Exam: Positive: Nl turgor and temperature Neuro Exam: Positive: Normal Gait, Cranial Nerves 3-12 NL Psych Exam: Positive: Mental status NL Vital Signs Vital Signs Date Time Temp Pulse Resp B/P (MAP) Pulse Ox O2 Delivery O2 Flow Rate FiO2 08/04/19 12:33 98.5 75 12 175/78 (110) 87 Room Air Laboratory Data Labs 24H Laboratory Tests 2 08/04/19 07:36: Immature Granulocyte % (Auto) 0.9, Neutrophils (%) (Auto) 83.9H, Lymphocytes (%) (Auto) 6.7L, Monocytes (%) (Auto) 8.0H, Eosinophils (%) (Auto) 0.1, Basophils (%) (Auto) 0.4, Neutrophils # (Auto) 8.5, Lymphocytes # (Auto) 0.7L, Monocytes # (Auto) 0.8, Eosinophils # (Auto) 0.0, Basophils # (Auto) 0.0, Nucleated Red Blood Cells % (auto) 0.0, Anion Gap 10, Glomerular Filtration Rate 28.1L, Calcium Level 9.1, Total Bilirubin 1.0, Direct Bilirubin 0.4H, Aspartate Amino Transf (AST/SGOT) 11, Alanine Aminotransferase (ALT/SGPT) 10L, Alkaline Phosphatase 72, Total Protein 8.3H, Albumin 4.1, Albumin/Globulin Ratio 0.98L, Lipase 102 08/04/19 07:41: Lactic Acid Level 3.5*H CBC/BMP Laboratory Tests 08/04/19 07:36 Assessment/Plan Patient is 84 years old male with past history of Parkinson diseases, nephrolithiasis, diastolic CHF, coronary artery diseases presented hospital with mild confusion and right flank and abdominal pain. Abdomen/pelvis CT showed 3 mm calculus at the right ureterovesical junction causing moderate right hydroureteronephrosis. During my interview patient alert, awake, not confused Problems (1) Ureterolithiasis Status: Acute Problem Text: Continue gentle IV hydration due to diastolic heart failure Continue Flomax Appreciate/agree with urologist consult Pain management Zofran IV when necessary (2) Acute kidney injury Status: Acute Problem Text: Prerenal Most likely secondary to dehydration due to vomiting and poor oral intake Continue gentle IV hydration (3) Parkinson's disease Status: Chronic Problem Text: Continue home meds (4) Hypertensive emergency Status: Acute Problem Text: Hydralazine IV when necessary with parameters Amlodipine 10 mg Patient has a history of coronary artery diseases and diastolic CHF, he will benefit from beta blockers Metoprolol 12.5 twice a day Continue to monitor vital signs Plan / VTE VTE Prophylaxis Ordered?: Yes JENNIFER REEVES DO Aug 04, 2019 13:45
[2019-08-04] MEDS ORDERED: MORPHINE 2 MG/ML 1ML VIAL (J2270) IV PRN (14:00)
[2019-08-04] MEDS ORDERED: ACETAMINOPHEN TAB 650MG DOSE (2X325MG) PO PRN (14:00)
--- NOTE | 2019-08-04 14:17 | SMCUROLCON ---
Urology Consultation General Date of Consultation 08/04/19 Reason For Consultation This patient is seen for Dehydration,Ureterolithiasis. History of Present Illness The patient is a 84-year-old white male with a past medical history for multiple medical problems including requiring anticoagulation, with history of ureterolithiasis presents today with right flank and abdominal pain. The pain has been severe. He also has had nausea, vomiting and has been unable to keep down much food or fluids. The prior stone episode resulted in a spontaneously passed stone. Past Medical History Medical History Reviewed Surgical Hstory Reviewed Family History Significant Family History: Noncontributory Social History * Smoker: former Smoker Alcohol: Denies Medications Current Medications Current Medications Medications (Trade) Dose Ordered Sig/Saida Route PRN Reason Start Time Stop Time Status Last Admin Dose Admin Acetaminophen (Tylenol Tab) 650 mg Q6H PRN PO moderate pain 08/04/19 14:00 Acetaminophen (Tylenol Tab) 1,000 mg BID PO 08/04/19 21:00 08/04/19 13:49 DC Aspirin (Ecotrin) 81 mg DAILY PO 08/04/19 09:00 Carbidopa/Levodopa (Sinemet 25/100) 1 tab BID@0600,1800 PO 08/04/19 18:00 Clopidogrel Bisulfate (PLAVix) 75 mg DAILY PO 08/04/19 09:00 Diatrizoate Meglum/ Diatrizoate Sod (Gastrografin) 10 ml Q30M PO 08/04/19 09:00 08/04/19 09:31 DC 08/04/19 09:30 Ferrous Sulfate (Ferrous Sulfate) 325 mg BID PO 08/04/19 21:00 Heparin Sodium (Porcine) (Heparin) 5,000 units Q12H SC 08/04/19 21:00 Home Med (Med Rec Complete!) ASDIRECTED XX 08/04/19 08:30 08/04/19 08:28 DC Mirtazapine (Remeron) 15 mg QHS PO 08/04/19 21:00 Morphine Sulfate (Morphine Sulfate Inj) 2 mg Q4H PRN IV severe pain 08/04/19 14:00 08/04/19 14:01 Ondansetron HCl (ZOFRAN INJection) 4 mg Q6H PRN IV NAUSEA 08/04/19 13:30 Pantoprazole Sodium (Protonix) 40 mg BID PO 08/04/19 21:00 Sodium Chloride 1,000 ml @ 90 mls/hr Q11H7M IV 08/04/19 13:20 Sodium Chloride 1,000 ml @ 100 mls/hr Q10H IV 08/04/19 12:00 08/04/19 13:50 DC 08/04/19 12:38 Tamsulosin HCl (Flomax) 0.4 mg QPM PO 08/04/19 21:00 Allergies Allergies: Coded Allergies: No Known Drug Allergies (Verified Allergy, Unknown, 04/15/19) Review of Systems General: Denies: Chills, Night Sweats Constitutional: Denies: Fever, Chills Eyes: Denies: Pain Pulmonary: Denies: Dyspnea Cardiovascular: Denies Chest Pain Gastrointestinal: Reports: Nausea, Abdominal Pain; Denies: Vomiting, Diarrhea, Constipation Genitourinary: Reports: Frequency, Hematuria; Denies: Dysuria Hematologic: Denies: Bruising Endocrine: Denies: Polydipsia Psych: Reports: Mood Normal Physical Examination General Exam: Cooperative, No Acute Distress Neck Exam: Supple Abdomen Exam: Soft; No: Tenderness Male Exam Bladder is not distended Extremity Exam: No: Clubbing Skin Exam: Nl turgor and temperature; No: Rash Psych Exam: Mental status NL, Mood NL; No: Anxiety Vital Signs/I&O Vital Signs Date Time Temp Pulse Resp B/P (MAP) Pulse Ox O2 Delivery O2 Flow Rate FiO2 08/04/19 14:01 80 12 199/92 95 Room Air 08/04/19 12:33 98.5 Laboratory Data 24H Labs Laboratory Tests 2 08/04/19 07:36: Immature Granulocyte % (Auto) 0.9, Neutrophils (%) (Auto) 83.9H, Lymphocytes (%) (Auto) 6.7L, Monocytes (%) (Auto) 8.0H, Eosinophils (%) (Auto) 0.1, Basophils (%) (Auto) 0.4, Neutrophils # (Auto) 8.5, Lymphocytes # (Auto) 0.7L, Monocytes # (Auto) 0.8, Eosinophils # (Auto) 0.0, Basophils # (Auto) 0.0, Nucleated Red Blood Cells % (auto) 0.0, Anion Gap 10, Glomerular Filtration Rate 28.1L, [place] cium Level 9.1, Total Bilirubin 1.0, Direct Bilirubin 0.4H, Aspartate Amino Transf (AST/SGOT) 11, Alanine Aminotransferase (ALT/SGPT) 10L, Alkaline Phosphatase 72, Total Protein 8.3H, Albumin 4.1, Albumin/Globulin Ratio 0.98L, Lipase 102 08/04/19 07:41: Lactic Acid Level 3.5*H CBC/BMP Laboratory Tests 08/04/19 07:36 Assessment 3 mm right ureterovesical junction stone, elevated serum creatinine, dehydration, and CT scan consistent with bilateral renal atrophy Plan At the present time there is no need for surgical intervention. Recommend supportive care such as IV fluid hydration and pain management. Will recheck creatinine tomorrow and allow for spontaneous stone passage Time Spent on Consult: Time Spent / Consult (Minutes): 45 IKE SUAREZ MD Aug 04, 2019 14:17
[2019-08-04] MEDS ORDERED: hydrALAZINE INJ 20 MG/ML VIAL IV STA (14:31)
[2019-08-04] MEDS ORDERED: hydrALAZINE INJ 20 MG/ML VIAL IV PRN ×2 (14:45)
[2019-08-04] MEDS ORDERED: amLODIPine 10 MG TAB PO ONE (15:00)
[2019-08-04 15:10] VITALS: BP 129/90
[2019-08-04] MEDS: NS 1,000 ML IV SCH ×2 (15:48→23:42)
[2019-08-04 16:00] VITALS: BP 180/84
[2019-08-04] MEDS: CLOPIDOGREL 75 MG TAB PO SCH (16:22)
[2019-08-04] MEDS: ASPIRIN 81 MG ENTERIC TAB PO SCH (16:23)
[2019-08-04] MEDS ORDERED: traMADol 50 MG TAB PO ONE (17:00)
[2019-08-04 17:25] VITALS: BP 154/98
[2019-08-04] MEDS: SINEMET 25-100 MG TAB PO SCH (18:16)
[2019-08-04 20:00] VITALS: BP 134/58
[2019-08-04] MEDS: MIRTAZAPINE 15 MG TAB PO SCH (20:26)
[2019-08-04] MEDS: FERROUS SULFATE 325MG TAB PO SCH (20:26)
[2019-08-04] MEDS: HEPARIN SOD (PORCINE) 5000 UNITS/ML VIAL SC SCH (20:26)
[2019-08-04] MEDS: PANTOPRAZOLE 40MG TAB (PROTONIX) PO SCH (20:26)
[2019-08-04] MEDS: TAMSULOSIN 0.4 MG CAP PO SCH (20:26)
[2019-08-04] MEDS: METOPROLOL TART 12.5 MG PER 1/2 TAB PO SCH (20:26)
[2019-08-04] MEDS ORDERED: ACETAMINOPHEN 500 MG TAB PO SCH (21:00)
[2019-08-05] VITALS: BP 133/62
[2019-08-05 04:00] VITALS: BP 150/66
[2019-08-05] MEDS: SINEMET 25-100 MG TAB PO SCH ×3 (05:06→18:02)
[2019-08-05 05:25] LABS: HEMATOCRIT 30.9 % (42.0-52.0); HEMOGLOBIN 9.5 g/dl (13.5-17.5); MEAN CORPUSCULAR HEMOGLOBIN 33.2 pg (27.0-33.0); MEAN CORPUSCULAR HGB CONC 30.7 g/dl (32.0-36.5); PLATELET COUNT, AUTOMATED 165 10^3/uL (150-450); RED BLOOD COUNT 2.86 10^6/uL (4.30-6.10)
[2019-08-05 05:48] LABS: CALCIUM LEVEL 8.5 MG/DL (8.8-10.2); CREATININE FOR GFR 2.51 MG/DL (0.70-1.30); GLOMERULAR FILTRATION RATE 26.3 (>35); MAGNESIUM LEVEL 2.1 MG/DL (1.8-2.4)
[2019-08-05 08:00] VITALS: BP 132/61
[2019-08-05] MEDS: HEPARIN SOD (PORCINE) 5000 UNITS/ML VIAL SC SCH ×2 (08:19→21:08)
[2019-08-05] MEDS: CLOPIDOGREL 75 MG TAB PO SCH (08:20)
[2019-08-05] MEDS: FERROUS SULFATE 325MG TAB PO SCH ×2 (08:21→21:07)
[2019-08-05] MEDS: ASPIRIN 81 MG ENTERIC TAB PO SCH (08:21)
[2019-08-05] MEDS: PANTOPRAZOLE 40MG TAB (PROTONIX) PO SCH ×2 (08:21→21:07)
[2019-08-05] MEDS: amLODIPine 10 MG TAB PO SCH (08:21)
[2019-08-05] MEDS: METOPROLOL TART 12.5 MG PER 1/2 TAB PO SCH ×2 (08:21→21:07)
[2019-08-05 12:00] VITALS: BP 136/68
--- NOTE | 2019-08-05 12:06 | IPNPDOC ---
Text Note Date of Service The patient was seen on 08/05/19. NOTE Subjective: Patient developed confusion, he is not oriented in time and in p lace. Overnight patient didn't have any pain. Also he developed some urinary incontinence, UA was not sent for analysis Objective: VITAL SIGNS: Please see below. GENERAL APPEARANCE: Well-nourished, well-developed, not in apparent distress HEENT: Normocephalic, atraumatic. Mucous members moist and pink CARDIOVASCULAR: Regular rate and rhythm. No murmurs, rubs or gallops. Radial pulses are intact. There is no lower extremity edema LUNGS: Diminished lung sounds ABDOMEN: Abdomen is soft and nontender. MUSCULOSKELETAL: Range of motion is intact in all 4 extremities NEUROLOGICAL: Cranial nerves II-12 are grossly intact. No nuchal rigidity. Patient was not oriented in place and in time Assessment/Plan Patient is 84 years old male with past history of Parkinson diseases, nephrolithiasis, diastolic CHF, coronary artery diseases presented hospital with mild confusion and right flank and abdominal pain. Abdomen/pelvis CT showed 3 mm calculus at the right ureterovesical junction causing moderate right hydroureteronephrosis. Urologist recommended conservative treatment. On 05/05/19 patient developed altered mental status most likely secondary to UTI. Await UA results. Patient had C. difficile infection the past, I'm reluctant to start antibiotics without UA. Problems (1) Ureterolithiasis The pain resolved today. Most likely patient passed the stone. Continue gentle IV hydration due to diastolic heart failure Continue Flomax Pain management Zofran IV when necessary (2) Acute kidney injury Most likely secondary to dehydration and ureters stone Continue gentle IV hydration (3) Parkinson's disease Continue home meds (4) Hypertensive emergency Resolved Blood pressures under control Hydralazine IV when necessary with parameters Amlodipine 10 mg Patient has a history of coronary artery diseases and diastolic CHF, he will benefit from beta blockers Metoprolol 12.5 twice a day Continue to monitor vital signs Metabolic encephalopathy Could be associated with UTI There is also possibility for delirium due to hospital environment and pain Urine analysis was not sent to lab yesterday Patient had C. difficile infection the past, I'm reluctant to start antibiotics without UA VS,Fishbone, I+O VS, Fishbone, I+O Laboratory Tests 08/05/19 04:47 Vital Signs Date Time Temp Pulse Resp B/P (MAP) Pulse Ox O2 Delivery O2 Flow Rate FiO2 08/05/19 08:21 66 132/61 08/05/19 08:00 97.9 18 94 Nasal Cannula 1.0 I&O- Last 24 Hours up to 6 AM 08/05/19 06:00 Intake Total 2130 ml Output Total 0 ml Balance 2130 ml JENNIFER REEVES DO Aug 05, 2019 12:06
[2019-08-05] MEDS: NS 1,000 ML IV SCH ×2 (12:32→21:08)
[2019-08-05 16:00] VITALS: BP 138/63
[2019-08-05 20:00] VITALS: BP 144/69
[2019-08-05] MEDS: TAMSULOSIN 0.4 MG CAP PO SCH (21:07)
[2019-08-05] MEDS: MIRTAZAPINE 15 MG TAB PO SCH (21:07)
[2019-08-06] VITALS: BP 132/62
[2019-08-06 04:00] VITALS: BP 128/60
[2019-08-06] MEDS: SINEMET 25-100 MG TAB PO SCH ×2 (05:21→17:52)
--- NOTE | 2019-08-06 06:19 | ECGEPIP ---
[facility] - ED Test Date: 2019-08-04 Pat Name: TORIBIO ZARAGOZA Department: Room: - Gender: Male [employer] [place] T[employer]: COCO : 1935 Requested By: Nithin Lambert Order Number: [id number] Reading MD: Fer Bruno Measurements Intervals [place] Rate: 72 P: -49 [place]: 157 QRS: 23 QRSD: 95 T: 38 QT: 412 QTc: 453 Interpretive Statements SINUS RHYTHM WITH OCCASIONAL SUPRAVENTRICULAR PREMATURE COMPLEXES POSSIBLE RIGHT VENTRICULAR CONDUCTION DELAY MODERATE ST DEPRESSION BORDERLINE PROLONGED QTC DELAYED R WAVE PROGRESSION CW 06/12/[address] T WAVE CHANGES Electronically Signed on 08-06-2019 6:18:44 EST by Fer Bruno
[2019-08-06 08:00] VITALS: BP 134/77
[2019-08-06] MEDS: amLODIPine 10 MG TAB PO SCH (08:33)
[2019-08-06] MEDS: PANTOPRAZOLE 40MG TAB (PROTONIX) PO SCH ×2 (08:33→20:35)
[2019-08-06] MEDS: NS 1,000 ML IV SCH ×2 (08:33→19:45)
[2019-08-06] MEDS: ASPIRIN 81 MG ENTERIC TAB PO SCH (08:33)
[2019-08-06] MEDS: CLOPIDOGREL 75 MG TAB PO SCH (08:33)
[2019-08-06] MEDS: FERROUS SULFATE 325MG TAB PO SCH ×2 (08:34→20:35)
[2019-08-06] MEDS: HEPARIN SOD (PORCINE) 5000 UNITS/ML VIAL SC SCH ×2 (08:34→20:36)
[2019-08-06] MEDS: METOPROLOL TART 12.5 MG PER 1/2 TAB PO SCH ×2 (08:34→20:35)
[2019-08-06 09:02] LABS: HEMATOCRIT 30.8 % (42.0-52.0); HEMOGLOBIN 9.4 g/dl (13.5-17.5); MEAN CORPUSCULAR HEMOGLOBIN 33.6 pg (27.0-33.0); MEAN CORPUSCULAR HGB CONC 30.5 g/dl (32.0-36.5); PLATELET COUNT, AUTOMATED 135 10^3/uL (150-450); WHITE BLOOD COUNT 8.7 10^3/uL (4.0-10.0)
[2019-08-06 09:05] LABS: CALCIUM LEVEL 8.3 MG/DL (8.8-10.2); CREATININE FOR GFR 2.37 MG/DL (0.70-1.30); GLOMERULAR FILTRATION RATE 28.1 (>35); POTASSIUM SERUM 4.6 MEQ/L (3.5-5.1)
--- NOTE | 2019-08-06 09:09 | IPN ---
DATE: 08/06/2019 Shreyas is on the hospitalist service, admitted with a renal stone and altered mental status. His daughter was at bedside. She indicates that his mental status is improved from yesterday, but still quite confused and not anywhere near baseline. We are still determining whether he has a urinary tract infection. He has not been given empiric antibiotics due to his history of C. difficile colitis. Waiting for urine culture, which should be back today (discussed the case at bedside with his nurse and Kavon will notify me when the urine culture comes back). We suspect he passed the urinary stone for which he was admitted. Unfortunately, no labs were ordered for today. The patient is being treated for acute kidney injury. PHYSICAL EXAMINATION: Afebrile, vital signs stable, 120/60. Alert and conversant in no distress. Lungs clear. Heart regular rhythm. Abdomen soft, nontender. Trace peripheral edema. Labs: None ordered - I have put in for CBC and BMP. IMPRESSION: 1. Altered mental status. Etiology is unknown. Waiting for results of urine culture. Will prescribe only if urine culture returns positive. The patient has a history of C. Difficile. 2. Acute kidney injury. Morning labs were ordered on rounds and are pending. 3. History of diastolic congestive heart failure. He is currently on IV fluids, waiting for his morning labs before we discontinue these. 4. Coronary artery disease (CAD). Stable on current regimen, which we will continue. Edited 08/06/2019 @ 0924 [facility]
[2019-08-06 12:00] VITALS: BP 139/74
[2019-08-06 13:22] LABS: PTH INTACT 121.4 PG/ML (18.5-88.0)
[2019-08-06 16:00] VITALS: BP 155/80
[2019-08-06 20:00] VITALS: BP 150/82
[2019-08-06] MEDS: MIRTAZAPINE 15 MG TAB PO SCH (20:35)
[2019-08-06] MEDS: TAMSULOSIN 0.4 MG CAP PO SCH (20:35)
[2019-08-07] VITALS: BP 122/70
[2019-08-07 04:00] VITALS: BP 141/71
[2019-08-07] MEDS: SINEMET 25-100 MG TAB PO SCH ×2 (05:35→17:12)
[2019-08-07 06:13] LABS: HEMATOCRIT 31.3 % (42.0-52.0); HEMOGLOBIN 9.7 g/dl (13.5-17.5); MEAN CORPUSCULAR HEMOGLOBIN 33.8 pg (27.0-33.0); MEAN CORPUSCULAR VOLUME 109.1 fl (80.0-96.0); PLATELET COUNT, AUTOMATED 152 10^3/uL (150-450); RED BLOOD COUNT 2.87 10^6/uL (4.30-6.10); WHITE BLOOD COUNT 10.8 10^3/uL (4.0-10.0)
[2019-08-07 06:38] LABS: CREATININE FOR GFR 2.39 MG/DL (0.70-1.30); GLOMERULAR FILTRATION RATE 27.8 (>35); POTASSIUM SERUM 4.6 MEQ/L (3.5-5.1)
[2019-08-07 07:53] VITALS: BP 132/63
[2019-08-07] MEDS: NS 1,000 ML IV SCH ×2 (08:35→17:12)
[2019-08-07] MEDS: amLODIPine 10 MG TAB PO SCH (08:35)
[2019-08-07] MEDS: PANTOPRAZOLE 40MG TAB (PROTONIX) PO SCH ×2 (08:36→20:22)
[2019-08-07] MEDS: HEPARIN SOD (PORCINE) 5000 UNITS/ML VIAL SC SCH ×2 (08:36→20:24)
[2019-08-07] MEDS: CLOPIDOGREL 75 MG TAB PO SCH (08:36)
[2019-08-07] MEDS: METOPROLOL TART 12.5 MG PER 1/2 TAB PO SCH ×2 (08:36→20:23)
[2019-08-07] MEDS: ASPIRIN 81 MG ENTERIC TAB PO SCH (08:36)
[2019-08-07] MEDS: FERROUS SULFATE 325MG TAB PO SCH ×2 (08:36→20:22)
[2019-08-07 10:09] LABS: MAGNESIUM LEVEL 2.2 MG/DL (1.8-2.4)
[2019-08-07 11:19] VITALS: BP 128/63
--- NOTE | 2019-08-07 11:49 | IPNPDOC ---
Subjective Date Seen The patient was seen on 08/07/19. Subjective Chief Complaint/HPI Oriented to person, place and time. No family at the bedside. Feels less confused, not complaining of any pain. Objective Physical Examination General Exam: Positive: Alert, Cooperative, No Acute Distress Eye Exam: Positive: PERRLA, Conjunctiva & lids normal, EOMI, Sclera icteric ENT Exam: Positive: Atraumatic, Mucous membr. moist/pink Neck Exam: Positive: Supple; Negative: JVD Chest Exam: Positive: Clear to auscultation Heart Exam: Positive: Rate Normal Abdomen Exam: Positive: Normal bowel sounds, Soft Extremity Exam: Negative: Clubbing, Cyanosis Skin Exam: Positive: Nl turgor and temperature Neuro Exam: Positive: Normal Gait, Normal Speech, Strength at 5/5 X4 ext, Cranial Nerves 3-12 NL Psych Exam: Positive: Mental status NL Assessment /Plan Assessment # R UVJ hydroureteronephrosis - repeat renal ULS - urology following - creatinine mildly improved # Acute on CKD stage 3 - review of past labs shows creatinine baseline 1.5-2.5 - avoid nephrotoxins # Altered mental status likely due to Proteus M. UTI - improving - ceftin 500 mg bid # Non-ruptured AAA 5 cm - unchanged in size # Chronic diastolic CHF - currently compensated. # CAD - stable Plan/VTE VTE Prophylaxis Ordered?: Yes (hep sq bid) VS, I&O, 24H, Fishbone Vital Signs/I&O Vital Signs Date Time Temp Pulse Resp B/P (MAP) Pulse Ox O2 Delivery O2 Flow Rate FiO2 08/07/19 11:19 97.8 86 20 128/63 (84) 95 08/07/19 08:00 1.0 08/07/19 07:53 Nasal Cannula I&O- Last 24 Hours up to 6 AM 08/07/19 06:00 Intake Total 2380 ml Output Total 0 ml Balance 2380 ml Laboratory Data 24H LABS Laboratory Tests 2 08/07/19 05:42: Nucleated Red Blood Cells % (auto) 0.0, Anion Gap 7L, Glomerular Filtration Rate 27.8L, Calcium Level 9.0, Magnesium Level 2.2 CBC/BMP Laboratory Tests 08/07/19 05:42 Microbiology Microbiology 08/05/19 Urine Culture - Final, Complete Proteus Mirabilis JEVON WALTERS MD Aug 07, 2019 11:47
[2019-08-07] MEDS: CEFUROXIME 500 MG TAB PO SCH ×2 (12:28→20:22)
[2019-08-07 16:00] VITALS: BP 144/76
--- NOTE | 2019-08-07 19:51 | REPVR ---
PROCEDURE INFORMATION: Exam: US Retroperitoneal Limited, Kidneys Exam date and time: 08/07/2019 6:32 PM Age: 84 years old Clinical indication: Union seen on CT; Additional info: F/u for hydroureteronephrosis. TECHNIQUE: Imaging protocol: Real-time ultrasound of the retroperitoneum with image documentation. Examination was focused on the kidneys. COMPARISON: CT ABD/PEL W/PO CONTRAST ONLY 08/04/2019 10:19 AM (The report from this study was not available for review at the time of this interpretation.) FINDINGS: Right kidney: The right kidney measures 12.5 cm in length. There is right renal cortical thinning. The renal cortical echogenicity is increased. There is a 1.8 cm x 1.8 cm x 2 cm simple cyst in the lower pole of the right kidney and a 2.6 cm x 1.9 cm x 2.4 cm simple cyst in the midpole of the right kidney for which follow-up is not necessary. There is mild to moderate hydronephrosis, which is fairly similar in appearance compared to the prior CT on 08/04/2019. Left kidney: The left kidney measures 12 cm in length. There is left renal cortical thinning. The renal cortical echogenicity is within increased. No renal lesion is seen. There is no hydronephrosis. There is a mildly dilated left extrarenal pelvis, which was also present in the prior CT on 08/04/2019. Bladder: The urinary bladder was only partially distended at the time of the examination. IMPRESSION: [id number] right hydronephrosis, which is stable compared to the prior CT on 08/04/2019. Electronically signed by: Basim Solomon On 08/07/2019 19:50:54 PM
[2019-08-07 20:00] VITALS: BP 164/86
[2019-08-07] MEDS: MIRTAZAPINE 15 MG TAB PO SCH (20:22)
[2019-08-07] MEDS: TAMSULOSIN 0.4 MG CAP PO SCH (20:23)
[2019-08-08] VITALS (7 sets, daily range): BP systolic 133–188; BP diastolic 64–88
[2019-08-08] MEDS: NS 1,000 ML IV SCH (05:07)
[2019-08-08] MEDS: SINEMET 25-100 MG TAB PO SCH ×2 (05:07→18:10)
[2019-08-08 06:06] LABS: HEMATOCRIT 31.1 % (42.0-52.0); HEMOGLOBIN 9.3 g/dl (13.5-17.5); MEAN CORPUSCULAR HEMOGLOBIN 32.9 pg (27.0-33.0); MEAN CORPUSCULAR HGB CONC 29.9 g/dl (32.0-36.5); MEAN CORPUSCULAR VOLUME 109.9 fl (80.0-96.0); PLATELET COUNT, AUTOMATED 176 10^3/uL (150-450); RED BLOOD COUNT 2.83 10^6/uL (4.30-6.10); WHITE BLOOD COUNT 8.3 10^3/uL (4.0-10.0)
[2019-08-08 06:23] LABS: CALCIUM LEVEL 8.3 MG/DL (8.8-10.2); CREATININE FOR GFR 2.27 MG/DL (0.70-1.30); GLOMERULAR FILTRATION RATE 29.5 (>35); POTASSIUM SERUM 4.5 MEQ/L (3.5-5.1)
[2019-08-08] MEDS: amLODIPine 10 MG TAB PO SCH (09:39)
[2019-08-08] MEDS: METOPROLOL TART 12.5 MG PER 1/2 TAB PO SCH ×2 (09:40→20:11)
[2019-08-08] MEDS: FERROUS SULFATE 325MG TAB PO SCH ×2 (09:40→20:11)
[2019-08-08] MEDS: CLOPIDOGREL 75 MG TAB PO SCH (09:40)
[2019-08-08] MEDS: PANTOPRAZOLE 40MG TAB (PROTONIX) PO SCH ×2 (09:40→20:11)
[2019-08-08] MEDS: ASPIRIN 81 MG ENTERIC TAB PO SCH (09:40)
[2019-08-08] MEDS: HEPARIN SOD (PORCINE) 5000 UNITS/ML VIAL SC SCH ×2 (09:40→20:10)
[2019-08-08] MEDS: CEFUROXIME 500 MG TAB PO SCH ×2 (09:40→20:11)
--- NOTE | 2019-08-08 11:49 | IPNPDOC ---
Subjective Date Seen The patient was seen on 08/08/19. Subjective Chief Complaint/HPI Daughter at bedside. 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 Otherwise he's oriented. Objective Physical Examination General Exam: Positive: Alert, Cooperative, No Acute Distress Eye Exam: Positive: PERRLA, Conjunctiva & lids normal, EOMI; Negative: Sclera icteric ENT Exam: Positive: Atraumatic, Mucous membr. moist/pink Neck Exam: Positive: Supple; Negative: JVD Chest Exam: Positive: Clear to auscultation Heart Exam: Positive: Rate Normal Abdomen Exam: Positive: Normal bowel sounds, Soft Extremity Exam: Negative: Clubbing, Cyanosis, Edema (trace pitting edema on vein harvest leg) Skin Exam: Positive: Nl turgor and temperature Neuro Exam: Positive: Normal Speech, Strength at 5/5 X4 ext, Cranial Nerves 3- 12 NL Psych Exam: Positive: Mood NL Assessment /Plan Assessment # R UVJ hydroureteronephrosis - renal ULS results reviewed, has mild to moderate right hydro unchanged from CT scan - Contacted Urology office to speak to Dr. Lanier regarding ULS findings, awaiting return phone call # SALOMON on CKD stage 3 - review of past labs shows creatinine baseline 1.5-2.5 - avoid nephrotoxins # Metabolic encephalopathy in the setting of Proteus M. 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 # CAD - stable Dispo: PT to re-eval today for dispo needs, Plan d/w Daughter Plan/VTE VTE Prophylaxis Ordered?: Yes (hep sq bid) VTE Exclusion Mechanical Proph: N/A:VTE Prophy Ordered VTE Exclusion Pharmacological: N/A:VTE Prophy Ordered VS, I&O, 24H, Fishbone Vital Signs/I&O Vital Signs Date Time Temp Pulse Resp B/P (MAP) Pulse Ox O2 Delivery O2 Flow Rate FiO2 08/08/19 09:40 87 188/87 08/08/19 07:37 98.0 20 98 Nasal Cannula 1.0 I&O- Last 24 Hours up to 6 AM 08/08/19 06:00 Intake Total 1470 ml Output Total 0 ml Balance 1470 ml Laboratory Data 24H LABS Laboratory Tests 2 08/08/19 05:39: Nucleated Red Blood Cells % (auto) 0.0, Anion Gap 6L, Glomerular Filtration Rate 29.5L, Calcium Level 8.3L CBC/BMP Laboratory Tests 08/08/19 05:39 Microbiology Microbiology 08/05/19 Urine Culture - Final, Complete Proteus Mirabilis JEVON WALTERS MD Aug 08, 2019 11:49
[2019-08-08] MEDS ORDERED: ALBUTEROL SULFATE 2.5 MG/0.5 ML INH NEB SOLN NEB PRN (17:00)
--- NOTE | 2019-08-08 17:49 | REP ---
Portable chest x-ray: Single view. History: Wheezing. Rule out CHF. Comparison study: August 04, 2019. Findings: There is a very large hiatal hernia behind the heart. Heart is enlarged as before. Prior sternotomy wires are seen. Monitoring electrodes are noted. There is coarse linear fibrosis in the left base. There is very slight blunting of the right lateral pleural angle. No acute infiltrate is seen. Electronically Signed by Marcus Bennett MD 08/08/2019 05:40 P
[2019-08-08] MEDS: TAMSULOSIN 0.4 MG CAP PO SCH (20:11)
[2019-08-08] MEDS: MIRTAZAPINE 15 MG TAB PO SCH (20:12)
[2019-08-09 04:00] VITALS: BP 132/71
[2019-08-09] MEDS: SINEMET 25-100 MG TAB PO SCH ×2 (05:02→18:25)
[2019-08-09 05:56] LABS: HEMATOCRIT 26.9 % (42.0-52.0); HEMOGLOBIN 8.3 g/dl (13.5-17.5); MEAN CORPUSCULAR HEMOGLOBIN 33.6 pg (27.0-33.0); MEAN CORPUSCULAR HGB CONC 30.9 g/dl (32.0-36.5); MEAN CORPUSCULAR VOLUME 108.9 fl (80.0-96.0); PLATELET COUNT, AUTOMATED 168 10^3/uL (150-450); RED BLOOD COUNT 2.47 10^6/uL (4.30-6.10); WHITE BLOOD COUNT 6.9 10^3/uL (4.0-10.0)
[2019-08-09 06:24] LABS: CALCIUM LEVEL 8.5 MG/DL (8.8-10.2); CREATININE FOR GFR 2.47 MG/DL (0.70-1.30); GLOMERULAR FILTRATION RATE 26.8 (>35); POTASSIUM SERUM 4.4 MEQ/L (3.5-5.1)
[2019-08-09 08:05] VITALS: BP 137/87
[2019-08-09] MEDS: PANTOPRAZOLE 40MG TAB (PROTONIX) PO SCH ×2 (09:11→20:49)
[2019-08-09] MEDS: ASPIRIN 81 MG ENTERIC TAB PO SCH (09:11)
[2019-08-09] MEDS: HEPARIN SOD (PORCINE) 5000 UNITS/ML VIAL SC SCH ×3 (09:11→20:54)
[2019-08-09] MEDS: CEFUROXIME 500 MG TAB PO SCH ×2 (09:12→20:49)
[2019-08-09] MEDS: CLOPIDOGREL 75 MG TAB PO SCH (09:12)
[2019-08-09] MEDS: METOPROLOL TART 12.5 MG PER 1/2 TAB PO SCH ×2 (09:12→20:48)
[2019-08-09] MEDS: amLODIPine 10 MG TAB PO SCH (09:12)
[2019-08-09] MEDS: FERROUS SULFATE 325MG TAB PO SCH ×2 (09:12→20:49)
--- NOTE | 2019-08-09 13:12 | IPNPDOC ---
Subjective Date Seen The patient was seen on 08/09/19. Subjective Chief Complaint/HPI Much less confused, walked better today with PT. Appetite picking up. Daughter at bedside. Objective Physical Examination General Exam: Positive: Alert, Cooperative, No Acute Distress Eye Exam: Positive: PERRLA, Conjunctiva & lids normal, EOMI; Negative: Sclera icteric ENT Exam: Positive: Atraumatic, Mucous membr. moist/pink Neck Exam: Positive: Supple; Negative: JVD Chest Exam: Positive: Clear to auscultation Heart Exam: Positive: Rate Normal Abdomen Exam: Positive: Normal bowel sounds, Soft Extremity Exam: Negative: Clubbing, Cyanosis, Edema (trace pitting edema on vein harvest leg) Skin Exam: Positive: Nl turgor and temperature Neuro Exam: Positive: Normal Speech, Strength at 5/5 X4 ext, Cranial Nerves 3- 12 NL Psych Exam: Positive: Mood NL Assessment /Plan Assessment # R UVJ hydroureteronephrosis - renal ULS results reviewed, has mild to moderate right hydro unchanged from CT scan - D/w Dr. Villanueva, will have him f/u as outpt # SALOMON on CKD stage 3 - review of past labs shows creatinine baseline 1.5-2.5 - creat remains within his historical range - avoid nephrotoxins - encouraged patient to drink more fluids # Metabolic encephalopathy in the setting of Proteus M. 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 # Chronic diastolic CHF - currently compensated - cxr reviewed and stable # CAD - stable # Dispo: awaiting eval for inpatient rehab, family willing to have him go there, but will decline any other facility and prefer to take him home Plan/VTE VTE Prophylaxis Ordered?: Yes (hep sq bid) VTE Exclusion Mechanical Proph: N/A:VTE Prophy Ordered VTE Exclusion Pharmacological: N/A:VTE Prophy Ordered VS, I&O, 24H, Fishbone Vital Signs/I&O Vital Signs Date Time Temp Pulse Resp B/P (MAP) Pulse Ox O2 Delivery O2 Flow Rate FiO2 08/09/19 09:12 78 137/87 08/09/19 08:05 98.0 24 99 Nasal Cannula 1.0 I&O- Last 24 Hours up to 6 AM 08/09/19 06:00 Intake Total 1167 ml Output Total 0 ml Balance 1167 ml Laboratory Data 24H LABS Laboratory Tests 2 08/09/19 04:50: Nucleated Red Blood Cells % (auto) 0.0, Anion Gap 8, Glomerular Filtration Rate 26.8L, Calcium Level 8.5L CBC/BMP Laboratory Tests 08/09/19 04:50 Microbiology Microbiology 08/05/19 Urine Culture - Final, Complete Proteus Mirabilis JEVON WALTERS MD Aug 09, 2019 13:12
[2019-08-09 20:00] VITALS: BP 134/72
[2019-08-09] MEDS: TAMSULOSIN 0.4 MG CAP PO SCH (20:49)
[2019-08-09] MEDS: MIRTAZAPINE 15 MG TAB PO SCH (20:49)
[2019-08-09 23:59] VITALS: BP 151/70
[2019-08-10 04:00] VITALS: BP 128/60
[2019-08-10] MEDS: SINEMET 25-100 MG TAB PO SCH ×2 (05:02→17:49)
[2019-08-10 05:27] LABS: HEMATOCRIT 27.9 % (42.0-52.0); HEMOGLOBIN 8.8 g/dl (13.5-17.5); MEAN CORPUSCULAR HEMOGLOBIN 33.3 pg (27.0-33.0); MEAN CORPUSCULAR HGB CONC 31.5 g/dl (32.0-36.5); MEAN CORPUSCULAR VOLUME 105.7 fl (80.0-96.0); PLATELET COUNT, AUTOMATED 184 10^3/uL (150-450); RED BLOOD COUNT 2.64 10^6/uL (4.30-6.10); WHITE BLOOD COUNT 5.3 10^3/uL (4.0-10.0)
[2019-08-10 05:50] LABS: CALCIUM LEVEL 8.7 MG/DL (8.8-10.2); CREATININE FOR GFR 1.81 MG/DL (0.70-1.30); GLOMERULAR FILTRATION RATE 38.3 (>35); POTASSIUM SERUM 4.2 MEQ/L (3.5-5.1)
[2019-08-10 07:33] VITALS: BP 111/56
[2019-08-10] MEDS: PANTOPRAZOLE 40MG TAB (PROTONIX) PO SCH ×2 (09:01→22:18)
[2019-08-10] MEDS: ASPIRIN 81 MG ENTERIC TAB PO SCH (09:02)
[2019-08-10] MEDS: FERROUS SULFATE 325MG TAB PO SCH ×2 (09:02→22:18)
[2019-08-10] MEDS: CLOPIDOGREL 75 MG TAB PO SCH (09:02)
[2019-08-10] MEDS: HEPARIN SOD (PORCINE) 5000 UNITS/ML VIAL SC SCH ×2 (09:03→22:15)
[2019-08-10] MEDS: amLODIPine 10 MG TAB PO SCH (09:03)
[2019-08-10] MEDS: METOPROLOL TART 12.5 MG PER 1/2 TAB PO SCH ×2 (09:03→22:17)
[2019-08-10] MEDS: CEFUROXIME 500 MG TAB PO SCH ×2 (09:03→22:18)
[2019-08-10 10:10] VITALS: BP 149/65
--- NOTE | 2019-08-10 12:12 | IPNPDOC ---
Subjective Date Seen The patient was seen on 08/10/19. Subjective Chief Complaint/HPI Mr. Miner is doing fine this morning. His two daughters are at the bedside and have been briefed by me. Objective Physical Examination General Exam: Positive: Alert, Cooperative, No Acute Distress Eye Exam: Positive: PERRLA, Conjunctiva & lids normal, EOMI; Negative: Sclera icteric ENT Exam: Positive: Atraumatic, Mucous membr. moist/pink Neck Exam: Positive: Supple; Negative: JVD Chest Exam: Positive: Clear to auscultation Heart Exam: Positive: Rate Normal Abdomen Exam: Positive: Normal bowel sounds, Soft Extremity Exam: Negative: Clubbing, Cyanosis, Edema (trace pitting edema on vein harvest leg) Skin Exam: Positive: Nl turgor and temperature Neuro Exam: Positive: Normal Speech Psych Exam: Positive: Mood NL Assessment /Plan Assessment # R UVJ hydroureteronephrosis - renal ULS results reviewed, has mild to moderate right hydro unchanged from CT scan - D/w Dr. Villanueva, will have him f/u as outpt # SALOMON on CKD stage 3 - review of past labs shows creatinine baseline 1.5-2.5 - creat remains within his historical range, and has improved this morning to 1.8 mg/dl - avoid nephrotoxins # Metabolic encephalopathy in the setting of Proteus M. UTI - improving - ceftin 500 mg bid day # 4/5 # Non-ruptured AAA 5 cm - unchanged in size # Chronic diastolic CHF - currently compensated - cxr reviewed and stable # CAD - stable # Dispo: awaiting placement Plan/VTE VTE Prophylaxis Ordered?: Yes (hep sq bid) VTE Exclusion Mechanical Proph: N/A:VTE Prophy Ordered VTE Exclusion Pharmacological: N/A:VTE Prophy Ordered VS, I&O, 24H, Fishbone Vital Signs/I&O Vital Signs Date Time Temp Pulse Resp B/P (MAP) Pulse Ox O2 Delivery O2 Flow Rate FiO2 08/10/19 10:10 98.7 63 17 149/65 (93) 96 Room Air 08/09/19 23:59 I&O- Last 24 Hours up to 6 AM 08/10/19 06:00 Intake Total 1220 ml Output Total 0 ml Balance 1220 ml Laboratory Data 24H LABS Laboratory Tests 2 08/10/19 04:50: Nucleated Red Blood Cells % (auto) 0.0, Anion Gap 9, Glomerular Filtration Rate 38.3, Calcium Level 8.7L CBC/BMP Laboratory Tests 08/10/19 04:50 Microbiology Microbiology 08/05/19 Urine Culture - Final, Complete Proteus Mirabilis JEVON WALTERS MD Aug 10, 2019 12:12
[2019-08-10 22:00] VITALS: BP 130/53
[2019-08-10] MEDS: MIRTAZAPINE 15 MG TAB PO SCH (22:18)
[2019-08-10] MEDS: TAMSULOSIN 0.4 MG CAP PO SCH (22:18)
[2019-08-11] MEDS: SINEMET 25-100 MG TAB PO SCH ×2 (05:44→18:30)
[2019-08-11 06:00] VITALS: BP 115/78
[2019-08-11] MEDS: HEPARIN SOD (PORCINE) 5000 UNITS/ML VIAL SC SCH ×2 (09:39→22:02)
[2019-08-11] MEDS: PANTOPRAZOLE 40MG TAB (PROTONIX) PO SCH ×2 (09:39→22:04)
[2019-08-11] MEDS: FERROUS SULFATE 325MG TAB PO SCH ×2 (09:39→22:04)
[2019-08-11] MEDS: CLOPIDOGREL 75 MG TAB PO SCH (09:39)
[2019-08-11] MEDS: CEFUROXIME 500 MG TAB PO SCH ×2 (09:39→22:03)
[2019-08-11] MEDS: ASPIRIN 81 MG ENTERIC TAB PO SCH (09:39)
[2019-08-11] MEDS: amLODIPine 10 MG TAB PO SCH (09:40)
[2019-08-11] MEDS: METOPROLOL TART 12.5 MG PER 1/2 TAB PO SCH ×2 (09:40→22:03)
--- NOTE | 2019-08-11 12:12 | IPNPDOC ---
Subjective Date Seen The patient was seen on 08/11/19. Subjective Chief Complaint/HPI Ed is resting in bed, denies any issues and is awaiting placement on tuesday. Objective Physical Examination General Exam: Positive: No Acute Distress Eye Exam: Negative: Sclera icteric ENT Exam: Positive: Mucous membr. moist/pink Neck Exam: Positive: Supple; Negative: JVD Chest Exam: Positive: Clear to auscultation Heart Exam: Positive: Rate Normal Abdomen Exam: Positive: Normal bowel sounds, Soft Extremity Exam: Negative: Clubbing, Cyanosis, Edema (trace pitting edema on vein harvest leg) Skin Exam: Positive: Nl turgor and temperature Neuro Exam: Positive: Normal Speech Psych Exam: Positive: Mood NL Assessment /Plan Assessment # R UVJ hydroureteronephrosis - renal ULS results reviewed, has mild to moderate right hydro unchanged from CT scan - D/w Dr. Villanueva, will have him f/u as outpt # SALOMON on CKD stage 3 - review of past labs shows creatinine baseline 1.5-2.5 - creat remains within his historical range, and is improved - avoid nephrotoxins # Metabolic encephalopathy in the setting of Proteus M. UTI - improving - ceftin 500 mg bid day # 11/26 # Non-ruptured AAA 5 cm - unchanged in size # Chronic diastolic CHF - currently compensated - cxr reviewed and stable # CAD - stable # Dispo: awaiting placement Plan/VTE VTE Prophylaxis Ordered?: Yes (hep sq bid) VTE Exclusion Mechanical Proph: N/A:VTE Prophy Ordered VTE Exclusion Pharmacological: N/A:VTE Prophy Ordered VS, I&O, 24H, Fishbone Vital Signs/I&O Vital Signs Date Time Temp Pulse Resp B/P (MAP) Pulse Ox O2 Delivery O2 Flow Rate FiO2 08/11/19 09:40 83 145/68 08/11/19 06:00 98.0 21 94 Room Air 08/09/19 23:59 I&O- Last 24 Hours up to 6 AM 08/11/19 06:00 Intake Total 1137 ml Output Total 450 ml Balance 687 ml Laboratory Data Microbiology Microbiology 08/05/19 Urine Culture - Final, Complete Proteus Mirabilis JEVON WALTERS MD Aug 11, 2019 12:12
[2019-08-11 14:00] VITALS: BP 143/70
[2019-08-11 22:00] VITALS: BP 134/67
[2019-08-11] MEDS: NYSTATIN CREAM 15 GM TOP SCH (22:02)
[2019-08-11] MEDS: MIRTAZAPINE 15 MG TAB PO SCH (22:03)
[2019-08-11] MEDS: TAMSULOSIN 0.4 MG CAP PO SCH (22:03)
[2019-08-12 06:00] VITALS: BP 129/76
[2019-08-12] MEDS: SINEMET 25-100 MG TAB PO SCH ×2 (06:05→17:20)
[2019-08-12 06:23] LABS: HEMATOCRIT 27.4 % (42.0-52.0); HEMOGLOBIN 8.7 g/dl (13.5-17.5); MEAN CORPUSCULAR HEMOGLOBIN 33.7 pg (27.0-33.0); MEAN CORPUSCULAR HGB CONC 31.8 g/dl (32.0-36.5); MEAN CORPUSCULAR VOLUME 106.2 fl (80.0-96.0); PLATELET COUNT, AUTOMATED 219 10^3/uL (150-450); RED BLOOD COUNT 2.58 10^6/uL (4.30-6.10)
[2019-08-12 06:45] LABS: CALCIUM LEVEL 8.7 MG/DL (8.8-10.2); CREATININE FOR GFR 1.56 MG/DL (0.70-1.30); GLOMERULAR FILTRATION RATE 45.5 (>35); POTASSIUM SERUM 4.9 MEQ/L (3.5-5.1)
[2019-08-12] MEDS: METOPROLOL TART 12.5 MG PER 1/2 TAB PO SCH ×2 (08:42→21:15)
[2019-08-12] MEDS: PANTOPRAZOLE 40MG TAB (PROTONIX) PO SCH ×2 (08:43→21:15)
[2019-08-12] MEDS: HEPARIN SOD (PORCINE) 5000 UNITS/ML VIAL SC SCH ×2 (08:44→21:16)
[2019-08-12] MEDS: NYSTATIN CREAM 15 GM TOP SCH ×2 (08:44→21:16)
[2019-08-12] MEDS: CLOPIDOGREL 75 MG TAB PO SCH (08:44)
[2019-08-12] MEDS: ASPIRIN 81 MG ENTERIC TAB PO SCH (08:44)
[2019-08-12] MEDS: amLODIPine 10 MG TAB PO SCH (08:44)
[2019-08-12] MEDS: FERROUS SULFATE 325MG TAB PO SCH ×2 (08:44→21:16)
--- NOTE | 2019-08-12 09:23 | IPNPDOC ---
Subjective Date Seen The patient was seen on 08/12/19. Subjective Chief Complaint/HPI Edab is well this morning, he's sitting in the chair eating breakfast. Awaiting placement in am. Objective Physical Examination General Exam: Positive: No Acute Distress Eye Exam: Negative: Sclera icteric ENT Exam: Positive: Mucous membr. moist/pink Neck Exam: Positive: Supple; Negative: JVD Chest Exam: Positive: Clear to auscultation Heart Exam: Positive: Rate Normal Abdomen Exam: Positive: Normal bowel sounds, Soft Extremity Exam: Negative: Clubbing, Cyanosis, Edema (trace pitting edema on vein harvest leg) Skin Exam: Negative: Rash Neuro Exam: Positive: Normal Speech Psych Exam: Positive: Mood NL Assessment /Plan Assessment # R UVJ hydroureteronephrosis - renal ULS results reviewed, has mild to moderate right hydro unchanged from CT scan - D/w Dr. Villanueva, will have him f/u as outpt # SALOMON on CKD stage 3 - review of past labs shows creatinine baseline 1.5-2.5 - creat stable this morning - avoid nephrotoxins # Metabolic encephalopathy in the setting of Proteus M. UTI - improving - completed ceftin 500 mg bid day # 11/26 # Non-ruptured AAA 5 cm - unchanged in size # Chronic diastolic CHF - currently compensated - cxr reviewed and stable # CAD - stable # Dispo: awaiting placement Plan/VTE VTE Prophylaxis Ordered?: Yes (hep sq bid) VTE Exclusion Mechanical Proph: N/A:VTE Prophy Ordered VTE Exclusion Pharmacological: N/A:VTE Prophy Ordered VS, I&O, 24H, Fishbone Vital Signs/I&O Vital Signs Date Time Temp Pulse Resp B/P (MAP) Pulse Ox O2 Delivery O2 Flow Rate FiO2 08/12/19 08:42 89 141/71 08/12/19 06:00 97.5 18 92 Room Air 08/09/19 23:59 I&O- Last 24 Hours up to 6 AM 08/12/19 06:00 Intake Total 440 ml Output Total 0 ml Balance 440 ml Laboratory Data 24H LABS Laboratory Tests 2 08/12/19 05:32: Nucleated Red Blood Cells % (auto) 0.0, Anion Gap 8, Glomerular Filtration Rate 45.5, Calcium Level 8.7L CBC/BMP Laboratory Tests 08/12/19 05:32 Microbiology Microbiology 1/12/20 Urine Culture - Final, Complete Proteus Mirabilis JEVON WALTERS MD Aug 12, 2019 09:23
[2019-08-12 14:00] VITALS: BP 106/60
[2019-08-12] MEDS: TAMSULOSIN 0.4 MG CAP PO SCH (21:15)
[2019-08-12] MEDS: MIRTAZAPINE 15 MG TAB PO SCH (21:15)
[2019-08-13] MEDS: SINEMET 25-100 MG TAB PO SCH (05:57)
[2019-08-13 06:00] VITALS: BP 111/52
[2019-08-13 06:12] LABS: HEMATOCRIT 27.9 % (42.0-52.0); HEMOGLOBIN 8.5 g/dl (13.5-17.5); MEAN CORPUSCULAR HEMOGLOBIN 32.8 pg (27.0-33.0); MEAN CORPUSCULAR HGB CONC 30.5 g/dl (32.0-36.5); MEAN CORPUSCULAR VOLUME 107.7 fl (80.0-96.0); PLATELET COUNT, AUTOMATED 220 10^3/uL (150-450); RED BLOOD COUNT 2.59 10^6/uL (4.30-6.10); WHITE BLOOD COUNT 5.5 10^3/uL (4.0-10.0)
[2019-08-13 07:05] LABS: CREATININE FOR GFR 1.57 MG/DL (0.70-1.30); GLOMERULAR FILTRATION RATE 45.1 (>35); POTASSIUM SERUM 4.6 MEQ/L (3.5-5.1)
[2019-08-13] MEDS ORDERED: METO1TAB87 PO (09:33)
[2019-08-13] MEDS ORDERED: AMLO10TA5 PO (09:33)
--- NOTE | 2019-08-13 09:39 | IPNPDOC ---
Subjective Date Seen The patient was seen on 08/13/19. Subjective Chief Complaint/HPI Remains stable in no distress, not confused. Family at bedside this am. No events overnight. Objective Physical Examination General Exam: Positive: No Acute Distress Eye Exam: Negative: Sclera icteric ENT Exam: Positive: Mucous membr. moist/pink Neck Exam: Positive: Supple; Negative: JVD Chest Exam: Positive: Clear to auscultation Heart Exam: Positive: Rate Normal Abdomen Exam: Positive: Normal bowel sounds, Soft Extremity Exam: Negative: Clubbing, Cyanosis, Edema (trace pitting edema on vein harvest leg) Skin Exam: Negative: Rash Neuro Exam: Positive: Normal Speech Psych Exam: Positive: Mood NL Assessment /Plan Assessment # R UVJ hydroureteronephrosis - renal ULS results reviewed, has mild to moderate right hydro unchanged from CT scan - D/w Dr. Villanueva, will have him f/u as outpt - would repeat ULS in 1 week to document resolution of Hydronephrosis # SALOMON on CKD stage 3 - review of past labs shows creatinine baseline 1.5-2.5 - creat stable this morning - avoid nephrotoxins # Metabolic encephalopathy in the setting of Proteus M. UTI - improved - completed ceftin 500 mg bid day # 11/26 # Non-ruptured AAA 5 cm - unchanged in size # Chronic diastolic CHF - currently compensated - cxr reviewed and stable # CAD - stable # Dispo: ARU today Plan/VTE VTE Prophylaxis Ordered?: Yes (hep sq bid) VTE Exclusion Mechanical Proph: N/A:VTE Prophy Ordered VTE Exclusion Pharmacological: N/A:VTE Prophy Ordered VS, I&O, 24H, Fishbone Vital Signs/I&O Vital Signs Date Time Temp Pulse Resp B/P (MAP) Pulse Ox O2 Delivery O2 Flow Rate FiO2 08/13/19 06:00 98.3 74 18 111/52 (71) 89 Room Air 08/09/19 23:59 I&O- Last 24 Hours up to 6 AM 08/13/19 06:00 Intake Total 820 ml Output Total 75 ml Balance 745 ml Laboratory Data 24H LABS Laboratory Tests 2 08/13/19 05:38: Nucleated Red Blood Cells % (auto) 0.0, Anion Gap 7L, Glomerular Filtration Rate 45.1, Calcium Level 9.0 CBC/BMP Laboratory Tests 1/20/20 05:38 Microbiology Microbiology 08/05/19 Urine Culture - Final, Complete Proteus Mirabilis JEVON WALTERS MD Aug 13, 2019 09:39
[2019-08-13 09:47] VITALS: BP 120/59
[2019-08-13] MEDS: HEPARIN SOD (PORCINE) 5000 UNITS/ML VIAL SC SCH (09:47)
[2019-08-13] MEDS: ASPIRIN 81 MG ENTERIC TAB PO SCH (09:47)
[2019-08-13] MEDS: amLODIPine 10 MG TAB PO SCH (09:47)
[2019-08-13] MEDS: CLOPIDOGREL 75 MG TAB PO SCH (09:48)
[2019-08-13] MEDS: FERROUS SULFATE 325MG TAB PO SCH (09:48)
[2019-08-13] MEDS: NYSTATIN CREAM 15 GM TOP SCH (09:48)
[2019-08-13] MEDS: METOPROLOL TART 12.5 MG PER 1/2 TAB PO SCH (09:48)
[2019-08-13] MEDS: PANTOPRAZOLE 40MG TAB (PROTONIX) PO SCH (09:48)
--- NOTE | 2019-08-15 11:16 | DSES ---
DATE OF ADMISSION: 08/04/2019 DATE OF DISCHARGE: 08/13/2019 DISCHARGE DIAGNOSES: 1. Right ureterovesical junction (UVJ) hydroureteronephrosis secondary to a 3 mm nephrolithiasis causing obstructive uropathy. 2. Kidney injury on chronic kidney disease (CKD) stage III, which has resolved. 3. Metabolic encephalopathy in the setting of proteus mirabilis urinary tract infection (UTI). 4. 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 5. Chronic diastolic congestive heart failure (compensated). 6. Coronary artery disease (CAD). CONSULTANTS ON THE CASE: Dr. Valencia of urology. PROCEDURES PERFORMING DURING HOSPITALIZATION: None. DISPOSITION: The patient is discharged to acute rehabilitation unit (ARU) for ongoing rehab. CONDITION ON DISCHARGE: Stable and much improved from admission. DISCHARGE INSTRUCTIONS: Patient was instructed to followup with his primary care provider upon discharge from the ARU. He should have a repeat ultrasound approximately one week following discharge from the hospital to reexamine for resolution of his right hydroureteronephrosis. The patient should followup with urology as an outpatient one week up on discharge from the ARU also. The patient completed his full course of antibiotics during his hospital stay and does not warrant any at discharge. IMAGING STUDIES: 1. CT of the abdomen and pelvis which showed that the patient had a 3 mm right UVJ stone causing obstruction leading to right ureterohydronephrosis. Please reference full report for details. Repeat renal ultrasound showed unchanged mild to moderate right ureterohydronephrosis. Chest x-ray showed no significant pulmonary congestion. Microbiology grew Proteus Mirabilis. LABS: White count is 5.5, hemoglobin 8.5, hematocrit 27.9, platelet counts are 220. Sodium 141, potassium 4.6, chloride 108, bicarb is 26, anion gap 7, BUN is 28, creatinine is 1.5, which is significantly improved from creatinine of 2.5 when the patient presented. Calcium is 9. HOSPITAL COURSE: Mr. Miner is an 84-year-old gentleman who had presented to the hospital with complaints of abdominal pain, altered mental status with increased confusion. The patient was noted to have worsening renal function with creatinine above 2.5. He underwent an unenhanced CT of his abdomen and pelvis which showed that he had a right hydroureteronephrosis secondary to a 2 mm stone in the right UVJ. He was admitted to the hospital, gently hydrated. He had an abnormal urinalysis and a culture was sent. Given his history of C. difficile in the past, we awaited culture sensitivities for treating him. The patient continued to have some confusion with this. Eventually his cultures came back growing Proteus Mirabilis. He was placed on oral antibiotics for five days based on sensitivities and completed a course. He had improvement in his medical status as well as his kidney functions. During this hospitalization he was attended to by the urology service. A repeat renal ultrasound showed mild to moderate right hydroureteronephrosis. I did discuss this with the assembler convertible top urologist who recommended just repeating this as an outpatient and it likely it is just slow to resolve. Due to his hospitalization and acute illness, the patient did develop deconditioning and debility. He was seen by physical therapy/occupational therapy (PT/OT) who recommended for rehab. The patient was accepted to inpatient rehab and was discharged there in stable condition on August 13, 2019. A total of 30 minutes was spent completing all discharge paperwork.
== END 2019-08-13 11:16 | DRG 689 ==
LOC: M ED 07:17 → M ED INP 13:20 → M PCU 15:10 → M MSPAV 08-10 10:20
PROVIDERS: ADMIT Internal Medicine; ATTEND Internal Medicine
DX: N13.6 Pyonephrosis (principal); G93.41 Metabolic encephalopathy; I16.1 Hypertensive emergency; I50.32 Chronic diastolic (congestive) heart failure; I13.0 Hypertensive heart and chronic kidney disease with heart failure and stage 1 through stage 4 chronic kidney disease, or unspecified chronic kidney disease; N17.9 Acute kidney failure, unspecified; N39.0 Urinary tract infection, site not specified; G20 Parkinson's disease; I25.10 Atherosclerotic heart disease of native coronary artery without angina pectoris; M43.06 Spondylolysis, lumbar region; B96.4 Proteus (mirabilis) (morganii) as the cause of diseases classified elsewhere; I73.9 Peripheral vascular disease, unspecified; I71.4 Abdominal aortic aneurysm, without rupture; M81.0 Age-related osteoporosis without current pathological fracture; K21.9 Gastro-esophageal reflux disease without esophagitis; N40.0 Benign prostatic hyperplasia without lower urinary tract symptoms; N18.3 Chronic kidney disease, stage 3 (moderate); R26.81 Unsteadiness on feet; R29.6 Repeated falls; M10.9 Gout, unspecified; Z86.73 Personal history of transient ischemic attack (TIA), and cerebral infarction without residual deficits; Z95.1 Presence of aortocoronary bypass graft; Z98.62 Peripheral vascular angioplasty status; Z95.828 Presence of other vascular implants and grafts; Z90.49 Acquired absence of other specified parts of digestive tract; Z79.82 Long term (current) use of aspirin; Z79.899 Other long term (current) drug therapy; Z95.820 Peripheral vascular angioplasty status with implants and grafts

== ENCOUNTER 2019-08-13 10:48 | Inpatient (IN) | payer MEDICARE ==
[~2019-08-13] VITALS: Ht 177.8 cm; Wt 80.5 kg
[~2019-08-13 10:48] MED LIST changes: +AMLO10TA5 PO; +METO1TAB87 PO
[2019-08-13 11:25] VITALS: BP 133/70
--- NOTE | 2019-08-13 13:55 | HPEPDOC ---
Mixing Technician Note DATE OF ADMISSION: 08-13-19 DATE OF SERVICE: 08-13-19 TIME OF ADMISSION: Please refer to physician's admission order. SOURCE OF ADMISSION INFORMATION: [facility] records and patient CHIEF COMPLAINT: UTI with encephalopathy in setting of parkinsons HISTORY OF PRESENT ILLNESS: 84M pmh Parkinson Disease, HTN, AAA s/p grafting, CVA, CKD3, history of falls, gout, large hiatal hernia, nephrolithiasis, diastolic CHF, CAD who presented to [facility] ED on 08-04-19 with right flank pain and abdominal pain with visual hallucinations. CT abdomen showed, 3 mm calculus at the right ureterovesical junction causing moderate right hydroureteronephrosis. There are three subcentimeter intrarenal calculi in the left. In addition exophytic nodule of the upper pole of the left kidney measures 1.4 cm in maximum diameter and renal US showed mild-moderate right hydronephrosis. He was evaluated by urology who recommended IVF and repeat KIRAN in a week with outpatient follow-up. He was treated for a proteus UTI thought to be the underlying cause of his encephalopathy, had impairments in mobility below his prior level of function and deemed medically appropriate for discharge to ARU on 08-13-19. REVIEW OF SYSTEMS: The following is a completed review of systems and has been reviewed. Review of systems otherwise unremarkable. PAIN: Patient self reports no pain EYES: No recent vision changes EARS, NOSE, & THROAT: No throat pain, or dysphagia, or rhinorrhea CARDIOVASCULAR: Denies chest pain or palpitations PULMONARY: Denies shortness of breath GASTROINTESTINAL: Denies constipation/diarrhea. GENITOURINARY: denies dysuria MUSCULOSKELETAL: generalized weakness NEUROLOGICAL:+parkinsons HEMATOLOGICAL: denies easy bruising SKIN: denies rash PSYCHIATRIC:+ confusion All other review of systems found to be negative. PAST MEDICAL HISTORY: as per HPI PAST SURGICAL HISTORY: As per HPI, and appendectomy, right inguinal hernia repair, fem-pop bypass ALLERGIES: Please see below. MEDICATIONS: Please see below. FAMILY HISTORY: HTN, CAD, lung cancer SOCIAL HISTORY:no etoh, illicit drugs, or smoking DIET: low salt, fluid restrict 1800cc PHYSICAL EXAMINATION: VITAL SIGNS: Please see below. GENERAL: Pleasant and cooperative. No acute distress. HEENT: PERRL. Extraocular movements intact. Clear conjunctiva CARDIOVASCULAR: Regular rate and rhythm. No murmurs, rubs, or gallops LUNGS: Clear to auscultation bilaterally. No wheezes. No rhonchi ABDOMEN: Soft, nontender, nondistended. Positive bowel sounds. Normal active bowel sounds NEUROLOGICAL: Alert and oriented to self only, able to follow commands consistently, +dysarthria Cranial nerves II through XII grossly intact. Sensation grossly intact EXTREMITIES: 5\5 strength bilateral upper extremities. 5\5 strength right lower extremity. 5/5 strength in left lower extremity. SKIN: no rash LABORATORY DATA: Please see below. IMAGING:Imaging documentation personally reviewed by record FUNCTIONAL STATUS: Premorbid: Independent with all activities of daily life as well as mobility On Admission: Minimum assistance for dressing, bed chair and wheelchair transfers, toilet transfers, ambulation x 84 feet GOALS: Mod-I for dressing, bed chair and wheelchair transfers, toilet transfers, ambulation x community distances, dynamic balance training, fall recovery, medical optimization, assess for DMEs. ASSESSMENT:84-year-old M with past medical history of Parkinsons who presents status post UTI and encephalopathy. PLAN: 1. Rehab- PT/OT advance gait and ADLs, dynamic balance training, fall recovery, consider LSVT big program 2. Neuro: hx of parkinsons with recurrent falls and worsening weakness in setting of UTI -c/u Sinemet BID dosing, will consider adjusting while on ARU -recent encephalopathy, monitor and avoid delirogenic meds 3. Cardiac: hx of diastolic CHF will fluid restrict, daily weights -Htn c/u Amlodipine -CAD c/u ASa, Plavix and Metoprolol, medicine consulted to assist in management 4. Resp: encourage incentive spirometry, Albuterol nebs prn 5. Renal: CKD 3, monitor for SALOMON 6. : s/p course of antibiotics for proteus UTI, patient with known kidney stone and hydronephrosis, will repeat renal US in one week and obtain inhouse urology consult if necessary, otherwise will need to f/u outpatient -c/u flomax 7. GI ppx: protonix BID -hx of large hiatal hernia 8. Psych- insomnia/possible depression? c/u Remeron 9. DVT ppx: heparin and TEDs 10. Dispo: TBD POST ADMISSION PHYSICIAN EVALUATION: Medical and functional status: Description of medical status, medical assessme nt: As above. Rehabilitation diagnosis and current and prior cold morbid medical conditions as above. Risk of complications and plans to mitigate them as above. Description of functional status current status is as above. Prior status as above. Status compared to preadmission: There are no clinically significant differences between the patient's current status and the information described on the preadmission screening document. Treatment plan anticipated: Treatment plan is as described above. Required disciplines including physical therapy, occupational therapy, others as noted above Intensity of services: 3 hours a day, 6 days a week. Special considerations: There are no specific special or safety considerations that would likely preclude immediate implementation of an intensive rekha abilitation program or subsequently influence the plan of care. ATTESTATION: Considering all the information above, it is my best judgment that this patient requires intensive rehabilitation therapy as described above and an inpatient hospital environment due to the complexity of nursing, medical, and rehabilitation needs required by the patient. Furthermore, this patient can reas onably be expected to participate in an benefit from an inpatient rehabilitation stay with an interdisciplinary team approach to the delivery of rehabilitation care under the direction and supervision of rehabilitation physician PROGNOSIS: Good ESTIMATED LENGTH OF STAY:18-21 days. PROJECTED DISCHARGE DESTINATION: Home with family support and any durable medical equipment required to increase functional safety and mobility. TIME SPENT COUNSELING AND COORDINATING INITIAL CARE: Greater than 70 minutes. Vital Signs Vital Sign - Last 24 Hours 08/13/19 11:25 Temp 98.2 Pulse 79 Resp 18 B/P (MAP) 133/70 (91) Pulse Ox 96 O2 Delivery Room Air Home Medications Scheduled Acetaminophen (Tylenol Extra Strength) 500 Mg Tablet, 1,000 MG PO BID, (Reported) Amlodipine Besylate (Amlodipine Besylate) 10 Mg Tablet, 10 MG PO DAILY Aspirin (Aspirin EC) 81 Mg Tab, 81 MG PO DAILY, (Reported) Carbidopa/Levodopa (Sinemet 25-100 mg Tablet) 1 Each Tablet, 1 TAB PO BID, (Reported) Clopidogrel Bisulfate (Clopidogrel) 75 Mg Tablet, 75 MG PO DAILY, (Reported) Ferrous Sulfate (Ferrous Sulfate) 325 Mg Tablet, 325 MG PO BID, (Reported) Magnesium Oxide (Magnesium) 400 Mg Cap, 400 MG PO DAILY, (Reported) Metoprolol Tartrate (Metoprolol Tartrate) 25 Mg Tablet, 12.5 MG PO BID Mirtazapine (Remeron) 15 Mg Tablet, 15 MG PO QHS, (Reported) Pantoprazole Sodium (Pantoprazole Sodium) 40 Mg Tablet., 40 MG PO BID, (Reported) Tamsulosin HCl (Flomax) 0.4 Mg Capsule, 0.4 MG PO QPM, (Reported) Allergies Coded Allergies: No Known Drug Allergies (Verified Allergy, Unknown, 04/15/19) A-FIB/CHADSVASC A-FIB History Current/History of A-Fib/PAF?: No ROXANA STINSON MD Aug 13, 2019 13:55
[2019-08-13 14:00] VITALS: BP 140/71
[2019-08-13] MEDS ORDERED: MOM 30ML SUSPENSION UDC PO PRN (14:15)
[2019-08-13] MEDS ORDERED: ALBUTEROL SULFATE 2.5 MG/0.5 ML INH NEB SOLN NEB PRN (14:15)
[2019-08-13] MEDS ORDERED: BISACODYL 10 MG SUPP PR PRN (14:15)
[2019-08-13] MEDS: REMEDY PHYTOPLEX Z-GUARD PASTE 113GM TUBE (FROM STOREROOM PRODUCT) TOP SCH ×2 (17:14→21:03)
[2019-08-13] MEDS: SINEMET 25-100 MG TAB PO SCH (17:14)
[2019-08-13] MEDS: IPRATROPIUM 0.5MG/ALBUTEROL 2.5MG INH SOL UD 3ML (DUONEB)(J7620) NEB SCH (19:29)
[2019-08-13 20:00] VITALS: BP 132/63
[2019-08-13] MEDS: NYSTATIN CREAM 15 GM TOP SCH (20:55)
[2019-08-13] MEDS: HEPARIN SOD (PORCINE) 5000 UNITS/ML VIAL (J1644 PER 1000UNITS) SC SCH (20:55)
[2019-08-13] MEDS: METOPROLOL TART 12.5 MG PER 1/2 TAB PO SCH (20:56)
[2019-08-13] MEDS: PANTOPRAZOLE 40MG TAB (PROTONIX) PO SCH (20:56)
[2019-08-13] MEDS: DOCUSATE SODIUM 100 MG CAP PO SCH (20:56)
[2019-08-13] MEDS: ACETAMINOPHEN TAB 650MG DOSE (2X325MG) PO PRN (20:56)
[2019-08-13] MEDS: TAMSULOSIN 0.4 MG CAP PO SCH (20:56)
[2019-08-13] MEDS: MIRTAZAPINE 15 MG TAB PO SCH (20:56)
[2019-08-13] MEDS: FERROUS SULFATE 325MG TAB PO SCH (20:56)
[2019-08-13] MEDS ORDERED: SENNA 8.6 MG TAB (SENOKOT) PO SCH (21:00)
[2019-08-14] MEDS: SINEMET 25-100 MG TAB PO SCH ×2 (05:42→16:57)
[2019-08-14 06:00] VITALS: BP 138/74
[2019-08-14 06:33] LABS: BASO # 0.1 10^3/uL (0.0-0.2); BASO % 1.2 % (0.0-1.0); EOS # 0.1 10^3/uL (0.0-0.5); EOS % 1.7 % (0.0-3.0); HEMOGLOBIN 8.8 g/dl (13.5-17.5); LYMPH # 0.7 10^3/uL (1.5-5.0); LYMPH % 11.1 % (24.0-44.0); MEAN CORPUSCULAR HEMOGLOBIN 32.7 pg (27.0-33.0); MEAN CORPUSCULAR HGB CONC 30.3 g/dl (32.0-36.5); MEAN CORPUSCULAR VOLUME 107.8 fl (80.0-96.0); MONO # 0.8 10^3/uL (0.0-0.8); MONO % 11.5 % (0.0-5.0); NEUTROPHILS # 4.7 10^3/uL (1.5-8.5); NEUTROPHILS % 71.5 % (36.0-66.0); PLATELET COUNT, AUTOMATED 236 10^3/uL (150-450); RED BLOOD COUNT 2.69 10^6/uL (4.30-6.10); WHITE BLOOD COUNT 6.6 10^3/uL (4.0-10.0)
[2019-08-14 07:08] LABS: ALBUMIN 2.7 GM/DL (3.2-5.2); BILIRUBIN,TOTAL 0.9 MG/DL (0.2-1.0); CREATININE FOR GFR 1.59 MG/DL (0.70-1.30); GLOMERULAR FILTRATION RATE 44.5 (>35); POTASSIUM SERUM 4.7 MEQ/L (3.5-5.1); TOTAL PROTEIN 7.1 GM/DL (6.4-8.2)
[2019-08-14] MEDS: IPRATROPIUM 0.5MG/ALBUTEROL 2.5MG INH SOL UD 3ML (DUONEB)(J7620) NEB SCH ×3 (07:50→20:00)
[2019-08-14] MEDS: ASPIRIN 81 MG ENTERIC TAB PO SCH (08:32)
[2019-08-14] MEDS: CLOPIDOGREL 75 MG TAB PO SCH (08:32)
[2019-08-14] MEDS: DOCUSATE SODIUM 100 MG CAP PO SCH (08:32)
[2019-08-14] MEDS: amLODIPine 10 MG TAB PO SCH (08:32)
[2019-08-14] MEDS: METOPROLOL TART 12.5 MG PER 1/2 TAB PO SCH ×2 (08:32→20:04)
[2019-08-14] MEDS: PANTOPRAZOLE 40MG TAB (PROTONIX) PO SCH ×2 (08:32→20:04)
[2019-08-14] MEDS: FERROUS SULFATE 325MG TAB PO SCH ×2 (08:32→20:04)
[2019-08-14] MEDS: REMEDY PHYTOPLEX Z-GUARD PASTE 113GM TUBE (FROM STOREROOM PRODUCT) TOP SCH ×3 (08:33→20:05)
[2019-08-14] MEDS: HEPARIN SOD (PORCINE) 5000 UNITS/ML VIAL (J1644 PER 1000UNITS) SC SCH ×2 (08:33→20:04)
[2019-08-14] MEDS: NYSTATIN CREAM 15 GM TOP SCH ×2 (08:33→20:05)
[2019-08-14] MEDS ORDERED: MAGNESIUM OXIDE 400 MG TAB (MAG-OX) PO SCH (09:00)
--- NOTE | 2019-08-14 11:21 | IPNPDOC ---
PM&R Progress Note DATE OF SERVICE: Aug 14, 2019 Wax Engraver Progress Note Subjective: Patient reporting he is feeling well and able to do stairs with ease. He denies having any pain. He does report loose stools. REVIEW OF SYSTEMS: The following is a completed review of systems and has been reviewed. Review of systems otherwise unremarkable. PAIN: Patient self reports no pain EYES: No recent vision changes EARS, NOSE, & THROAT: No throat pain, or dysphagia, or rhinorrhea CARDIOVASCULAR: Denies chest pain or palpitations PULMONARY: Denies shortness of breath GASTROINTESTINAL: +loose stools GENITOURINARY: denies dysuria MUSCULOSKELETAL: generalized weakness NEUROLOGICAL:+parkinsons HEMATOLOGICAL: denies easy bruising SKIN: denies rash PSYCHIATRIC:+ confusion All other review of systems found to be negative. PHYSICAL EXAMINATION: VITAL SIGNS: Please see below. GENERAL: Pleasant and cooperative. No acute distress. HEENT: PERRL. Extraocular movements intact. Clear conjunctiva CARDIOVASCULAR: Regular rate and rhythm. No murmurs, rubs, or gallops LUNGS: Clear to auscultation bilaterally. No wheezes. No rhonchi ABDOMEN: Soft, nontender, nondistended. Positive bowel sounds. Normal active bowel sounds NEUROLOGICAL: Alert and oriented to self only, able to follow commands consistently, +dysarthria Cranial nerves II through XII grossly intact. Sensation grossly intact EXTREMITIES: 5\5 strength bilateral upper extremities. 5\5 strength right lower extremity. 5/5 strength in left lower extremity. SKIN: no rash ASSESSMENT:84-year-old M with past medical history of Parkinsons who presents status post UTI and encephalopathy. PLAN: 1. Rehab- PT/OT advance gait and ADLs, dynamic balance training, fall recovery, consider LSVT big program 2. Neuro: hx of parkinsons with recurrent falls and worsening weakness in setting of UTI -c/u Sinemet BID dosing, will consider adjusting while on ARU -recent encephalopathy, monitor and avoid delirogenic meds 3. Cardiac: hx of diastolic CHF will fluid restrict, daily weights -Htn c/u Amlodipine -CAD c/u ASa, Plavix and Metoprolol, medicine consulted to assist in management 4. Resp: encourage incentive spirometry, Albuterol nebs prn 5. Renal: CKD 3, monitor for SALOMON 6. : s/p course of antibiotics for proteus UTI, patient with known kidney stone and hydronephrosis, will repeat renal US in one week and obtain inhouse urology consult if necessary, otherwise will need to f/u outpatient -c/u flomax 7. GI ppx: protonix BID -will d/c bowel meds and Mg-Ox for loose stools, patient has hx of C. diff, no concern for infection yet -hx of large hiatal hernia 8. Psych- insomnia/possible depression? c/u Remeron 9. DVT ppx: heparin and TEDs 10. Dispo: TBD Allergies Coded Allergies: No Known Drug Allergies (Verified Allergy, Unknown, 04/15/19) Vital Signs Vital Signs Date Time Temp Pulse Resp B/P (MAP) Pulse Ox O2 Delivery O2 Flow Rate FiO2 08/14/19 08:32 67 138/74 08/14/19 06:00 97.9 17 97 Room Air Laboratory Data CBC/BMP Laboratory Tests 08/14/19 06:12 Labs 24H Laboratory Tests 2 08/14/19 06:12: Immature Granulocyte % (Auto) 3.0, Neutrophils (%) (Auto) 71.5H, Lymphocytes (%) (Auto) 11.1L, Monocytes (%) (Auto) 11.5H, Eosinophils (%) (Auto) 1.7, Basophils (%) (Auto) 1.2H, Neutrophils # (Auto) 4.7, Lymphocytes # (Auto) 0.7L, Monocytes # (Auto) 0.8, Eosinophils # (Auto) 0.1, Basophils # (Auto) 0.1, Nucleated Red Blood Cells % (auto) 0.0, Anion Gap 7L, Glomerular Filtration Rate 44.5, Calcium Level 9.0, Total Bilirubin 0.9, Aspartate Amino Transf (AST/SGOT) 28, Alanine Aminotransferase (ALT/SGPT) 17, Alkaline Phosphatase 136H, Total Protein 7.1, Albumin 2.7L, Albumin/Globulin Ratio 0.61L Current Medications Current Medications Current Medications Medications (Trade) Dose Ordered Sig/Saida Route PRN Reason Start Time Stop Time Status Last Admin Dose Admin Acetaminophen (Tylenol Tab) 650 mg Q4HP PRN PO fever/MILD PAIN (PS 1-4) 08/13/19 14:15 08/13/19 20:56 Albuterol Sulfate (Proventil Neb) 2.5 mg Q6HP PRN NEB SOB/WHEEZING 08/13/19 14:15 08/13/19 16:05 DC Albuterol/ Ipratropium (Duoneb (Ipr 0.5mg/Alb 2.5mg)) 3 ml RTID NEB 08/13/19 14:00 Amlodipine Besylate (Norvasc) 10 mg DAILY PO 08/14/19 09:00 08/14/19 08:32 Aspirin (Ecotrin) 81 mg DAILY PO 08/14/19 09:00 08/14/19 08:32 Bisacodyl (Dulcolax Suppository) 10 mg DAILYPRN PRN [place] CONSTIPATION 08/13/19 14:15 Carbidopa/Levodopa (Sinemet 25/100) 1 tab BID@0600,1800 PO 08/13/19 18:00 08/14/19 05:42 Clopidogrel Bisulfate (PLAVix) 75 mg DAILY PO 08/14/19 09:00 08/14/19 08:32 Docusate Sodium (Colace) 100 mg BID PO 08/13/19 21:00 08/14/19 08:32 Ferrous Sulfate (Ferrous Sulfate) 325 mg BID PO 08/13/19 21:00 08/14/19 08:32 Heparin Sodium (Porcine) (Heparin) 5,000 units Q12H SC 08/13/19 21:00 08/14/19 08:33 Magnesium Hydroxide (Milk Of Magnesia) 30 ml DAILYPRN PRN PO CONSTIPATION 08/13/19 14:15 Magnesium Oxide (Mag-Ox) 400 mg DAILY PO 08/14/19 09:00 08/14/19 08:32 Metoprolol Tartrate (Lopressor) 12.5 mg BID PO 08/13/19 21:00 08/14/19 08:32 Mirtazapine (Remeron) 15 mg QHS PO 08/13/19 21:00 08/13/19 20:56 Nystatin (Mycostatin) balantitis- apply to head... BID TOP 08/13/19 21:00 08/14/19 08:33 Pantoprazole Sodium (Protonix) 40 mg BID PO 08/13/19 21:00 08/14/19 08:32 Senna (Senokot) 1 tab QHS PO 08/13/19 21:00 08/13/19 20:56 Tamsulosin HCl (Flomax) 0.4 mg QHS PO 08/13/19 21:00 08/13/19 20:56 ROXANA STINSON MD Aug 14, 2019 11:21
[2019-08-14 14:00] VITALS: BP 122/59
[2019-08-14 20:00] VITALS: BP 124/79
[2019-08-14] MEDS: TAMSULOSIN 0.4 MG CAP PO SCH (20:04)
[2019-08-14] MEDS: ACETAMINOPHEN TAB 650MG DOSE (2X325MG) PO PRN (20:04)
[2019-08-14] MEDS: MIRTAZAPINE 15 MG TAB PO SCH (20:04)
[2019-08-15] MEDS: SINEMET 25-100 MG TAB PO SCH ×2 (05:25→17:40)
[2019-08-15 06:00] VITALS: BP 137/72
[2019-08-15 07:28] LABS: HEMATOCRIT 27.6 % (42.0-52.0); HEMOGLOBIN 8.5 g/dl (13.5-17.5); MEAN CORPUSCULAR HEMOGLOBIN 33.2 pg (27.0-33.0); MEAN CORPUSCULAR HGB CONC 30.8 g/dl (32.0-36.5); MEAN CORPUSCULAR VOLUME 107.8 fl (80.0-96.0); PLATELET COUNT, AUTOMATED 249 10^3/uL (150-450); RED BLOOD COUNT 2.56 10^6/uL (4.30-6.10); WHITE BLOOD COUNT 5.4 10^3/uL (4.0-10.0)
[2019-08-15] MEDS: IPRATROPIUM 0.5MG/ALBUTEROL 2.5MG INH SOL UD 3ML (DUONEB)(J7620) NEB SCH ×3 (07:33→20:00)
[2019-08-15 07:51] LABS: CALCIUM LEVEL 9.1 MG/DL (8.8-10.2); CREATININE FOR GFR 1.63 MG/DL (0.70-1.30); GLOMERULAR FILTRATION RATE 43.2 (>35); POTASSIUM SERUM 4.6 MEQ/L (3.5-5.1)
[2019-08-15 08:09] LABS: BASOPHILS 3 % (0-1); EOSINOPHILS 4 % (0-3); LYMPHOCYTES 12 % (16-44); MONOCYTES 8 % (0-5); MYELOCYTES 2 % (0-0); NEUTROPHILS 71 % (28-66)
[2019-08-15 08:10] LABS: ANISOCYTOSIS 2+; PLATELET ESTIMATE NORMAL (NORMAL)
[2019-08-15] MEDS: ASPIRIN 81 MG ENTERIC TAB PO SCH (09:06)
[2019-08-15] MEDS: FERROUS SULFATE 325MG TAB PO SCH ×2 (09:06→20:38)
[2019-08-15] MEDS: amLODIPine 10 MG TAB PO SCH (09:06)
[2019-08-15] MEDS: CLOPIDOGREL 75 MG TAB PO SCH (09:06)
[2019-08-15] MEDS: PANTOPRAZOLE 40MG TAB (PROTONIX) PO SCH (09:07)
[2019-08-15] MEDS: METOPROLOL TART 12.5 MG PER 1/2 TAB PO SCH ×2 (09:07→20:38)
[2019-08-15] MEDS: HEPARIN SOD (PORCINE) 5000 UNITS/ML VIAL (J1644 PER 1000UNITS) SC SCH ×2 (09:07→20:38)
[2019-08-15] MEDS: REMEDY PHYTOPLEX Z-GUARD PASTE 113GM TUBE (FROM STOREROOM PRODUCT) TOP SCH ×3 (09:08→20:39)
[2019-08-15] MEDS: NYSTATIN CREAM 15 GM TOP SCH ×2 (09:08→20:39)
--- NOTE | 2019-08-15 11:36 | IPNPDOC ---
PM&R Progress Note DATE OF SERVICE: Aug 15, 2019 Psych Coordinator Progress Note Subjective: Patient reporting he is no longer having loose stools and that he wants to go home before next week. REVIEW OF SYSTEMS: The following is a completed review of systems and has been reviewed. Review of systems otherwise unremarkable. PAIN: Patient self reports no pain EYES: No recent vision changes EARS, NOSE, & THROAT: No throat pain, or dysphagia, or rhinorrhea CARDIOVASCULAR: Denies chest pain or palpitations PULMONARY: Denies shortness of breath GASTROINTESTINAL: +loose stools GENITOURINARY: denies dysuria MUSCULOSKELETAL: generalized weakness NEUROLOGICAL:+parkinsons HEMATOLOGICAL: denies easy bruising SKIN: denies rash PSYCHIATRIC:+ confusion All other review of systems found to be negative. PHYSICAL EXAMINATION: VITAL SIGNS: Please see below. GENERAL: Pleasant and cooperative. No acute distress. HEENT: PERRL. Extraocular movements intact. Clear conjunctiva CARDIOVASCULAR: Regular rate and rhythm. No murmurs, rubs, or gallops LUNGS: Clear to auscultation bilaterally. No wheezes. No rhonchi ABDOMEN: Soft, nontender, nondistended. Positive bowel sounds. Normal active bowel sounds NEUROLOGICAL: Alert and oriented to self only, able to follow commands consistently, +dysarthria Cranial nerves II through XII grossly intact. Sensation grossly intact EXTREMITIES: 5\5 strength bilateral upper extremities. 5\5 strength right lower extremity. 5/5 strength in left lower extremity. SKIN: no rash ASSESSMENT:84-year-old M with past medical history of Parkinsons who presents status post UTI and encephalopathy. PLAN: 1. Rehab- PT/OT advance gait and ADLs, dynamic balance training, fall recovery, consider LSVT big program -COMMODITY DIRECTOR ordered for cog eval 2. 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 Cardiac: hx of diastolic CHF will fluid restrict, daily weights -Htn c/u Amlodipine -CAD c/u ASa, Plavix and Metoprolol, medicine consulted to assist in management 4. Resp: encourage incentive spirometry, Albuterol nebs prn 5. Renal: CKD 3, monitor for SALOMON 6. : s/p course of antibiotics for proteus UTI, patient with known kidney stone and hydronephrosis, will repeat renal US in one week and obtain inhouse urology consult if necessary, otherwise will need to f/u outpatient -c/u flomax 7. GI ppx: d/c protonix in setting of C. diff hx -will d/c bowel meds and Mg-Ox for loose stools, patient has hx of C. diff, no concern for infection yet -hx of large hiatal hernia 8. Psych- insomnia/possible depression c/u Remeron 9. DVT ppx: heparin and TEDs 10. Dispo: TBD Allergies Coded Allergies: No Known Drug Allergies (Verified Allergy, Unknown, 04/15/19) Vital Signs Vital Signs Date Time Temp Pulse Resp B/P (MAP) Pulse Ox O2 Delivery O2 Flow Rate FiO2 08/15/19 09:06 69 137/72 08/15/19 07:33 16 08/15/19 06:00 98.3 100 Room Air Laboratory Data CBC/BMP Laboratory Tests 08/15/19 06:57 Labs 24H Laboratory Tests 2 08/15/19 06:57: Immature Granulocyte % (Auto) , Nucleated Red Blood Cells % (auto) 0.0, Neutrophils 71H, Lymphocytes (Manual) 12L, Monocytes (Manual) 8H, Eosinophils (Manual) 4H, Basophils (Manual) 3H, Myelocytes 2H, Anisocytosis 2+, Macrocytosis 2+, Platelet Estimate NORMAL, Anion Gap 6L, Glomerular Filtration Rate 43.2, Calcium Level 9.1 Current Medications Current Medications Current Medications Medications (Trade) Dose Ordered Sig/Saida Route PRN Reason Start Time Stop Time Status Last Admin Dose Admin Acetaminophen (Tylenol Tab) 650 mg Q4HP PRN PO fever/MILD PAIN (PS 1-4) 08/13/19 14:15 08/14/19 20:04 Albuterol Sulfate (Proventil Neb) 2.5 mg Q6HP PRN NEB SOB/WHEEZING 08/13/19 14:15 08/13/19 16:05 DC Albuterol/ Ipratropium (Duoneb (Ipr 0.5mg/Alb 2.5mg)) 3 ml RTID NEB 08/13/19 14:00 08/15/19 07:33 Amlodipine Besylate (Norvasc) 10 mg DAILY PO 08/14/19 09:00 08/15/19 09:06 Aspirin (Ecotrin) 81 mg DAILY PO 08/14/19 09:00 08/15/19 09:06 Bisacodyl (Dulcolax Suppository) 10 mg DAILYPRN PRN [place] CONSTIPATION 08/13/19 14:15 Carbidopa/Levodopa (Sinemet 25/100) 1 tab BID@0600,1800 PO 08/13/19 18:00 08/15/19 05:25 Clopidogrel Bisulfate (PLAVix) 75 mg DAILY PO 08/14/19 09:00 08/15/19 09:06 Docusate Sodium (Colace) 100 mg BID PO 08/13/19 21:00 08/14/19 16:22 DC 08/14/19 08:32 Ferrous Sulfate (Ferrous Sulfate) 325 mg BID PO 08/13/19 21:00 08/15/19 09:06 Heparin Sodium (Porcine) (Heparin) 5,000 units Q12H SC 08/13/19 21:00 08/15/19 09:07 Magnesium Hydroxide (Milk Of Magnesia) 30 ml DAILYPRN PRN PO CONSTIPATION 08/13/19 14:15 Magnesium Oxide (Mag-Ox) 400 mg DAILY PO 08/14/19 09:00 08/14/19 16:22 DC 08/14/19 08:32 Metoprolol Tartrate (Lopressor) 12.5 mg BID PO 08/13/19 21:00 08/15/19 09:07 Mirtazapine (Remeron) 15 mg QHS PO 08/13/19 21:00 08/14/19 20:04 Nystatin (Mycostatin) balantitis- apply to head... BID TOP 08/13/19 21:00 08/15/19 09:08 Pantoprazole Sodium (Protonix) 40 mg BID PO 08/13/19 21:00 08/15/19 09:07 Senna (Senokot) 1 tab QHS PO 08/13/19 21:00 08/14/19 16:22 DC 08/13/19 20:56 Tamsulosin HCl (Flomax) 0.4 mg QHS PO 08/13/19 21:00 08/14/19 20:04 ROXANA STINSON MD Aug 15, 2019 11:35
[2019-08-15 14:00] VITALS: BP 130/70
[2019-08-15 20:00] VITALS: BP 128/67
[2019-08-15] MEDS: MIRTAZAPINE 15 MG TAB PO SCH (20:38)
[2019-08-15] MEDS: TAMSULOSIN 0.4 MG CAP PO SCH (20:38)
[2019-08-16 06:00] VITALS: BP 116/74
[2019-08-16] MEDS: SINEMET 25-100 MG TAB PO SCH ×2 (06:24→17:08)
[2019-08-16] MEDS: IPRATROPIUM 0.5MG/ALBUTEROL 2.5MG INH SOL UD 3ML (DUONEB)(J7620) NEB SCH ×3 (07:20→18:55)
[2019-08-16] MEDS: FERROUS SULFATE 325MG TAB PO SCH ×2 (09:34→20:39)
[2019-08-16] MEDS: HEPARIN SOD (PORCINE) 5000 UNITS/ML VIAL (J1644 PER 1000UNITS) SC SCH ×2 (09:34→20:39)
[2019-08-16] MEDS: ASPIRIN 81 MG ENTERIC TAB PO SCH (09:35)
[2019-08-16] MEDS: amLODIPine 10 MG TAB PO SCH (09:35)
[2019-08-16] MEDS: CLOPIDOGREL 75 MG TAB PO SCH (09:35)
[2019-08-16] MEDS: METOPROLOL TART 12.5 MG PER 1/2 TAB PO SCH ×2 (09:35→20:40)
[2019-08-16] MEDS: REMEDY PHYTOPLEX Z-GUARD PASTE 113GM TUBE (FROM STOREROOM PRODUCT) TOP SCH ×3 (09:36→20:40)
[2019-08-16] MEDS: NYSTATIN CREAM 15 GM TOP SCH ×2 (09:37→20:40)
--- NOTE | 2019-08-16 11:55 | IPNPDOC ---
PM&R Progress Note DATE OF SERVICE: Aug 16, 2019 Rn Pacu Progress Note Subjective: Patient reporting he is no longer having loose stools and that he wants to go home before next week. REVIEW OF SYSTEMS: The following is a completed review of systems and has been reviewed. Review of systems otherwise unremarkable. PAIN: Patient self reports no pain EYES: No recent vision changes EARS, NOSE, & THROAT: No throat pain, or dysphagia, or rhinorrhea CARDIOVASCULAR: Denies chest pain or palpitations PULMONARY: Denies shortness of breath GASTROINTESTINAL: +loose stools GENITOURINARY: denies dysuria MUSCULOSKELETAL: generalized weakness NEUROLOGICAL:+parkinsons HEMATOLOGICAL: denies easy bruising SKIN: denies rash PSYCHIATRIC:+ confusion All other review of systems found to be negative. PHYSICAL EXAMINATION: VITAL SIGNS: Please see below. GENERAL: Pleasant and cooperative. No acute distress. HEENT: PERRL. Extraocular movements intact. Clear conjunctiva CARDIOVASCULAR: Regular rate and rhythm. No murmurs, rubs, or gallops LUNGS: Clear to auscultation bilaterally. No wheezes. No rhonchi ABDOMEN: Soft, nontender, nondistended. Positive bowel sounds. Normal active bowel sounds NEUROLOGICAL: Alert and oriented to self only, able to follow commands consistently, +dysarthria Cranial nerves II through XII grossly intact. Sensation grossly intact EXTREMITIES: 5\5 strength bilateral upper extremities. 5\5 strength right lower extremity. 5/5 strength in left lower extremity. SKIN: no rash ASSESSMENT:84-year-old M with past medical history of Parkinsons who presents status post UTI and encephalopathy. PLAN: 1. Rehab- PT/OT advance gait and ADLs, dynamic balance training, fall recovery, consider LSVT big program -AGITATOR OPERATOR ordered for cog eval 2. 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 Cardiac: hx of diastolic CHF will fluid restrict, daily weights -Htn c/u Amlodipine -CAD c/u ASa, Plavix and Metoprolol, medicine consulted to assist in management 4. Resp: encourage incentive spirometry, Albuterol nebs prn 5. Renal: CKD 3, monitor for SALOMON 6. : s/p course of antibiotics for proteus UTI, patient with known kidney stone and hydronephrosis, will repeat renal US today to monitor and obtain inhouse urology consult if necessary, otherwise will need to f/u outpatient -c/u flomax 7. GI ppx: d/c'd protonix in setting of C. diff hx - d/c'd bowel meds and Mg-Ox for loose stools, patient has hx of C. diff, patient with <3 loose stools per day, no concern for active infection yet -hx of large hiatal hernia 8. Psych- insomnia/possible depression c/u Remeron 9. DVT ppx: heparin and TEDs 10. Dispo: TBD Allergies Coded Allergies: No Known Drug Allergies (Verified Allergy, Unknown, 04/15/19) Vital Signs Vital Signs Date Time Temp Pulse Resp B/P (MAP) Pulse Ox O2 Delivery O2 Flow Rate FiO2 08/16/19 09:35 80 124/74 08/16/19 06:00 98.1 18 92 Room Air Current Medications Current Medications Current Medications Medications (Trade) Dose Ordered Sig/Saida Route PRN Reason Start Time Stop Time Status Last Admin Dose Admin Acetaminophen (Tylenol Tab) 650 mg Q4HP PRN PO fever/MILD PAIN (PS 1-4) 08/13/19 14:15 08/14/19 20:04 Albuterol Sulfate (Proventil Neb) 2.5 mg Q6HP PRN NEB SOB/WHEEZING 08/13/19 14:15 08/13/19 16:05 DC Albuterol/ Ipratropium (Duoneb (Ipr 0.5mg/Alb 2.5mg)) 3 ml RTID NEB 08/13/19 14:00 08/16/19 07:20 Amlodipine Besylate (Norvasc) 10 mg DAILY PO 08/14/19 09:00 08/16/19 09:35 Aspirin (Ecotrin) 81 mg DAILY PO 08/14/19 09:00 08/16/19 09:35 Bisacodyl (Dulcolax Suppository) 10 mg DAILYPRN PRN [place] CONSTIPATION 08/13/19 14:15 Carbidopa/Levodopa (Sinemet 25/100) 1 tab BID@0600,1800 PO 08/13/19 18:00 08/16/19 06:24 Clopidogrel Bisulfate (PLAVix) 75 mg DAILY PO 08/14/19 09:00 08/16/19 09:35 Docusate Sodium (Colace) 100 mg BID PO 08/13/19 21:00 08/14/19 16:22 DC 08/14/19 08:32 Ferrous Sulfate (Ferrous Sulfate) 325 mg BID PO 08/13/19 21:00 08/16/19 09:34 Heparin Sodium (Porcine) (Heparin) 5,000 units Q12H SC 08/13/19 21:00 08/16/19 09:34 Magnesium Hydroxide (Milk Of Magnesia) 30 ml DAILYPRN PRN PO CONSTIPATION 08/13/19 14:15 Magnesium Oxide (Mag-Ox) 400 mg DAILY PO 08/14/19 09:00 08/14/19 16:22 DC 08/14/19 08:32 Metoprolol Tartrate (Lopressor) 12.5 mg BID PO 08/13/19 21:00 08/16/19 09:35 Mirtazapine (Remeron) 15 mg QHS PO 08/13/19 21:00 08/15/19 20:38 Nystatin (Mycostatin) balantitis- apply to head... BID TOP 08/13/19 21:00 08/16/19 09:37 Pantoprazole Sodium (Protonix) 40 mg BID PO 08/13/19 21:00 08/15/19 11:35 DC 08/15/19 09:07 Senna (Senokot) 1 tab QHS PO 08/13/19 21:00 08/14/19 16:22 DC 08/13/19 20:56 Tamsulosin HCl (Flomax) 0.4 mg QHS PO 08/13/19 21:00 08/15/19 20:38 ROXANA STINSON MD Aug 16, 2019 11:55
[2019-08-16] MEDS: FOLIC ACID 1 MG TAB PO SCH (12:18)
[2019-08-16] MEDS: CYANOCOBALAMIN 500 MCG TAB PO SCH (12:19)
--- NOTE | 2019-08-16 15:43 | REP ---
MRI brain without contrast: History: Rule out a recent infarct. Ongoing confusion. Comparison brain MRI study is from April 16, 2019. Technique: Axial and sagittal imaging planes are utilized for T1 and T2-weighted scans. Sequences include spin-echo, fast spin echo, FLAIR, and diffusion weighted sequences. MRI findings: Bony calvarium is intact. Craniocervical junction and upper cervical cord are unremarkable. There is evidence of an old lacunar infarct in the left cerebellar hemisphere unchanged. There is moderate generalized atrophy. There is no evidence of acute infarction on diffusion weighted scans. There is no evidence of intracranial hemorrhage. There are small vessel atherosclerotic changes on FLAIR images, mild in degree. Study is otherwise unremarkable. No change from comparison study. Impression: Generalized atrophy and small vessel changes. No change from comparison study April 16, 2019. No acute intracranial abnormality. Electronically Signed by Marcus Bennett MD 08/16/2019 04:59 P
--- NOTE | 2019-08-16 17:14 | REP ---
Renal sonography: History: History of hydronephrosis. Comparison CT study August 04, 2019. Comparison sonography August 07, 2019. Sonographic findings: Scanning at the level urinary bladder raises a question of a right-sided bladder diverticulum. Renal cortical echogenicity is somewhat increased consistent with chronic medical renal disease. There is no evidence of hydronephrosis on either side today. Right kidney measures 11.5 x 5.2 x 5.5 cm. Left renal dimensions are 10.7 x 4.4 x 4.1 cm. No left renal cyst or mass is appear observed by ultrasound. On the right there is a cyst at mid pole level measuring 2.9 cm and a cyst at the lower pole measures 2.0 cm in greatest diameter. Superior to the right kidney there is a 1.7 x 0.9 x 1.2 cm hypoechoic area in the region of the right adrenal gland. A small thickening of the medial limb of the right ureter gland is seen on CT. This may be a small adrenal adenoma. Impression: No hydronephrosis seen today. There are two right renal cysts. Question small right adrenal adenoma. No mass or cyst is visible on the left by ultrasound. Electronically Signed by Marcus Bennett MD 08/16/2019 05:58 P
[2019-08-16] MEDS: MIRTAZAPINE 15 MG TAB PO SCH (20:39)
[2019-08-16] MEDS: TAMSULOSIN 0.4 MG CAP PO SCH (20:39)
[2019-08-16 21:00] VITALS: BP 137/69
[2019-08-17 06:00] VITALS: BP 123/75
[2019-08-17 06:58] LABS: BASO # 0.1 10^3/uL (0.0-0.2); BASO % 0.9 % (0.0-1.0); EOS # 0.2 10^3/uL (0.0-0.5); EOS % 3.3 % (0.0-3.0); HEMATOCRIT 27.9 % (42.0-52.0); HEMOGLOBIN 8.5 g/dl (13.5-17.5); LYMPH # 0.7 10^3/uL (1.5-5.0); LYMPH % 11.8 % (24.0-44.0); MEAN CORPUSCULAR HEMOGLOBIN 33.3 pg (27.0-33.0); MEAN CORPUSCULAR HGB CONC 30.5 g/dl (32.0-36.5); MEAN CORPUSCULAR VOLUME 109.4 fl (80.0-96.0); MONO # 0.7 10^3/uL (0.0-0.8); MONO % 11.9 % (0.0-5.0); NEUTROPHILS # 3.9 10^3/uL (1.5-8.5); NEUTROPHILS % 67.5 % (36.0-66.0); PLATELET COUNT, AUTOMATED 237 10^3/uL (150-450); RED BLOOD COUNT 2.55 10^6/uL (4.30-6.10); WHITE BLOOD COUNT 5.7 10^3/uL (4.0-10.0)
[2019-08-17] MEDS: SINEMET 25-100 MG TAB PO SCH ×2 (07:03→17:21)
[2019-08-17 07:25] LABS: CALCIUM LEVEL 8.8 MG/DL (8.8-10.2); CREATININE FOR GFR 1.61 MG/DL (0.70-1.30); GLOMERULAR FILTRATION RATE 43.8 (>35); POTASSIUM SERUM 4.6 MEQ/L (3.5-5.1)
[2019-08-17] MEDS: IPRATROPIUM 0.5MG/ALBUTEROL 2.5MG INH SOL UD 3ML (DUONEB)(J7620) NEB SCH ×3 (07:25→19:39)
[2019-08-17] MEDS: FERROUS SULFATE 325MG TAB PO SCH ×2 (09:08→21:43)
[2019-08-17] MEDS: HEPARIN SOD (PORCINE) 5000 UNITS/ML VIAL (J1644 PER 1000UNITS) SC SCH ×2 (09:08→21:42)
[2019-08-17] MEDS: amLODIPine 10 MG TAB PO SCH (09:09)
[2019-08-17] MEDS: CLOPIDOGREL 75 MG TAB PO SCH (09:09)
[2019-08-17] MEDS: CYANOCOBALAMIN 500 MCG TAB PO SCH (09:09)
[2019-08-17] MEDS: ASPIRIN 81 MG ENTERIC TAB PO SCH (09:09)
[2019-08-17] MEDS: METOPROLOL TART 12.5 MG PER 1/2 TAB PO SCH ×2 (09:09→21:43)
[2019-08-17] MEDS: FOLIC ACID 1 MG TAB PO SCH (09:09)
[2019-08-17] MEDS: NYSTATIN CREAM 15 GM TOP SCH ×2 (09:10→21:44)
[2019-08-17] MEDS: REMEDY PHYTOPLEX Z-GUARD PASTE 113GM TUBE (FROM STOREROOM PRODUCT) TOP SCH ×3 (09:10→21:44)
[2019-08-17] MEDS: guaiFENesin 200 MG TAB PO SCH ×3 (11:56→21:43)
[2019-08-17 14:00] VITALS: BP 123/61
--- NOTE | 2019-08-17 17:30 | IPNPDOC ---
PM&R Progress Note DATE OF SERVICE: Aug 17, 2019 Track Service Person Progress Note Subjective: Patient reporting he has a cough that doesn't seem to be getting better. REVIEW OF SYSTEMS: The following is a completed review of systems and has been reviewed. Review of systems otherwise unremarkable. PAIN: Patient self reports no pain EYES: No recent vision changes EARS, NOSE, & THROAT: No throat pain, or dysphagia, or rhinorrhea CARDIOVASCULAR: Denies chest pain or palpitations PULMONARY: Denies shortness of breath GASTROINTESTINAL: +loose stools (improving) GENITOURINARY: denies dysuria MUSCULOSKELETAL: generalized weakness NEUROLOGICAL:+parkinsons HEMATOLOGICAL: denies easy bruising SKIN: denies rash PSYCHIATRIC:+ confusion All other review of systems found to be negative. PHYSICAL EXAMINATION: VITAL SIGNS: Please see below. GENERAL: Pleasant and cooperative. No acute distress. HEENT: PERRL. Extraocular movements intact. Clear conjunctiva CARDIOVASCULAR: Regular rate and rhythm. No murmurs, rubs, or gallops LUNGS: Clear to auscultation bilaterally. No wheezes. No rhonchi ABDOMEN: Soft, nontender, nondistended. Positive bowel sounds. Normal active bowel sounds NEUROLOGICAL: Alert and oriented to self only, able to follow commands consistently, +dysarthria Cranial nerves II through XII grossly intact. Sensation grossly intact EXTREMITIES: 5\5 strength bilateral upper extremities. 5\5 strength right lower extremity. 5/5 strength in left lower extremity. SKIN: no rash ASSESSMENT:84-year-old M with past medical history of Parkinsons who presents status post UTI and encephalopathy. PLAN: 1. Rehab- PT/OT advance gait and ADLs, dynamic balance training, fall recovery, consider LSVT big program -ENGINEER PROCESS ordered for cog eval 2. Neuro: hx of parkinsons with recurrent falls and worsening weakness in setting of UTI -c/u Sinemet BID dosing, will consider adjusting while on ARU -recent encephalopathy, monitor and avoid deliriogenic meds -will order MRI to r/o new infarct, no focal deficits, but persistent confusion and MRI from 2019 +lacunar infarct -patient with macrocytic anemia and lower end of normal B12 levels, will start B12 and folic acid supplements and discuss with family and patient starting cholinergic for suspected dementia in setting of Parkinsons 3. Cardiac: hx of diastolic CHF will fluid restrict, daily weights -Htn c/u Amlodipine -CAD c/u ASa, Plavix and Metoprolol, medicine consulted to assist in management 4. Resp: encourage incentive spirometry, Duonebs standing and guaifenesin 5. Renal: CKD 3, monitor for SALOMON 6. : s/p course of antibiotics for proteus UTI, patient with known kidney stone and hydronephrosis, will repeat renal US today to monitor and obtain inho use urology consult if necessary, otherwise will need to f/u outpatient -c/u flomax 7. GI ppx: d/c'd protonix in setting of C. diff hx - d/c'd bowel meds and Mg-Ox for loose stools, patient has hx of C. diff, patient with <3 loose stools per day, no concern for active infection yet -hx of large hiatal hernia 8. Psych- insomnia/possible depression c/u Remeron 9. DVT ppx: heparin and TEDs 10. Dispo: TBD Allergies Coded Allergies: No Known Drug Allergies (Verified Allergy, Unknown, 04/15/19) Vital Signs Vital Signs Date Time Temp Pulse Resp B/P (MAP) Pulse Ox O2 Delivery O2 Flow Rate FiO2 08/17/19 14:00 97.9 65 20 123/61 (81) 91 Room Air Laboratory Data CBC/BMP Laboratory Tests 08/17/19 06:18 Labs 24H Laboratory Tests 2 08/17/19 06:18: Immature Granulocyte % (Auto) 4.6H, Neutrophils (%) (Auto) 67.5H, Lymphocytes (%) (Auto) 11.8L, Monocytes (%) (Auto) 11.9H, Eosinophils (%) (Auto) 3.3H, Basophils (%) (Auto) 0.9, Neutrophils # (Auto) 3.9, Lymphocytes # (Auto) 0.7L, Monocytes # (Auto) 0.7, Eosinophils # (Auto) 0.2, Basophils # (Auto) 0.1, Nucleated Red Blood Cells % (auto) 0.0, Anion Gap 5L, Glomerular Filtration Rate 43.8, Calcium Level 8.8 Current Medications Current Medications Current Medications Medications (Trade) Dose Ordered Sig/Saida Route PRN Reason Start Time Stop Time Status Last Admin Dose Admin Acetaminophen (Tylenol Tab) 650 mg Q4HP PRN PO fever/MILD PAIN (PS 1-4) 08/13/19 14:15 08/14/19 20:04 Albuterol Sulfate (Proventil Neb) 2.5 mg Q6HP PRN NEB SOB/WHEEZING 08/13/19 14:15 08/13/19 16:05 DC Albuterol/ Ipratropium (Duoneb (Ipr 0.5mg/Alb 2.5mg)) 3 ml RTID NEB 08/13/19 14:00 08/17/19 12:59 Amlodipine Besylate (Norvasc) 10 mg DAILY PO 08/14/19 09:00 08/17/19 09:09 Aspirin (Ecotrin) 81 mg DAILY PO 08/14/19 09:00 08/17/19 09:09 Bisacodyl (Dulcolax Suppository) 10 mg DAILYPRN PRN [place] CONSTIPATION 08/13/19 14:15 Carbidopa/Levodopa (Sinemet 25/100) 1 tab BID@0600,1800 PO 08/13/19 18:00 08/17/19 17:21 Clopidogrel Bisulfate (PLAVix) 75 mg DAILY PO 08/14/19 09:00 08/17/19 09:09 Cyanocobalamin (Vitamin B12) 1,000 mcg DAILY PO 08/16/19 09:00 08/17/19 09:09 Docusate Sodium (Colace) 100 mg BID PO 08/13/19 21:00 08/14/19 16:22 DC 08/14/19 08:32 Ferrous Sulfate (Ferrous Sulfate) 325 mg BID PO 08/13/19 21:00 08/17/19 09:08 Folic Acid (Folic Acid) 1 mg DAILY PO 08/16/19 09:00 08/17/19 09:09 Guaifenesin (Robitussin Tab) 400 mg TID PO 08/17/19 09:00 08/17/19 17:21 Heparin Sodium (Porcine) (Heparin) 5,000 units Q12H SC 08/13/19 21:00 08/17/19 09:08 Magnesium Hydroxide (Milk Of Magnesia) 30 ml DAILYPRN PRN PO CONSTIPATION 08/13/19 14:15 Magnesium Oxide (Mag-Ox) 400 mg DAILY PO 08/14/19 09:00 08/14/19 16:22 DC 08/14/19 08:32 Metoprolol Tartrate (Lopressor) 12.5 mg BID PO 08/13/19 21:00 08/17/19 09:09 Mirtazapine (Remeron) 15 mg QHS PO 08/13/19 21:00 08/16/19 20:39 Nystatin (Mycostatin) balantitis- apply to head... BID TOP 08/13/19 21:00 08/17/19 09:10 Pantoprazole Sodium (Protonix) 40 mg BID PO 08/13/19 21:00 08/15/19 11:35 DC 08/15/19 09:07 Senna (Senokot) 1 tab QHS PO 08/13/19 21:00 08/14/19 16:22 DC 08/13/19 20:56 Tamsulosin HCl (Flomax) 0.4 mg QHS PO 08/13/19 21:00 08/16/19 20:39 ROXANA STINSON MD Aug 17, 2019 17:30
[2019-08-17 21:07] VITALS: BP 132/60
[2019-08-17] MEDS: TAMSULOSIN 0.4 MG CAP PO SCH (21:42)
[2019-08-17] MEDS: MIRTAZAPINE 15 MG TAB PO SCH (21:43)
[2019-08-18] MEDS: BENZONATATE 100 MG CAP PO SCH ×4 (02:55→20:28)
[2019-08-18] MEDS: SINEMET 25-100 MG TAB PO SCH ×2 (05:26→17:52)
[2019-08-18 06:00] VITALS: BP 126/62
[2019-08-18] MEDS: IPRATROPIUM 0.5MG/ALBUTEROL 2.5MG INH SOL UD 3ML (DUONEB)(J7620) NEB SCH ×3 (07:16→20:00)
[2019-08-18] MEDS: CYANOCOBALAMIN 500 MCG TAB PO SCH (08:44)
[2019-08-18] MEDS: HEPARIN SOD (PORCINE) 5000 UNITS/ML VIAL (J1644 PER 1000UNITS) SC SCH ×2 (08:44→20:28)
[2019-08-18] MEDS: FERROUS SULFATE 325MG TAB PO SCH ×2 (08:44→20:28)
[2019-08-18] MEDS: CLOPIDOGREL 75 MG TAB PO SCH (08:44)
[2019-08-18] MEDS: METOPROLOL TART 12.5 MG PER 1/2 TAB PO SCH ×2 (08:45→20:29)
[2019-08-18] MEDS: FOLIC ACID 1 MG TAB PO SCH (08:45)
[2019-08-18] MEDS: guaiFENesin 200 MG TAB PO SCH ×3 (08:45→20:28)
[2019-08-18] MEDS: amLODIPine 10 MG TAB PO SCH (08:45)
[2019-08-18] MEDS: ASPIRIN 81 MG ENTERIC TAB PO SCH (08:45)
[2019-08-18] MEDS: NYSTATIN CREAM 15 GM TOP SCH ×2 (08:48→20:31)
[2019-08-18] MEDS: REMEDY PHYTOPLEX Z-GUARD PASTE 113GM TUBE (FROM STOREROOM PRODUCT) TOP SCH ×3 (08:49→20:31)
[2019-08-18] MEDS ORDERED: BENZONATATE 100 MG CAP PO SCH (09:00)
[2019-08-18 14:00] VITALS: BP 120/62
[2019-08-18] MEDS: MIRTAZAPINE 15 MG TAB PO SCH (20:28)
[2019-08-18] MEDS: TAMSULOSIN 0.4 MG CAP PO SCH (20:28)
[2019-08-18 20:37] VITALS: BP 135/66
[2019-08-19] MEDS: SINEMET 25-100 MG TAB PO SCH ×2 (05:35→16:56)
[2019-08-19 05:54] VITALS: BP 121/88
[2019-08-19] MEDS: IPRATROPIUM 0.5MG/ALBUTEROL 2.5MG INH SOL UD 3ML (DUONEB)(J7620) NEB SCH ×3 (08:00→20:00)
[2019-08-19] MEDS: CLOPIDOGREL 75 MG TAB PO SCH (09:26)
[2019-08-19] MEDS: HEPARIN SOD (PORCINE) 5000 UNITS/ML VIAL (J1644 PER 1000UNITS) SC SCH ×2 (09:27→21:33)
[2019-08-19] MEDS: ASPIRIN 81 MG ENTERIC TAB PO SCH (09:27)
[2019-08-19] MEDS: FERROUS SULFATE 325MG TAB PO SCH ×2 (09:27→21:33)
[2019-08-19] MEDS: CYANOCOBALAMIN 500 MCG TAB PO SCH (09:27)
[2019-08-19] MEDS: BENZONATATE 100 MG CAP PO SCH ×3 (09:27→21:33)
[2019-08-19] MEDS: FOLIC ACID 1 MG TAB PO SCH (09:27)
[2019-08-19] MEDS: guaiFENesin 200 MG TAB PO SCH ×3 (09:27→21:33)
[2019-08-19] MEDS: METOPROLOL TART 12.5 MG PER 1/2 TAB PO SCH ×2 (09:28→21:34)
[2019-08-19] MEDS: amLODIPine 10 MG TAB PO SCH (09:28)
[2019-08-19] MEDS: REMEDY PHYTOPLEX Z-GUARD PASTE 113GM TUBE (FROM STOREROOM PRODUCT) TOP SCH ×3 (09:29→21:00)
[2019-08-19] MEDS: NYSTATIN CREAM 15 GM TOP SCH ×2 (09:29→21:34)
[2019-08-19 14:00] VITALS: BP 120/80
[2019-08-19 20:00] VITALS: BP 133/65
[2019-08-19] MEDS: MIRTAZAPINE 15 MG TAB PO SCH (21:33)
[2019-08-19] MEDS: TAMSULOSIN 0.4 MG CAP PO SCH (21:33)
[2019-08-19] MEDS: ACETAMINOPHEN TAB 650MG DOSE (2X325MG) PO PRN (21:34)
[2019-08-20] MEDS: SINEMET 25-100 MG TAB PO SCH ×2 (05:05→17:36)
[2019-08-20] MEDS: IPRATROPIUM 0.5MG/ALBUTEROL 2.5MG INH SOL UD 3ML (DUONEB)(J7620) NEB SCH ×3 (07:39→19:43)
[2019-08-20] MEDS: BENZONATATE 100 MG CAP PO SCH ×3 (09:24→20:59)
[2019-08-20] MEDS: guaiFENesin 200 MG TAB PO SCH ×3 (09:24→20:58)
[2019-08-20] MEDS: HEPARIN SOD (PORCINE) 5000 UNITS/ML VIAL (J1644 PER 1000UNITS) SC SCH (09:24)
[2019-08-20] MEDS: FOLIC ACID 1 MG TAB PO SCH (09:24)
[2019-08-20] MEDS: amLODIPine 10 MG TAB PO SCH (09:25)
[2019-08-20] MEDS: ASPIRIN 81 MG ENTERIC TAB PO SCH (09:25)
[2019-08-20] MEDS: CLOPIDOGREL 75 MG TAB PO SCH (09:25)
[2019-08-20] MEDS: CYANOCOBALAMIN 500 MCG TAB PO SCH (09:25)
[2019-08-20] MEDS: FERROUS SULFATE 325MG TAB PO SCH ×2 (09:25→20:59)
[2019-08-20] MEDS: METOPROLOL TART 12.5 MG PER 1/2 TAB PO SCH ×2 (09:25→20:59)
[2019-08-20] MEDS: REMEDY PHYTOPLEX Z-GUARD PASTE 113GM TUBE (FROM STOREROOM PRODUCT) TOP SCH ×3 (09:26→20:59)
[2019-08-20] MEDS: NYSTATIN CREAM 15 GM TOP SCH ×2 (09:26→20:59)
[2019-08-20] MEDS ORDERED: VITA500T40 PO (10:20)
[2019-08-20] MEDS ORDERED: FOLI1TAB11 PO (10:20)
[2019-08-20] MEDS ORDERED: METO1TAB87 PO (10:20)
[2019-08-20] MEDS ORDERED: FLOM0.4C39 PO (10:20)
[2019-08-20] MEDS ORDERED: ASPI81TA24 PO (10:20)
[2019-08-20] MEDS ORDERED: REME15TA PO (10:20)
[2019-08-20] MEDS ORDERED: SINE25TA5 PO (10:20)
[2019-08-20] MEDS ORDERED: AMLO10TA5 PO (10:20)
[2019-08-20] MEDS ORDERED: CLOP75TA2 PO (10:20)
--- NOTE | 2019-08-20 11:48 | IPNPDOC ---
PM&R Progress Note DATE OF SERVICE: Aug 20, 2019 Contact Lens Fitter Progress Note Subjective: Patient reporting he is feeling very well and eager to go home tomorrow. REVIEW OF SYSTEMS: The following is a completed review of systems and has been reviewed. Review of systems otherwise unremarkable. PAIN: Patient self reports no pain EYES: No recent vision changes EARS, NOSE, & THROAT: No throat pain, or dysphagia, or rhinorrhea CARDIOVASCULAR: Denies chest pain or palpitations PULMONARY: Denies shortness of breath GASTROINTESTINAL: +loose stools (improving) GENITOURINARY: denies dysuria MUSCULOSKELETAL: generalized weakness NEUROLOGICAL:+parkinsons HEMATOLOGICAL: denies easy bruising SKIN: denies rash PSYCHIATRIC:+ confusion All other review of systems found to be negative. PHYSICAL EXAMINATION: VITAL SIGNS: Please see below. GENERAL: Pleasant and cooperative. No acute distress. HEENT: PERRL. Extraocular movements intact. Clear conjunctiva CARDIOVASCULAR: Regular rate and rhythm. No murmurs, rubs, or gallops LUNGS: Clear to auscultation bilaterally. No wheezes. No rhonchi ABDOMEN: Soft, nontender, nondistended. Positive bowel sounds. Normal active bowel sounds NEUROLOGICAL: Alert and oriented to self only, able to follow commands consistently, +dysarthria Cranial nerves II through XII grossly intact. Sen sation grossly intact EXTREMITIES: 5\5 strength bilateral upper extremities. 5\5 strength right lower extremity. 5/5 strength in left lower extremity. SKIN: no rash ASSESSMENT:84-year-old M with past medical history of Parkinsons who presents status post UTI and encephalopathy. PLAN: 1. Rehab- PT/OT advance gait and ADLs, dynamic balance training, fall recovery, consider LSVT big program -CONCRETE ENGINEER ordered for cog eval 2. Neuro: hx of parkinsons with recurrent falls and worsening weakness in setting of UTI -c/u Sinemet BID dosing, will consider adjusting while on ARU -recent encephalopathy, monitor and avoid deliriogenic meds -will order MRI to r/o new infarct, no focal deficits, but persistent confusion and MRI from 2019 +lacunar infarct -patient with macrocytic anemia and lower end of normal B12 levels, will start B12 and folic acid supplements and discuss with family and patient starting cholinergic for suspected dementia in setting of Parkinsons 3. Cardiac: hx of diastolic CHF will fluid restrict, daily weights -Htn c/u Amlodipine -CAD c/u ASa, Plavix and Metoprolol, medicine consulted to assist in management 4. Resp: encourage incentive spirometry, Duonebs standing and guaifenesin 5. Renal: CKD 3, monitor for SALOMON 6. : s/p course of antibiotics for proteus UTI, patient with known kidney stone and hydronephrosis, will repeat renal US today to monitor and obtain inhouse urology consult if necessary, otherwise will need to f/u outpatient -c/u flomax 7. GI ppx: d/c'd protonix in setting of C. diff hx - d/c'd bowel meds and Mg-Ox for loose stools, patient has hx of C. diff, patient with <3 loose stools per day, no concern for active infection yet -hx of large hiatal hernia 8. Psych- insomnia/possible depression c/u Remeron 9. DVT ppx: heparin and TEDs 10. Dispo: 08-21-19 to home Allergies Coded Allergies: No Known Drug Allergies (Verified Allergy, Unknown, 04/15/19) Vital Signs Vital Signs Date Time Temp Pulse Resp B/P (MAP) Pulse Ox O2 Delivery O2 Flow Rate FiO2 08/19/19 21:34 86 133/65 08/19/19 20:00 97.7 19 98 Room Air Current Medications Current Medications Current Medications Medications (Trade) Dose Ordered Sig/Saida Route PRN Reason Start Time Stop Time Status Last Admin Dose Admin Acetaminophen (Tylenol Tab) 650 mg Q4HP PRN PO fever/MILD PAIN (PS 1-4) 08/13/19 14:15 08/19/19 21:34 Albuterol Sulfate (Proventil Neb) 2.5 mg Q6HP PRN NEB SOB/WHEEZING 08/13/19 14:15 08/13/19 16:05 DC Albuterol/ Ipratropium (Duoneb (Ipr 0.5mg/Alb 2.5mg)) 3 ml RTID NEB 08/13/19 14:00 08/20/19 07:39 Amlodipine Besylate (Norvasc) 10 mg DAILY PO 08/14/19 09:00 08/20/19 09:25 Aspirin (Ecotrin) 81 mg DAILY PO 08/14/19 09:00 08/20/19 09:25 Benzonatate (Tessalon Perles) 200 mg TID PO 08/18/19 02:15 08/20/19 09:24 Benzonatate (Tessalon Perles) 200 mg TID PO 08/18/19 09:00 08/18/19 02:05 DC Bisacodyl (Dulcolax Suppository) 10 mg DAILYPRN PRN [place] CONSTIPATION 08/13/19 14:15 Carbidopa/Levodopa (Sinemet 25/100) 1 tab BID@0600,1800 PO 08/13/19 18:00 08/20/19 05:05 Clopidogrel Bisulfate (PLAVix) 75 mg DAILY PO 08/14/19 09:00 08/20/19 09:25 Cyanocobalamin (Vitamin B12) 1,000 mcg DAILY PO 08/16/19 09:00 08/20/19 09:25 Docusate Sodium (Colace) 100 mg BID PO 08/13/19 21:00 08/14/19 16:22 DC 08/14/19 08:32 Ferrous Sulfate (Ferrous Sulfate) 325 mg BID PO 08/13/19 21:00 08/20/19 09:25 Folic Acid (Folic Acid) 1 mg DAILY PO 08/16/19 09:00 08/20/19 09:24 Guaifenesin (Robitussin Tab) 400 mg TID PO 08/17/19 09:00 08/20/19 09:24 Heparin Sodium (Porcine) (Heparin) 5,000 units Q12H SC 08/13/19 21:00 08/20/19 09:24 Magnesium Hydroxide (Milk Of Magnesia) 30 ml DAILYPRN PRN PO CONSTIPATION 08/13/19 14:15 Magnesium Oxide (Mag-Ox) 400 mg DAILY PO 08/14/19 09:00 08/14/19 16:22 DC 08/14/19 08:32 Metoprolol Tartrate (Lopressor) 12.5 mg BID PO 08/13/19 21:00 08/20/19 09:25 Mirtazapine (Remeron) 15 mg QHS PO 08/13/19 21:00 08/19/19 21:33 Miscellaneous (Unresolved Clarification Entry) SEE LABEL COMMENTS DAILY XX 08/20/19 09:00 Nystatin (Mycostatin) balantitis- apply to head... BID TOP 08/13/19 21:00 08/20/19 09:26 Pantoprazole Sodium (Protonix) 40 mg BID PO 08/13/19 21:00 08/15/19 11:35 DC 08/15/19 09:07 Senna (Senokot) 1 tab QHS PO 08/13/19 21:00 08/14/19 16:22 DC 08/13/19 20:56 Tamsulosin HCl (Flomax) 0.4 mg QHS PO 08/13/19 21:00 08/19/19 21:33 ROXANA STINSON MD Aug 20, 2019 11:48
[2019-08-20 14:00] VITALS: BP 126/60
[2019-08-20 20:30] VITALS: BP 133/67
[2019-08-20 20:59] VITALS: BP 133/67
[2019-08-20] MEDS: MIRTAZAPINE 15 MG TAB PO SCH (20:59)
[2019-08-20] MEDS: TAMSULOSIN 0.4 MG CAP PO SCH (20:59)
[2019-08-21] MEDS: SINEMET 25-100 MG TAB PO SCH (05:58)
[2019-08-21 06:00] VITALS: BP 118/56
[2019-08-21] MEDS: IPRATROPIUM 0.5MG/ALBUTEROL 2.5MG INH SOL UD 3ML (DUONEB)(J7620) NEB SCH (07:18)
[2019-08-21] MEDS: CLOPIDOGREL 75 MG TAB PO SCH (07:38)
[2019-08-21] MEDS: FERROUS SULFATE 325MG TAB PO SCH (07:38)
[2019-08-21] MEDS: METOPROLOL TART 12.5 MG PER 1/2 TAB PO SCH (07:39)
[2019-08-21] MEDS: guaiFENesin 200 MG TAB PO SCH (07:39)
[2019-08-21] MEDS: FOLIC ACID 1 MG TAB PO SCH (07:39)
[2019-08-21] MEDS: ASPIRIN 81 MG ENTERIC TAB PO SCH (07:39)
[2019-08-21] MEDS: CYANOCOBALAMIN 500 MCG TAB PO SCH (07:40)
[2019-08-21] MEDS: BENZONATATE 100 MG CAP PO SCH (07:40)
[2019-08-21] MEDS: amLODIPine 10 MG TAB PO SCH (07:40)
[2019-08-21] MEDS: NYSTATIN CREAM 15 GM TOP SCH (07:41)
[2019-08-21] MEDS: REMEDY PHYTOPLEX Z-GUARD PASTE 113GM TUBE (FROM STOREROOM PRODUCT) TOP SCH (07:41)
--- NOTE | 2019-08-21 19:34 | PMRDS ---
DATE OF ADMISSION: 08/13/2019 DATE OF DISCHARGE: 08/21/2019 CHIEF COMPLAINT/DISCHARGE DIAGNOSIS: Urinary tract infection (UTI) with encephalopathy in the setting of Parkinson's. HISTORY OF PRESENT ILLNESS: An 84-year-old male with a past medical history of Parkinson's disease, hypertension, abdominal aortic aneurysm (AAA) status post grafting, cerebrovascular accident (CVA), chronic kidney disease (CKD) stage III, history of falls, gout, large hiatal hernia, nephrolithiasis, diastolic congestive heart failure (CHF), coronary artery disease (CAD) who presented to [facility] Emergency Department (ED) on 08/04/2019 with right flank pain and abdominal pain with visual hallucinations. CT abdomen showed "3 mm calculus at the right ureterovesical junction causing moderate right hydroureteronephrosis. There are three subcentimeter intrarenal calculi on the left. In addition, exophytic nodule of the upper pole left kidney measures 1.4 cm in maximum diameter." Renal ultrasound shows mild to moderate right hydronephrosis. He was evaluated by urology who recommended IVF and repeat ultrasound in a week with outpatient followup. He was treated for a Proteus urinary tract infection (UTI) thought to be the underlying cause of his cephalopathy. He had impairments in mobility below his prior level of function and deemed medically appropriate for discharge to acute rehabilitation unit (ARU) on 08/13/2019. PAST MEDICAL HISTORY: As per history of present illness (HPI). HOSPITAL COURSE: The patient was enrolled in a comprehensive physical therapy (PT), occupational therapy (OT), speech and language pathology program. He received 24-hour nursing supervision and weekly team meetings were held to discuss his progress. The patient was continued on his home dose of Sinemet for Parkinson's with no adjustments as required. The patient's episodes of encephalopathy and confusion gradually improved. He received vitamin B12 supplements for a borderline low B12 level and folic acid. He was also started on donepezil per family's request for his cognitive impairments, likely due to mild dementia. Repeat ultrasound was ordered showing resolution of the hydronephrosis and he was provided with an appointment for outpatient followup with urology. The patient arrived with loose stools with a known history of Clostridium (C) difficile. Bowel medications were discontinued and his loose stools improved. Overall, the patient did quite well in therapy, made significant gains, and was deemed medically and functionally stable to return home. DISCHARGE MEDICATIONS: As per instructions. FUNCTIONAL HISTORY: On discharge, the patient was standby assist to modified independent for functional transfers, able to ambulate 50 feet times three at a standby assist level, and in occupational therapy, he was modified independent for functional transfers, upper and lower body dressing. Thank you for this referral.
== END 2019-08-21 12:15 | disposition home health service (06) | DRG 57 ==
LOC: M PM&R 11:20
PROVIDERS: ADMIT Physical Medicine & Rehabilitation; ATTEND Physical Medicine & Rehabilitation
DX: G20 Parkinson's disease (principal); I13.0 Hypertensive heart and chronic kidney disease with heart failure and stage 1 through stage 4 chronic kidney disease, or unspecified chronic kidney disease; I50.32 Chronic diastolic (congestive) heart failure; G93.40 Encephalopathy, unspecified; N18.3 Chronic kidney disease, stage 3 (moderate); R29.6 Repeated falls; M10.9 Gout, unspecified; K44.9 Diaphragmatic hernia without obstruction or gangrene; I25.10 Atherosclerotic heart disease of native coronary artery without angina pectoris; Z66 Do not resuscitate; F03.90 Unspecified dementia, unspecified severity, without behavioral disturbance, psychotic disturbance, mood disturbance, and anxiety; R53.1 Weakness; G47.00 Insomnia, unspecified; F32.9 Major depressive disorder, single episode, unspecified; Z86.73 Personal history of transient ischemic attack (TIA), and cerebral infarction without residual deficits; Z79.82 Long term (current) use of aspirin; Z79.899 Other long term (current) drug therapy; Z87.442 Personal history of urinary calculi

== ENCOUNTER → 2019-08-29 | Outpatient (REF) | payer MEDICARE ==
[~2019-08-29] MED LIST changes: +FOLI1TAB11 PO; +VITA500T40 PO
[2019-08-29 14:13] LABS: APPEARANCE, URINE HAZY (CLEAR); BACTERIA, URINE AUTO NEGATIVE (NEGATIVE); BILIRUBIN, URINE AUTO NEGATIVE (NEGATIVE); BLOOD, URINE BLOOD NEGATIVE (NEGATIVE); COLOR, URINE YELLOW (YELLOW); GLUCOSE, URINE (UA) AUTO NEGATIVE (NEGATIVE); KETONE, URINE AUTO TRACE mg/dL (NEGATIVE); LEUKOCYTE ESTERASE, URINE AUTO 2+ (NEGATIVE); MUCUS, URINE SMALL (NEGATIVE); NITRITE, URINE AUTO NEGATIVE (NEGATIVE); PROTEIN, URINE AUTO NEGATIVE (NEGATIVE); RBC, URINE AUTO 1 /HPF (0-3); SPECIFIC GRAVITY URINE AUTO 1.017 (1.002-1.035); SQUAMOUS EPITHELIAL CELL UR AU 0 /HPF (0-6); WBC, URINE AUTO 5 /HPF (0-3)
== END ==
LOC: M SMT 13:51
PROVIDERS: ATTEND Nurse Practitioner Family
DX: N39.0 Urinary tract infection, site not specified (principal); N20.0 Calculus of kidney

== ENCOUNTER → 2019-09-03 | Outpatient (REF) | payer MEDICARE ==
[2019-09-03 18:21] LABS: APPEARANCE, URINE CLEAR (CLEAR); BACTERIA, URINE AUTO NEGATIVE (NEGATIVE); BILIRUBIN, URINE AUTO NEGATIVE (NEGATIVE); BLOOD, URINE BLOOD NEGATIVE (NEGATIVE); COLOR, URINE YELLOW (YELLOW); GLUCOSE, URINE (UA) AUTO NEGATIVE (NEGATIVE); KETONE, URINE AUTO NEGATIVE (NEGATIVE); LEUKOCYTE ESTERASE, URINE AUTO TRACE (NEGATIVE); NITRITE, URINE AUTO NEGATIVE (NEGATIVE); PROTEIN, URINE AUTO NEGATIVE (NEGATIVE); RBC, URINE AUTO 1 /HPF (0-3); SPECIFIC GRAVITY URINE AUTO 1.015 (1.002-1.035); SQUAMOUS EPITHELIAL CELL UR AU 0 /HPF (0-6); WBC, URINE AUTO 11 /HPF (0-3)
== END ==
LOC: M SMT 17:16
PROVIDERS: ATTEND Nurse Practitioner Family
DX: N39.0 Urinary tract infection, site not specified (principal)

== ENCOUNTER 2019-09-22 10:42 | Inpatient (IN) | payer MEDICARE ==
[~2019-09-22] VITALS: Ht 170.2 cm; Wt 74.6 kg
[2019-09-22] MEDS ORDERED: IPRATROPIUM 0.5MG/ALBUTEROL 2.5MG INH SOL UD 3ML (DUONEB)(J7620) NEB ONE (11:30)
--- NOTE | 2019-09-22 11:43 | REP ---
CT BRAIN WITHOUT IV CONTRAST: CT brain performed without IV contrast. Coronal reconstruction images are performed. There is moderate atrophy. There is no midline shift or mass effect. There are mild periventricular small vessel ischemic changes, which appear chronic in nature. There is no extra-axial fluid collection. No acute intracranial hemorrhage is seen. There are vascular calcifications in the carotid siphons. There is mild fluid in the sphenoid sinus as well as maxillary sinuses, suggesting mild sinusitis. IMPRESSION: Atrophy and chronic small vessel ischemic changes. No acute intracranial hemorrhage. Vascular calcifications. Mild maxillary and sphenoid sinusitis. Electronically Signed by Danish Medina MD 09/22/2019 06:43 P
[2019-09-22 11:50] LABS: VENOUS BASE EXCESS -1.5 (-2.0-2.0); VENOUS HCO3 24.5 MEQ/L (23.0-27.0); VENOUS O2 SATURATION 53.3 % (60.0-80.0); VENOUS PARTIAL PRESSURE CO2 46.3 mmHg (38.0-50.0); VENOUS PARTIAL PRESSURE O2 33.5 mmHg (30.0-50.0); VENOUS PH 7.341 UNITS (7.330-7.430); VENOUS STANDARD HCO3 22.4 MEQ/L; VENOUS TOTAL CO2 25.9 MEQ/L (24.0-28.0)
[2019-09-22 11:54] LABS: EOS % 0.2 % (0.0-3.0); HEMATOCRIT 32.7 % (42.0-52.0); HEMOGLOBIN 10.3 g/dl (13.5-17.5); LYMPH # 0.4 10^3/uL (1.5-5.0); LYMPH % 9.6 % (24.0-44.0); MEAN CORPUSCULAR HEMOGLOBIN 33.4 pg (27.0-33.0); MEAN CORPUSCULAR HGB CONC 31.5 g/dl (32.0-36.5); MEAN CORPUSCULAR VOLUME 106.2 fl (80.0-96.0); MONO # 0.9 10^3/uL (0.0-0.8); MONO % 21.2 % (0.0-5.0); NEUTROPHILS # 2.7 10^3/uL (1.5-8.5); NEUTROPHILS % 66.8 % (36.0-66.0); RED BLOOD COUNT 3.08 10^6/uL (4.30-6.10); WHITE BLOOD COUNT 4.1 10^3/uL (4.0-10.0)
[2019-09-22] MEDS: NS 1,000 ML IV SCH ×2 (12:05→19:49)
[2019-09-22 12:13] LABS: PLATELET COUNT, AUTOMATED 178 10^3/uL (150-450)
[2019-09-22] MEDS ORDERED: FOLI1TAB11 PO (12:29)
[2019-09-22] MEDS ORDERED: AMPI500C9 PO (12:29)
[2019-09-22] MEDS ORDERED: B-12100021 PO (12:29)
[2019-09-22] MEDS ORDERED: CLOP75TA2 PO (12:29)
[2019-09-22] MEDS ORDERED: ASPI81TA85 PO (12:29)
[2019-09-22] MEDS ORDERED: FLOM0.4C39 PO (12:29)
[2019-09-22] MEDS ORDERED: AMLO10TA5 PO (12:29)
[2019-09-22] MEDS ORDERED: REME15TA PO (12:29)
[2019-09-22] MEDS ORDERED: CARB25TA9 PO (12:29)
[2019-09-22] MEDS ORDERED: METO1TAB87 PO (12:29)
[2019-09-22 12:45] LABS: INR 1.41; PROTHROMBIN TIME 16.9 SECONDS (11.8-14.0)
--- NOTE | 2019-09-22 12:50 | REP ---
CHEST, SINGLE VIEW: Single view of the chest is performed and compared to several prior studies, most recently, 08/08/2019. There is infiltrate in the right upper lobe. I also suspect left lower lobe infiltrate. Cardiac silhouette is again prominent. There are multiple sternal wires and mediastinal clips present. Mediastinal silhouette appears unchanged. Electronically Signed by Danish Medina MD 09/22/2019 06:46 P
--- NOTE | 2019-09-22 12:58 | REP ---
Left lower extremity Duplex Doppler venous ultrasound: Real time compression and duplex Doppler interrogation of the left lower extremity deep venous system is performed. The left common femoral, superficial femoral and popliteal veins are fully compressible with transducer pressure and demonstrate normal spontaneous and phasic flow, without evidence of deep venous thrombosis. Impression: No evidence of deep venous thrombosis of the left lower extremity femoral popliteal venous system. Electronically Signed by Danish Medina MD 09/22/2019 12:50 P
[2019-09-22] MEDS ORDERED: cefTRIAXone SOD 2 GM in D5W MINI-BAG PLUS 50 ML IV ONE (13:00)
[2019-09-22 14:35] LABS: ALBUMIN 3.2 GM/DL (3.2-5.2); ALT/SGPT 11 U/L (12-78); BILIRUBIN,DIRECT 0.4 MG/DL (0.0-0.2); BILIRUBIN,TOTAL 0.8 MG/DL (0.2-1.0); BLOOD UREA NITROGEN 23 MG/DL (7-18); C REACTIVE PROTEIN QUANTITATIV 5.96 MG/DL (0.00-0.30); CALCIUM LEVEL 8.9 MG/DL (8.8-10.2); CARBON DIOXIDE LEVEL 24 MEQ/L (21-32); CHLORIDE LEVEL 107 MEQ/L (98-107); CK-MB VALUE MASS < 1.0 NG/ML (<3.6); CPK CREATINE PHOSPHOKINASE 58 U/L (39-308); CREATININE FOR GFR 1.52 MG/DL (0.70-1.30); GLOMERULAR FILTRATION RATE 46.9 (>35); GLUCOSE, FASTING 90 MG/DL (70-100); MB/CK RELATIVE INDEX 1.72 (< OR =4); POTASSIUM SERUM 4.6 MEQ/L (3.5-5.1); SODIUM LEVEL 137 MEQ/L (136-145); TOTAL PROTEIN 7.3 GM/DL (6.4-8.2); TROPONIN I 0.05 NG/ML (< 0.10)
--- NOTE | 2019-09-22 15:17 | HPEPDOC ---
[facility] Medical History & Physical Date of Admission Sep 22, 2019 Date of Service: Sep 22, 2019 Attending Physician: JOSE CONTRERAS MD History and Physical CHIEF COMPLAINT: SOB, cough HISTORY OF PRESENT ILLNESS: 84 y.o male w/ PMH of Parkinson's disease, CKD, CAD s/p CABG, PVD & HTN presents from home with SOB & cough. Patient's has been diagnosed w/ viral URI and superimposed bacterial pneumonia and currently admitted at [facility]. He developed respiratory symptoms at the same time as his two weeks ago; his symptoms have been worsening over the past few days, with associated fatigue, generalized weakness, myalgia and arthralgia. In the ED, patient is found to have mild hypoxemia and infiltrates on chest x-ray. Respiratory viral panel was negative. Patient is otherwise comfortable, no additional complaints. He denies any chest pain, nausea, vomiting, abdominal pain or diarrhea. 10 point review of system is negative so for above PAST MEDICAL HISTORY: 1. Parkinson's disease. 2. Chronic kidney disease. 3. Coronary artery disease. 4. Hypertension 5. Peripheral vascular disease PAST SURGICAL HISTORY: 1. CABG. 2. Femoropopliteal bypass. SOCIAL HISTORY: Previous pipe smoker. Denies alcohol use. denies drug use FAMILY HISTORY: Mother had [place] ALLERGIES: Please see below. HOME MEDICATIONS: Please see below. PHYSICAL EXAMINATION: VITAL SIGNS: Please see below. GENERAL: No distress HEENT: Normocephalic, atraumatic, moist mucous membranes NECK: Supple CARDIOVASCULAR EXAMINATION: S1, S2, no murmurs RESPIRATORY EXAMINATION: Scattered rhonchi, distant, no wheezing ABDOMINAL EXAMINATION: Soft, nontender, nondistended, positive bowel sounds EXTREMITIES: Range of motion intact SKIN: No rash NEUROLOGICAL EXAMINATION: Alert and oriented 3, no focal deficits PSYCHIATRIC EXAMINATION: Calm and cooperative LABORATORY DATA: See below. IMAGING: Chest x-ray showing pulmonary infiltrates MICROBIOLOGY: Please see below. ASSESSMENT: 84-year-old male with multiple medical morbidities, recent viral illness, presents with likely bacterial pneumonia. . PLAN: 1. Viral infection with superimposed bacterial pneumonia. Chest x-ray showing multifocal pneumonia, CT chest without contrast for better evaluation, and respiratory viral panel negative, Levaquin, renally dosed, blood cultures pending, supplemental oxygen as needed to maintain O2 sats between 88- 92%. 2. Coronary artery disease. History of CABG, continue aspirin, Plavix, beta katerina and statin. 3. Peripheral vascular disease. History of bilateral femoropopliteal bypass, continue aspirin, Plavix and statin 4. Parkinson's disease. Continue carbidopa, levodopa 5. Hypertension Continue Norvasc and metoprolol DVT prophylaxis: Heparin subcutaneous GI prophylaxis: Protonix Vital Signs Vital Signs Date Time Temp Pulse Resp B/P (MAP) Pulse Ox O2 Delivery O2 Flow Rate FiO2 09/22/19 13:40 Room Air 09/22/19 13:30 106 129/93 (105) 94 09/22/19 10:44 99.5 30 Laboratory Data Labs 24H Laboratory Tests 2 09/22/19 11:39: Immature Granulocyte % (Auto) 1.2, Neutrophils (%) (Auto) 66.8H, Lymphocytes (%) (Auto) 9.6L, Monocytes (%) (Auto) 21.2H, Eosinophils (%) (Auto) 0.2, Basophils ( %) (Auto) 1.0, Neutrophils # (Auto) 2.7, Lymphocytes # (Auto) 0.4L, Monocytes # (Auto) 0.9H, Eosinophils # (Auto) 0.0, Basophils # (Auto) 0.0, Nucleated Red Blood Cells % (auto) 0.0, Blood Gas Bicarbonate Standard 22.4, Venous Blood pH 7.341, Venous Blood Partial Pressure CO2 46.3, Venous Blood Partial Pressure O2 33.5, Venous Blood Total Carbon Dioxide 25.9, Venous Blood HCO3 24.5, Venous Blood Oxygen Saturation 53.3L, Venous Blood Base Excess -1.5, Lactic Acid Level 3.2*H 09/22/19 12:29: Prothrombin Time 16.9H, Prothromb Time International Ratio 1.41 09/22/19 13:05: Anion Gap 6L, Glomerular Filtration Rate 46.9, Calcium Level 8.9, Total Bilirubin 0.8, Direct Bilirubin 0.4H, Aspartate Amino Transf (AST/SGOT) 14, Alanine Aminotransferase (ALT/SGPT) 11L, Alkaline Phosphatase 69, Total Creatine Kinase 58, Creatine Kinase MB < 1.0, Creatine Kinase MB Relative Index 1.72, Troponin I 0.05, C-Reactive Protein, Quantitative 5.96H, Total Protein 7.3, A lbumin 3.2, Albumin/Globulin Ratio 0.78L CBC/BMP Laboratory Tests 09/22/19 11:39 09/22/19 13:05 Microbiology Microbiology 09/22/19 Respiratory Virus Panel (PCR) (KD) - Final, Complete 09/22/19 Blood Culture, Received Pending 09/22/19 Blood Culture, Received Pending Home Medications Scheduled Amlodipine Besylate (Amlodipine Besylate) 10 Mg Tablet, 10 MG PO DAILY Ampicillin Trihydrate (Ampicillin Trihydrate) 500 Mg Capsule, 500 MG PO QID PT HAS BEEN TAKING 2 OR 3 A DAY Aspirin (Aspir 81) 81 Mg Tablet.dr, 81 MG PO DAILY Carbidopa/Levodopa (Carbidopa-Levodopa 25-100 Tab) 1 Each Tablet, 1 TAB PO BID 0900, 2100 Clopidogrel Bisulfate (Clopidogrel) 75 Mg Tablet, 75 MG PO DAILY Cyanocobalamin (Vitamin B-12) (B-12) 1,000 Mcg Tablet, 1,000 MCG PO DAILY Ferrous Sulfate (Ferrous Sulfate) 325 Mg Tablet, 325 MG PO BID Folic Acid (Folic Acid) 1 Mg Tablet, 1 MG PO DAILY Magnesium Oxide (Magnesium) 400 Mg Cap, 400 MG PO DAILY Metoprolol Tartrate (Metoprolol Tartrate) 25 Mg Tablet, 12.5 MG PO BID Mirtazapine (Remeron) 15 Mg Tablet, 15 MG PO QHS Pantoprazole Sodium (Pantoprazole Sodium) 40 Mg Tablet.dr, 40 MG PO BID Tamsulosin HCl (Flomax) 0.4 Mg Capsule, 0.4 MG PO QHS Allergies Coded Allergies: No Known Drug Allergies (Verified Allergy, Unknown, 04/15/19) A-FIB/CHADSVASC A-FIB History Current/History of A-Fib/PAF?: No JOSE CONTRERAS MD Sep 22, 2019 15:17
[2019-09-22 15:45] VITALS: BP 143/91
[2019-09-22] MEDS: ASPIRIN 81 MG ENTERIC TAB PO SCH (16:21)
[2019-09-22] MEDS: CLOPIDOGREL 75 MG TAB PO SCH (16:21)
[2019-09-22] MEDS: amLODIPine 10 MG TAB PO SCH (16:21)
[2019-09-22] MEDS: FOLIC ACID 1 MG TAB PO SCH (16:21)
--- NOTE | 2019-09-22 17:54 | ECGEPIP ---
[facility] - ED Test Date: 2019-09-22 Pat Name: TORIBIO ZARAGOZA Department: Room: - Gender: Male Lap Checker: dudley : 1935 Requested By: Elva Tsang Order Number: [id number] Reading MD: Elva Tsang Measurements Intervals [place] Rate: 106 P: [place]: 0 QRS: 61 QRSD: 93 T: 5 QT: 336 QTc: 447 Interpretive Statements ATRIAL FIBRILLATION WITH RAPID VENTRICULAR RESPONSE INCOMPLETE RIGHT BUNDLE BRANCH BLOCK ST DEVIATION AND MODERATE T-WAVE ABNORMALITY, CONSIDER ISCHEMIA Electronically Signed on 09-22-2019 17:54:23 EST by Elva Tsang
[2019-09-22] MEDS: LevoFLOXacin 750 MG TABLET PO SCH (17:58)
[2019-09-22] MEDS: MIRTAZAPINE 15 MG TAB PO SCH (20:03)
[2019-09-22] MEDS: SINEMET 25-100 MG TAB PO SCH (20:03)
[2019-09-22] MEDS: METOPROLOL TART 12.5 MG PER 1/2 TAB PO SCH (20:03)
[2019-09-22] MEDS: TAMSULOSIN 0.4 MG CAP PO SCH (20:03)
[2019-09-22] MEDS: ACETAMINOPHEN TAB 650MG DOSE (2X325MG) PO PRN (20:03)
[2019-09-22] MEDS: NYSTATIN 100,000 UNITS/GM TOPICAL PWD 15 GM TOP SCH (20:04)
[2019-09-22] MEDS: HEPARIN SOD (PORCINE) 5000 UNITS/ML VIAL (J1644 PER 1000UNITS) SC SCH (20:04)
[2019-09-22] MEDS: FERROUS SULFATE 325MG TAB PO SCH (20:04)
[2019-09-22] MEDS: PANTOPRAZOLE 40MG TAB (PROTONIX) PO SCH (20:04)
[2019-09-22 22:00] VITALS: BP 144/88
[2019-09-23] MEDS: NS 1,000 ML IV SCH (02:31)
[2019-09-23 06:00] VITALS: BP 119/70
[2019-09-23 06:40] LABS: HEMATOCRIT 31.4 % (42.0-52.0); HEMOGLOBIN 9.5 g/dl (13.5-17.5); MEAN CORPUSCULAR HEMOGLOBIN 33.5 pg (27.0-33.0); MEAN CORPUSCULAR HGB CONC 30.3 g/dl (32.0-36.5); MEAN CORPUSCULAR VOLUME 110.6 fl (80.0-96.0); PLATELET COUNT, AUTOMATED 132 10^3/uL (150-450); RED BLOOD COUNT 2.84 10^6/uL (4.30-6.10); WHITE BLOOD COUNT 3.2 10^3/uL (4.0-10.0)
[2019-09-23 06:53] LABS: ALBUMIN 2.5 GM/DL (3.2-5.2); BILIRUBIN,TOTAL 0.6 MG/DL (0.2-1.0); CALCIUM LEVEL 7.8 MG/DL (8.8-10.2); CREATININE FOR GFR 1.33 MG/DL (0.70-1.30); GLOMERULAR FILTRATION RATE 54.7 (>35); MAGNESIUM LEVEL 2.1 MG/DL (1.8-2.4); PHOSPHORUS LEVEL 3.2 MG/DL (2.5-4.9); POTASSIUM SERUM 4.4 MEQ/L (3.5-5.1); TOTAL PROTEIN 7.2 GM/DL (6.4-8.2)
--- NOTE | 2019-09-23 07:28 | REP ---
CT CHEST WITHOUT CONTRAST: CT chest performed without IV contrast. Sagittal and coronal reconstruction images are performed. There is moderate degree of patchy infiltrate in the right upper lobe. There is adjacent mild fluid in the superior fissure. More inferiorly in the anterior aspect of the right upper lobe, there is an irregular nodular opacity 9 mm in diameter. This could represent a small focal infiltrate, but followup is suggested to rule out neoplasm. Mild patchy densities in the posterior aspect of the left upper lobe and in the inferior aspect of the left lower lobe may represent areas of atelectasis or infiltrate. There is a small left pleural effusion. Multiple subcentimeter lymph nodes are seen throughout the mediastinum, likely reactive. Atherosclerotic calcifications are noted of the thoracic aorta with ectasia of the ascending thoracic aorta 4.4 cm in diameter. Heart is upper limits of normal in size. There is no pericardial effusion. There is a large hiatal hernia. In the visualized upper abdomen, note is made of gallstones in the gallbladder. There are degenerative changes of the spine. IMPRESSION: Dense patchy infiltrate right upper lobe. Adjacent fluid in the major fissure, superior aspect. 9 mm irregular nodular opacity more inferiorly in the anterior aspect of the right upper lobe may represent small satellite infiltrate, but followup CT is recommended to ensure resolution of the findings in the right upper lobe. There are mild patchy areas of atelectasis or infiltrate in the left upper and lower lobes with a small left effusion. Multiple subcentimeter lymph nodes in the mediastinum are likely reactive. Electronically Signed by Danish Medina MD 09/23/2019 05:52 P
[2019-09-23] MEDS: PANTOPRAZOLE 40MG TAB (PROTONIX) PO SCH ×2 (08:10→20:55)
[2019-09-23] MEDS: CLOPIDOGREL 75 MG TAB PO SCH (08:10)
[2019-09-23] MEDS: ASPIRIN 81 MG ENTERIC TAB PO SCH (08:10)
[2019-09-23] MEDS: HEPARIN SOD (PORCINE) 5000 UNITS/ML VIAL (J1644 PER 1000UNITS) SC SCH ×2 (08:10→20:55)
[2019-09-23] MEDS: METOPROLOL TART 12.5 MG PER 1/2 TAB PO SCH ×2 (08:10→20:57)
[2019-09-23] MEDS: FERROUS SULFATE 325MG TAB PO SCH ×2 (08:10→20:55)
[2019-09-23] MEDS: SINEMET 25-100 MG TAB PO SCH ×2 (08:10→20:55)
[2019-09-23] MEDS: amLODIPine 10 MG TAB PO SCH (08:10)
[2019-09-23] MEDS: FOLIC ACID 1 MG TAB PO SCH (08:10)
[2019-09-23] MEDS: NYSTATIN 100,000 UNITS/GM TOPICAL PWD 15 GM TOP SCH ×2 (08:18→20:56)
[2019-09-23] MEDS: IPRATROPIUM 0.5MG/ALBUTEROL 2.5MG INH SOL UD 3ML (DUONEB)(J7620) NEB PRN ×3 (08:27→21:33)
--- NOTE | 2019-09-23 11:06 | IPNPDOC ---
Date Seen The patient was seen on 09/23/19. Progress Note SUBJECTIVE: 84 y.o male w/ PMH of Parkinson's disease, CKD, CAD s/p CABG, PVD & HTN presents from home with SOB & cough. Patient's has been diagnosed w/ viral URI and superimposed bacterial pneumonia and currently admitted at [facility]. He developed respiratory symptoms at the same time as his two weeks ago; his symptoms have been worsening over the past few days, with associated fatigue, g eneralized weakness, myalgia and arthralgia. In the ED, patient is found to have mild hypoxemia and infiltrates on chest x-ray. Respiratory viral panel was negative. Patient is otherwise comfortable, no additional complaints. He denies any chest pain, nausea, vomiting, abdominal pain or diarrhea. 09/23/19 Patient seen in the morning, comfortable in bed, continues to have mild dyspnea and dry cough, improved from yesterday, no other complaints. 10 point review of system is negative so for above PHYSICAL EXAMINATION: VITAL SIGNS: Please see below. GENERAL: No distress HEENT: Normocephalic, atraumatic, moist mucous membranes NECK: Supple CARDIOVASCULAR EXAMINATION: S1, S2, irregular, no murmurs RESPIRATORY EXAMINATION: Scattered rhonchi, distant, no wheezing ABDOMINAL EXAMINATION: Soft, nontender, nondistended, positive bowel sounds EXTREMITIES: Range of motion intact SKIN: No rash NEUROLOGICAL EXAMINATION: Alert and oriented 3, no focal deficits PSYCHIATRIC EXAMINATION: Calm and cooperative LABORATORY DATA: See below. IMAGING: Chest x-ray showing pulmonary infiltrates MICROBIOLOGY: Please see below. ASSESSMENT: 84-year-old male with multiple medical morbidities, recent viral illness, presents with likely bacterial pneumonia. PLAN: 1. Viral infection with superimposed bacterial pneumonia. Recent viral infection, CT chest showing right upper lobe pneumonia with left lower lobe infiltrate/atelectasis, continue Levaquin, blood cultures pending, supplemental oxygen as needed to maintain O2 sats between 88-92%. 2. Coronary artery disease. History of CABG, continue aspirin, Plavix, statin and beta katerina. 3. Peripheral vascular disease. History of bilateral femoropopliteal bypass, continue aspirin, Plavix and statin 4. Parkinson's disease. Continue carbidopa, levodopa 5. Hypertension Continue Norvasc and metoprolol DVT prophylaxis: Heparin subcutaneous GI prophylaxis: Protonix VS, I&O, 24H, Fishbone Vital Signs/I&O Vital Signs Date Time Temp Pulse Resp B/P (MAP) Pulse Ox O2 Delivery O2 Flow Rate FiO2 09/23/19 08:10 100 120/71 09/23/19 08:08 99.7 09/23/19 06:00 20 90 Nasal Cannula 09/22/19 20:00 1.0 I&O- Last 24 Hours up to 6 AM 09/23/19 06:00 Intake Total 2724 ml Balance 2724 ml Laboratory Data 24H LABS Laboratory Tests 2 09/22/19 11:39: Immature Granulocyte % (Auto) 1.2, Neutrophils (%) (Auto) 66.8H, Lymphocytes (%) (Auto) 9.6L, Monocytes (%) (Auto) 21.2H, Eosinophils (%) (Auto) 0.2, Basophils (%) (Auto) 1.0, Neutrophils # (Auto) 2.7, Lymphocytes # (Auto) 0.4L, Monocytes # (Auto) 0.9H, Eosinophils # (Auto) 0.0, Basophils # (Auto) 0.0, Nucleated Red Blood Cells % (auto) 0.0, Blood Gas Bicarbonate Standard 22.4, Venous Blood pH 7.341, Venous Blood Partial Pressure CO2 46.3, Venous Blood Partial Pressure O2 33.5, Venous Blood Total Carbon Dioxide 25.9, Venous Blood HCO3 24.5, Venous Blood Oxygen Saturation 53.3L, Venous Blood Base Excess -1.5, Lactic Acid Level 3.2*H 09/22/19 12:29: Prothrombin Time 16.9H, Prothromb Time International Ratio 1.41 09/22/19 13:05: Anion Gap 6L, Glomerular Filtration Rate 46.9, Calcium Level 8.9, Total Bilirubin 0.8, Direct Bilirubin 0.4H, Aspartate Amino Transf (AST/SGOT) 14, Alanine Aminotransferase (ALT/SGPT) 11L, Alkaline Phosphatase 69, Total Creatine Kinase 58, Creatine Kinase MB < 1.0, Creatine Kinase MB Relative Index 1.72, Troponin I 0.05, C-Reactive Protein, Quantitative 5.96H, Total Protein 7.3, Albumin 3.2, Albumin/Globulin Ratio 0.78L 09/22/19 16:32: Lactic Acid Followup at 4 Hours 1.7 09/23/19 06:09: Nucleated Red Blood Cells % (auto) 0.0, Anion Gap 8, Glomerular Filtration Rate 54.7, Calcium Level 7.8L, Phosphorus Level 3.2, Magnesium Level 2.1, Total Bilirubin 0.6, Aspartate Amino Transf (AST/SGOT) 13, Alanine Aminotransferase (ALT/SGPT) 8L, Alkaline Phosphatase 63, Total Protein 7.2, Albumin 2.5#L, Albumin/Globulin Ratio 0.53L CBC/BMP Laboratory Tests 09/22/19 11:39 09/22/19 13:05 09/23/19 06:09 Microbiology Microbiology 09/22/19 Respiratory Virus Panel (PCR) (KD) - Final, Complete 09/22/19 Blood Culture, Received Pending 09/22/19 Blood Culture, Received Pending JOSE CONTRERAS MD Sep 23, 2019 11:06
[2019-09-23] MEDS ORDERED: ATORVASTATIN 10 MG TAB PO ONE (11:15)
[2019-09-23 14:00] VITALS: BP 112/73
--- NOTE | 2019-09-23 14:11 | ECGEPIP ---
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
[2019-09-23] MEDS: ACETAMINOPHEN TAB 650MG DOSE (2X325MG) PO PRN (18:55)
[2019-09-23] MEDS: TAMSULOSIN 0.4 MG CAP PO SCH (20:55)
[2019-09-23] MEDS: MIRTAZAPINE 15 MG TAB PO SCH (20:55)
[2019-09-23 22:00] VITALS: BP 115/71
[2019-09-23 23:30] VITALS: BP 102/64
[2019-09-24] MEDS: ACETAMINOPHEN TAB 650MG DOSE (2X325MG) PO PRN ×2 (00:43→20:08)
[2019-09-24] MEDS: IPRATROPIUM 0.5MG/ALBUTEROL 2.5MG INH SOL UD 3ML (DUONEB)(J7620) NEB PRN ×4 (01:09→20:51)
[2019-09-24 06:00] VITALS: BP 102/84
[2019-09-24 06:02] LABS: HEMATOCRIT 30.2 % (42.0-52.0); HEMOGLOBIN 9.3 g/dl (13.5-17.5); MEAN CORPUSCULAR HEMOGLOBIN 32.9 pg (27.0-33.0); MEAN CORPUSCULAR HGB CONC 30.8 g/dl (32.0-36.5); MEAN CORPUSCULAR VOLUME 106.7 fl (80.0-96.0); PLATELET COUNT, AUTOMATED 144 10^3/uL (150-450); RED BLOOD COUNT 2.83 10^6/uL (4.30-6.10); WHITE BLOOD COUNT 2.8 10^3/uL (4.0-10.0)
[2019-09-24 07:29] LABS: CALCIUM LEVEL 8.5 MG/DL (8.8-10.2); CREATININE FOR GFR 1.71 MG/DL (0.70-1.30); GLOMERULAR FILTRATION RATE 40.9 (>35); POTASSIUM SERUM 4.8 MEQ/L (3.5-5.1)
[2019-09-24] MEDS: amLODIPine 10 MG TAB PO SCH (09:00)
[2019-09-24] MEDS: FERROUS SULFATE 325MG TAB PO SCH ×2 (09:47→20:09)
[2019-09-24] MEDS: ASPIRIN 81 MG ENTERIC TAB PO SCH (09:47)
[2019-09-24] MEDS: METOPROLOL TART 12.5 MG PER 1/2 TAB PO SCH ×2 (09:47→20:10)
[2019-09-24] MEDS: SINEMET 25-100 MG TAB PO SCH ×2 (09:51→20:09)
[2019-09-24] MEDS: CLOPIDOGREL 75 MG TAB PO SCH (09:51)
[2019-09-24] MEDS: FOLIC ACID 1 MG TAB PO SCH (09:51)
[2019-09-24] MEDS: PANTOPRAZOLE 40MG TAB (PROTONIX) PO SCH ×2 (09:51→20:08)
[2019-09-24] MEDS: ATORVASTATIN 10 MG TAB PO SCH (09:51)
--- NOTE | 2019-09-24 09:51 | ECHO ---
DATE OF PROCEDURE: 09/13/2019 REFERRING PHYSICIAN: Dr. Davies INDICATION: Congestive heart failure. HEIGHT: 170 cm. WEIGHT: 75 kg. DIMENSIONS: IVS 1.5 LV 4.8 LVPW 1.5 LA 4.2 Aorta 4.8 RV 4.2 IVC: 2.4 Mitral E wave velocity 98 E prime septal 4.9 E prime lateral 9.0 FINDINGS: The study is of fair technical quality. The patient is in atrial fibrillation with variable rate varying between 70 and 110 beats per minute (BPM). Normal LV size with moderate LVH and overall preserved LV systolic function. Estimated LVEF around 50% to 55%. Right ventricle appears normally contractile. There is biatrial enlargement. Aortic valve is sclerotic, but mobility of leaflets is preserved. There are degenerative abnormalities of mitral valve with mitral annular calcifications, but mobility of leaflets is preserved. No visualized prolapse is seen. Tricuspid valve appears normal. Pulmonic valve was not visualized. No pericardial effusion is noted. Inferior vena cava is dilated, but it does collapse partially with inspiration indicative of elevated central venous pressure (CVP). Doppler interrogation reveals no aortic stenosis or insufficiency. There is approximately moderate mitral insufficiency with somewhat eccentric MR jet. There is approximately moderate tricuspid insufficiency. Calculated pulmonary artery pressure is at a minimum high 50s, which would correspond to moderately severe pulmonary hypertension. Central venous pressure is elevated, as well. Evaluation of diastolic function is inconclusive due to underlying atrial fibrillation. CONCLUSIONS: 1. Study is of fair technical quality. The patient is in atrial fibrillation with somewhat tachycardic rate. 2. Normal LV size with moderate LVH and low normal LV systolic function. 3. Moderate mitral and tricuspid insufficiency. 4. High central venous pressure and probably moderately severe pulmonary hypertension. 5. Biatrial enlargement. COMMENT: Subacute bacterial endocarditis (SBE) prophylaxis is not recommended. 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 [facility]
[2019-09-24] MEDS: HEPARIN SOD (PORCINE) 5000 UNITS/ML VIAL (J1644 PER 1000UNITS) SC SCH ×2 (09:52→20:09)
[2019-09-24] MEDS: NYSTATIN 100,000 UNITS/GM TOPICAL PWD 15 GM TOP SCH ×2 (09:52→20:09)
[2019-09-24 14:00] VITALS: BP 102/65
[2019-09-24] MEDS: LevoFLOXacin 750 MG TABLET PO SCH (17:23)
[2019-09-24] MEDS: guaiFENesin ER 600 MG TAB PO SCH (20:08)
[2019-09-24] MEDS: TAMSULOSIN 0.4 MG CAP PO SCH (20:08)
[2019-09-24] MEDS: MIRTAZAPINE 15 MG TAB PO SCH (20:09)
--- NOTE | 2019-09-24 20:22 | IPNPDOC ---
Date Seen The patient was seen on 09/24/19. Progress Note SUBJECTIVE: 84 y.o male w/ PMH of Parkinson's disease, CKD, CAD s/p CABG, PVD & HTN presents from home with SOB & cough. Patient's has been diagnosed w/ viral URI and superimposed bacterial pneumonia and currently admitted at [facility]. He developed respiratory symptoms at the same time as his two weeks ago; his symptoms have been worsening over the past few days, with associated fatigue, g eneralized weakness, myalgia and arthralgia. In the ED, patient is found to have mild hypoxemia and infiltrates on chest x-ray. Respiratory viral panel was negative. Patient is otherwise comfortable, no additional complaints. He denies any chest pain, nausea, vomiting, abdominal pain or diarrhea. 09/23/19 Patient seen in the morning, comfortable in bed, continues to have mild dyspnea and dry cough, improved from yesterday, no other complaints. 09/24/19 Comfortable in bed, reports improvement in dyspnea, remains on supplemental oxygen, PT recommends rehab & patient lives alone but patient is adamant about returning home. 10 point review of system is negative so for above PHYSICAL EXAMINATION: VITAL SIGNS: Please see below. GENERAL: No distress HEENT: Normocephalic, atraumatic, moist mucous membranes NECK: Supple CARDIOVASCULAR EXAMINATION: S1, S2, irregular, no murmurs RESPIRATORY EXAMINATION: Scattered rhonchi, no wheezing ABDOMINAL EXAMINATION: Soft, nontender, nondistended, positive bowel sounds EXTREMITIES: Range of motion intact SKIN: No rash NEUROLOGICAL EXAMINATION: Alert and oriented 3, no focal deficits PSYCHIATRIC EXAMINATION: Calm and cooperative LABORATORY DATA: See below. MICROBIOLOGY: Please see below. ASSESSMENT: 84-year-old male with multiple medical morbidities, recent viral illness, presents with likely bacterial pneumonia. PLAN: 1. Viral infection with superimposed bacterial pneumonia. Recent viral infection, CT chest showing right upper lobe pneumonia with left lower lobe infiltrate/atelectasis, continue Levaquin, blood cultures negative, supplemental oxygen as needed to maintain O2 sats between 88-92%. 2. Coronary artery disease. History of CABG, continue aspirin, Plavix, statin and beta katerina. 3. Peripheral vascular disease. History of bilateral femoropopliteal bypass, continue aspirin, Plavix and statin 4. Parkinson's disease. Continue carbidopa, levodopa 5. Hypertension Continue Norvasc and metoprolol 6. Lactic acidosis - on presentation, resolved w/ fluids. 7. A fib - paroxysmal, chronic, not on anticoagulation, has been evaluated by Cardiology previously. DVT prophylaxis: Heparin subcutaneous GI prophylaxis: Protonix VS, I&O, 24H, Fishbone Vital Signs/I&O Vital Signs Date Time Temp Pulse Resp B/P (MAP) Pulse Ox O2 Delivery O2 Flow Rate FiO2 09/24/19 14:00 98.2 52 20 102/65 (77) 92 09/24/19 09:00 2.0 09/24/19 06:00 Nasal Cannula I&O- Last 24 Hours up to 6 AM 09/24/19 06:00 Intake Total 660 ml Balance 660 ml Laboratory Data 24H LABS Laboratory Tests 2 09/24/19 05:33: Nucleated Red Blood Cells % (auto) 0.0, Anion Gap 4L, Glomerular Filtration Rate 40.9, Calcium Level 8.5L CBC/BMP Laboratory Tests 09/24/19 05:33 Microbiology Microbiology 09/22/19 Respiratory Virus Panel (PCR) (KD) - Final, Complete 09/22/19 Blood Culture - Preliminary, Resulted No Growth after 48 hours. All Specime... 09/22/19 Blood Culture - Preliminary, Resulted No Growth after 48 hours. All Specime... JOSE CONTRERAS MD Sep 24, 2019 20:22
[2019-09-24 22:00] VITALS: BP 105/64
[2019-09-25 06:00] VITALS: BP 102/70
[2019-09-25 06:12] LABS: HEMOGLOBIN 9.7 g/dl (13.5-17.5); MEAN CORPUSCULAR HEMOGLOBIN 33.1 pg (27.0-33.0); MEAN CORPUSCULAR HGB CONC 31.3 g/dl (32.0-36.5); MEAN CORPUSCULAR VOLUME 105.8 fl (80.0-96.0); PLATELET COUNT, AUTOMATED 122 10^3/uL (150-450); RED BLOOD COUNT 2.93 10^6/uL (4.30-6.10); WHITE BLOOD COUNT 2.3 10^3/uL (4.0-10.0)
[2019-09-25 06:35] LABS: CALCIUM LEVEL 8.7 MG/DL (8.8-10.2); CREATININE FOR GFR 1.54 MG/DL (0.70-1.30); GLOMERULAR FILTRATION RATE 46.2 (>35); POTASSIUM SERUM 4.7 MEQ/L (3.5-5.1)
[2019-09-25] MEDS: FOLIC ACID 1 MG TAB PO SCH (10:01)
[2019-09-25] MEDS: FERROUS SULFATE 325MG TAB PO SCH (10:02)
[2019-09-25] MEDS: NYSTATIN 100,000 UNITS/GM TOPICAL PWD 15 GM TOP SCH (10:02)
[2019-09-25] MEDS: HEPARIN SOD (PORCINE) 5000 UNITS/ML VIAL (J1644 PER 1000UNITS) SC SCH (10:02)
[2019-09-25] MEDS: PANTOPRAZOLE 40MG TAB (PROTONIX) PO SCH (10:02)
[2019-09-25] MEDS: SINEMET 25-100 MG TAB PO SCH (10:02)
[2019-09-25] MEDS: guaiFENesin ER 600 MG TAB PO SCH (10:02)
[2019-09-25] MEDS: ATORVASTATIN 10 MG TAB PO SCH (10:02)
[2019-09-25 10:03] VITALS: BP 102/70
[2019-09-25] MEDS: CLOPIDOGREL 75 MG TAB PO SCH (10:03)
[2019-09-25] MEDS: METOPROLOL TART 12.5 MG PER 1/2 TAB PO SCH (10:03)
[2019-09-25] MEDS: ASPIRIN 81 MG ENTERIC TAB PO SCH (10:03)
[2019-09-25] MEDS: amLODIPine 10 MG TAB PO SCH (10:03)
[2019-09-25 10:10] VITALS: BP 114/72
[2019-09-25] MEDS ORDERED: LEVA750T7 PO (13:30)
[2019-09-25] MEDS ORDERED: ATOR1TAB19 PO (13:30)
[2019-09-25 14:00] VITALS: BP 114/75
[2019-09-25] MEDS: IPRATROPIUM 0.5MG/ALBUTEROL 2.5MG INH SOL UD 3ML (DUONEB)(J7620) NEB PRN (14:15)
--- NOTE | 2019-09-25 19:31 | DS.PDOC ---
Discharge Summary General Date of Admission Sep 22, 2019 at 14:30 Date of Discharge 09/25/19 Attending Physician: JOSE CONTRERAS MD Discharge Summary PROCEDURES PERFORMED DURING STAY: None ADMITTING DIAGNOSES: 1. Pneumonia, hypoxemic respiratory failure DISCHARGE DIAGNOSES: 1. Pneumonia, hypoxemic respiratory failure COMPLICATIONS/CHIEF COMPLAINT: Cad/Hx Of Cabg/Hypertinesive Emergency/ Parkinsons. HISTORY OF PRESENT ILLNESS: 84 y.o male w/ multiple medical comorbidities was admitted for hypoxemic respiratory failure secondary to Pneumonia. He has been treated w/ Levaquin & supplemental oxygen. He was evaluated by PT & rehab was recommended. Patient has had significant clinical improvement, remains on minimal supplemental oxygen and will be discharged to ARU. He is clinically and hemodynamically stable for discharge to ARU, will be discharged on Levaquin to complete his antibiotic course. HOSPITAL COURSE: As above DISCHARGE MEDICATIONS: Please see below. ALLERGIES: Please see below. PHYSICAL EXAMINATION: VITAL SIGNS: Please see below. GENERAL: No distress HEENT: Normocephalic, atraumatic, moist mucous membranes NECK: Supple CARDIOVASCULAR EXAMINATION: S1, S2, irregular, no murmurs RESPIRATORY EXAMINATION: Scattered rhonchi, no wheezing ABDOMINAL EXAMINATION: Soft, nontender, nondistended, positive bowel sounds EXTREMITIES: Range of motion intact SKIN: No rash NEUROLOGICAL EXAMINATION: Alert and oriented 3, no focal deficits PSYCHIATRIC EXAMINATION: Calm and cooperative LABORATORY DATA: Please see below. IMAGING: CT showing multifocal pneumonia PROGNOSIS: Guarded ACTIVITY: As tolerated DIET: Cardiac DISCHARGE PLAN: f/u with PCP & Electrical Linesworker after d/c fron ARU DISPOSITION: 62 D/T Rehab Facility. DISCHARGE INSTRUCTIONS: 1. As above. DISCHARGE CONDITION: Stable TIME SPENT ON DISCHARGE: Greater than 31 minutes. Vital Signs/I&Os Vital Signs Date Time Temp Pulse Resp B/P (MAP) Pulse Ox O2 Delivery O2 Flow Rate FiO2 09/25/19 14:00 98.6 107 20 114/75 (88) 98 09/25/19 10:10 Nasal Cannula 1.0 I&O- Last 24 Hours up to 6 AM 09/25/19 06:00 Intake Total 860 ml Output Total 0 ml Balance 860 ml Laboratory Data Labs 24H Laboratory Tests 2 09/25/19 05:51: Nucleated Red Blood Cells % (auto) 0.0, Anion Gap 7L, Glomerular Filtration Rate 46.2, Calcium Level 8.7L CBC/BMP Laboratory Tests 09/25/19 05:51 Microbiology Microbiology 09/22/19 Respiratory Virus Panel (PCR) (KD) - Final, Complete 09/22/19 Blood Culture - Preliminary, Resulted No Growth after 72 hours. All specime... 09/22/19 Blood Culture - Preliminary, Resulted No Growth after 72 hours. All specime... Discharge Medications Scheduled Amlodipine Besylate (Amlodipine Besylate) 10 Mg Tablet, 10 MG PO DAILY, (Reported) Aspirin (Aspir 81) 81 Mg Tablet.dr, 81 MG PO DAILY, (Reported) Atorvastatin Calcium (Atorvastatin Calcium) 10 Mg Tablet, 20 MG PO DAILY Carbidopa/Levodopa (Carbidopa-Levodopa 25-100 Tab) 1 Each Tablet, 1 TAB PO BID, (Reported) 0900, 2100 Clopidogrel Bisulfate (Clopidogrel) 75 Mg Tablet, 75 MG PO DAILY, (Reported) Cyanocobalamin (Vitamin B-12) (B-12) 1,000 Mcg Tablet, 1,000 MCG PO DAILY, (Reported) Ferrous Sulfate (Ferrous Sulfate) 325 Mg Tablet, 325 MG PO BID, (Reported) Folic Acid (Folic Acid) 1 Mg Tablet, 1 MG PO DAILY, (Reported) Levofloxacin (Levaquin) 750 Mg Tablet, 750 MG PO Q48H Magnesium Oxide (Magnesium) 400 Mg Cap, 400 MG PO DAILY, (Reported) Metoprolol Tartrate (Metoprolol Tartrate) 25 Mg Tablet, 12.5 MG PO BID, (Reported) Mirtazapine (Remeron) 15 Mg Tablet, 15 MG PO QHS, (Reported) Pantoprazole Sodium (Pantoprazole Sodium) 40 Mg Tablet.dr, 40 MG PO BID, (Reported) Tamsulosin HCl (Flomax) 0.4 Mg Capsule, 0.4 MG PO QHS, (Reported) Allergies Coded Allergies: No Known Drug Allergies (Verified Allergy, Unknown, 04/15/19) JOSE CONTRERAS MD Sep 25, 2019 19:31
== END 2019-09-25 15:50 | DRG 193 ==
LOC: M ED 10:42 → M ED INP 14:30 → ENRESERV 14:48 → M MSPAV 15:45
PROVIDERS: ADMIT Internal Medicine; ATTEND Internal Medicine
DX: J15.9 Unspecified bacterial pneumonia (principal); J96.91 Respiratory failure, unspecified with hypoxia; E87.2 Acidosis; I48.20 Chronic atrial fibrillation, unspecified; G20 Parkinson's disease; N18.9 Chronic kidney disease, unspecified; I12.9 Hypertensive chronic kidney disease with stage 1 through stage 4 chronic kidney disease, or unspecified chronic kidney disease; I25.10 Atherosclerotic heart disease of native coronary artery without angina pectoris; I73.9 Peripheral vascular disease, unspecified; Z66 Do not resuscitate; Z95.1 Presence of aortocoronary bypass graft; Z98.62 Peripheral vascular angioplasty status; Z87.891 Personal history of nicotine dependence; Z79.82 Long term (current) use of aspirin; Z79.899 Other long term (current) drug therapy

== ENCOUNTER 2019-09-25 12:16 | Inpatient (IN) | payer MEDICARE ==
[~2019-09-25] VITALS: Ht 170.2 cm; Wt 74.6 kg
[~2019-09-25 12:16] MED LIST changes: +AMPI500C9 PO; +ASPI81TA85 PO; +B-12100021 PO
[2019-09-25] MEDS ORDERED: ATOR1TAB19 PO (13:30)
[2019-09-25] MEDS ORDERED: LEVA750T7 PO (13:30)
[2019-09-25 15:55] VITALS: BP 122/64
[2019-09-25] MEDS ORDERED: ACETAMINOPHEN TAB 650MG DOSE (2X325MG) PO PRN (16:30)
[2019-09-25] MEDS ORDERED: BISACODYL 10 MG SUPP PR PRN (16:30)
[2019-09-25 20:00] VITALS: BP 120/60
[2019-09-25] MEDS: IPRATROPIUM 0.5MG/ALBUTEROL 2.5MG INH SOL UD 3ML (DUONEB)(J7620) NEB SCH (20:18)
[2019-09-25] MEDS ORDERED: MIRTAZAPINE 15 MG TAB PO SCH (21:00)
[2019-09-25] MEDS ORDERED: traZODone 25MG PER 1/2 TABLET PO SCH (21:00)
[2019-09-25] MEDS: SENNA 8.6 MG TAB (SENOKOT) PO SCH ×3 (21:00→22:47)
[2019-09-25] MEDS: guaiFENesin 200 MG TAB PO SCH ×2 (21:00→21:21)
[2019-09-25] MEDS ORDERED: TAMSULOSIN 0.4 MG CAP PO SCH (21:00)
[2019-09-25] MEDS: REMEDY PHYTOPLEX Z-GUARD PASTE 113GM TUBE (FROM STOREROOM PRODUCT) TOP SCH (21:00)
[2019-09-25] MEDS: FERROUS SULFATE 325MG TAB PO SCH (21:21)
[2019-09-25] MEDS: DOCUSATE SODIUM 100 MG CAP PO SCH (21:21)
[2019-09-25] MEDS: NYSTATIN 100,000 UNITS/GM TOPICAL PWD 15 GM TOP SCH (21:21)
[2019-09-25] MEDS: METOPROLOL TART 12.5 MG PER 1/2 TAB PO SCH (21:22)
[2019-09-25] MEDS: SINEMET 25-100 MG TAB PO SCH (21:22)
[2019-09-25] MEDS: PANTOPRAZOLE 40MG TAB (PROTONIX) PO SCH (21:22)
[2019-09-25] MEDS: HEPARIN SOD (PORCINE) 5000 UNITS/ML VIAL (J1644 PER 1000UNITS) SC SCH (21:29)
[2019-09-26 02:28] VITALS: BP 111/68
[2019-09-26 05:55] VITALS: BP 119/73
[2019-09-26 06:36] LABS: HEMATOCRIT 27.9 % (42.0-52.0); HEMOGLOBIN 8.7 g/dl (13.5-17.5); MEAN CORPUSCULAR HEMOGLOBIN 33.2 pg (27.0-33.0); MEAN CORPUSCULAR HGB CONC 31.2 g/dl (32.0-36.5); MEAN CORPUSCULAR VOLUME 106.5 fl (80.0-96.0); PLATELET COUNT, AUTOMATED 122 10^3/uL (150-450); RED BLOOD COUNT 2.62 10^6/uL (4.30-6.10)
[2019-09-26 07:03] LABS: ALBUMIN 2.7 GM/DL (3.2-5.2); BILIRUBIN,TOTAL 0.4 MG/DL (0.2-1.0); CALCIUM LEVEL 8.6 MG/DL (8.8-10.2); CREATININE FOR GFR 1.35 MG/DL (0.70-1.30); GLOMERULAR FILTRATION RATE 53.7 (>35); POTASSIUM SERUM 4.4 MEQ/L (3.5-5.1); TOTAL PROTEIN 7.1 GM/DL (6.4-8.2)
[2019-09-26 07:13] LABS: BASOPHILS 2 % (0-1); EOSINOPHILS 2 % (0-3); LYMPHOCYTES 26 % (16-44); MONOCYTES 9 % (0-5); NEUTROPHILS 60 % (28-66); PLATELET ESTIMATE NORMAL (NORMAL)
[2019-09-26] MEDS: IPRATROPIUM 0.5MG/ALBUTEROL 2.5MG INH SOL UD 3ML (DUONEB)(J7620) NEB SCH (07:20)
[2019-09-26] MEDS: HEPARIN SOD (PORCINE) 5000 UNITS/ML VIAL (J1644 PER 1000UNITS) SC SCH (08:58)
[2019-09-26 08:59] VITALS: BP 119/73
[2019-09-26] MEDS: DOCUSATE SODIUM 100 MG CAP PO SCH (08:59)
[2019-09-26] MEDS: FERROUS SULFATE 325MG TAB PO SCH (08:59)
[2019-09-26] MEDS: METOPROLOL TART 12.5 MG PER 1/2 TAB PO SCH (08:59)
[2019-09-26] MEDS: PANTOPRAZOLE 40MG TAB (PROTONIX) PO SCH (08:59)
[2019-09-26] MEDS: SINEMET 25-100 MG TAB PO SCH (08:59)
[2019-09-26] MEDS: guaiFENesin 200 MG TAB PO SCH (08:59)
[2019-09-26] MEDS ORDERED: CLOPIDOGREL 75 MG TAB PO SCH (09:00)
[2019-09-26] MEDS ORDERED: CYANOCOBALAMIN 500 MCG TAB PO SCH (09:00)
[2019-09-26] MEDS ORDERED: MAGNESIUM OXIDE 400 MG TAB (MAG-OX) PO SCH (09:00)
[2019-09-26] MEDS ORDERED: amLODIPine 10 MG TAB PO SCH (09:00)
[2019-09-26] MEDS: NYSTATIN 100,000 UNITS/GM TOPICAL PWD 15 GM TOP SCH (09:00)
[2019-09-26] MEDS: REMEDY PHYTOPLEX Z-GUARD PASTE 113GM TUBE (FROM STOREROOM PRODUCT) TOP SCH (09:00)
[2019-09-26] MEDS ORDERED: ATORVASTATIN 10 MG TAB PO SCH (09:00)
[2019-09-26] MEDS ORDERED: ASPIRIN 81 MG ENTERIC TAB PO SCH (09:00)
--- NOTE | 2019-09-26 11:28 | HPEPDOC ---
[employer] Operator Note DATE OF ADMISSION: 09-25-19 DATE OF SERVICE: 09-26-19 TIME OF ADMISSION: Please refer to physician's admission order. SOURCE OF ADMISSION INFORMATION: [facility] record CHIEF COMPLAINT: Pneumonia in setting of Parkinson's HISTORY OF PRESENT ILLNESS: 84M pmh Parkinsons, CKD, CAD s/p CABG, PVD, HTN, paroxysmal Afib not on AC who developed shortness of breath at home with cough and presented to [facility] ED on 09-22-19 where he was diagnosed with a viral URI with superimposed bacterial pneumonia, CXR showing, infiltrate in the right upper lobe. I also suspect left lower lobe infiltrate. CT chest showed, Dense patchy infiltrate right upper lobe. Adjacent fluid in the major fissure, superior aspect. 9 mm irregular nodular opacity more inferiorly in the anterior aspect of the right upper lobe may represent small satellite infiltrate. Respiratory panel was negative and blood cultures negative. He was started on renally dosed Levaquin and worsening leukopenia with thrombocytopenia, requiring supplemental oxygen. He was evaluated by therapy and found to be well below his baseline for mobility and ADLs and deemed medically appropriate for discharge to ARU on 09-25-19. On initial visit patient expressed clearly that he does not want to live and is not willing to participate in therapy or take medications. His daughters bedside explained that he had been expressing similar views for a while and agreed for hospice consult. REVIEW OF SYSTEMS: The following is a completed review of systems and has been reviewed. Review of systems otherwise unremarkable. difficult to obtain as patient refusing to give clear answers PAST MEDICAL HISTORY: as per hpi PAST SURGICAL HISTORY: CABG, Femoropopliteal bypass ALLERGIES: Please see below. MEDICATIONS: Please see below. FAMILY HISTORY: Cardiac SOCIAL HISTORY: former smoker, no ETOH or illicit drugs DIET: low sodium PHYSICAL EXAMINATION: VITAL SIGNS: Please see below. GENERAL: No acute distress. Able to rouse HEENT: PERRL. Extraocular movements intact. Clear conjunctiva CARDIOVASCULAR: Irregular rate and rhythm. No murmurs, rubs, or gallops LUNGS: scattered rhonchi ABDOMEN: Soft, nontender, nondistended. Positive bowel sounds. Normal active bowel sounds NEUROLOGICAL: Cranial nerves II through XII grossly intact. Sensation grossly intact EXTREMITIES: 5\5 strength bilateral upper extremities. 5/5 strength right lower extremity. 5/5 strength in left lower extremity. LABORATORY DATA: Please see below. IMAGING:Imaging documentation personally reviewed by record FUNCTIONAL STATUS: Premorbid: Modified Independent with all activities of daily life as well as mobility On Admission: Min assist ASSESSMENT:84-year-old M with past medical history of Parkinsons who presents status post pneumonia PLAN: Patient has been refusing medications and not agreeable to participate in therapy stating he wishes to be left alone to . Case discussed with patient's daughters to agree this is truly his wish and are amenable to transfer with hospice consult. If patient's status changes in the near future and he is able to participate in 3 hours of therapy with goal to go home and live, then he will be more than welcome back to ARU. POST ADMISSION PHYSICIAN EVALUATION: Medical and functional status: Description of medical status, medical ass essment: As above. Rehabilitation diagnosis and current and prior cold morbid medical conditions as above. Risk of complications and plans to mitigate them as above. Description of functional status current status is as above. Prior status as above. Status compared to preadmission:Patient will be transferred back to acute care for home with hospice consult vs [employer] TIME SPENT COUNSELING AND COORDINATING INITIAL CARE: Greater than 70 minutes. Vital Signs Vital Sign - Last 24 Hours 09/25/19 09/25/19 09/25/19 09/25/19 15:55 20:00 21:22 22:00 Temp 98.0 97.4 Pulse 99 93 93 Resp 20 19 B/P (MAP) 122/64 (83) 120/60 (80) 120/60 Pulse Ox 92 96 O2 Delivery Nasal Cannula Nasal Cannula O2 Flow Rate 1.0 1.0 1.0 09/25/19 09/26/19 09/26/19 09/26/19 22:52 01:10 02:28 05:55 Temp 97.7 97.0 Pulse 84 68 Resp 26 22 B/P (MAP) 111/68 (82) 119/73 (88) Pulse Ox 79 97 97 O2 Delivery Room Air Nasal Cannula Nasal Cannula O2 Flow Rate 2.0 2.0 09/26/19 09/26/19 09/26/19 09/26/19 06:28 08:59 08:59 09:00 Pulse 68 68 Resp 25 B/P (MAP) 119/73 119/73 O2 Flow Rate 1.0 Laboratory Data CBC/BMP Laboratory Tests 09/26/19 06:08 Labs 24H Laboratory Tests 2 09/26/19 06:08: Neutrophils (%) (Auto) , Neutrophils # (Auto) , Nucleated Red Blood Cells % (auto) 0.0, Neutrophils 60, Band Neutrophils 1, Lymphocytes (Manual) 26, Monocyt es (Manual) 9H, Eosinophils (Manual) 2, Basophils (Manual) 2H, Red Blood Cell Morphology NORMAL, Platelet Estimate NORMAL, Anion Gap 6L, Glomerular Filtration Rate 53.7, Calcium Level 8.6L, Total Bilirubin 0.4, Aspartate Amino Transf (AST/SGOT) 17, Alanine Aminotransferase (ALT/SGPT) 7L, Alkaline Phosphatase 58, Total Protein 7.1, Albumin 2.7L, Albumin/Globulin Ratio 0.61L Home Medications Scheduled Amlodipine Besylate (Amlodipine Besylate) 10 Mg Tablet, 10 MG PO DAILY, (Reported) Aspirin (Aspir 81) 81 Mg Tablet.dr, 81 MG PO DAILY, (Reported) Atorvastatin Calcium (Atorvastatin Calcium) 10 Mg Tablet, 20 MG PO DAILY Carbidopa/Levodopa (Carbidopa-Levodopa 25-100 Tab) 1 Each Tablet, 1 TAB PO BID, (Reported) 0900, 2100 Clopidogrel Bisulfate (Clopidogrel) 75 Mg Tablet, 75 MG PO DAILY, (Reported) Cyanocobalamin (Vitamin B-12) (B-12) 1,000 Mcg Tablet, 1,000 MCG PO DAILY, (Reported) Ferrous Sulfate (Ferrous Sulfate) 325 Mg Tablet, 325 MG PO BID, (Reported) Folic Acid (Folic Acid) 1 Mg Tablet, 1 MG PO DAILY, (Reported) Levofloxacin (Levaquin) 750 Mg Tablet, 750 MG PO Q48H Magnesium Oxide (Magnesium) 400 Mg Cap, 400 MG PO DAILY, (Reported) Metoprolol Tartrate (Metoprolol Tartrate) 25 Mg Tablet, 12.5 MG PO BID, (Reported) Mirtazapine (Remeron) 15 Mg Tablet, 15 MG PO QHS, (Reported) Pantoprazole Sodium (Pantoprazole Sodium) 40 Mg Tablet.dr, 40 MG PO BID, (Reported) Tamsulosin HCl (Flomax) 0.4 Mg Capsule, 0.4 MG PO QHS, (Reported) Allergies Coded Allergies: No Known Drug Allergies (Verified Allergy, Unknown, 04/15/19) A-FIB/CHADSVASC A-FIB History Current/History of A-Fib/PAF?: Yes Current PO Anticoag Therapy: No ROXANA STINSON MD Sep 26, 2019 11:28
[2019-09-26] MEDS ORDERED: LevoFLOXacin 750 MG TABLET PO SCH (18:00)
== END 2019-09-26 13:10 | disposition short-term general hospital (02) | DRG 57 ==
LOC: M PM&R 15:55
PROVIDERS: ADMIT Physical Medicine & Rehabilitation; ATTEND Physical Medicine & Rehabilitation
DX: G20 Parkinson's disease (principal); N18.9 Chronic kidney disease, unspecified; I25.10 Atherosclerotic heart disease of native coronary artery without angina pectoris; Z95.1 Presence of aortocoronary bypass graft; I73.9 Peripheral vascular disease, unspecified; I10 Essential (primary) hypertension; I48.0 Paroxysmal atrial fibrillation; Z98.62 Peripheral vascular angioplasty status; Z87.891 Personal history of nicotine dependence; Z91.14 Patient's other noncompliance with medication regimen; Z91.19 Patient's noncompliance with other medical treatment and regimen; Z53.29 Procedure and treatment not carried out because of patient's decision for other reasons

== ENCOUNTER 2019-09-26 12:12 | Inpatient (IN) | payer MEDICARE ==
[~2019-09-26] VITALS: Ht 170.2 cm; Wt 73.4 kg
[~2019-09-26 12:12] MED LIST changes: +ATOR1TAB19 PO; +LEVA750T7 PO
--- NOTE | 2019-09-26 13:51 | HPEPDOC ---
General Date of Admission 09/26/19 Date of Service: Sep 26, 2019 Chief Complaint The patient is a 84-year-old male admitted with a reason for visit of Pneumonia. Source: Patient, RN/MD, Old records Exam Limitations: Clinical conditions Associated Symptoms: Unobtainable History of Present Illness Mr. Hudson is an 84-year-old male who is being readmitted from the ARU to the general floor, as he has requested hospice care. Patient is seen on the ARU preparing for transfer. This examination is extremely limited due to significant lethargy. He told me that he would like to continue his current medications. He would also like to be referred for hospice care. Per nursing he has refused all of his medications, he has not eaten and he has not had anything to drink. When asked, patient stated he is just not hungry. Patient denied any pain at this juan e. Per the medical record, patient was admitted August with a diagnosis of a viral respiratory infection, superimposed bacterial pneumonia. He was treated for the pneumonia with Levaquin (renally dosed), and supportive measures. Medications for his chronic illnesses were continued inpatient. On September 24, he was clinically optimized, assessed for and found suitable for admission to the ARU. Unfortunately, on his initial visit , the patient reported that he no longer wants to live,he refused medications, and refused to participate in any therapy. His daughters have reported that he has been expressing these views for some time and have agreed to hospice. Home Medications Scheduled Amlodipine Besylate (Amlodipine Besylate) 10 Mg Tablet, 10 MG PO DAILY, (Reported) Aspirin (Aspir 81) 81 Mg Tablet.dr, 81 MG PO DAILY, (Reported) Atorvastatin Calcium (Atorvastatin Calcium) 10 Mg Tablet, 20 MG PO DAILY Carbidopa/Levodopa (Carbidopa-Levodopa 25-100 Tab) 1 Each Tablet, 1 TAB PO BID, (Reported) 0900, 2100 Clopidogrel Bisulfate (Clopidogrel) 75 Mg Tablet, 75 MG PO DAILY, (Reported) Cyanocobalamin (Vitamin B-12) (B-12) 1,000 Mcg Tablet, 1,000 MCG PO DAILY, (Reported) Ferrous Sulfate (Ferrous Sulfate) 325 Mg Tablet, 325 MG PO BID, (Reported) Folic Acid (Folic Acid) 1 Mg Tablet, 1 MG PO DAILY, (Reported) Levofloxacin (Levaquin) 750 Mg Tablet, 750 MG PO Q48H Magnesium Oxide (Magnesium) 400 Mg Cap, 400 MG PO DAILY, (Reported) Metoprolol Tartrate (Metoprolol Tartrate) 25 Mg Tablet, 12.5 MG PO BID, (Reported) Mirtazapine (Remeron) 15 Mg Tablet, 15 MG PO QHS, (Reported) Pantoprazole Sodium (Pantoprazole Sodium) 40 Mg Tablet.dr, 40 MG PO BID, (Reported) Tamsulosin HCl (Flomax) 0.4 Mg Capsule, 0.4 MG PO QHS, (Reported) Allergies Coded Allergies: No Known Drug Allergies (Verified Allergy, Unknown, 04/15/19) Past Medical History Medical History 1. Parkinson's disease. 2. Chronic kidney disease. 3. Coronary artery disease. 4. Hypertension 5. Peripheral vascular disease Surgical History 1. CABG. 2. Femoropopliteal bypass. Family History Significant Family History: Heart disease (motherMI) Social History * Smoker: former Smoker, pipe Alcohol: other (unobtainable) Drugs: other (unobtainable) The past medical, surgical and social history is obtained from the medical records A-FIB/CHADSVASC A-FIB History Current/History of A-Fib/PAF?: No Current PO Anticoag Therapy: Yes Review of Systems Other systems Please see HPI Physical Examination General Exam: Positive: No Acute Distress, Other (frail, lethargic); Negative: Alert Eye Exam: Positive: Conjunctiva & lids normal; Negative: Sclera icteric ENT Exam: Positive: Atraumatic Neck Exam: Negative: thyromegaly Chest Exam: Positive: Rhonchi (diffuse b/l lungs ) Heart Exam: Positive: Tachycardic, Murmurs (2to3/6 coarse murmur. S1S2 intact) Abdomen Exam: Positive: Normal bowel sounds, Soft, Tenderness (diffuse); Negative: Hepatospenomegaly Extremity Exam: Negative: Clubbing, Cyanosis, Edema, Normal pulses (pulses barely palpable bilateral LEs), Tenderness, Swelling Skin Exam: Positive: Nl turgor and temperature Neuro Exam: Negative: Normal Gait, Normal Speech (slightly muffled) Vital Signs See below Assessment/Plan Mr. Hudson is an 84-year-old male who is being readmitted from the ARU to the general floor, as he has requested hospice care. Patient is seen on the ARU preparing for transfer. This examination is extremely limited due to significant lethargy. He told me that he would like to continue his current medications. He would also like to be referred for hospice care. Per nursing he has refused all of his medications, he has not eaten and he has not had anything to drink. When asked, patient stated he is just not hungry. Patient denied any pain at this time. Per the medical record, patient has a past medical history which includes: Parkinson's disease, chronic kidney disease, coronary artery disease, hypertension, peripheral vascular disease, CABG. Per the medical record, patient was admitted August with a diagnosis of a viral respiratory infection, superimposed bacterial pneumonia. He was treated for the pneumonia with Levaquin (renally dosed), and supportive measures. M edications for his chronic illnesses were continued inpatient. On September 24, he was clinically optimized, assessed for and found suitable for admission to the ARU. Unfortunately, on his initial visit , the patient reported that he no longer wants to live,he refused medications, and refused to participate in any therapy. His daughters have reported that he has been expressing these views for some time and have agreed to hospice. Plan: As patient has clearly stated that he would like to continue his medicati ons we will do as he has asked; the plan below reflects this. He has also requested a consultation for hospice, a referral has been made. #1. Multifocal pneumonia, right upper lobe. Patient will have completed a 5 day course of Levaquin today, discontinue. Continue with supplemental oxygen #2. Parkinson's disease. Continue carbidopa and levodopa. #3. Hypertension. Continue amlodipine and metoprolol. #4. Coronary artery disease, with history of CABG Continue Plavix, aspirin, statin and beta katerina. Attending addendum: I discussed the care and management of this patient with Keily Ruiz. I agree with the plan as mentioned above. Plan / VTE VTE Prophylaxis Ordered?: No Plan Anticipated Discharge: Hospice Advanced Directives: Do Not Resuscitate (DNR), Do Not Intubate (DNI), Comfort C are Measures KEILY RUIZ PA-C Sep 26, 2019 13:51 JOSE CONTRERAS MD Sep 27, 2019 08:10
[2019-09-26] MEDS ORDERED: ALPRAZolam 0.5 MG TAB PO PRN (14:00)
[2019-09-26] MEDS ORDERED: MORPHINE 10MG/0.5ML ORAL CONCENTRATE SOLUTION U/D SL PRN (14:00)
[2019-09-26] MEDS: SINEMET 25-100 MG TAB PO SCH (22:20)
[2019-09-26] MEDS: PANTOPRAZOLE 40MG TAB (PROTONIX) PO SCH (22:20)
[2019-09-26] MEDS: FERROUS SULFATE 325MG TAB PO SCH (22:20)
[2019-09-26] MEDS: TAMSULOSIN 0.4 MG CAP PO SCH (22:20)
[2019-09-26] MEDS: MIRTAZAPINE 15 MG TAB PO SCH (22:20)
[2019-09-26] MEDS: METOPROLOL TART 12.5 MG PER 1/2 TAB PO SCH (22:20)
[2019-09-27] MEDS: FERROUS SULFATE 325MG TAB PO SCH ×2 (09:18→21:10)
[2019-09-27] MEDS: amLODIPine 10 MG TAB PO SCH (09:18)
[2019-09-27] MEDS: PANTOPRAZOLE 40MG TAB (PROTONIX) PO SCH ×2 (09:18→21:09)
[2019-09-27] MEDS: FOLIC ACID 1 MG TAB PO SCH (09:18)
[2019-09-27] MEDS: ATORVASTATIN 10 MG TAB PO SCH (09:18)
[2019-09-27] MEDS: SINEMET 25-100 MG TAB PO SCH ×2 (09:18→21:09)
[2019-09-27] MEDS: ASPIRIN 81 MG ENTERIC TAB PO SCH (09:19)
[2019-09-27] MEDS: CLOPIDOGREL 75 MG TAB PO SCH (09:19)
[2019-09-27] MEDS: METOPROLOL TART 12.5 MG PER 1/2 TAB PO SCH ×2 (09:19→22:10)
[2019-09-27 14:27] VITALS: BP 122/70
--- NOTE | 2019-09-27 20:31 | IPNPDOC ---
Date Seen The patient was seen on 09/27/19. Progress Note SUBJECTIVE: Patient was initially admitted from ARU for hospice eval but his daughter does not want the patient to be hospice and wishes complete medical treatment at this time. Patient is in agreement at this time, without any complaints at this time. He is comfortable, without any complaints and wishes to go home. He is told that PT recommends rehab but he is adamantly refusing and wishes to go home anyway. His daughter reports he has some help during the day and he lives with his son. She understands that he may not be ideal to go home without support and may not be able to care for himself but she is in agreement with the patient and is okay with him going home. Patient denies any SOB, CP, N/V/D or abdominal pain. 10 point review of system is negative except for above OBJECTIVE PHYSICAL EXAMINATION: VITAL SIGNS: Please see below. GENERAL: no distress HEENT: moist mucus membranes CARDIOVASCULAR: S1, S2, no murmurs RESPIRATORY: diminished in the bases ABDOMINAL: soft, non-tender, non-distended, +BS EXTREMITIES: ROM intact NEUROLOGICAL: no focal deficits PSYCHOLOGICAL: calm LABORATORY DATA, IMAGING STUDIES, MICROBIOLOGY: Please see below. ASSESSMENT AND PLAN: 84 y.o male initially admitted from ARU for hospice care now accepting medical treatment. PROBLEMS: 1. Physical deconditioning - PT recommending rehab, patient adamantly refusing, daughter in agreement with patient, PFS arranging ideal disposition. Patient comfortable and medically stable for discharge. 2. Medical comorbidities - CAD/HTN/Parkinson's: continue home regimen. VS, I&O, 24H, Fishbone Vital Signs/I&O Vital Signs Date Time Temp Pulse Resp B/P (MAP) Pulse Ox O2 Delivery O2 Flow Rate FiO2 09/27/19 14:27 97.4 76 18 122/70 (87) 90 Room Air I&O- Last 24 Hours up to 6 AM 09/27/19 06:00 Intake Total 260 ml Output Total 200 ml Balance 60 ml JOSE CONTRERAS MD Sep 27, 2019 20:31
[2019-09-27] MEDS: MIRTAZAPINE 15 MG TAB PO SCH (21:09)
[2019-09-27] MEDS: TAMSULOSIN 0.4 MG CAP PO SCH (21:09)
[2019-09-27] MEDS: HEPARIN SOD (PORCINE) 5000 UNITS/ML VIAL (J1644 PER 1000UNITS) SQ SCH (21:10)
[2019-09-27 22:00] VITALS: BP 101/61
[2019-09-28 06:00] VITALS: BP_SYST 101; BP_SYST 108; BP_DIAS 58; BP_DIAS 61
[2019-09-28 06:56] LABS: HEMOGLOBIN 9.8 g/dl (13.5-17.5); MEAN CORPUSCULAR HGB CONC 31.6 g/dl (32.0-36.5); MEAN CORPUSCULAR VOLUME 104.4 fl (80.0-96.0); PLATELET COUNT, AUTOMATED 152 10^3/uL (150-450); RED BLOOD COUNT 2.97 10^6/uL (4.30-6.10); WHITE BLOOD COUNT 2.7 10^3/uL (4.0-10.0)
[2019-09-28 07:27] LABS: BLOOD UREA NITROGEN 24 MG/DL (7-18); CALCIUM LEVEL 8.9 MG/DL (8.8-10.2); CARBON DIOXIDE LEVEL 29 MEQ/L (21-32); CHLORIDE LEVEL 106 MEQ/L (98-107); CREATININE FOR GFR 1.08 MG/DL (0.70-1.30); GLOMERULAR FILTRATION RATE > 60.0 (>35); GLUCOSE, FASTING 91 MG/DL (70-100); MAGNESIUM LEVEL 2.1 MG/DL (1.8-2.4); POTASSIUM SERUM 4.2 MEQ/L (3.5-5.1); SODIUM LEVEL 139 MEQ/L (136-145)
[2019-09-28] MEDS: PANTOPRAZOLE 40MG TAB (PROTONIX) PO SCH ×2 (09:03→20:09)
[2019-09-28] MEDS: ASPIRIN 81 MG ENTERIC TAB PO SCH (09:03)
[2019-09-28] MEDS: FOLIC ACID 1 MG TAB PO SCH (09:03)
[2019-09-28] MEDS: CLOPIDOGREL 75 MG TAB PO SCH (09:04)
[2019-09-28] MEDS: FERROUS SULFATE 325MG TAB PO SCH ×2 (09:04→20:09)
[2019-09-28] MEDS: SINEMET 25-100 MG TAB PO SCH ×2 (09:04→20:09)
[2019-09-28] MEDS: amLODIPine 10 MG TAB PO SCH (09:04)
[2019-09-28] MEDS: ATORVASTATIN 10 MG TAB PO SCH (09:04)
[2019-09-28] MEDS: METOPROLOL TART 12.5 MG PER 1/2 TAB PO SCH ×2 (09:05→20:09)
[2019-09-28] MEDS: HEPARIN SOD (PORCINE) 5000 UNITS/ML VIAL (J1644 PER 1000UNITS) SQ SCH ×2 (09:05→20:09)
[2019-09-28] MEDS ORDERED: LevoFLOXacin 750 MG TABLET PO ONE (11:00)
[2019-09-28 14:11] VITALS: BP 128/75
[2019-09-28] MEDS: MIRTAZAPINE 15 MG TAB PO SCH (20:09)
[2019-09-28] MEDS: TAMSULOSIN 0.4 MG CAP PO SCH (20:09)
--- NOTE | 2019-09-28 21:28 | IPNPDOC ---
Date Seen The patient was seen on 09/28/19. Progress Note SUBJECTIVE: Patient was initially admitted from ARU for hospice eval but his daughter does not want the patient to be hospice and wishes complete medical treatment at this time. Patient is in agreement at this time, without any complaints at this time. He is comfortable, without any complaints and wishes to go home. He is told that PT recommends rehab but he is adamantly refusing and wishes to go home anyway. His daughter reports he has some help during the day and he lives with his son. She understands that he may not be ideal to go home without support and may not be able to care for himself but she is in agreement with the patient and is okay with him going home. Patient denies any SOB, CP, N/V/D or abdominal pain. 09/28/19 No acute events overnight, comfortable, no complaints at this time, agrees to [facility] making arrangements. 10 point review of system is negative except for above OBJECTIVE PHYSICAL EXAMINATION: VITAL SIGNS: Please see below. GENERAL: no distress HEENT: moist mucus membranes CARDIOVASCULAR: S1, S2, no murmurs RESPIRATORY: diminished in the bases ABDOMINAL: soft, non-tender, non-distended, +BS EXTREMITIES: ROM intact NEUROLOGICAL: no focal deficits PSYCHOLOGICAL: calm LABORATORY DATA, IMAGING STUDIES, MICROBIOLOGY: Please see below. ASSESSMENT AND PLAN: 84 y.o male initially admitted from ARU for hospice care now accepting medical treatment. PROBLEMS: 1. Physical deconditioning - PT recommending rehab, patient adamantly refusing, daughter in agreement with patient, agrees with [facility] making arrangements, medically stable for d/c. 2. Medical comorbidities - CAD/HTN/Parkinson's: continue home regimen. VS, I&O, 24H, Fishbone Vital Signs/I&O Vital Signs Date Time Temp Pulse Resp B/P (MAP) Pulse Ox O2 Delivery O2 Flow Rate FiO2 09/28/19 20:09 80 128/76 09/28/19 14:11 97.3 18 93 Room Air I&O- Last 24 Hours up to 6 AM 09/28/19 06:00 Intake Total 600 ml Output Total 0 ml Balance 600 ml Laboratory Data 24H LABS Laboratory Tests 2 09/28/19 06:26: Nucleated Red Blood Cells % (auto) 0.0, Anion Gap 4L, Glomerular Filtration Rate > 60.0, Calcium Level 8.9, Magnesium Level 2.1 CBC/BMP Laboratory Tests 09/28/19 06:26 JOSE CONTRERAS MD Sep 28, 2019 21:28
[2019-09-28 22:00] VITALS: BP 128/76
[2019-09-29] MEDS: LevoFLOXacin 750 MG TABLET PO SCH (05:42)
[2019-09-29 06:00] VITALS: BP 130/78
[2019-09-29 06:52] LABS: HEMATOCRIT 32.3 % (42.0-52.0); HEMOGLOBIN 10.1 g/dl (13.5-17.5); MEAN CORPUSCULAR HEMOGLOBIN 32.7 pg (27.0-33.0); MEAN CORPUSCULAR HGB CONC 31.3 g/dl (32.0-36.5); MEAN CORPUSCULAR VOLUME 104.5 fl (80.0-96.0); PLATELET COUNT, AUTOMATED 201 10^3/uL (150-450); RED BLOOD COUNT 3.09 10^6/uL (4.30-6.10); WHITE BLOOD COUNT 3.7 10^3/uL (4.0-10.0)
[2019-09-29 07:12] LABS: BLOOD UREA NITROGEN 24 MG/DL (7-18); CALCIUM LEVEL 9.3 MG/DL (8.8-10.2); CARBON DIOXIDE LEVEL 30 MEQ/L (21-32); CHLORIDE LEVEL 105 MEQ/L (98-107); CREATININE FOR GFR 1.21 MG/DL (0.70-1.30); GLOMERULAR FILTRATION RATE > 60.0 (>35); GLUCOSE, FASTING 87 MG/DL (70-100); MAGNESIUM LEVEL 1.9 MG/DL (1.8-2.4); POTASSIUM SERUM 4.2 MEQ/L (3.5-5.1); SODIUM LEVEL 139 MEQ/L (136-145)
[2019-09-29] MEDS: FERROUS SULFATE 325MG TAB PO SCH ×3 (08:17→20:55)
[2019-09-29] MEDS: PANTOPRAZOLE 40MG TAB (PROTONIX) PO SCH ×3 (08:17→20:55)
[2019-09-29] MEDS: CLOPIDOGREL 75 MG TAB PO SCH (08:17)
[2019-09-29] MEDS: ASPIRIN 81 MG ENTERIC TAB PO SCH (08:17)
[2019-09-29] MEDS: ATORVASTATIN 10 MG TAB PO SCH (08:17)
[2019-09-29] MEDS: FOLIC ACID 1 MG TAB PO SCH (08:17)
[2019-09-29] MEDS: HEPARIN SOD (PORCINE) 5000 UNITS/ML VIAL (J1644 PER 1000UNITS) SQ SCH ×3 (08:17→20:55)
[2019-09-29] MEDS: SINEMET 25-100 MG TAB PO SCH ×2 (08:17→20:13)
[2019-09-29] MEDS: METOPROLOL TART 12.5 MG PER 1/2 TAB PO SCH ×2 (08:18→20:16)
[2019-09-29] MEDS: amLODIPine 10 MG TAB PO SCH (08:18)
--- NOTE | 2019-09-29 14:59 | IPNPDOC ---
Date Seen The patient was seen on 09/29/19. Progress Note SUBJECTIVE: Patient was initially admitted from ARU for hospice eval but his daughter does not want the patient to be hospice and wishes complete medical treatment at this time. Patient is in agreement at this time, without any complaints at this time. He is comfortable, without any complaints and wishes to go home. He is told that PT recommends rehab but he is adamantly refusing and wishes to go home anyway. His daughter reports he has some help during the day and he lives with his son. She understands that he may not be ideal to go home without support and may not be able to care for himself but she is in agreement with the patient and is okay with him going home. Patient denies any SOB, CP, N/V/D or abdominal pain. 09/28/19 No acute events overnight, comfortable, no complaints at this time, agrees to [facility], PFS making arrangements. 09/29/19 No acute events overnight, resting comfortably in chair, eating breakfast, having mild non-productive cough, no other complaints, awaiting discharge to [facility] (likely Tuesday). 10 point review of system is negative except for above OBJECTIVE PHYSICAL EXAMINATION: VITAL SIGNS: Please see below. GENERAL: no distress HEENT: moist mucus membranes CARDIOVASCULAR: S1, S2, no murmurs RESPIRATORY: diminished in the bases ABDOMINAL: soft, non-tender, non-distended, +BS EXTREMITIES: ROM intact NEUROLOGICAL: no focal deficits PSYCHOLOGICAL: calm LABORATORY DATA, IMAGING STUDIES, MICROBIOLOGY: Please see below. ASSESSMENT AND PLAN: 84 y.o male initially admitted from ARU for hospice care now accepting medical treatment. PROBLEMS: 1. Pneumonia - treatment started during previous hospitalization, continue Levaquin to complete 7 day course. 2. Physical deconditioning - Agrees to [facility], awaiting placement, lik tuesday. 3. Medical comorbidities - CAD/HTN/Parkinson's: continue home regimen. VS, I&O, 24H, Fishbone Vital Signs/I&O Vital Signs Date Time Temp Pulse Resp B/P (MAP) Pulse Ox O2 Delivery O2 Flow Rate FiO2 09/29/19 08:18 101 122/76 09/29/19 06:00 97.2 20 91 Room Air I&O- Last 24 Hours up to 6 AM 09/29/19 06:00 Intake Total 940 ml Output Total 500 ml Balance 440 ml Laboratory Data 24H LABS Laboratory Tests 2 09/29/19 06:28: Nucleated Red Blood Cells % (auto) 0.0, Anion Gap 4L, Glomerular Filtration Rate > 60.0, Calcium Level 9.3, Magnesium Level 1.9 CBC/BMP Laboratory Tests 09/29/19 06:28 JOSE CONTRERAS MD Sep 29, 2019 14:59
[2019-09-29 15:12] VITALS: BP 98/55
[2019-09-29] MEDS: TAMSULOSIN 0.4 MG CAP PO SCH ×2 (20:13→20:55)
[2019-09-29] MEDS: MIRTAZAPINE 15 MG TAB PO SCH (20:13)
[2019-09-29 22:00] VITALS: BP 104/57
[2019-09-30 06:00] VITALS: BP 125/81
[2019-09-30] MEDS: LevoFLOXacin 750 MG TABLET PO SCH (06:06)
[2019-09-30] MEDS: HEPARIN SOD (PORCINE) 5000 UNITS/ML VIAL (J1644 PER 1000UNITS) SQ SCH ×2 (08:59→20:29)
[2019-09-30] MEDS: SINEMET 25-100 MG TAB PO SCH ×2 (09:00→20:28)
[2019-09-30] MEDS: ATORVASTATIN 10 MG TAB PO SCH (09:00)
[2019-09-30] MEDS: FOLIC ACID 1 MG TAB PO SCH (09:00)
[2019-09-30] MEDS: ASPIRIN 81 MG ENTERIC TAB PO SCH (09:00)
[2019-09-30] MEDS: FERROUS SULFATE 325MG TAB PO SCH ×2 (09:00→20:29)
[2019-09-30] MEDS: PANTOPRAZOLE 40MG TAB (PROTONIX) PO SCH ×2 (09:00→20:29)
[2019-09-30] MEDS: CLOPIDOGREL 75 MG TAB PO SCH (09:00)
[2019-09-30] MEDS: METOPROLOL TART 12.5 MG PER 1/2 TAB PO SCH ×2 (09:01→20:28)
[2019-09-30] MEDS: amLODIPine 10 MG TAB PO SCH (09:01)
[2019-09-30 14:30] VITALS: BP 112/76
[2019-09-30] MEDS: ACETAMINOPHEN TAB 650MG DOSE (2X325MG) PO PRN (17:40)
--- NOTE | 2019-09-30 18:49 | IPNPDOC ---
Date Seen The patient was seen on 09/30/19. Progress Note SUBJECTIVE: Patient was initially admitted from ARU for hospice eval but his daughter does not want the patient to be hospice and wishes complete medical treatment at this time. Patient is in agreement at this time, without any complaints at this time. He is comfortable, without any complaints and wishes to go home. He is told that PT recommends rehab but he is adamantly refusing and wishes to go home anyway. His daughter reports he has some help during the day and he lives with his son. She understands that he may not be ideal to go home without support and may not be able to care for himself but she is in agreement with the patient and is okay with him going home. Patient denies any SOB, CP, N/V/D or abdominal pain. 09/28/19 No acute events overnight, comfortable, no complaints at this time, agrees to [facility], PFS making arrangements. 09/29/19 No acute events overnight, resting comfortably in chair, eating breakfast, having mild non-productive cough, no other complaints, awaiting discharge to [facility] (likely Tuesday). 09/30/19 No acute events overnight, comfortable in bed, no complaints at this time, awaiting discharge [facility] tomorrow. 10 point review of system is negative except for above OBJECTIVE PHYSICAL EXAMINATION: VITAL SIGNS: Please see below. GENERAL: no distress HEENT: moist mucus membranes CARDIOVASCULAR: S1, S2, no murmurs RESPIRATORY: diminished in the bases ABDOMINAL: soft, non-tender, non-distended, +BS EXTREMITIES: ROM intact NEUROLOGICAL: no focal deficits PSYCHOLOGICAL: calm LABORATORY DATA, IMAGING STUDIES, MICROBIOLOGY: Please see below. ASSESSMENT AND PLAN: 84 y.o male initially admitted from ARU for hospice care now accepting medical treatment. PROBLEMS: 1. Pneumonia - treatment started during previous hospitalization, continue Levaquin to complete 7 day course. 2. Physical deconditioning - Agrees to [facility], awaiting placement, likely Tuesday. 3. Medical comorbidities - CAD/HTN/Parkinson's: continue home regimen. VS, I&O, 24H, Fishbone Vital Signs/I&O Vital Signs Date Time Temp Pulse Resp B/P (MAP) Pulse Ox O2 Delivery O2 Flow Rate FiO2 09/30/19 09:01 84 118/76 09/30/19 06:00 97.5 20 93 Room Air I&O- Last 24 Hours up to 6 AM 09/30/19 06:00 Intake Total 630 ml Output Total 400 ml Balance 230 ml JOSE CONTRERAS MD Sep 30, 2019 18:49
[2019-09-30] MEDS: TAMSULOSIN 0.4 MG CAP PO SCH (20:28)
[2019-09-30] MEDS: MIRTAZAPINE 15 MG TAB PO SCH (20:28)
[2019-09-30 22:00] VITALS: BP 114/74
[2019-10-01] MEDS: LevoFLOXacin 750 MG TABLET PO SCH (05:27)
[2019-10-01 06:00] VITALS: BP 110/63
[2019-10-01] MEDS: amLODIPine 10 MG TAB PO SCH (08:06)
[2019-10-01] MEDS: FERROUS SULFATE 325MG TAB PO SCH ×2 (08:06→20:08)
[2019-10-01] MEDS: ATORVASTATIN 10 MG TAB PO SCH (08:07)
[2019-10-01] MEDS: SINEMET 25-100 MG TAB PO SCH ×2 (08:07→20:07)
[2019-10-01] MEDS: ASPIRIN 81 MG ENTERIC TAB PO SCH (08:07)
[2019-10-01] MEDS: PANTOPRAZOLE 40MG TAB (PROTONIX) PO SCH ×2 (08:07→20:08)
[2019-10-01] MEDS: CLOPIDOGREL 75 MG TAB PO SCH (08:07)
[2019-10-01] MEDS: METOPROLOL TART 12.5 MG PER 1/2 TAB PO SCH ×2 (08:07→20:08)
[2019-10-01] MEDS: FUROSEMIDE 40 MG TAB PO SCH (08:08)
[2019-10-01] MEDS: FOLIC ACID 1 MG TAB PO SCH (08:08)
[2019-10-01] MEDS: HEPARIN SOD (PORCINE) 5000 UNITS/ML VIAL (J1644 PER 1000UNITS) SQ SCH ×2 (08:14→20:08)
[2019-10-01 14:17] VITALS: BP 109/68
--- NOTE | 2019-10-01 18:42 | IPNPDOC ---
Date Seen The patient was seen on 10/01/19. Progress Note SUBJECTIVE: Patient was initially admitted from ARU for hospice eval but his daughter does not want the patient to be hospice and wishes complete medical treatment at this time. Patient is in agreement at this time, without any complaints at this time. He is comfortable, without any complaints and wishes to go home. He is told that PT recommends rehab but he is adamantly refusing and wishes to go home anyway. His daughter reports he has some help during the day and he lives with his son. She understands that he may not be ideal to go home without support and may not be able to care for himself but she is in agreement with the patient and is okay with him going home. Patient denies any SOB, CP, N/V/D or abdominal pain. 09/28/19 No acute events overnight, comfortable, no complaints at this time, agrees to [facility], PFS making arrangements. 09/29/19 No acute events overnight, resting comfortably in chair, eating breakfast, having mild non-productive cough, no other complaints, awaiting discharge to [facility] (likely Tuesday). 09/30/19 No acute events overnight, comfortable in bed, no complaints at this time, awaiting discharge [facility] tomorrow. 10/01/19 Patient seen in the morning, comfortable in bed, without any complaints at this time, having difficulty with discharging to [facility], social services analyst arranging alternatives. 10 point review of system is negative except for above OBJECTIVE PHYSICAL EXAMINATION: VITAL SIGNS: Please see below. GENERAL: no distress HEENT: moist mucus membranes CARDIOVASCULAR: S1, S2, no murmurs RESPIRATORY: diminished in the bases ABDOMINAL: soft, non-tender, non-distended, +BS EXTREMITIES: ROM intact NEUROLOGICAL: no focal deficits PSYCHOLOGICAL: calm LABORATORY DATA, IMAGING STUDIES, MICROBIOLOGY: Please see below. ASSESSMENT AND PLAN: 84 y.o male initially admitted from ARU for hospice care now accepting medical treatment. PROBLEMS: 1. Pneumonia - continue Levaquin to complete 7 day course. 2. Physical deconditioning -having difficulty with discharging to [facility], social services analyst arranging alternatives. 3. Medical comorbidities - CAD/HTN/Parkinson's: continue home regimen, started Lasix 40 mg by mouth daily. VS, I&O, 24H, Fishbone Vital Signs/I&O Vital Signs Date Time Temp Pulse Resp B/P (MAP) Pulse Ox O2 Delivery O2 Flow Rate FiO2 10/01/19 14:17 98.7 63 16 109/68 (82) 84 Room Air I&O- Last 24 Hours up to 6 AM 10/01/19 05:59 Intake Total 320 ml Output Total 300 ml Balance 20 ml JOSE CONTRERAS MD Oct 01, 2019 18:42
[2019-10-01] MEDS: TAMSULOSIN 0.4 MG CAP PO SCH (20:07)
[2019-10-01] MEDS: MIRTAZAPINE 15 MG TAB PO SCH (20:07)
[2019-10-01] MEDS: ACETAMINOPHEN TAB 650MG DOSE (2X325MG) PO PRN (20:08)
[2019-10-01 22:00] VITALS: BP 116/68
[2019-10-02 03:58] VITALS: BP 102/59
[2019-10-02] MEDS: LevoFLOXacin 750 MG TABLET PO SCH (05:47)
[2019-10-02 06:00] VITALS: BP 102/63
[2019-10-02] MEDS ORDERED: FURO40TA2 PO (08:46)
[2019-10-02] MEDS: HEPARIN SOD (PORCINE) 5000 UNITS/ML VIAL (J1644 PER 1000UNITS) SQ SCH (09:02)
[2019-10-02] MEDS: FOLIC ACID 1 MG TAB PO SCH (09:02)
[2019-10-02] MEDS: ASPIRIN 81 MG ENTERIC TAB PO SCH (09:02)
[2019-10-02] MEDS: METOPROLOL TART 12.5 MG PER 1/2 TAB PO SCH (09:02)
[2019-10-02 09:03] VITALS: BP 102/63
[2019-10-02] MEDS: FUROSEMIDE 40 MG TAB PO SCH (09:03)
[2019-10-02] MEDS: ATORVASTATIN 10 MG TAB PO SCH (09:03)
[2019-10-02] MEDS: amLODIPine 10 MG TAB PO SCH (09:03)
[2019-10-02] MEDS: SINEMET 25-100 MG TAB PO SCH (09:03)
[2019-10-02] MEDS: FERROUS SULFATE 325MG TAB PO SCH (09:03)
[2019-10-02] MEDS: PANTOPRAZOLE 40MG TAB (PROTONIX) PO SCH (09:03)
[2019-10-02] MEDS: CLOPIDOGREL 75 MG TAB PO SCH (09:03)
--- NOTE | 2019-10-04 23:21 | DS.PDOC ---
Discharge Summary General Date of Admission Sep 28, 2019 at 16:43 Date of Discharge 10/02/19 Attending Physician: JOSE CONTRERAS MD Discharge Summary PROCEDURES PERFORMED DURING STAY: None. ADMITTING DIAGNOSES: 1. Pneumonia, physical deconditioning. DISCHARGE DIAGNOSES: 1. Pneumonia, physical deconditioning. COMPLICATIONS/CHIEF COMPLAINT: Pneumonia. HISTORY OF PRESENT ILLNESS: 84-year-old male with past medical history of coronary artery disease was admitted from acute rehabilitation unit initially for hospice care. Upon discussion with his daughter. She was not aware the patient was being sent over from acute rehabilitation unit for hospice care. She does not wish for her father to be going for hospice care at this time, she is official healthcare proxy. Patient was restarted on all of his home meds, arrangements were made for patient to be discharged to [facility]. Patient is clinically at baseline, comfortable, tolerating diet, without any complaints, completed his antibiotic course, clinically and hemodynamically stable for discharge at this time. HOSPITAL COURSE: As above. DISCHARGE MEDICATIONS: Please see below. ALLERGIES: Please see below. OBJECTIVE PHYSICAL EXAMINATION: VITAL SIGNS: Please see below. GENERAL: no distress HEENT: moist mucus membranes CARDIOVASCULAR: S1, S2, no murmurs RESPIRATORY: diminished in the bases ABDOMINAL: soft, non-tender, non-distended, +BS EXTREMITIES: ROM intact NEUROLOGICAL: no focal deficits PSYCHOLOGICAL: calm LABORATORY DATA: Please see below. PROGNOSIS: Fair ACTIVITY: As tolerated. DIET: Cardiac DISCHARGE PLAN: Follow with PCP in 1-2 weeks DISPOSITION: [facility]. DISCHARGE INSTRUCTIONS: 1. As above. DISCHARGE CONDITION: Stable. TIME SPENT ON DISCHARGE: Greater than 27 minutes. Vital Signs/I&Os Vital Signs Date Time Temp Pulse Resp B/P (MAP) Pulse Ox O2 Delivery O2 Flow Rate FiO2 10/02/19 09:03 78 102/63 10/02/19 06:00 97.8 17 92 Room Air Discharge Medications Scheduled Amlodipine Besylate (Amlodipine Besylate) 10 Mg Tablet, 10 MG PO DAILY, (Reported) Aspirin (Aspir 81) 81 Mg Tablet.dr, 81 MG PO DAILY, (Reported) Atorvastatin Calcium (Atorvastatin Calcium) 10 Mg Tablet, 20 MG PO DAILY Carbidopa/Levodopa (Carbidopa-Levodopa 25-100 Tab) 1 Each Tablet, 1 TAB PO BID, (Reported) 0900, 2100 Clopidogrel Bisulfate (Clopidogrel) 75 Mg Tablet, 75 MG PO DAILY, (Reported) Cyanocobalamin (Vitamin B-12) (B-12) 1,000 Mcg Tablet, 1,000 MCG PO DAILY, (Reported) Ferrous Sulfate (Ferrous Sulfate) 325 Mg Tablet, 325 MG PO BID, (Reported) Folic Acid (Folic Acid) 1 Mg Tablet, 1 MG PO DAILY, (Reported) Furosemide (Furosemide) 40 Mg Tablet, 40 MG PO DAILY Magnesium Oxide (Magnesium) 400 Mg Cap, 400 MG PO DAILY, (Reported) Metoprolol Tartrate (Metoprolol Tartrate) 25 Mg Tablet, 12.5 MG PO BID, (Reported) Mirtazapine (Remeron) 15 Mg Tablet, 15 MG PO QHS, (Reported) Pantoprazole Sodium (Pantoprazole Sodium) 40 Mg Tablet.dr, 40 MG PO BID, (Reported) Tamsulosin HCl (Flomax) 0.4 Mg Capsule, 0.4 MG PO QHS, (Reported) Allergies Coded Allergies: No Known Drug Allergies (Verified Allergy, Unknown, 04/15/19) JOSE CONTRERAS MD Oct 04, 2019 23:21
== END 2019-10-02 10:35 | DRG 947 ==
LOC: INTOOBSV 13:15 → M MS5PR 13:15 → OBSVTOIN 09-28 16:43 → INTOOBSV 09-28 16:43
PROVIDERS: ADMIT Internal Medicine; ATTEND Internal Medicine
DX: R53.83 Other fatigue (principal); J18.9 Pneumonia, unspecified organism; Z75.1 Person awaiting admission to adequate facility elsewhere; G20 Parkinson's disease; I12.9 Hypertensive chronic kidney disease with stage 1 through stage 4 chronic kidney disease, or unspecified chronic kidney disease; I25.10 Atherosclerotic heart disease of native coronary artery without angina pectoris; N18.9 Chronic kidney disease, unspecified; I73.9 Peripheral vascular disease, unspecified; Z66 Do not resuscitate; Z98.61 Coronary angioplasty status; Z98.62 Peripheral vascular angioplasty status; Z87.891 Personal history of nicotine dependence; Z79.82 Long term (current) use of aspirin; Z79.899 Other long term (current) drug therapy

== ENCOUNTER → 2019-12-21 | Outpatient (REF) | payer MEDICARE ==
[~2019-12-21] MED LIST changes: +FURO40TA2 PO
[2019-12-21 15:43] LABS: APPEARANCE, URINE CLEAR (CLEAR); BACTERIA, URINE AUTO NEGATIVE (NEGATIVE); BILIRUBIN, URINE AUTO NEGATIVE (NEGATIVE); BLOOD, URINE BLOOD NEGATIVE (NEGATIVE); COLOR, URINE YELLOW (YELLOW); GLUCOSE, URINE (UA) AUTO NEGATIVE (NEGATIVE); KETONE, URINE AUTO NEGATIVE (NEGATIVE); LEUKOCYTE ESTERASE, URINE AUTO NEGATIVE (NEGATIVE); MUCUS, URINE SMALL (NEGATIVE); NITRITE, URINE AUTO NEGATIVE (NEGATIVE); PROTEIN, URINE AUTO NEGATIVE (NEGATIVE); RBC, URINE AUTO 0 /HPF (0-3); SPECIFIC GRAVITY URINE AUTO 1.013 (1.002-1.035); SQUAMOUS EPITHELIAL CELL UR AU 0 /HPF (0-6); UROBILINOGEN, URINE AUTO 0.2 mg/dL (0.0-2.0); WBC, URINE AUTO 0 /HPF (0-3)
== END ==
LOC: M SMT 14:54
PROVIDERS: ATTEND Nurse Practitioner Family
DX: R32 Unspecified urinary incontinence (principal)
CPT/HCPCS: 51798; 81001; 87086; G0463

== ENCOUNTER → 2020-02-01 | Outpatient (REF) | payer MEDICARE ==
[~2020-02-01] MED LIST changes: -AMLO10TA5 PO; +AMLO1TAB25 PO; -ASPI81TA85 PO; +ASPI81TA86 PO; +PANT40TA29 PO; -PANT40TA3 PO
[2020-02-01 16:57] LABS: FERRITIN 164 NG/ML (26-388); IRON (FE) 55 UG/DL (65-175); PERCENT SATURATION 26.6 % (19.7-50.0); TOTAL IRON BINDING CAPACITY 207 UG/DL (250-450)
[2020-02-01 17:03] LABS: FOLATE > 24.0 NG/ML; VITAMIN B12 LEVEL 638 PG/ML
== END ==
LOC: M LAB REF 16:08
PROVIDERS: ATTEND Internal Medicine
DX: R13.10 Dysphagia, unspecified (principal)

== ENCOUNTER → 2020-06-02 | Outpatient (REF) | payer MEDICARE ==
[2020-06-02 17:51] LABS: PERCENT SATURATION 32.1 % (19.7-50.0)
== END ==
LOC: M LAB REF 16:06
PROVIDERS: ATTEND Internal Medicine
DX: D64.9 Anemia, unspecified (principal)

== ENCOUNTER 2020-07-08 12:57 | Inpatient (IN) | payer MEDICARE ==
[~2020-07-08] VITALS: Ht 170.2 cm; Wt 77.1 kg
[~2020-07-08 12:57] MED LIST changes: +COLC0.6T47 PO; -COLC1TAB13 PO; +MIRT-62 PO; -REME15TA PO
[2020-07-08] MEDS ORDERED: ONDANSETRON 4MG/2ML VIAL IV ONE (13:30)
[2020-07-08] MEDS ORDERED: MORPHINE 2 MG/ML 1ML VIAL (J2270) IV ONE ×2 (13:30→14:45)
[2020-07-08 13:51] LABS: HEMATOCRIT 27.1 % (42.0-52.0); HEMOGLOBIN 8.1 g/dl (13.5-17.5); MEAN CORPUSCULAR HEMOGLOBIN 32.4 pg (27.0-33.0); MEAN CORPUSCULAR HGB CONC 29.9 g/dl (32.0-36.5); MEAN CORPUSCULAR VOLUME 108.4 fl (80.0-96.0); PLATELET COUNT, AUTOMATED 136 10^3/uL (150-450); WHITE BLOOD COUNT 8.4 10^3/uL (4.0-10.0)
[2020-07-08 14:00] LABS: INR 1.35
[2020-07-08 14:01] LABS: PARTIAL THROMBOPLASTIN TIME 33.8 SECONDS (24.2-38.5)
--- NOTE | 2020-07-08 14:10 | REP ---
INDICATION: trauma. COMPARISON: Comparison radiograph August 04, 2019.. TECHNIQUE: Three views. FINDINGS: Bony pelvic ring is intact. The patient is status post aorta bi-iliac stent graft placement. There are surgical clips in the inguinal soft tissues bilaterally. There is no evidence of pelvic or proximal femur fracture. AP and frogleg views of the right hip demonstrate osteoarthritic narrowing of the joint space and spur formation. There is mild diffuse osteopenia. There is some left hip osteoarthritis as well. IMPRESSION: No traumatic abnormality noted. Bilateral hip joint osteoarthritis. Status post aorta bi-iliac stent graft placement. No acute bony abnormality. <Electronically signed by Arnaldo Bennett > 07/08/20 [id number]
[2020-07-08 14:15] LABS: CALCIUM LEVEL 8.9 MG/DL (8.8-10.2); CREATININE FOR GFR 2.11 MG/DL (0.70-1.30); POTASSIUM SERUM 4.9 MEQ/L (3.5-5.1)
[2020-07-08] MEDS ORDERED: traMADol 50 MG TAB PO PRN (15:30)
[2020-07-08] MEDS ORDERED: ATOR1TAB21 PO (15:35)
[2020-07-08] MEDS ORDERED: CVS1CAP2 PO (15:35)
[2020-07-08] MEDS ORDERED: FAMO20TA PO (15:35)
[2020-07-08] MEDS ORDERED: D31000TA2 PO (15:35)
[2020-07-08] MEDS ORDERED: FURO40TA2 PO (15:35)
[2020-07-08] MEDS ORDERED: MAGN400T3 PO (15:35)
[2020-07-08] MEDS ORDERED: TOLT2CAP4 PO (15:35)
[2020-07-08] MEDS ORDERED: ASPI81TA26 PO (15:35)
[2020-07-08] MEDS ORDERED: ACET500T15 PO (15:35)
[2020-07-08] MEDS ORDERED: MED REC COMMENT (15:36)
[2020-07-08] MEDS ORDERED: CARB25TA9 PO (15:38)
[2020-07-08 15:41] LABS: RSV AMPLIFICATION NEGATIVE (NEGATIVE)
[2020-07-08 16:33] VITALS: BP 129/72
[2020-07-08] MEDS: SINEMET 25-100 MG TAB PO SCH (17:22)
[2020-07-08] MEDS: NS 1,000 ML IV SCH (17:22)
--- NOTE | 2020-07-08 17:39 | HPEPDOC ---
General Date of Admission Jul 08, 2020 at 15:14 Date of Service: Jul 08, 2020 Chief Complaint The patient is a 85-year-old male admitted with a reason for visit of Adverse Effect Of Antiplatelet Agent/Traumatic Hem. Source: Patient, Family History of Present Illness Mr. Miner is an 85 year old male with Parkinson's disease, PVD, and CAD s/p CABG here for fall and hematoma. He initially fell on Tuesday morning. Denies any lightheadedness, dizziness, or syncope. He tripped over the rug and fell. Denies LOC. He had someone help him back up and got into bed. The daughter did not know he had a fell. He was doing okay until this morning (Tuesday morning). He had excruciating right hip pain and could not ambulate. He was taken to the ED. Imaging did not demonstrate fracture. On examination, he has bruising over right gluteus hyun and tender swelling. He had a hematoma. He has not been able to ambulate and ED called for admission. Home Medications Scheduled Aspirin (Aspirin EC) 81 Mg Tablet.dr, 81 MG PO DAILY, (Reported) Atorvastatin Calcium (Atorvastatin Calcium) 20 Mg Tablet, 20 MG PO DAILY, (Reported) Carbidopa/Levodopa (Carbidopa-Levodopa 25-100 Tab) 1 Each Tablet, 1 TAB PO BID, (Reported) Cholecalciferol (Vitamin D3) (Vitamin D3) 1,000 Unit Tablet, 2,000 UNITS PO DAILY, (Reported) Clopidogrel Bisulfate (Clopidogrel) 75 Mg Tablet, 75 MG PO DAILY, (Reported) Cyanocobalamin (Vitamin B-12) (B-12) 1,000 Mcg Tablet, 1,000 MCG PO DAILY, (Repo rted) Famotidine (Famotidine) 20 Mg Tablet, 20 MG PO DAILY, (Reported) Ferrous Sulfate (Ferrous Sulfate) 325 Mg Tablet, 325 MG PO QHS, (Reported) Folic Acid (Folic Acid) 1 Mg Tablet, 1 MG PO DAILY, (Reported) Furosemide (Furosemide) 40 Mg Tablet, 20 MG PO QHS, (Reported) Lactobacillus Combo No.10 (Probiotic) 1 Each Capsule, 1 CAP PO QHS, (Reported) Magnesium Oxide (Magnesium Oxide) 400 Mg Tablet, 400 MG PO DAILY, (Reported) Metoprolol Tartrate (Metoprolol Tartrate) 25 Mg Tablet, 12.5 MG PO BID, (Reported) Mirtazapine (Remeron) 15 Mg Tablet, 15 MG PO QHS, (Reported) Tamsulosin HCl (Flomax) 0.4 Mg Capsule, 0.4 MG PO QHS, (Reported) Tolterodine Tartrate (Tolterodine Tartrate ER) 2 Mg Cap.er.24h, 2 MG PO DAILY, (Reported) Scheduled PRN Acetaminophen (Acetaminophen) 500 Mg Tablet, 1,000 MG PO Q6H PRN for PAIN, (Reported) Miscellaneous Medications [Med Rec Comment] , (Reported) LIST OBTAINED FROM [facility] [phone] Allergies Coded Allergies: No Known Drug Allergies (Verified Allergy, Unknown, 04/15/19) Past Medical History Medical History 1. Parkinson's disease. 2. Chronic kidney disease. 3. Coronary artery disease. 4. Hypertension 5. Peripheral vascular disease Surgical History 1. CABG. 2. Femoropopliteal bypass. Family History Mother: MD Social History * Smoker: former Smoker (pipe) Alcohol: Denies Drugs: denies A-FIB/CHADSVASC A-FIB History Current/History of A-Fib/PAF?: No Review of Systems Constitutional: Denies: Chills, Fever Eyes: Denies: Vision change ENT: Denies: Sore Throat Skin: Denies: Rash Pulmonary: Denies: Dyspnea, Cough Cardiovascular: Denies: Chest Pain, Palpitations, Lt Headedness Gastrointestinal: Denies: Abdominal Pain, Diarrhea Genitourinary: Denies: Dysuria Musculoskeletal: Reports: Other Symptoms (Gluteal pain) Neurological: Denies: Numbness Physical Examination General Exam: Positive: Cooperative, No Acute Distress Eye Exam: Positive: EOMI; Negative: Sclera icteric ENT Exam: Positive: Tongue Midline Neck Exam: Positive: Supple Chest Exam: Positive: Clear to auscultation; Negative: Rales, Rhonchi, Wheezing Heart Exam: Positive: Rate Normal, Regular Rhythm Abdomen Exam: Positive: Normal bowel sounds, Soft; Negative: Tenderness Extremity Exam: Negative: Edema Neuro Exam: Positive: Normal Speech, Cranial Nerves 3-12 NL Psych Exam: Positive: Mental status NL, Mood NL Vital Signs Vital Signs Date Time Temp Pulse Resp B/P (MAP) Pulse Ox O2 Delivery O2 Flow Rate FiO2 07/08/20 16:33 99.2 85 17 129/72 (91) 97 Room Air Laboratory Data Labs 24H Laboratory Tests 2 07/08/20 13:23: Nucleated Red Blood Cells % (auto) 0.0, Prothrombin Time 17.0H, Prothromb Time International Ratio 1.35, Activated Partial Thromboplast Time 33.8, Anion Gap 5L, Glomerular Filtration Rate 32.0L, Calcium Level 8.9 07/08/20 14:52: Coronavirus (COVID-19)(PCR) NEGATIVE, Influenza Type A (RT-PCR) NEGATIVE, Inf luenza Type B (RT-PCR) NEGATIVE, Respiratory Syncytial Virus (PCR) NEGATIVE CBC/BMP Laboratory Tests 07/08/20 13:23 Assessment/Plan Mr. Miner is an 85 year old male with Parkinson's disease, PVD, and CAD s/p CABG here for fall and hematoma. We will hold his DAPT for the time being and provide supportive care for the hematoma. His hemoglobin has decreased from 10 in September to 8 today. Will continue to monitor H&H. Otherwise, patient will need physical therapy. Patient may need rehab pending on PT recommendations Plan / VTE VTE Prophylaxis Ordered?: Yes Plan Plan 1. Right gluteal hematoma 2/2 mechanical fall -Hold DAPT -Supportive care and pain control -PT for ambulation, may need rehab 2. SLAOMON -Hold diuretic -Avoid nephrotoxic agents -IVF 3. Parkinson's disease -Continue carbidopa/levodopa -PT for ambulation 4. CAD -Hold DAPT due to hematoma -Continue Lopressor and atorvastatin 5. Macrocytic anemia -Hold DAPT and monitor H&H (may be related to hematoma) -Continue Vit B12 and iron 6. DVT ppx -No chemical ppx due to hematoma and anemia. SCD and TEDs AMIE LUDWIG DO Jul 08, 2020 17:38
[2020-07-08] MEDS: TAMSULOSIN 0.4 MG CAP PO SCH (21:07)
[2020-07-08] MEDS: MIRTAZAPINE 15 MG TAB PO SCH (21:07)
[2020-07-08] MEDS: FERROUS SULFATE 325MG TAB PO SCH (21:07)
[2020-07-08] MEDS: ACETAMINOPHEN 500 MG TAB PO SCH (21:07)
[2020-07-08] MEDS: METOPROLOL TART 12.5 MG PER 1/2 TAB PO SCH (21:08)
[2020-07-08 22:00] VITALS: BP 125/69
[2020-07-09] MEDS: NS 1,000 ML IV SCH ×2 (05:30→17:04)
[2020-07-09 06:00] VITALS: BP 108/88
[2020-07-09 06:56] LABS: HEMATOCRIT 25.1 % (42.0-52.0); HEMOGLOBIN 7.4 g/dl (13.5-17.5); MEAN CORPUSCULAR HEMOGLOBIN 32.5 pg (27.0-33.0); MEAN CORPUSCULAR HGB CONC 29.5 g/dl (32.0-36.5); MEAN CORPUSCULAR VOLUME 110.1 fl (80.0-96.0); PLATELET COUNT, AUTOMATED 124 10^3/uL (150-450); RED BLOOD COUNT 2.28 10^6/uL (4.30-6.10); WHITE BLOOD COUNT 6.4 10^3/uL (4.0-10.0)
[2020-07-09 07:10] LABS: CALCIUM LEVEL 8.5 MG/DL (8.8-10.2); CREATININE FOR GFR 2.02 MG/DL (0.70-1.30); GLOMERULAR FILTRATION RATE 33.7 (>35); POTASSIUM SERUM 4.8 MEQ/L (3.5-5.1)
--- NOTE | 2020-07-09 07:45 | ECGEPIP ---
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
[2020-07-09] MEDS: FOLIC ACID 1 MG TAB PO SCH (10:40)
[2020-07-09] MEDS: VITAMIN D 1,000 INTERNATIONAL UNITS TABLET PO SCH (10:40)
[2020-07-09] MEDS: LACTOBACILLUS ACIDOPHILUS CAP (BACID) PO SCH (10:40)
[2020-07-09] MEDS: SINEMET 25-100 MG TAB PO SCH ×2 (10:40→17:04)
[2020-07-09] MEDS: ATORVASTATIN 20 MG TAB PO SCH (10:40)
[2020-07-09] MEDS: MAGNESIUM OXIDE 400 MG TAB (MAG-OX) PO SCH (10:41)
[2020-07-09] MEDS: TOLTERODINE TARTRATE 2 MG LA CAP (DETROL LA) PO SCH (10:41)
[2020-07-09] MEDS: CYANOCOBALAMIN 500 MCG TAB PO SCH (10:41)
[2020-07-09] MEDS: ACETAMINOPHEN 500 MG TAB PO SCH ×3 (10:42→20:41)
[2020-07-09] MEDS: FAMOTIDINE 20 MG TAB PO SCH (10:43)
[2020-07-09] MEDS: METOPROLOL TART 12.5 MG PER 1/2 TAB PO SCH ×2 (10:44→20:40)
[2020-07-09 12:41] LABS: HEMATOCRIT 25.2 % (42.0-52.0); HEMOGLOBIN 7.6 g/dl (13.5-17.5); MEAN CORPUSCULAR HEMOGLOBIN 33.5 pg (27.0-33.0); MEAN CORPUSCULAR HGB CONC 30.2 g/dl (32.0-36.5); PLATELET COUNT, AUTOMATED 127 10^3/uL (150-450); RED BLOOD COUNT 2.27 10^6/uL (4.30-6.10); WHITE BLOOD COUNT 5.4 10^3/uL (4.0-10.0)
[2020-07-09 13:07] LABS: PERCENT SATURATION 11.1 % (19.7-50.0)
[2020-07-09 14:00] VITALS: BP 114/55
[2020-07-09 18:35] LABS: HEMATOCRIT 24.4 % (42.0-52.0); HEMOGLOBIN 7.4 g/dl (13.5-17.5); MEAN CORPUSCULAR HEMOGLOBIN 33.3 pg (27.0-33.0); MEAN CORPUSCULAR HGB CONC 30.3 g/dl (32.0-36.5); MEAN CORPUSCULAR VOLUME 109.9 fl (80.0-96.0); PLATELET COUNT, AUTOMATED 118 10^3/uL (150-450); RED BLOOD COUNT 2.22 10^6/uL (4.30-6.10); WHITE BLOOD COUNT 5.3 10^3/uL (4.0-10.0)
[2020-07-09] MEDS: TAMSULOSIN 0.4 MG CAP PO SCH (20:40)
[2020-07-09] MEDS: FERROUS SULFATE 325MG TAB PO SCH (20:40)
[2020-07-09] MEDS: MIRTAZAPINE 15 MG TAB PO SCH (20:40)
--- NOTE | 2020-07-09 20:54 | IPNPDOC ---
Subjective Date Seen The patient was seen on 07/09/20. Subjective Chief Complaint/HPI Mr. Miner is an 85 year old male with Parkinson's disease, PVD, and CAD s/p CABG here for fall and hematoma. This morning, he reports that his hip feels okay, but he has been afraid to move it. Otherwise, denies fever/chills, chest pain, dyspnea, or abdominal pain Objective Physical Examination General Exam: Positive: Cooperative, No Acute Distress Eye Exam: Positive: EOMI ENT Exam: Positive: Tongue Midline Neck Exam: Positive: Supple Chest Exam: Positive: Clear to auscultation Heart Exam: Positive: Rate Normal, Regular Rhythm Abdomen Exam: Positive: Normal bowel sounds, Soft Extremity Exam: Negative: Edema Neuro Exam: Positive: Normal Speech, Cranial Nerves 3-12 NL Psych Exam: Positive: Mental status NL, Mood NL Assessment /Plan Assessment Mr. Miner is an 85 year old male with Parkinson's disease, PVD, and CAD s/p CABG here for fall and hematoma. We will hold his DAPT for the time being and provide supportive care for the hematoma. His hemoglobin has decreased from 10 in September to 8 today. H&H has dropped down to 7.5 and has been consistently been at this level. Otherwise, patient will need physical therapy. Patient may need rehab pending on PT recommendations Plan/VTE VTE Prophylaxis Ordered?: Yes Plan Plan 1. Right gluteal hematoma 2/2 mechanical fall -Hold DAPT -Supportive care and pain control -PT for ambulation, may need rehab 2. SALOMON -Hold diuretic -Avoid nephrotoxic agents -IVF 3. Parkinson's disease -Continue carbidopa/levodopa -PT for ambulation 4. CAD -Hold DAPT due to hematoma -Continue Lopressor and atorvastatin 5. Macrocytic anemia -Hold DAPT and monitor H&H (may be related to hematoma) -Continue Vit B12 and iron 6. DVT ppx -No chemical ppx due to hematoma and anemia. SCD and TEDs VS, I&O, 24H, Fishbone Vital Signs/I&O Vital Signs Date Time Temp Pulse Resp B/P (MAP) Pulse Ox O2 Delivery O2 Flow Rate FiO2 07/09/20 20:40 58 114/55 07/09/20 14:00 99.4 16 95 Room Air I&O- Last 24 Hours up to 6 AM 07/09/20 06:00 Intake Total 1300 ml Output Total 300 ml Balance 1000 ml Laboratory Data 24H LABS Laboratory Tests 2 07/09/20 06:21: Nucleated Red Blood Cells % (auto) 0.0, Anion Gap 4L, Glomerular Filtration Rate 33.7L, Calcium Level 8.5L 07/09/20 12:14: Nucleated Red Blood Cells % (auto) 0.0, Reticulocyte # (auto) 40.2, Percent Reticulocyte Count 1.8H, Reticulocyte Hemoglobin Equivalent 32.7, Iron Level 15L, Total Iron Binding Capacity 135L, Transferrin % Saturation 11.1L, Ferritin 203, Lactate Dehydrogenase 138, Vitamin B12 Level 507 07/09/20 18:25: Nucleated Red Blood Cells % (auto) 0.0 CBC/BMP Laboratory Tests 07/09/20 06:21 07/09/20 12:14 07/09/20 18:25 AMIE LUDWIG DO Jul 09, 2020 20:54
[2020-07-09 22:00] VITALS: BP 114/55
[2020-07-10] VITALS (11 sets, daily range): BP systolic 107–156; BP diastolic 55–84
[2020-07-10 00:19] LABS: HEMATOCRIT 24.2 % (42.0-52.0); HEMOGLOBIN 7.6 g/dl (13.5-17.5); MEAN CORPUSCULAR HEMOGLOBIN 34.4 pg (27.0-33.0); MEAN CORPUSCULAR HGB CONC 31.4 g/dl (32.0-36.5); MEAN CORPUSCULAR VOLUME 109.5 fl (80.0-96.0); PLATELET COUNT, AUTOMATED 117 10^3/uL (150-450); RED BLOOD COUNT 2.21 10^6/uL (4.30-6.10); WHITE BLOOD COUNT 5.7 10^3/uL (4.0-10.0)
[2020-07-10] MEDS: NS 1,000 ML IV SCH (05:02)
[2020-07-10 06:40] LABS: HEMATOCRIT 24.3 % (42.0-52.0); HEMOGLOBIN 7.2 g/dl (13.5-17.5); MEAN CORPUSCULAR HEMOGLOBIN 32.9 pg (27.0-33.0); MEAN CORPUSCULAR HGB CONC 29.6 g/dl (32.0-36.5); PLATELET COUNT, AUTOMATED 119 10^3/uL (150-450); RED BLOOD COUNT 2.19 10^6/uL (4.30-6.10); WHITE BLOOD COUNT 5.4 10^3/uL (4.0-10.0)
[2020-07-10 07:09] LABS: CALCIUM LEVEL 8.8 MG/DL (8.8-10.2); CREATININE FOR GFR 1.91 MG/DL (0.70-1.30); GLOMERULAR FILTRATION RATE 35.9 (>35); POTASSIUM SERUM 4.7 MEQ/L (3.5-5.1)
[2020-07-10] MEDS: ACETAMINOPHEN 500 MG TAB PO SCH ×3 (09:00→20:19)
[2020-07-10] MEDS ORDERED: NS 1,000 ML IV SCH (09:13)
[2020-07-10] MEDS: LACTOBACILLUS ACIDOPHILUS CAP (BACID) PO SCH (09:37)
[2020-07-10] MEDS: MAGNESIUM OXIDE 400 MG TAB (MAG-OX) PO SCH (09:37)
[2020-07-10] MEDS: FOLIC ACID 1 MG TAB PO SCH (09:37)
[2020-07-10] MEDS: VITAMIN D 1,000 INTERNATIONAL UNITS TABLET PO SCH (09:37)
[2020-07-10] MEDS: TOLTERODINE TARTRATE 2 MG LA CAP (DETROL LA) PO SCH (09:37)
[2020-07-10] MEDS: ATORVASTATIN 20 MG TAB PO SCH (09:37)
[2020-07-10] MEDS: METOPROLOL TART 12.5 MG PER 1/2 TAB PO SCH ×2 (09:38→20:10)
[2020-07-10] MEDS: SINEMET 25-100 MG TAB PO SCH ×2 (09:38→18:01)
[2020-07-10] MEDS: CYANOCOBALAMIN 500 MCG TAB PO SCH (09:38)
--- NOTE | 2020-07-10 20:17 | IPNPDOC ---
Subjective Date Seen The patient was seen on 07/10/20. Subjective Chief Complaint/HPI Mr. Miner is an 85 year old male with Parkinson's disease, PVD, and CAD s/p CABG here for fall and hematoma. This morning, he denies any lightheadedness, dyspnea, or chest pain. His H&H continued to drop. Spoke with his daughter and HCP about blood transfusions. She has agreed to blood transfusion and patient will receive 2u of pRBC Objective Physical Examination General Exam: Positive: Cooperative, No Acute Distress Eye Exam: Positive: EOMI ENT Exam: Positive: Tongue Midline Neck Exam: Positive: Supple Chest Exam: Positive: Clear to auscultation Heart Exam: Positive: Rate Normal, Regular Rhythm Abdomen Exam: Positive: Normal bowel sounds, Soft Extremity Exam: Negative: Edema Neuro Exam: Positive: Normal Speech, Cranial Nerves 3-12 NL Psych Exam: Positive: Mental status NL, Mood NL Assessment /Plan Assessment Mr. Miner is an 85 year old male with Parkinson's disease, PVD, and CAD s/p CABG here for fall and hematoma. We will hold his DAPT for the time being and provide supportive care for the hematoma. His hemoglobin continued to decline. Spoke with his HCP about blood transfusion and she was agreeable to transfusion. Patient will be transfused with 2u pRBC. Possible discharge home tomorrow if H&H remains stable. Plan/VTE VTE Prophylaxis Ordered?: Yes Plan 1. Right gluteal hematoma 2/2 mechanical fall -Hold DAPT -Supportive care and pain control -PT for ambulation, may need rehab 2. SALOMON -Hold diuretic -Avoid nephrotoxic agents -IVF 3. Parkinson's disease -Continue carbidopa/levodopa -PT for ambulation 4. CAD -Hold DAPT due to hematoma -Continue Lopressor and atorvastatin 5. Macrocytic anemia -Hold DAPT -Continue Vit B12 and iron -Consented for blood, transfusing 2u of pRBC 6. DVT ppx -No chemical ppx due to hematoma and anemia. SCD and TEDs Disposition: If H&H remains stable tomorrow, possible discharge home with home services VS, I&O, 24H, Fishbone Vital Signs/I&O Vital Signs Date Time Temp Pulse Resp B/P (MAP) Pulse Ox O2 Delivery O2 Flow Rate FiO2 07/10/20 18:59 98.2 83 16 127/71 93 Room Air I&O- Last 24 Hours up to 6 AM 07/10/20 06:00 Intake Total 1740 ml Output Total 0 ml Balance 1740 ml Laboratory Data 24H LABS Laboratory Tests 2 07/10/20 00:04: Nucleated Red Blood Cells % (auto) 0.0 07/10/20 06:28: Nucleated Red Blood Cells % (auto) 0.0, Anion Gap 1L, Glomerular Filtration Rate 35.9, Calcium Level 8.8 CBC/BMP Laboratory Tests 07/10/20 00:04 07/10/20 06:28 AMIE LUDWIG DO Jul 10, 2020 20:17
[2020-07-10] MEDS: MIRTAZAPINE 15 MG TAB PO SCH (20:19)
[2020-07-10] MEDS: TAMSULOSIN 0.4 MG CAP PO SCH (20:19)
[2020-07-10] MEDS: FERROUS SULFATE 325MG TAB PO SCH (20:19)
[2020-07-10 22:00] LABS: HEMATOCRIT 30.7 % (42.0-52.0); HEMOGLOBIN 9.3 g/dl (13.5-17.5); MEAN CORPUSCULAR HEMOGLOBIN 31.6 pg (27.0-33.0); MEAN CORPUSCULAR HGB CONC 30.3 g/dl (32.0-36.5); MEAN CORPUSCULAR VOLUME 104.4 fl (80.0-96.0); PLATELET COUNT, AUTOMATED 139 10^3/uL (150-450); RED BLOOD COUNT 2.94 10^6/uL (4.30-6.10); WHITE BLOOD COUNT 6.7 10^3/uL (4.0-10.0)
[2020-07-11 04:42] LABS: HEMATOCRIT 29.7 % (42.0-52.0); HEMOGLOBIN 9.1 g/dl (13.5-17.5); MEAN CORPUSCULAR HEMOGLOBIN 31.8 pg (27.0-33.0); MEAN CORPUSCULAR HGB CONC 30.6 g/dl (32.0-36.5); MEAN CORPUSCULAR VOLUME 103.8 fl (80.0-96.0); PLATELET COUNT, AUTOMATED 134 10^3/uL (150-450); RED BLOOD COUNT 2.86 10^6/uL (4.30-6.10); WHITE BLOOD COUNT 5.1 10^3/uL (4.0-10.0)
[2020-07-11 06:00] VITALS: BP 148/82
[2020-07-11 06:06] LABS: HEMATOCRIT 30.7 % (42.0-52.0); HEMOGLOBIN 9.4 g/dl (13.5-17.5); MEAN CORPUSCULAR HEMOGLOBIN 31.9 pg (27.0-33.0); MEAN CORPUSCULAR HGB CONC 30.6 g/dl (32.0-36.5); MEAN CORPUSCULAR VOLUME 104.1 fl (80.0-96.0); PLATELET COUNT, AUTOMATED 141 10^3/uL (150-450); RED BLOOD COUNT 2.95 10^6/uL (4.30-6.10); WHITE BLOOD COUNT 5.7 10^3/uL (4.0-10.0)
[2020-07-11 06:21] LABS: CALCIUM LEVEL 9.1 MG/DL (8.8-10.2); CREATININE FOR GFR 1.73 MG/DL (0.70-1.30); GLOMERULAR FILTRATION RATE 40.3 (>35); POTASSIUM SERUM 4.5 MEQ/L (3.5-5.1)
[2020-07-11] MEDS ORDERED: MOM 30ML SUSPENSION UDC PO ONE (07:00)
[2020-07-11] MEDS: FOLIC ACID 1 MG TAB PO SCH (09:51)
[2020-07-11] MEDS: FAMOTIDINE 20 MG TAB PO SCH (09:51)
[2020-07-11] MEDS: ATORVASTATIN 20 MG TAB PO SCH (09:51)
[2020-07-11] MEDS: TOLTERODINE TARTRATE 2 MG LA CAP (DETROL LA) PO SCH (09:51)
[2020-07-11] MEDS: MAGNESIUM OXIDE 400 MG TAB (MAG-OX) PO SCH (09:52)
[2020-07-11] MEDS: VITAMIN D 1,000 INTERNATIONAL UNITS TABLET PO SCH (09:53)
[2020-07-11] MEDS: SINEMET 25-100 MG TAB PO SCH (09:53)
[2020-07-11] MEDS: LACTOBACILLUS ACIDOPHILUS CAP (BACID) PO SCH (09:53)
[2020-07-11] MEDS: CYANOCOBALAMIN 500 MCG TAB PO SCH (09:53)
[2020-07-11 09:54] VITALS: BP 121/67
[2020-07-11] MEDS: ACETAMINOPHEN 500 MG TAB PO SCH (09:54)
[2020-07-11] MEDS: METOPROLOL TART 12.5 MG PER 1/2 TAB PO SCH (09:54)
--- NOTE | 2020-07-11 23:40 | DS.PDOC ---
Discharge Summary General Date of Admission Jul 08, 2020 at 15:14 Date of Discharge Jul 11, 2020 Attending Physician: AMIE LUDWIG DO Discharge Summary PROCEDURES PERFORMED DURING STAY: Blood transfusion on 07/10/2020. ADMITTING DIAGNOSES: 1. Right gluteal hematoma 2/2 mechanical fall 2. SALOMON 3. Parkinson's disease 4. CAD 5. Macrocytic anemia DISCHARGE DIAGNOSES: 1. Right gluteal hematoma 2/2 mechanical fall 2. SALOMON 3. Parkinson's disease 4. CAD 5. Macrocytic anemia COMPLICATIONS/CHIEF COMPLAINT: Adverse Effect Of Antiplatelet Agent/Traumatic Hem. HISTORY OF PRESENT ILLNESS: Mr. Miner is an 85 year old male with Parkinson's disease, PVD, and CAD s/p CABG here for fall and hematoma. He initially fell on Tuesday morning. Denies any lightheadedness, dizziness, or syncope. He tripped over the rug and fell. Denies LOC. He had someone help him back up and got into bed. The daughter did not know he had a fell. He was doing okay until this morning (Tuesday). He had excruciating right hip pain and could not ambulate. He was taken to the ED. Imaging did not demonstrate fracture. On examination, he has bruising over right gluteus hyun and tender swelling. He had a hematoma. He has not been able to ambulate and ED called for admission. HOSPITAL COURSE: The day afterwards, patient was feeling better. Physical therapy worked with the patient. Recommended home with home services. Patient's hemoglobin continued to drop while in patient despite holding DAPT therapy. Spoke with daughter about blood transfusion and she was agreeable. Patient was given 2u PRBC and responded appropriately. H&H remained stable. Suspect that the initial H&H maybe hemoconcentrated since the H&H dropped after given fluids. Today, patient was feeling well and felt ready for home. He was subsequently discharged today. DISCHARGE MEDICATIONS: Please see below. ALLERGIES: Please see below. PHYSICAL EXAMINATION ON DISCHARGE: VITAL SIGNS: Please see below. GENERAL: Comfortable, no apparent distress HEENT: EOMI, sclera NECK: Supple CARDIOVASCULAR EXAMINATION: Regular rate and rhythm RESPIRATORY EXAMINATION: Lungs clear to auscultation bilaterally ABDOMINAL EXAMINATION: Soft, non-tender, normal bowel sounds EXTREMITIES: No pitting edema SKIN: Right gluteal hematoma with tenderness present NEUROLOGICAL EXAMINATION: CN 3-12 grossly intact PSYCHIATRIC EXAMINATION: Normal mood and affect LABORATORY DATA: Please see below. IMAGING: Hip/pelvis XRay No traumatic abnormality noted. Bilateral hip joint osteoarthritis. Status post aorta bi-iliac stent graft placement. No acute bony abnormality. PROGNOSIS: Good ACTIVITY: As tolerated. DIET: 2gm sodium DISCHARGE PLAN: Home with home services DISPOSITION: Home, Self-Care. DISCHARGE INSTRUCTIONS: 1. Follow up with your PCP within 1 week DISCHARGE CONDITION: Stable. Total time spent on discharge planning, discharge summary, and medication reconciliation: 45 minutes. Vital Signs/I&Os Vital Signs Date Time Temp Pulse Resp B/P (MAP) Pulse Ox O2 Delivery O2 Flow Rate FiO2 07/11/20 09:54 76 121/67 07/11/20 06:00 98.1 18 95 Room Air I&O- Last 24 Hours up to 6 AM 07/11/20 06:00 Intake Total 1530 ml Output Total 457 ml Balance 1073 ml Laboratory Data Labs 24H Laboratory Tests 2 07/11/20 03:45: Nucleated Red Blood Cells % (auto) 0.0 07/11/20 05:44: Nucleated Red Blood Cells % (auto) 0.0, Anion Gap 5L, Glomerular Filtration Rate 40.3, Calcium Level 9.1 CBC/BMP Laboratory Tests 07/11/20 03:45 07/11/20 05:44 Discharge Medications Scheduled Aspirin (Aspirin EC) 81 Mg Tablet.dr, 81 MG PO DAILY, (Reported) Atorvastatin Calcium (Atorvastatin Calcium) 20 Mg Tablet, 20 MG PO DAILY, (Reported) Carbidopa/Levodopa (Carbidopa-Levodopa 25-100 Tab) 1 Each Tablet, 1 TAB PO BID, (Reported) Cholecalciferol (Vitamin D3) (Vitamin D3) 1,000 Unit Tablet, 2,000 UNITS PO DAILY, (Reported) Clopidogrel Bisulfate (Clopidogrel) 75 Mg Tablet, 75 MG PO DAILY, (Reported) Cyanocobalamin (Vitamin B-12) (B-12) 1,000 Mcg Tablet, 1,000 MCG PO DAILY, (Reported) Famotidine (Famotidine) 20 Mg Tablet, 20 MG PO DAILY, (Reported) Ferrous Sulfate (Ferrous Sulfate) 325 Mg Tablet, 325 MG PO QHS, (Reported) Folic Acid (Folic Acid) 1 Mg Tablet, 1 MG PO DAILY, (Reported) Furosemide (Furosemide) 40 Mg Tablet, 20 MG PO QHS, (Reported) Lactobacillus Combo No.10 (Probiotic) 1 Each Capsule, 1 CAP PO QHS, (Reported) Magnesium Oxide (Magnesium Oxide) 400 Mg Tablet, 400 MG PO DAILY, (Reported) Metoprolol Tartrate (Metoprolol Tartrate) 25 Mg Tablet, 12.5 MG PO BID, (Reported) Mirtazapine (Remeron) 15 Mg Tablet, 15 MG PO QHS, (Reported) Tamsulosin HCl (Flomax) 0.4 Mg Capsule, 0.4 MG PO QHS, (Reported) Tolterodine Tartrate (Tolterodine Tartrate ER) 2 Mg Cap.er.24h, 2 MG PO DAILY, (Reported) Scheduled PRN Acetaminophen (Acetaminophen) 500 Mg Tablet, 1,000 MG PO Q6H PRN for PAIN, (Reported) Miscellaneous Medications [Med Rec Comment] , (Reported) LIST OBTAINED FROM [facility] [phone] Allergies Coded Allergies: No Known Drug Allergies (Verified Allergy, Unknown, 04/15/19) AMIE LUDWIG DO Jul 11, 2020 23:40
== END 2020-07-11 12:30 | disposition home health service (06) | DRG 605 ==
LOC: M ED 12:57 → EDBD 12:57 → M MSPAV 15:14 → ENRESERV 15:34
PROVIDERS: ADMIT Internal Medicine; ATTEND Internal Medicine
PROC: 30233N1 Transfusion of Nonautologous Red Blood Cells into Peripheral Vein, Percutaneous Approach (ICD-10-PCS; principal; 2020-07-10)
DX: S30.0XXA Contusion of lower back and pelvis, initial encounter (principal); N17.9 Acute kidney failure, unspecified; W18.09XA Striking against other object with subsequent fall, initial encounter; Y92.009 Unspecified place in unspecified non-institutional (private) residence as the place of occurrence of the external cause; G20 Parkinson's disease; N18.9 Chronic kidney disease, unspecified; I25.10 Atherosclerotic heart disease of native coronary artery without angina pectoris; I12.9 Hypertensive chronic kidney disease with stage 1 through stage 4 chronic kidney disease, or unspecified chronic kidney disease; I73.9 Peripheral vascular disease, unspecified; Z66 Do not resuscitate; D53.9 Nutritional anemia, unspecified; Z87.891 Personal history of nicotine dependence; Z79.82 Long term (current) use of aspirin; Z79.02 Long term (current) use of antithrombotics/antiplatelets; Z79.899 Other long term (current) drug therapy; Z95.1 Presence of aortocoronary bypass graft; Z98.62 Peripheral vascular angioplasty status; Z20.828 Contact with and (suspected) exposure to other viral communicable diseases

== ENCOUNTER → 2020-08-11 | Outpatient (CLI) | payer MEDICARE ==
[~2020-08-11] MED LIST changes: +ACET500T15 PO; +ASPI81TA26 PO; +CVS1CAP2 PO; +D31000TA2 PO; +E-Z-GAS II EFFERVESCENT PACKET (SODIUM BICARB./CITRIC ACID/SIMETHICONE) As Ordered ONE; +E-Z-HD 98% w/w 340GM SUSP BTL As Ordered ONE; +E-Z-PAQUE 96% w/w SUSP 176GM BTL As Ordered ONE; +FAMO20TA PO; +HYDR-3490 PO; -HYDR25TAB PO; +MAGN400T3 PO; +MED REC COMMENT; +TOLT2CAP4 PO
--- NOTE | 2020-08-11 18:06 | REP ---
INDICATION: DYSPHAGIA. COMPARISON: None TECHNIQUE: This procedure was performed by Fernanda Lopez [facility], under the direct supervision of Dr. Medina. Images were reviewed with Dr. Medina prior to dictation. Liquid barium was given in the erect position in order to perform a single contrast esophagram examination. FINDINGS: A single view PA chest x-ray is submitted as a cost estimating manager film. The superior mediastinal structures are midline. The heart size is within normal limits. The lungs are clear. The oral and pharyngeal stages of deglutition demonstrated aspiration of barium at least twice without a cough response. Esophageal transport is prompt and efficient and there is no evidence of esophagitis, stricture, or mucosal ring. However tertiary contractions were visualized during the exam. Evaluation of gastroesophageal reflux and hiatal hernia was not obtained due to aspiration. IMPRESSION: 1. Limited evaluation due to aspiration. 2. Patient aspirated barium at least twice during the exam with no cough response. 3. Tertiary contractions were visualized. 0.1 minutes of fluoroscopy time was utilized for this procedure. Some fluoroscopic images are performed with last image hold technology. These images require no additional radiation. <Electronically signed by Fernanda Lopez > 08/11/20 1715 <Electronically signed by Danish Medina > 08/11/20 180
== END ==
LOC: M RAD 09:12
PROVIDERS: ATTEND Internal Medicine Gastroenterology
DX: R13.10 Dysphagia, unspecified (principal); K22.4 Dyskinesia of esophagus; R09.01 Asphyxia

== ENCOUNTER → 2020-09-19 | Outpatient (CLI) | payer MEDICARE ==
[~2020-09-19] MED LIST changes: -E-Z-GAS II EFFERVESCENT PACKET (SODIUM BICARB./CITRIC ACID/SIMETHICONE) As Ordered ONE; -E-Z-HD 98% w/w 340GM SUSP BTL As Ordered ONE; -E-Z-PAQUE 96% w/w SUSP 176GM BTL As Ordered ONE
--- NOTE | 2020-09-19 17:38 | REP ---
INDICATION: OROPHAYNGEAL DYSPHIA WITH ASPIRTION. COMPARISON: None. TECHNIQUE: The procedure was performed under the direct supervision of Dr. Bennett. The procedure was performed with Maggie Gomez from speech pathology present. 5 cc aliquots of nectar, pudding, thin, mixed fruit, soft and solid consistency barium was administered. With thin consistency barium there is laryngeal penetration. A detailed report of this examination will be provided by speech pathology. 2.2 minutes of fluoro time was utilized for this procedure. FINDINGS: None IMPRESSION: With thin consistency barium there is laryngeal penetration. <Electronically signed by Jaiden Taylor > 09/19/20 1600 <Electronically signed by Arnaldo Bennett > 09/19/20 [id number]
== END ==
LOC: M ST 12:27
PROVIDERS: ATTEND Internal Medicine Gastroenterology
DX: R13.12 Dysphagia, oropharyngeal phase (principal)

== ENCOUNTER 2020-10-01 20:53 | Inpatient (IN) | payer MEDICARE ==
[~2020-10-01] VITALS: Ht 167.6 cm; Wt 71.4 kg
[2020-10-01] MEDS ORDERED: MORPHINE 2 MG/ML 1ML VIAL (J2270) IV ONE (21:05)
--- NOTE | 2020-10-01 21:48 | REPVR ---
PROCEDURE INFORMATION: Exam: CT Head Without Contrast Exam date and time: 10/01/2020 9:29 PM Age: 85 years old Clinical indication: Injury or trauma; Fall; Blunt trauma (contusions or hematomas) TECHNIQUE: Imaging protocol: Computed tomography of the head without contrast. Radiation optimization: All CT scans at this facility use at least one of these dose optimization techniques: automated exposure control; mA and/or kV adjustment per patient size (includes targeted exams where dose is matched to clinical indication); or iterative reconstruction. COMPARISON: CT Head without contrast 09/22/2019 11:07 AM FINDINGS: Brain: There is mild cerebral volume loss. Changes of chronic white matter microvascular disease are present. No signs of a recent infarction or hemorrhage. Cerebral ventricles: There is ex vacuo ventricular enlargement without evidence of obstructive hydrocephalus. Bones/joints: Unremarkable. No acute fracture. Paranasal sinuses: Visualized sinuses are unremarkable. No fluid levels. Mastoid air cells: Visualized mastoid air cells are well aerated. Soft tissues: Unremarkable. IMPRESSION: Mild cerebral volume loss and chronic white matter changes. No acute intracranial abnormality. Electronically signed by: Godwin Jackson On 10/01/2020 21:48:45 PM
--- NOTE | 2020-10-01 22:03 | REPVR ---
PROCEDURE INFORMATION: Exam: CT Cervical Spine Without Contrast Exam date and time: 10/01/2020 9:29 PM Age: 85 years old Clinical indication: Injury or trauma; Fall; Blunt trauma TECHNIQUE: Imaging protocol: Computed tomography images of the cervical spine without contrast. Radiation optimization: All CT scans at this facility use at least one of these dose optimization techniques: automated exposure control; mA and/or kV adjustment per patient size (includes targeted exams where dose is matched to clinical indication); or iterative reconstruction. COMPARISON: 02/28/[address] FINDINGS: Bones/joints: No acute fracture. Normal alignment. Discs/Spinal canal/Neural foramina: Advanced discogenic degenerative changes. Advanced facet DJD with multilevel neural foraminal stenoses. No spinal stenosis. Lungs: Lung apices are normal. Soft tissues: Unremarkable. Other findings: 2.0 x 1.3 cm oval circumscribed solid mass in the right parotid gland is not significantly changed. IMPRESSION: 1. No acute fracture. Normal alignment. 2. Advanced degenerative spondylosis. Electronically signed by: Godwin Jackson On 10/01/2020 22:03:10 PM
--- NOTE | 2020-10-01 22:12 | REPVR ---
PROCEDURE INFORMATION: Exam: XR Left Hip Exam date and time: 10/01/20 (9:23pm) Age: 85 years old Clinical indication: Trauma TECHNIQUE: Imaging protocol: XR Left hip. Views: 2 or 3 views hip with pelvis when performed COMPARISON: CT ABDOMEN PELVIS of 08/04/19 FINDINGS: Acute impacted fracture at the base of the left femoral head (impacted subcapital neck fracture). Additional oblique fracture in the left intertrochanteric region (wide lucent fracture line). No hip dislocation. Advanced degenerative changes at each hip joint. Vascular-type surgical clips project over each groin region. An aorto bi-iliac stent is visualized in the lower abdomen and upper pelvis. Residual bowel contrast opacifies numerous sigmoid diverticuli. IMPRESSION: Acute impacted fracture at the base of the left femoral head (impacted subcapital neck fracture). Additional oblique fracture in the left intertrochanteric region. No hip dislocation. See additional comments above. Electronically signed by: Nae Balderas On 10/01/2020 22:13:09 PM
[2020-10-01 22:14] LABS: BASO % 0.3 % (0.0-1.0); EOS % 0.3 % (0.0-3.0); HEMATOCRIT 28.6 % (42.0-52.0); HEMOGLOBIN 8.9 g/dl (13.5-17.5); LYMPH # 0.9 10^3/uL (1.5-5.0); LYMPH % 8.1 % (24.0-44.0); MEAN CORPUSCULAR HEMOGLOBIN 33.8 pg (27.0-33.0); MEAN CORPUSCULAR HGB CONC 31.1 g/dl (32.0-36.5); MEAN CORPUSCULAR VOLUME 108.7 fl (80.0-96.0); MONO # 0.8 10^3/uL (0.0-0.8); MONO % 7.7 % (2.0-8.0); NEUTROPHILS # 8.8 10^3/uL (1.5-8.5); NEUTROPHILS % 82.8 % (36.0-66.0); PLATELET COUNT, AUTOMATED 136 10^3/uL (150-450); RED BLOOD COUNT 2.63 10^6/uL (4.30-6.10); WHITE BLOOD COUNT 10.6 10^3/uL (4.0-10.0)
--- NOTE | 2020-10-01 22:21 | REPVR ---
PROCEDURE INFORMATION: Exam: XR Chest Exam date and time: 10/01/20 (9:25pm) Age: 85 years old Clinical indication: Trauma TECHNIQUE: Imaging protocol: Portable CXR Views: 1 view COMPARISON: CT CHEST of 09/22/19 FINDINGS: Film technique is not optimal for full evaluation of the right lung (the region of the right lung and the KYREE area are overpenetrated). The patient is slightly rotated to an BURDICK position. Stable cardiomegaly. Hazy and patchy opacities in the left mid and lower lung zones. Probable small left pleural effusion. S/P sternotomy and CABG surgery. Multiple surgical clips project over the left lung base region. Cannot confidently evaluate the right lung. Degenerative changes at the right shoulder joint. IMPRESSION: Cannot confidently evaluate the right lung nor the KYREE area due to film technique. See comments above. Stable cardiomegaly. S/P sternotomy and CABG surgery. Suspect infectious pneumonia involving the mid and lower left lung zones. Probable small left pleural effusion. Due to film technique, cannot exclude a pneumothorax. Electronically signed by: Nae Balderas On 10/01/2020 22:22:15 PM
[2020-10-01 22:22] LABS: INR 1.29; PROTHROMBIN TIME 16.4 SECONDS (12.5-14.3)
[2020-10-01 22:23] LABS: PARTIAL THROMBOPLASTIN TIME 33.8 SECONDS (24.2-38.5)
--- NOTE | 2020-10-01 22:31 | REPVR ---
PROCEDURE INFORMATION: Exam: XR Left Femur Exam date and time: 10/01/20 (9:24pm) Age: 85 years old Clinical indication: Trauma TECHNIQUE: Imaging protocol: XR Left femur Views: 2 views COMPARISON: No relevant prior studies available FINDINGS: Acute impacted fracture at the base of the left femoral head. Additional oblique fracture at the left intertrochanteric region. No dislocation at the left hip. Degenerative changes at the left hip. Numerous sigmoid diverticuli (opacified with residual bowel contrast). IMPRESSION: Acute impacted fracture at the base of the left femoral head (subcapital neck fracture). Additional oblique fracture at the left intertrochanteric region. No dislocation at the left hip. Electronically signed by: Nae Balderas On 10/01/2020 22:32:29 PM
[2020-10-01 22:48] LABS: ALBUMIN 3.3 GM/DL (3.2-5.2); ALT/SGPT < 6 U/L (12-78); BILIRUBIN,DIRECT 0.3 MG/DL (0.0-0.2); BILIRUBIN,TOTAL 0.6 MG/DL (0.2-1.0); BLOOD UREA NITROGEN 29 MG/DL (7-18); CALCIUM LEVEL 8.8 MG/DL (8.8-10.2); CARBON DIOXIDE LEVEL 25 MEQ/L (21-32); CHLORIDE LEVEL 105 MEQ/L (98-107); CK-MB VALUE MASS < 1.0 NG/ML (<3.6); CPK CREATINE PHOSPHOKINASE 57 U/L (39-308); CREATININE FOR GFR 1.78 MG/DL (0.70-1.30); FREE T4 1.24 NG/DL (0.76-1.46); GLUCOSE, FASTING 115 MG/DL (70-100); MB/CK RELATIVE INDEX 1.75 (< OR =4); POTASSIUM SERUM 4.6 MEQ/L (3.5-5.1); SODIUM LEVEL 137 MEQ/L (136-145); TOTAL PROTEIN 7.4 GM/DL (6.4-8.2); TROPONIN I 0.03 NG/ML (< 0.10)
[2020-10-01 22:49] LABS: RSV AMPLIFICATION NEGATIVE (NEGATIVE)
[2020-10-01] MEDS ORDERED: PANT40TA29 PO (23:00)
[2020-10-01] MEDS ORDERED: BACITAB PO (23:00)
--- NOTE | 2020-10-01 23:14 | REPVR ---
PROCEDURE INFORMATION: Exam: CT Chest without Contrast; Diagnostic Exam date and time: 10/01/20 (10:40pm) Age: 85 years old Clinical indication: Blunt trauma. Fall. TECHNIQUE: Imaging protocol: Diagnostic computed tomography of the chest without contrast. 3D rendering (Not supervised by radiologist): MIP and/or 3D reconstructed images were created by the technologist. Radiation optimization: All CT scans at this facility use at least one of these dose optimization techniques: automated exposure control; mA and/or kV adjustment per patient size (includes targeted exams where dose is matched to clinical indication); or iterative reconstruction. COMPARISON: CT CHEST of 09/22/19 FINDINGS: Hazy and patchy left lung opacities, predominantly in the mid and lower left lung zones. Minimal streaky changes at the right lung base. No pneumothorax. Cardiomegaly. No pericardial effusion. Coronary artery calcifications. S/P sternotomy and CABG surgery. Atherosclerotic aortic calcifications. Aortic stent (partially imaged at and below the renal hilar level). No acute fracture. Partially contracted gallbladder, containing a few calcified stones. Bilateral renal atrophy. Posterolateral right renal cyst (2.4 cm size) (kidneys are partially imaged). Small left upper renal pole cyst (7 mm size). Non-obstructing calcifications in each kidney. Small right adrenal nodule (9 mm size) (most likely benign). Advanced osteoarthritic changes at the right shoulder joint. Milder changes at the left shoulder joint. Multilevel degenerative thoracic spine changes. Chronic-appearing compression deformity of approx. L2 vertebral body. IMPRESSION: Probable infectious left lung pneumonia (predominantly mid and lower left lung zones. Minimal streaky posterior RLL parenchymal changes. No pleural effusions. No acute traumatic pathology. No acute fracture. No pleural effusions. No pneumothorax. Calcified gallstones. Electronically signed by: Nae Balderas On 10/01/2020 23:14:34 PM
[2020-10-01] MEDS ORDERED: PIPERACILLIN/TAZOBACTAM SOD 3.375 GM in D5W MINI-BAG PLUS 50 ML IV ONE (23:25)
--- NOTE | 2020-10-02 00:07 | HPEPDOC ---
[facility] Medical History & Physical Date of Admission Oct 01, 2020 Date of Service: Oct 01, 2020 Attending Physician: HE VILLA MD History and Physical CHIEF COMPLAINT: fall HISTORY OF PRESENT ILLNESS: 85 year old male with PMHx listed below presented to the ED after a fall at home. Patient states he was in his bathroom earlier today and fell down to the ground. He states he did not slip or lose his balance. He states he did not feel dizzy or lightheaded before the fall. He states he did not lose consciousness. Patient states his son lives at home with him and was able to call EMS and get him to the hospital. Patient states he did hit his head and multiple areas of his body. Patient states currently he has an aching pain in his left hip which is improved from the sharp pain he had after the fall. He denies any additional pain currently. In the ER, workup revealed and L hip fracture as well as a left lung PNA. Patient denies any fevers, chills, cough, sputum production, shortness of breath. Patient was able to describe the event today but is a poor historian, so much of the medical history is obtained from chart review. PAST MEDICAL HISTORY: 1. Parkinson's disease. 2. Chronic kidney disease. 3. Coronary artery disease. 4. Hypertension 5. Peripheral vascular disease 6. Atrial Fibrillation PAST SURGICAL HISTORY: 1. CABG. 2. Femoropopliteal bypass. SOCIAL HISTORY: Former pipe smoker for about 55 years. Denies alcohol use. Denies history of IV or illicit substance use. Lives at home with his son who helps manage his medical care FAMILY HISTORY: Noncontributory ALLERGIES: Please see below. REVIEW OF SYSTEMS: CONSTITUTIONAL: Denies fevers, chills, night sweats, fatigue, unexpected change in weight. HEENT: Denies change in vision, change in hearing. CARDIOVASCULAR: Denies chest pain, palpitations, shortness of breath, lightheadedness. RESPIRATORY: Denies dyspnea, cough, wheezing. GASTROINTESTINAL: Denies nausea, vomiting, abdominal pain, diarrhea, constipation, blood in stool. GENITOURINARY: Denies dysuria, urinary frequency, urinary urgency. SKIN: Denies rash, lesions. MUSCULOSKELETAL: Positive per HPI. NEUROLOGICAL: Denies headache, dizziness, weakness. PSYCHIATRIC: Denies change in mood. HOME MEDICATIONS: Please see below. PHYSICAL EXAMINATION: VITAL SIGNS: See below GENERAL: Alert, comfortable, in no acute distress HEENT: Normocephalic, atraumatic, PERRLA, moist mucous membranes NECK: Supple, trachea midline, no JVD CARDIOVASCULAR: Irregularly irregular rhythm with normal rate, normal S1 and S2. RESPIRATORY: Clear to auscultation bilaterally with equal air entry bilaterally. No wheezing, rhonchi, or rales. ABDOMEN: Soft, nontender, nondistended, bowel sounds present. EXTREMITIES: Trace to 1+edema in bilateral LE up to the lower calf. NEUROLOGIC: Alert and oriented x3 to person, place and time. No focal deficits appreciated PSYCHIATRIC: Mood and affect appropriate LABORATORY DATA: See below. IMAGING: - Hip/pelvis XR Acute impacted fracture at the base of the left femoral head (impacted subcapital neck fracture). Additional oblique fracture in the left intertrochanteric region. No hip dislocation. - Femur XR Acute impacted fracture at the base of the left femoral head (subcapital neck fracture). Additional oblique fracture at the left intertrochanteric region. No dislocation at the left hip. - CXR Cannot confidently evaluate the right lung nor the KYREE area due to film technique. See comments above. Stable cardiomegaly. S/P sternotomy and CABG surgery. Suspect infectious pneumonia involving the mid and lower left lung zones. Probable small left pleural effusion. Due to film technique, cannot exclude a pneumothorax. - CT C spine 1. No acute fracture. Normal alignment. 2. Advanced degenerative spondylosis. - Head CT Mild cerebral volume loss and chronic white matter changes. No acute intracranial abnormality. - Chest CT Probable infectious left lung pneumonia (predominantly mid and lower left lung zones) Minimal streaky posterior RLL parenchymal changes. No pleural effusions. No acute traumatic pathology. No acute fracture. No pleural effusions. No pneumothorax. Calcified gallstones. MICROBIOLOGY: Please see below. ASSESSMENT: 85 year old male with PMHx including Parkinson's disease, CKD, atrial fib, PVD, CAD, HTN, presented to the ED after a mechanical fall at home found to have L hip fracture and community acquired pneumonia admitted for evaluation by orthopedic surgery and further treatment PLAN: 1. Left hip fracture secondary to mechanical fall - Orthopedic surgery consulted, will evaluate patient in the AM - NPO in case of surgical intervention - Pain management with IV morphine - PFS consult for rehab vs home care 2. Community acquired pneumonia - Found on chest CT, patient is asymptomatic - Will check procalcitonin - s/p IV vancomycin and zosyn in the ED - continue IV antibiotics with ceftriaxone and doxycycline - sputum culture ordered. blood cultures x2 pending 3. Parkinson's disease - continue home meds 4. Atrial Fibrillation, rate controlled - not currently on anticoagulation, can be addressed after decision about possible surgery - continue home meds for rate control 5. CKD with chronic anemia - Cr appears at baseline. H/H appears at baseline - continue iron supplement 6. CAD and PVD - hold aspirin and plavix for possible surgery. 7. HTN - continue home meds DVT prophylaxis: teds and scds pending possible surgery Disposition: admitted inpatient to med/surg expect greater than two midnights stay Vital Signs Vital Signs Date Time Temp Pulse Resp B/P (MAP) Pulse Ox O2 Delivery O2 Flow Rate FiO2 10/01/20 23:18 16 10/01/20 21:10 97.9 80 135/84 (101) 94 Room Air Laboratory Data Labs 24H Laboratory Tests 2 10/01/20 21:03: Anion Gap 7L, Glomerular Filtration Rate 39.0, Calcium Level 8.8, Total Bilirubin 0.6, Direct Bilirubin 0.3H, Aspartate Amino Transf (AST/SGOT) 4L, Alanine Aminotransferase (ALT/SGPT) < 6L, Alkaline Phosphatase 85, Total Creatine Kinase 57, Creatine Kinase MB < 1.0, Creatine Kinase MB Relative Index 1.75, Troponin I 0.03, Total Protein 7.4, Albumin 3.3, Albumin/Globulin Ratio 0.8, Thyroid Stimulating Hormone (TSH) 2.050, Free Thyroxine 1.24 10/01/20 21:47: Immature Granulocyte % (Auto) 0.8, Neutrophils (%) (Auto) 82.8H, Lymphocytes (%) (Auto) 8.1L, Monocytes (%) (Auto) 7.7, Eosinophils (%) (Auto) 0.3, Basophils (%) (Auto) 0.3, Neutrophils # (Auto) 8.8H, Lymphocytes # (Auto) 0.9L, Monocytes # (Auto) 0.8, Eosinophils # (Auto) 0.0, Basophils # (Auto) 0.0, Nucleated Red Bl ood Cells % (auto) 0.0, Prothrombin Time 16.4H, Prothromb Time International Ratio 1.29, Activated Partial Thromboplast Time 33.8, Coronavirus (COVID- 19)(PCR) NEGATIVE, Influenza Type A (RT-PCR) NEGATIVE, Influenza Type B (RT-PCR) NEGATIVE, Respiratory Syncytial Virus (PCR) NEGATIVE CBC/BMP Laboratory Tests 10/01/20 21:03 10/01/20 21:47 Home Medications Scheduled Aspirin (Aspirin EC) 81 Mg Tablet.dr, 81 MG PO DAILY Atorvastatin Calcium (Atorvastatin Calcium) 20 Mg Tablet, 20 MG PO DAILY Carbidopa/Levodopa (Carbidopa-Levodopa 25-100 Tab) 1 Each Tablet, 1 TAB PO BID Cholecalciferol (Vitamin D3) (Vitamin D3) 1,000 Unit Tablet, 2,000 UNITS PO DAILY Clopidogrel Bisulfate (Clopidogrel) 75 Mg Tablet, 75 MG PO DAILY Cyanocobalamin (Vitamin B-12) (B-12) 1,000 Mcg Tablet, 1,000 MCG PO DAILY Famotidine (Famotidine) 20 Mg Tablet, 20 MG PO DAILY Ferrous Sulfate (Ferrous Sulfate) 325 Mg Tablet, 325 MG PO BID Folic Acid (Folic Acid) 1 Mg Tablet, 1 MG PO DAILY Furosemide (Furosemide) 40 Mg Tablet, 20 MG PO DAILY L.acidoph/L.bulg/B.bif/S.therm (Bacid Caplet) 1 Each Tablet, 1 TAB PO QHS Magnesium Oxide (Magnesium Oxide) 400 Mg Tablet, 400 MG PO DAILY Metoprolol Tartrate (Metoprolol Tartrate) 25 Mg Tablet, 12.5 MG PO BID Mirtazapine (Remeron) 15 Mg Tablet, 15 MG PO QHS Pantoprazole Sodium (Pantoprazole Sodium) 40 Mg Tablet.dr, 40 MG PO BID Tamsulosin HCl (Flomax) 0.4 Mg Capsule, 0.4 MG PO DAILY Tolterodine Tartrate (Tolterodine Tartrate ER) 2 Mg Cap.er.24h, 2 MG PO DAILY Scheduled PRN Acetaminophen (Acetaminophen) 500 Mg Tablet, 1,000 MG PO Q6H PRN for PAIN Miscellaneous Medications [Med Rec Comment] MED REC COMPLETED VIA MED LIST AND EXTERNAL MED HISTORY Allergies Coded Allergies: No Known Drug Allergies (Verified Allergy, Unknown, 04/15/19) GME ATTESTATION GME ATTESTATION My faculty preceptor for this patient encounter was physically present during the encounter and was fully available. All aspects of the patient interview, examination, medical decision making process, and medical care plan development were reviewed and approved by the faculty preceptor. The faculty preceptor is aware and concurs with the plan as stated in the body of this note and will attest to such by his/her cosignature. ATTENDING NOTE Patient seen 10/01/2020.I, Joel Villa, have independently examined this patient and performed my own physical exam, as well as reviewed the documentation and edited where necessary. I have discussed in detail with the resident / student the findings and plan of treatment as documented by the resident / student and edited their note. I agree with their findings and treatment plan and have edited their documentation. I will continue to follow the patient during this hospital stay. NGUYỄN MCMULLEN D.O. Oct 02, 2020 00:07 HE VILLA MD Oct 02, 2020 20:39
[2020-10-02] MEDS ORDERED: VANCOMYCIN HCL 1,000 MG, VIAL MATE ADAPTER 1 EACH in NS 250 ML IV ONE (00:25)
[2020-10-02] MEDS ORDERED: MORPHINE 4 MG/ML 1ML VIAL/SYRINGE (J2270) IV ONE (00:30)
[2020-10-02] MEDS ORDERED: IPRATROPIUM 0.5MG/ALBUTEROL 2.5MG INH SOL UD 3ML (DUONEB) INH PRN (00:35)
[2020-10-02] MEDS ORDERED: MAALOX 30 ML SUSP *UDC PO PRN (00:35)
[2020-10-02] MEDS ORDERED: MOM 30ML SUSPENSION UDC PO PRN (00:35)
[2020-10-02] MEDS ORDERED: MORPHINE 2 MG/ML 1ML VIAL (J2270) IV PRN (01:00)
[2020-10-02] MEDS: MORPHINE 2 MG/ML 1ML VIAL (J2270) IV PRN ×3 (03:29→14:42)
--- NOTE | 2020-10-02 03:39 | ECGEPIP ---
- ED Test Date: 2020-10-01 Pat Name: TORIBIO ZARAGOZA Department: Room: - Gender: Male Clinical Document Improvement Educator: : [id number] Requested By: AIDEN Da Silva Order Number: [id number] Reading MD: Alexx Soto Measurements Intervals [place] Rate: 70 P: MN: QRS: 94 QRSD: 98 T: 50 QT: 412 QTc: 444 Interpretive Statements Atrial fibrillation Incomplete Right bundle branch block Rightward axis Anterior/lateral ST depressions- consider ischemia- more notable than tracing d done 07-08-20 Electronically Signed on 10-02-2020 3:38:48 EST by Alexx Soto
[2020-10-02] MEDS: DOXYCYCLINE HYCLATE 100 MG in D5W MINI-BAG PLUS 100 ML IV SCH ×2 (04:26→14:42)
[2020-10-02 06:00] VITALS: BP 134/83
[2020-10-02] MEDS: cefTRIAXone SOD 1 GM in D5W MINI-BAG PLUS 50 ML IV SCH (06:03)
[2020-10-02] MEDS: SINEMET 25-100 MG TAB PO SCH ×2 (08:20→21:59)
[2020-10-02] MEDS: TAMSULOSIN 0.4 MG CAP PO SCH (08:20)
[2020-10-02] MEDS: TOLTERODINE TARTRATE 2 MG LA CAP (DETROL LA) PO SCH (08:20)
[2020-10-02] MEDS: METOPROLOL TART 12.5 MG PER 1/2 TAB PO SCH ×2 (08:21→22:01)
[2020-10-02] MEDS: FOLIC ACID 1 MG TAB PO SCH (09:00)
[2020-10-02] MEDS: PANTOPRAZOLE 40MG TAB (PROTONIX) PO SCH ×2 (09:00→21:59)
[2020-10-02] MEDS ORDERED: FUROSEMIDE 20 MG TAB PO SCH (09:00)
[2020-10-02] MEDS: MAGNESIUM OXIDE 400MG TAB (MAG-OX) PO SCH (09:00)
[2020-10-02] MEDS: FERROUS SULFATE 325MG TAB PO SCH ×2 (09:00→21:59)
[2020-10-02] MEDS: ATORVASTATIN 20 MG TAB PO SCH (09:00)
--- NOTE | 2020-10-02 12:42 | IPNPDOC ---
Text Note Date of Service The patient was seen on 10/02/20. NOTE Patient high cardiac risk for the proposed procedure. He is medically optimized for the procedure. Will hold ASA, Plavix and lasix for anticipated surgery. VS,Fishbone, I+O VS, Fishbone, I+O Laboratory Tests 10/01/20 21:03 10/01/20 21:47 Vital Signs Date Time Temp Pulse Resp B/P (MAP) Pulse Ox O2 Delivery O2 Flow Rate FiO2 10/02/20 08:40 17 Room Air 10/02/20 08:21 80 128/84 10/02/20 06:00 98.7 96 2.0 I&O- Last 24 Hours up to 6 AM 10/02/20 06:00 Intake Total 170 ml Output Total 0 ml Balance 170 ml SAMREEN PASTRANA MD Oct 02, 2020 12:42
--- NOTE | 2020-10-02 13:04 | CR.PDOC ---
General Date of Consultation: Oct 01, 2020 Referring Provider: HE VILLA MD Attending Physician: SAMREEN PASTRANA MD Consultation REASON FOR CONSULTATION/CHIEF COMPLAINT: Left hip fracture, intertrochanteric in nature with possible subcapital impaction component. HISTORY OF PRESENT ILLNESS: The patient is an 85-year-old gentleman who lives at home with his son. Reportedly, the patient turned suddenly with his walker and felt to the ground while entering the bathroom. He states that he did not slip or loses balance. He did not feel any dizziness or lightheadedness. He was brought to the ED by the EMS. He did hit his head and also multiple areas of his body during the fall. He did have a sharp pain in his left hip after the fall, which has slightly improved. He denies any other significant pain. In the ED, he was noted to have the left hip fracture as well as a left lung pneumonia. This a ppears to be an asymptomatic based on the report by the hospitalist. Majority of the history and physical and consultation is gleaned from the patient's medical record ALLERGIES: Please see below. HOME MEDICATIONS: Please see below. PAST MEDICAL HISTORY: Parkinson's disease; Chronic kidney disease; coronary artery disease; hypertension; peripheral vascular disease; atrial fibrillation PAST SURGICAL HISTORY: 1. Coronary artery bypass graft 2. Femoropopliteal bypass FAMILY HISTORY: Noncontributory SOCIAL HISTORY: Marital status and/or living arrangements: The patient lives at home with his son who helps to manage his medical care. Tobacco use: Pipe smoker for 55 years but quit ETOH: Denies Illicit drug use: Denies REVIEW OF SYSTEMS: Negative except for those mentioned in the HPI PHYSICAL EXAMINATION: The patient appears drowsy. Their pain appears to be well controlled Constitutional: The patient appears their stated age. They comfortable, but drowsy, in no acute distress. Psychiatric: Appropriate affect with good eye contact. Aside from the drowsiness Ambulation: Nonambulatory secondary hip fracture Head, ears, eyes, nose, and throat: Head is normocephalic, atraumatic. Eyes: Pupils equal. Sclerae anicteric. Mouth: Not assessed due to covert masking Neck: Supple with full range of motion. Skin: Clean, dry, and intact with no abrasions or ulcerations. Lungs: Breathing is unlabored with symmetric chest expansion on inspiration. Cardiovascular: Palpable posterior tibialis pulses, bilaterally. Neurologic: The patient is able to move his toes and flex and extend his ankle. Sensation is intact to light touch in the L4-S1 dermatome distribution, bilaterally Musculoskeletal: The left lower extremity is held in a shortened and external rotation position, consistent with the left hip fracture X-ray: X-ray imaging was independently reviewed by myself today. The x-ray imaging demonstrates a clear lucency delineating an intertrochanteric fracture. There is reportedly an impaction fracture in the subcapital region. However, this is not as obvious. LABORATORY DATA: Please see below. ASSESSMENT/PLAN: Patient demonstrates a left hip intertrochanteric fracture with possible s ubcapital component in an impacted manner. I had a thorough discussion with the patient with regards to the risks and benefits of the procedure. The patient was made aware that the hip fracture alone puts him at increased risk of mortality and morbidity. Over the next year. Surgical intervention will help with mobility and decrease the risks associated with being bedridden secondary to fracture, w hich include but are not limited to blood clots, pneumonia, etc. the risks of the procedure were described to the patient which include infection, blood loss, DVT or pulmonary emboli, damage to local soft tissue structures, periprosthetic fracture, and need for revision surgery. The anesthetic risks include but are not limited to, heart attack, stroke and . During this discussion, the patient voiced that he would like to avoid surgery if possible. I did explain that that would significantly increase his risk of mortality and morbidity, as described above. He stated that he was still like to avoid surgical intervention if possible. While the patient did appear to be drowsy. He did not appear to be confused. His health proxy designees include his daughters. I contacted his daughter by phone and the daughter who is most in charge of his health, who is currently in [place] contacted the berger. I spoke with her and she stated that she would like to speak with her father by telephone and that arrangements would be made by the charge nurse for his other daughter to visit him in the hospital to clarify his wishes. At this point. I am awaiting a decision from the patient with regards to how he would like to proceed. Of note, the hospitalist evaluation has demonstrated that the patient is at high cardiac risk associated with this surgery. I spoke with his daughter Kristen Ansari [phone] Vital Signs/I&O Vital Signs Date Time Temp Pulse Resp B/P (MAP) Pulse Ox O2 Delivery O2 Flow Rate FiO2 10/02/20 08:40 17 Room Air 10/02/20 08:21 80 128/84 10/02/20 06:00 98.7 96 2.0 I&O- Last 24 Hours up to 6 AM 10/02/20 06:00 Intake Total 170 ml Output Total 0 ml Balance 170 ml Laboratory Data Labs 24H Laboratory Tests 2 10/01/20 21:03: Anion Gap 7L, Glomerular Filtration Rate 39.0, Calcium Level 8.8, Total Bilirubin 0.6, Direct Bilirubin 0.3H, Aspartate Amino Transf (AST/SGOT) 4L, Alanine Aminotransferase (ALT/SGPT) < 6L, Alkaline Phosphatase 85, Total Creatine Kinase 57, Creatine Kinase MB < 1.0, Creatine Kinase MB Relative Index 1.75, Troponin I 0.03, Total Protein 7.4, Albumin 3.3, Albumin/Globulin Ratio 0.8, Thyroid Stimulating Hormone (TSH) 2.050, Free Thyroxine 1.24 10/01/20 21:47: Immature Granulocyte % (Auto) 0.8, Neutrophils (%) (Auto) 82.8H, Lymphocytes (%) (Auto) 8.1L, Monocytes (%) (Auto) 7.7, Eosinophils (%) (Auto) 0.3, Basophils (%) (Auto) 0.3, Neutrophils # (Auto) 8.8H, Lymphocytes # (Auto) 0.9L, Monocytes # (Auto) 0.8, Eosinophils # (Auto) 0.0, Basophils # (Auto) 0.0, Nucleated Red Blood Cells % (auto) 0.0, Prothrombin Time 16.4H, Prothromb Time International Ratio 1.29, Activated Partial Thromboplast Time 33.8, Coronavirus (COVID- 19)(PCR) NEGATIVE, Influenza Type A (RT-PCR) NEGATIVE, Influenza Type B (RT-PCR) NEGATIVE, Respiratory Syncytial Virus (PCR) NEGATIVE 10/02/20 01:26: Procalcitonin <0.05 CBC/BMP Laboratory Tests 10/01/20 21:03 10/01/20 21:47 Microbiology Microbiology 10/02/20 Blood Culture, Received Pending 10/01/20 Blood Culture, Received Pending Allergies Coded Allergies: No Known Drug Allergies (Verified Allergy, Unknown, 04/15/19) Home Medications Scheduled Aspirin (Aspirin EC) 81 Mg Tablet.dr, 81 MG PO DAILY, (Reported) Atorvastatin Calcium (Atorvastatin Calcium) 20 Mg Tablet, 20 MG PO DAILY, (Reported) Carbidopa/Levodopa (Carbidopa-Levodopa 25-100 Tab) 1 Each Tablet, 1 TAB PO BID, (Reported) Cholecalciferol (Vitamin D3) (Vitamin D3) 1,000 Unit Tablet, 2,000 UNITS PO DAILY, (Reported) Clopidogrel Bisulfate (Clopidogrel) 75 Mg Tablet, 75 MG PO DAILY, (Reported) Cyanocobalamin (Vitamin B-12) (B-12) 1,000 Mcg Tablet, 1,000 MCG PO DAILY, (Reported) Famotidine (Famotidine) 20 Mg Tablet, 20 MG PO DAILY, (Reported) Ferrous Sulfate (Ferrous Sulfate) 325 Mg Tablet, 325 MG PO BID, (Reported) Folic Acid (Folic Acid) 1 Mg Tablet, 1 MG PO DAILY, (Reported) Furosemide (Furosemide) 40 Mg Tablet, 20 MG PO DAILY, (Reported) L.acidoph/L.bulg/B.bif/S.therm (Bacid Caplet) 1 Each Tablet, 1 TAB PO QHS, (Reported) Magnesium Oxide (Magnesium Oxide) 400 Mg Tablet, 400 MG PO DAILY, (Reported) Metoprolol Tartrate (Metoprolol Tartrate) 25 Mg Tablet, 12.5 MG PO BID, (Reported) Mirtazapine (Remeron) 15 Mg Tablet, 15 MG PO QHS, (Reported) Pantoprazole Sodium (Pantoprazole Sodium) 40 Mg Tablet.dr, 40 MG PO BID, (Reported) Tamsulosin HCl (Flomax) 0.4 Mg Capsule, 0.4 MG PO DAILY, (Reported) Tolterodine Tartrate (Tolterodine Tartrate ER) 2 Mg Cap.er.24h, 2 MG PO DAILY, (Reported) Scheduled PRN Acetaminophen (Acetaminophen) 500 Mg Tablet, 1,000 MG PO Q6H PRN for PAIN, (Reported) Miscellaneous Medications [Med Rec Comment] , (Reported) MED REC COMPLETED VIA MED LIST AND EXTERNAL MED HISTORY KIRSTIN SAUER MD Oct 02, 2020 13:03
[2020-10-02 13:41] VITALS: BP 101/58
--- NOTE | 2020-10-02 17:38 | IPNPDOC ---
Subjective Date Seen The patient was seen on 10/02/20. Subjective Chief Complaint/HPI No complaints this am. no pain if he does not move. Patietn refusing surgery. Objective Physical Examination General Exam: Positive: Alert, Cooperative, No Acute Distress Eye Exam: Positive: PERRLA, Conjunctiva & lids normal, EOMI; Negative: Sclera icteric ENT Exam: Positive: Atraumatic, Mucous membr. moist/pink, Pharynx Normal Neck Exam: Positive: Supple; Negative: JVD, thyromegaly Chest Exam: Positive: Clear to auscultation, Normal air movement Heart Exam: Positive: Rate Normal, Irregular Rhythm, Normal S1, Normal S2, Murmurs (systolic murmur); Negative: Rubs Abdomen Exam: Positive: Normal bowel sounds, Soft; Negative: Tenderness, Hepatospenomegaly Extremity Exam: Negative: Clubbing, Cyanosis, Edema Assessment /Plan Assessment 85 year old male with PMHx including Parkinson's disease, mild cognitive impairment, CKD, atrial fib, PVD, CAD/ CABG, Diastolic congestive heart failure, severe pulmonary hypertension, HTN, Dysphagia, PAD, Abdominal aortic aneurysm repair, Protein calorie malnutrition with albumin 2.5, Chronic anemia, Moderate mitral insufficiency, Right upper lobe 9 mm pulmonary nodule presented to the ED after a mechanical fall at home found to have L hip fracture and pneumonia by CT chest. Medical clearance Patient is high risk for a cardiac event in the perioperative period with the h/o CKD, CHF, Severe pulmonary hypertension, h/o CAD with EKG showing Anterior/lateral ST depressions-more notable than tracing done 07-08-20 , EKG also shows Atrial fibrillation Incomplete Right bundle branch block Though he denies any chest pain at rest or exertion. He mobility is limited to walking within the house. will hold diuretic. ASA and plavix. will continue metoprolol. Patient medically optimized for the proposed procedure. Left hip fracture secondary to mechanical fall would benefit from surical intervension see ortho consult Patietn refusing. On going discussion with Patient , HCPs and surgeon. Pneumonia Found on chest CT, patient is asymptomatic patient reports that he has trouble swallowing and sometimes chokes on food so may have silent aspirations and this aspiration pneumonia On Ceftriaxone and doxycycline sputum culture ordered. blood cultures x2 pending Parkinson's disease continue home meds Atrial Fibrillation, rate controlled not currently on anticoagulation, can be addressed after decision about possible surgery metoprolol CKD with chronic anemia Cr appears at baseline. H/H appears at baseline continue iron supplement CAD and PVD/ Aortic aneurysm repair with graft hold aspirin and plavix for possible surgery. HTN metoprolol Diastolic CHF with Valvular heart disease ( moderate mitral regurgitation) and severe pulmonary hypertension Patient is euvolemic at present will hold Laisx in anticipation of surgery. Plan/VTE VTE Prophylaxis Ordered?: Yes VS, I&O, 24H, Fishbone Vital Signs/I&O Vital Signs Date Time Temp Pulse Resp B/P (MAP) Pulse Ox O2 Delivery O2 Flow Rate FiO2 10/02/20 14:52 16 Room Air 10/02/20 13:41 98.0 91 101/58 (72) 95 2.0 I&O- Last 24 Hours up to 6 AM 10/02/20 07:00 Intake Total 170 ml Output Total 0 ml Balance 170 ml Laboratory Data 24H LABS Laboratory Tests 2 10/01/20 21:03: Anion Gap 7L, Glomerular Filtration Rate 39.0, Calcium Level 8.8, Total Bilirubin 0.6, Direct Bilirubin 0.3H, Aspartate Amino Transf (AST/SGOT) 4L, Alanine Aminotransferase (ALT/SGPT) < 6L, Alkaline Phosphatase 85, Total Creatine Kinase 57, Creatine Kinase MB < 1.0, Creatine Kinase MB Relative Index 1.75, Troponin I 0.03, Total Protein 7.4, Albumin 3.3, Albumin/Globulin Ratio 0.8, Thyroid Stimulating Hormone (TSH) 2.050, Free Thyroxine 1.24 10/01/20 21:47: Immature Granulocyte % (Auto) 0.8, Neutrophils (%) (Auto) 82.8H, Lymphocytes (%) (Auto) 8.1L, Monocytes (%) (Auto) 7.7, Eosinophils (%) (Auto) 0.3, Basophils (%) (Auto) 0.3, Neutrophils # (Auto) 8.8H, Lymphocytes # (Auto) 0.9L, Monocytes # (Auto) 0.8, Eosinophils # (Auto) 0.0, Basophils # (Auto) 0.0, Nucleated Red Blood Cells % (auto) 0.0, Prothrombin Time 16.4H, Prothromb Time International Ratio 1.29, Activated Partial Thromboplast Time 33.8, Coronavirus (COVID- 19)(PCR) NEGATIVE, Influenza Type A (RT-PCR) NEGATIVE, Influenza Type B (RT-PCR) NEGATIVE, Respiratory Syncytial Virus (PCR) NEGATIVE 10/02/20 01:26: Procalcitonin <0.05 CBC/BMP Laboratory Tests 10/01/20 21:03 10/01/20 21:47 Microbiology Microbiology 10/02/20 Blood Culture, Received Pending 10/01/20 Blood Culture, Received Pending SAMREEN PASTRANA MD Oct 02, 2020 17:38
[2020-10-02] MEDS: LACTOBACILLUS ACIDOPHILUS CAP (BACID) PO SCH (21:59)
[2020-10-02] MEDS: MIRTAZAPINE 15 MG TAB PO SCH (21:59)
[2020-10-02 22:00] VITALS: BP 108/58
[2020-10-03] MEDS: DOXYCYCLINE HYCLATE 100 MG in D5W MINI-BAG PLUS 100 ML IV SCH ×2 (02:10→22:44)
[2020-10-03] MEDS: cefTRIAXone SOD 1 GM in D5W MINI-BAG PLUS 50 ML IV SCH (05:44)
[2020-10-03 06:00] VITALS: BP 129/70
[2020-10-03] MEDS ORDERED: PILL CUTTER 1 EACH XX PRN (09:10)
--- NOTE | 2020-10-03 09:23 | IPNPDOC ---
Subjective Date Seen The patient was seen on 10/03/20. Subjective Chief Complaint/HPI Patient does not offer any complaits this morning. No chest pain or sob. Going to OR this morning. Objective Physical Examination General Exam: Positive: Alert, Cooperative, No Acute Distress Eye Exam: Positive: PERRLA, Conjunctiva & lids normal, EOMI; Negative: Sclera icteric ENT Exam: Positive: Atraumatic, Mucous membr. moist/pink, Pharynx Normal Neck Exam: Positive: Supple; Negative: JVD, thyromegaly Chest Exam: Positive: Clear to auscultation, Normal air movement Heart Exam: Positive: Rate Normal, Irregular Rhythm, Normal S1, Normal S2, Murmurs (systolic murmur); Negative: Rubs Abdomen Exam: Positive: Normal bowel sounds, Soft; Negative: Tenderness, Hepatospenomegaly Extremity Exam: Negative: Clubbing, Cyanosis, Edema Assessment /Plan Assessment 85 year old male with PMHx including Parkinson's disease, mild cognitive impairment, CKD, atrial fib, PVD, CAD/ CABG, Diastolic congestive heart failure, severe pulmonary hypertension, HTN, Dysphagia, PAD, Abdominal aortic aneurysm repair, Protein calorie malnutrition with albumin 2.5, Chronic anemia, Moderate mitral insufficiency, Right upper lobe 9 mm pulmonary nodule presented to the ED after a mechanical fall at home found to have L hip fracture and pneumonia by CT chest. Left hip fracture secondary to mechanical fall Going to OR today Pneumonia Found on chest CT, patient is asymptomatic patient reports that he has trouble swallowing and sometimes chokes on food so may have silent aspirations and this aspiration pneumonia On Ceftriaxone and doxycycline Blood cultures negative till date Parkinson's disease continue home meds Atrial Fibrillation, rate controlled not currently on anticoagulation metoprolol CKD with chronic anemia Cr appears at baseline. H/H appears at baseline continue iron supplement CAD and PVD/ Aortic aneurysm repair with graft hold aspirin and plavix HTN metoprolol Diastolic CHF with Valvular heart disease ( moderate mitral regurgitation) and severe pulmonary hypertension Patient is euvolemic at present will hold Lasix Plan/VTE VTE Prophylaxis Ordered?: Yes VS, I&O, 24H, Fishbone Vital Signs/I&O Vital Signs Date Time Temp Pulse Resp B/P (MAP) Pulse Ox O2 Delivery O2 Flow Rate FiO2 10/03/20 06:00 97.5 70 20 129/70 (89) 100 Nasal Cannula 2.0 I&O- Last 24 Hours up to 6 AM 10/03/20 06:00 Intake Total 100 ml Output Total 650 ml Balance -550 ml Laboratory Data Microbiology Microbiology 10/02/20 Blood Culture - Preliminary, Resulted No growth after 24 hours . All specim... 10/01/20 Blood Culture - Preliminary, Resulted No growth after 24 hours . All specim... SAMREEN PASTRANA MD Oct 03, 2020 09:23
[2020-10-03] MEDS: MAGNESIUM OXIDE 400MG TAB (MAG-OX) PO SCH (09:28)
[2020-10-03] MEDS: SINEMET 25-100 MG TAB PO SCH ×2 (09:28→21:00)
[2020-10-03] MEDS: FOLIC ACID 1 MG TAB PO SCH (09:28)
[2020-10-03] MEDS: FAMOTIDINE 20 MG TAB PO SCH (09:28)
[2020-10-03] MEDS: FERROUS SULFATE 325MG TAB PO SCH ×2 (09:28→21:00)
[2020-10-03] MEDS: TAMSULOSIN 0.4 MG CAP PO SCH (09:29)
[2020-10-03] MEDS: ATORVASTATIN 20 MG TAB PO SCH (09:29)
[2020-10-03] MEDS: TOLTERODINE TARTRATE 2 MG LA CAP (DETROL LA) PO SCH (09:29)
[2020-10-03] MEDS: METOPROLOL TART 12.5 MG PER 1/2 TAB PO SCH ×2 (09:29→21:00)
[2020-10-03] MEDS: PANTOPRAZOLE 40MG TAB (PROTONIX) PO SCH ×2 (09:29→21:00)
[2020-10-03] MEDS ORDERED: ONDANSETRON 4MG/2ML VIAL As Ordered ONE (12:42)
[2020-10-03] MEDS ORDERED: ETOMIDATE INJ 20MG/10ML VIAL As Ordered ONE (12:42)
[2020-10-03] MEDS ORDERED: TRANEXAMIC ACID 100 MG/ML 10ML VIAL As Ordered ONE (12:42)
[2020-10-03] MEDS ORDERED: fentaNYL 100 MCG/2 ML INJECTION (J3010) As Ordered ONE ×2 (12:42→16:33)
[2020-10-03] MEDS ORDERED: METOCLOPRAMIDE INJ 10MG/2ML VIAL (J2765 PER 1) As Ordered ONE (12:42)
[2020-10-03] MEDS ORDERED: ROCURONIUM BROMIDE 50 MG/5 ML VIAL As Ordered ONE (12:42)
[2020-10-03] MEDS ORDERED: ceFAZolin 2 GM/D5W 50 ML IV BAG (J0690 PER 500MG) As Ordered ONE (12:54)
--- NOTE | 2020-10-03 12:59 | IPNPDOC ---
Text Note Date of Service The patient was seen on 10/02/20. NOTE An approximately 2:30 PM on October 02. I had a discussion with the patient and one of his daughters, Jonna, who was admitted to the hospital to have a discussion about surgery with the patient. He reportedly had also had a discussion with his daughter Jaz, by telephone to discuss surgery earlier. We did discuss the patient's left hip fracture and the risks of morbidity and mortality. The patient was aware that he is high risk for surgery but he is also at a high risk for morbidity and mortality. If he does not have surgery. The risks of surgery included but were not limited to, heart attack, stroke and associated with the anesthetic and the surgery. The risks of the procedure itself included infection, blood loss, DVT/PE, periprosthetic fracture, damage t o local soft tissue structures, need for revision surgery. The risks included but were not limited to these. The patient hasn't an increased risk associated with bleeding. As a result of his blood thinners. The patient is also been noted to be a high cardiac risk. Both the patient and his family are aware of this. The patient consented for the left hip open reduction internal fixation and consented for blood transfusion at that time. The surgery will be planned for Tuesday. VS,Fishbone, I+O VS, Fishbone, I+O Vital Signs Date Time Temp Pulse Resp B/P (MAP) Pulse Ox O2 Delivery O2 Flow Rate FiO2 10/03/20 09:29 70 129/70 10/03/20 08:30 2.0 10/03/20 06:00 97.5 20 100 Nasal Cannula I&O- Last 24 Hours up to 6 AM 10/03/20 05:59 Intake Total 100 ml Output Total 650 ml Balance -550 ml KIRSTIN SAUER MD Oct 03, 2020 12:59
[2020-10-03] MEDS ORDERED: BUPIVACAINE/EPIN 0.5% 30 ML VIAL As Ordered ONE (13:22)
[2020-10-03] MEDS ORDERED: HYDROmorphone HCL 2 MG/ML 1ML VIAL (J1170) As Ordered ONE (14:20)
--- NOTE | 2020-10-03 16:04 | REP ---
INDICATION: LEFT HIP GAMMA NAIL. COMPARISON: Comparison left hip radiographs are from October 01, 2020.. TECHNIQUE: Six views. 116.5 seconds of fluoroscopy time is reported. FINDINGS: A sequence of 6 last image hold fluoroscopically obtained spot radiographs of the left hip document orthopedic open reduction internal fixation of intertrochanteric fracture. IMPRESSION: Procedural imaging. <Electronically signed by Arnaldo Bennett > 10/03/20 1600
[2020-10-03] MEDS ORDERED: ESMOLOL INJ 100MG/10ML VIAL As Ordered ONE (16:23)
[2020-10-03] MEDS ORDERED: ONDANSETRON 4MG/2ML VIAL IV PRN (16:35)
[2020-10-03] MEDS ORDERED: HYDROMORPHONE HCL 0.5 MG/ 0.5 ML SYRINGE (J1170 PER 1) IV PRN (16:35)
[2020-10-03] MEDS ORDERED: oxyCODONE 5MG TAB PO PRN ×2 (16:35→16:40)
[2020-10-03] MEDS ORDERED: fentaNYL 100 MCG/2 ML INJECTION (J3010) IV PRN (16:35)
[2020-10-03] MEDS: LR 1,000 ML IV SCH (16:40)
[2020-10-03] MEDS ORDERED: LORazepam 2 MG/ML VIAL IV STA (17:55)
[2020-10-03] MEDS ORDERED: LORazepam 2 MG/ML VIAL IV ONE (18:05)
[2020-10-03 18:30] VITALS: BP 107/89
[2020-10-03 19:30] VITALS: BP 112/52
--- NOTE | 2020-10-03 19:42 | ROOPDOC ---
[facility] Report Of Operation Report of Operation DATE OF PROCEDURE: 10/03/20 PREPROCEDURE DIAGNOSES: Left Hip Fracture. POSTPROCEDURE DIAGNOSES: Left Hip Fracture. PROCEDURE: Left hip ORIF Short Gamma Nail. SURGEON: Alexx Sauer MD SUGAR SAMPLER: Maggie Hammond CST ANESTHESIA: General. ESTIMATED BLOOD LOSS: Approximately , 275 mL. COMPLICATIONS: no known complications. REMARKS: Components: [place]: Short Gamma Nail [id number]; CM screw 105 mm; shaft screw 42 mm PROCEDURE NOTE: The patient was taken to the OR for ORIF Left Hip fracture. High risk associated with high cardiac risk and known pneumonia DESCRIPTION OF PROCEDURE: The patient was seen in the Preop area and the Left hip was signed. The patient resigned the informed consent for the procedure. He was taken to the OR and after a time out, a general anesthetic was carried out. The patient was transferred to the fracture table and the left leg was placed in the traction boot. The right leg was placed in the well leg fuchs and padded, and secured appropriately. A padded central post was used to allow traction through the pelvis, in the normal fashion. The appropriate padding and securing of the patient was carried out. A surgical time out was completed. Fluoroscopy was used to reduce the fracture. The patella was pointed skyward with internal rotation. Appropriate traction and adduction of the hip was carried out. Once the fracture was reduced, the limb was prepped with chlorhexidine. A shower curtain drape was applied. Fluoro was used to identify the GT of the Left hip and an incision was carried through the skin and subcutaneous tissue down through the fascia. The GT tip was identified and the awl was advanced at the tip junction of the ant 1/3rd and post 2/3rds. Position was checked on ap and lateral fluoro views. When the awl was central to the canal, the guidewire was advanced through the length of the femur. This position was confirmed on ap and lateral fluoro views. The soft tissue protector was placed over the wire followed by the opening reamer, which was advanced to the LT region. The short nail implant was fixed to the ebd special education teacher and the drill guides were tested for alignment with the nail. The nail was then advanced over the guidewire and advanced under fluoro visualization. Once the nail was at the correct level, the CM screw guide was placed through the radiolucent targeting arm. The skin and fascia were incised inline with the guide. The femoral guidewire was removed. A guidewire was advanced under fluoro under AP and lateral views until a centre centre position was obtained in the femoral head. This was reamed and measured to 105 mm. The screw was advanced under fluoro and compressed. The targeting arm was then used to locate the distal screw hole. The skin and fascia were incised to allow the guide to rest on the bone. The drill was passed through the guide and femur and a 42 mm length was measured. A 42.5 mm screw was advanced. The locking screw device was affixed and the lockiing screw was placed and secured and loosened 1/4 turn. The targeting arm was removed and the wounds were irrigated with NSS. 30 ml of 0.5% Marcaine was instilled into the wound edges for local anesthetic. The wounds were closed with 1 vicryl and 2 vicryl and 3.0 monocryl in a layered manner with irrigation. Telfa and tegaderm dressing was applied. The pt tolerated the procedure well with no known complications. He was transferred to recovery after reversal of the anesthetic. The patient will be toe touch wb with a walker. He can resume his home blood thinners when appropriate as deemed by the hospitalist service POD1. He will follow up for wound assessment in [place] with Dr. Sauer in 2 weeks. He will likely require rehab post op. ALEXX SAUER MD Oct 03, 2020 19:42
[2020-10-03] MEDS: ceFAZolin SOD 2 GM in IV 1 EA IV SCH (20:24)
[2020-10-03 20:30] VITALS: BP 106/51
[2020-10-03] MEDS: LACTOBACILLUS ACIDOPHILUS CAP (BACID) PO SCH (21:00)
[2020-10-03] MEDS: MIRTAZAPINE 15 MG TAB PO SCH (21:00)
[2020-10-03 21:30] VITALS: BP 136/90
[2020-10-04] VITALS (16 sets, daily range): BP systolic 100–118; BP diastolic 56–62
[2020-10-04] MEDS: LR 1,000 ML IV SCH (03:36)
[2020-10-04] MEDS: ceFAZolin SOD 2 GM in IV 1 EA IV SCH (03:39)
[2020-10-04] MEDS: cefTRIAXone SOD 1 GM in D5W MINI-BAG PLUS 50 ML IV SCH (06:01)
[2020-10-04 06:43] LABS: MEAN CORPUSCULAR HEMOGLOBIN 33.3 pg (27.0-33.0); MEAN CORPUSCULAR VOLUME 107.5 fl (80.0-96.0); PLATELET COUNT, AUTOMATED 131 10^3/uL (150-450); RED BLOOD COUNT 1.59 10^6/uL (4.30-6.10); WHITE BLOOD COUNT 12.9 10^3/uL (4.0-10.0)
[2020-10-04 06:44] LABS: HEMATOCRIT 17.1 % (42.0-52.0); HEMOGLOBIN 5.3 g/dl (13.5-17.5)
[2020-10-04] MEDS: TAMSULOSIN 0.4 MG CAP PO SCH (09:00)
[2020-10-04] MEDS: FERROUS SULFATE 325MG TAB PO SCH ×2 (09:00→20:07)
[2020-10-04] MEDS: METOPROLOL TART 12.5 MG PER 1/2 TAB PO SCH ×2 (09:00→20:09)
[2020-10-04] MEDS: PANTOPRAZOLE 40MG TAB (PROTONIX) PO SCH ×2 (09:00→20:08)
[2020-10-04] MEDS: SINEMET 25-100 MG TAB PO SCH ×2 (09:00→20:07)
[2020-10-04] MEDS: ATORVASTATIN 20 MG TAB PO SCH (09:00)
[2020-10-04] MEDS: TOLTERODINE TARTRATE 2 MG LA CAP (DETROL LA) PO SCH (09:00)
[2020-10-04] MEDS: MAGNESIUM OXIDE 400MG TAB (MAG-OX) PO SCH (09:00)
[2020-10-04] MEDS: QUEtiapine FUMARATE 12.5 MG HALF-TAB PO SCH ×2 (09:00→20:08)
[2020-10-04] MEDS: FOLIC ACID 1 MG TAB PO SCH (09:00)
[2020-10-04] MEDS: DOXYCYCLINE HYCLATE 100 MG in D5W MINI-BAG PLUS 100 ML IV SCH ×2 (10:05→20:07)
--- NOTE | 2020-10-04 10:47 | IPNPDOC ---
Subjective Date Seen The patient was seen on 10/04/20. Subjective Chief Complaint/HPI Complains in severe pain in the left leg and resists any movement . Does not want to get out of bed. Had episodes of confusion, agitation and aggression overnight. More calm and cooperative this morning. Objective Physical Examination General Exam: Positive: Alert, Cooperative, No Acute Distress Eye Exam: Positive: PERRLA, Conjunctiva & lids normal, EOMI; Negative: Sclera icteric ENT Exam: Positive: Atraumatic, Mucous membr. moist/pink, Pharynx Normal Neck Exam: Positive: Supple; Negative: JVD, thyromegaly Chest Exam: Positive: Clear to auscultation, Normal air movement Heart Exam: Positive: Rate Normal, Irregular Rhythm, Normal S1, Normal S2, Murmurs (systolic murmur); Negative: Rubs Abdomen Exam: Positive: Normal bowel sounds, Soft; Negative: Tenderness, Hepatospenomegaly Extremity Exam: Positive: Tenderness (left leg); Negative: Clubbing, Cyanosis, Edema Assessment /Plan Assessment 85 year old male with PMHx including Parkinson's disease, mild cognitive impairment, CKD, atrial fib, PVD, CAD/ CABG, Diastolic congestive heart failure, severe pulmonary hypertension, HTN, Dysphagia, PAD, Abdominal aortic aneurysm repair, Protein calorie malnutrition with albumin 2.5, Chronic anemia, Moderate mitral insufficiency, Right upper lobe 9 mm pulmonary nodule presented to the ED after a mechanical fall at home found to have L hip fracture and pneumonia by CT chest. Left hip fracture secondary to mechanical fall s/p Left hip ORIF Short Gamma Nail pain control with oxycodone. PT/OT DVT prophylaxis as per orthopedics. Acute Blood loss anemia due to fracture hematoma, operative blood loss and dilutional. PRBC transfusion x 2 Delirium on the background of mild cognitive impairment postoperative delirium cont mirtazepine. seroquel Pneumonia Found on chest CT, patient is asymptomatic patient reports that he has trouble swallowing and sometimes chokes on food so may have silent aspirations and this aspiration pneumonia On Ceftriaxone and doxycycline Blood cultures negative till date Parkinson's disease continue home meds Atrial Fibrillation, rate controlled not currently on anticoagulation metoprolol CKD with chronic anemia Cr appears at baseline. continue iron supplement CAD and PVD/ Aortic aneurysm repair with graft hold aspirin and plavix HTN metoprolol Diastolic CHF with Valvular heart disease ( moderate mitral regurgitation) and severe pulmonary hypertension Patient is euvolemic at present BPH flomax and tolterodine Plan/VTE VTE Prophylaxis Ordered?: Yes VS, I&O, 24H, Fishbone Vital Signs/I&O Vital Signs Date Time Temp Pulse Resp B/P (MAP) Pulse Ox O2 Delivery O2 Flow Rate FiO2 10/04/20 10:00 97.5 107 19 115/57 (76) 99 Nasal Cannula 2.0 I&O- Last 24 Hours up to 6 AM 10/04/20 06:00 Intake Total 1170 ml Output Total 1025 ml Balance 145 ml Laboratory Data 24H LABS Laboratory Tests 2 10/04/20 06:13: Nucleated Red Blood Cells % (auto) 0.0 CBC/BMP Laboratory Tests 10/04/20 06:13 Microbiology Microbiology 10/02/20 Blood Culture - Preliminary, Resulted No Growth after 48 hours. All Specime... 10/01/20 Blood Culture - Preliminary, Resulted No Growth after 48 hours. All Specime... SAMREEN PASTRANA MD Oct 04, 2020 10:47
[2020-10-04] MEDS ORDERED: FUROSEMIDE 20MG/2ML VIAL (J1940) IV ONE (11:00)
--- NOTE | 2020-10-04 11:18 | IPNPDOC ---
Text Note Date of Service The patient was seen on 10/04/20. NOTE POD 1 from L hip ORIF, short gamma nail. Pt feels unwell and tired today. Not complaining of significant pain. Dressing intact to Left hip with minimal staining proximal dressing. Grossly NVI to left lower extremity. Post op xray imaging shows IMN device in satisfactory position. Pt had low Hb this am and 2 units PRBC ordered by Hospitalist service. Likely responsible for pt feeling unwell and sluggish. Pt is toe touch wb to L leg. Rehab most likely. Follow up with Dr. Sauer 2 weeks post op for wound check. Change dressing (telfa and tegaderm) prn for soiling and will plan on Post op day 3 dressing change Alexx Sauer MD . VS,Saritha, I+O VS, Saritha, I+O Laboratory Tests 10/04/20 06:13 Vital Signs Date Time Temp Pulse Resp B/P (MAP) Pulse Ox O2 Delivery O2 Flow Rate FiO2 10/04/20 10:00 97.5 107 19 115/57 (76) 99 Nasal Cannula 2.0 I&O- Last 24 Hours up to 6 AM 10/04/20 06:00 Intake Total 1170 ml Output Total 1025 ml Balance 145 ml ALEXX SAUER MD Oct 04, 2020 11:18
[2020-10-04 15:52] LABS: BASO % 0.2 % (0.0-1.0); LYMPH # 0.7 10^3/uL (1.5-5.0); LYMPH % 4.6 % (24.0-44.0); MEAN CORPUSCULAR HEMOGLOBIN 33.2 pg (27.0-33.0); MEAN CORPUSCULAR HGB CONC 31.7 g/dl (32.0-36.5); MEAN CORPUSCULAR VOLUME 104.5 fl (80.0-96.0); MONO # 1.8 10^3/uL (0.0-0.8); MONO % 11.9 % (2.0-8.0); NEUTROPHILS # 12.1 10^3/uL (1.5-8.5); NEUTROPHILS % 81.9 % (36.0-66.0); PLATELET COUNT, AUTOMATED 152 10^3/uL (150-450); RED BLOOD COUNT 1.99 10^6/uL (4.30-6.10)
[2020-10-04 16:09] LABS: HEMATOCRIT 20.8 % (42.0-52.0); HEMOGLOBIN 6.6 g/dl (13.5-17.5); WHITE BLOOD COUNT 14.8 10^3/uL (4.0-10.0)
[2020-10-04] MEDS: ACETAMINOPHEN TAB 650MG DOSE (2X325MG) PO PRN (16:10)
[2020-10-04 16:22] LABS: CALCIUM LEVEL 8.3 MG/DL (8.8-10.2); CREATININE FOR GFR 2.06 MG/DL (0.70-1.30); GLOMERULAR FILTRATION RATE 32.9 (>35); POTASSIUM SERUM 5.1 MEQ/L (3.5-5.1)
[2020-10-04] MEDS: MIRTAZAPINE 15 MG TAB PO SCH (20:08)
[2020-10-04] MEDS: LACTOBACILLUS ACIDOPHILUS CAP (BACID) PO SCH ×2 (20:09→20:14)
[2020-10-05] VITALS (14 sets, daily range): BP systolic 100–132; BP diastolic 52–72
[2020-10-05] MEDS: cefTRIAXone SOD 1 GM in D5W MINI-BAG PLUS 50 ML IV SCH (05:24)
[2020-10-05] MEDS: ACETAMINOPHEN TAB 650MG DOSE (2X325MG) PO PRN ×2 (05:38→20:35)
[2020-10-05 08:27] LABS: BASO % 0.3 % (0.0-1.0); EOS % 0.1 % (0.0-3.0); HEMATOCRIT 21.2 % (42.0-52.0); LYMPH # 0.6 10^3/uL (1.5-5.0); LYMPH % 5.2 % (24.0-44.0); MEAN CORPUSCULAR HEMOGLOBIN 32.7 pg (27.0-33.0); MEAN CORPUSCULAR HGB CONC 32.1 g/dl (32.0-36.5); MEAN CORPUSCULAR VOLUME 101.9 fl (80.0-96.0); MONO # 1.2 10^3/uL (0.0-0.8); NEUTROPHILS # 9.2 10^3/uL (1.5-8.5); NEUTROPHILS % 81.8 % (36.0-66.0); PLATELET COUNT, AUTOMATED 129 10^3/uL (150-450); RED BLOOD COUNT 2.08 10^6/uL (4.30-6.10); WHITE BLOOD COUNT 11.3 10^3/uL (4.0-10.0)
[2020-10-05 08:29] LABS: HEMOGLOBIN 6.8 g/dl (13.5-17.5)
[2020-10-05 08:49] LABS: CALCIUM LEVEL 8.3 MG/DL (8.8-10.2); CREATININE FOR GFR 1.88 MG/DL (0.70-1.30); GLOMERULAR FILTRATION RATE 36.6 (>35); POTASSIUM SERUM 4.4 MEQ/L (3.5-5.1)
[2020-10-05] MEDS ORDERED: FUROSEMIDE 40MG/4ML VIAL (J1940) IV ONE (09:00)
[2020-10-05] MEDS: HEPARIN SOD (PORCINE) 5000UNITS/ML 1ML VIAL/SYRINGE SQ SCH ×2 (09:00→20:35)
[2020-10-05] MEDS: MOM 30ML SUSPENSION UDC PO SCH (09:00)
[2020-10-05] MEDS: METOPROLOL TART 12.5 MG PER 1/2 TAB PO SCH ×2 (09:00→20:47)
[2020-10-05] MEDS: FERROUS SULFATE 325MG TAB PO SCH ×2 (11:17→20:35)
[2020-10-05] MEDS: TOLTERODINE TARTRATE 2 MG LA CAP (DETROL LA) PO SCH (11:17)
[2020-10-05] MEDS: TAMSULOSIN 0.4 MG CAP PO SCH (11:17)
[2020-10-05] MEDS: FOLIC ACID 1 MG TAB PO SCH (11:17)
[2020-10-05] MEDS: MAGNESIUM OXIDE 400MG TAB (MAG-OX) PO SCH (11:17)
[2020-10-05] MEDS: FAMOTIDINE 20 MG TAB PO SCH (11:17)
[2020-10-05] MEDS: SENOKOT S TAB PO SCH ×2 (11:18→20:35)
[2020-10-05] MEDS: DOXYCYCLINE HYCLATE 100 MG in D5W MINI-BAG PLUS 100 ML IV SCH ×2 (11:18→20:36)
[2020-10-05] MEDS: ATORVASTATIN 20 MG TAB PO SCH (11:18)
[2020-10-05] MEDS: QUEtiapine FUMARATE 12.5 MG HALF-TAB PO SCH ×2 (11:18→20:35)
[2020-10-05] MEDS: SINEMET 25-100 MG TAB PO SCH ×2 (11:18→20:34)
[2020-10-05] MEDS: PANTOPRAZOLE 40MG TAB (PROTONIX) PO SCH ×2 (11:18→20:34)
--- NOTE | 2020-10-05 11:37 | IPNPDOC ---
Subjective Date Seen The patient was seen on 10/05/20. Subjective Chief Complaint/HPI Continues to feel tired. Does not want to move much. cooperative. Objective Physical Examination General Exam: Positive: Alert, Cooperative, No Acute Distress Eye Exam: Positive: PERRLA, Conjunctiva & lids normal, EOMI; Negative: Sclera icteric ENT Exam: Positive: Atraumatic, Mucous membr. moist/pink, Pharynx Normal Neck Exam: Positive: Supple; Negative: JVD, thyromegaly Chest Exam: Positive: Clear to auscultation, Normal air movement Heart Exam: Positive: Rate Normal, Irregular Rhythm, Normal S1, Normal S2, Murmurs (systolic murmur); Negative: Rubs Abdomen Exam: Positive: Normal bowel sounds, Soft; Negative: Tenderness, Hepatospenomegaly Extremity Exam: Positive: Tenderness (left leg); Negative: Clubbing, Cyanosis, Edema Assessment /Plan Assessment 85 year old male with PMHx including Parkinson's disease, mild cognitive impairment, CKD, atrial fib, PVD, CAD/ CABG, Diastolic congestive heart failure, severe pulmonary hypertension, HTN, Dysphagia, PAD, Abdominal aortic aneurysm repair, Protein calorie malnutrition with albumin 2.5, Chronic anemia, Moderate mitral insufficiency, Right upper lobe 9 mm pulmonary nodule presented to the ED after a mechanical fall at home found to have L hip fracture and pneumonia by CT chest. Left hip fracture secondary to mechanical fall s/p Left hip ORIF Short Gamma Nail pain control with oxycodone. PT/OT DVT prophylaxis as per orthopedics. bowel meds. Acute Blood loss anemia on Chronic anemia due to fracture hematoma, operative blood loss and dilutional. CHronic anemia likely due to CKD will check iron panel , folate and vit b12. PRBC transfusion x 4 Delirium on the background of mild cognitive impairment postoperative delirium cont mirtazepine. seroquel Pneumonia Found on chest CT, patient is asymptomatic patient reports that he has trouble swallowing and sometimes chokes on food so may have silent aspirations and this aspiration pneumonia will get swallow eval on tuesday. On pureed diet. On Ceftriaxone and doxycycline Blood cultures negative till date Parkinson's disease continue home meds Atrial Fibrillation, rate controlled not currently on anticoagulation metoprolol CKD with chronic anemia Cr appears at baseline about 1.6 to 1.8 continue iron supplement CAD and PVD/ Aortic aneurysm repair with graft hold aspirin and plavix HTN metoprolol Diastolic CHF with Valvular heart disease ( moderate mitral regurgitation) and severe pulmonary hypertension Patient is euvolemic at present BPH flomax and tolterodine Plan/VTE VTE Prophylaxis Ordered?: Yes VS, I&O, 24H, Fishbone Vital Signs/I&O Vital Signs Date Time Temp Pulse Resp B/P (MAP) Pulse Ox O2 Delivery O2 Flow Rate FiO2 10/05/20 06:00 98.4 111 20 132/72 (92) 98 Nasal Cannula 1.0 I&O- Last 24 Hours up to 6 AM 10/05/20 06:00 Intake Total 2860 ml Output Total 825 ml Balance 2035 ml Laboratory Data 24H LABS Laboratory Tests 2 10/04/20 15:43: Immature Granulocyte % (Auto) 1.4, Neutrophils (%) (Auto) 81.9H, Lymphocytes (%) (Auto) 4.6L, Monocytes (%) (Auto) 11.9H, Eosinophils (%) (Auto) 0.0, Basophils (%) (Auto) 0.2, Neutrophils # (Auto) 12.1H, Lymphocytes # (Auto) 0.7L, Monocytes # (Auto) 1.8H, Eosinophils # (Auto) 0.0, Basophils # (Auto) 0.0, Nucleated Red Blood Cells % (auto) 0.0, Anion Gap 6L, Glomerular Filtration Rate 32.9L, Calcium Level 8.3L CBC/BMP Laboratory Tests 10/04/20 15:43 Microbiology Microbiology 10/02/20 Blood Culture - Preliminary, Resulted No Growth after 72 hours. All specime... 10/01/20 Blood Culture - Preliminary, Resulted No Growth after 72 hours. All specime... SAMREEN PASTRANA MD Oct 05, 2020 07:57
[2020-10-05] MEDS ORDERED: FUROSEMIDE 20MG/2ML VIAL (J1940) IV ONE (16:00)
[2020-10-05] MEDS: LACTOBACILLUS ACIDOPHILUS CAP (BACID) PO SCH (20:23)
[2020-10-05] MEDS: MIRTAZAPINE 15 MG TAB PO SCH (20:34)
[2020-10-05 21:46] LABS: BASO # 0.1 10^3/uL (0.0-0.2); BASO % 0.5 % (0.0-1.0); EOS # 0.1 10^3/uL (0.0-0.5); EOS % 0.6 % (0.0-3.0); LYMPH # 0.6 10^3/uL (1.5-5.0); LYMPH % 6.8 % (24.0-44.0); MEAN CORPUSCULAR HEMOGLOBIN 32.6 pg (27.0-33.0); MEAN CORPUSCULAR HGB CONC 32.6 g/dl (32.0-36.5); MONO # 1.2 10^3/uL (0.0-0.8); MONO % 12.9 % (2.0-8.0); NEUTROPHILS # 7.3 10^3/uL (1.5-8.5); NEUTROPHILS % 77.7 % (36.0-66.0); PLATELET COUNT, AUTOMATED 128 10^3/uL (150-450); WHITE BLOOD COUNT 9.4 10^3/uL (4.0-10.0)
[2020-10-05 21:51] LABS: HEMOGLOBIN 8.8 g/dl (13.5-17.5)
[2020-10-05 22:32] LABS: FERRITIN 300 NG/ML (26-388); IRON (FE) 82 UG/DL (65-175); PERCENT SATURATION 53.9 % (19.7-50.0); TOTAL IRON BINDING CAPACITY 152 UG/DL (250-450)
[2020-10-06 06:00] VITALS: BP 107/56
[2020-10-06 06:51] LABS: BASO % 0.4 % (0.0-1.0); EOS % 0.4 % (0.0-3.0); HEMOGLOBIN 8.9 g/dl (13.5-17.5); LYMPH # 0.7 10^3/uL (1.5-5.0); LYMPH % 6.9 % (24.0-44.0); MEAN CORPUSCULAR HEMOGLOBIN 32.7 pg (27.0-33.0); MEAN CORPUSCULAR VOLUME 99.3 fl (80.0-96.0); MONO % 10.3 % (2.0-8.0); NEUTROPHILS # 7.8 10^3/uL (1.5-8.5); NEUTROPHILS % 80.3 % (36.0-66.0); PLATELET COUNT, AUTOMATED 130 10^3/uL (150-450); RED BLOOD COUNT 2.72 10^6/uL (4.30-6.10); WHITE BLOOD COUNT 9.7 10^3/uL (4.0-10.0)
[2020-10-06 07:06] LABS: CALCIUM LEVEL 8.7 MG/DL (8.8-10.2); CREATININE FOR GFR 1.66 MG/DL (0.70-1.30); GLOMERULAR FILTRATION RATE 42.2 (>35); POTASSIUM SERUM 4.5 MEQ/L (3.5-5.1)
[2020-10-06] MEDS: cefTRIAXone SOD 1 GM in D5W MINI-BAG PLUS 50 ML IV SCH (07:15)
--- NOTE | 2020-10-06 07:25 | REP ---
INDICATION: POST OP IN PACU/ LOW SET AP PELVIS COMPARISON: 10/01/2020 TECHNIQUE: Single AP view of the pelvis. FINDINGS: Patient is status post satisfactory fixation for left intertrochanteric fracture. Postoperative changes in the overlying soft tissues noted. IMPRESSION: Status post left intertrochanteric fracture fixation. <Electronically signed by Herbert Mendoza > 10/03/20 [id number]
[2020-10-06] MEDS: DOXYCYCLINE HYCLATE 100 MG in D5W MINI-BAG PLUS 100 ML IV SCH (08:11)
[2020-10-06] MEDS: MOM 30ML SUSPENSION UDC PO SCH (08:12)
[2020-10-06] MEDS: HEPARIN SOD (PORCINE) 5000UNITS/ML 1ML VIAL/SYRINGE SQ SCH ×2 (08:13→21:00)
[2020-10-06] MEDS: SINEMET 25-100 MG TAB PO SCH ×2 (08:13→21:00)
[2020-10-06] MEDS: TOLTERODINE TARTRATE 2 MG LA CAP (DETROL LA) PO SCH (08:16)
[2020-10-06] MEDS: QUEtiapine FUMARATE 12.5 MG HALF-TAB PO SCH (08:16)
[2020-10-06] MEDS: FOLIC ACID 1 MG TAB PO SCH (08:17)
[2020-10-06] MEDS: SENOKOT S TAB PO SCH ×2 (08:17→21:00)
[2020-10-06] MEDS: PANTOPRAZOLE 40MG TAB (PROTONIX) PO SCH ×2 (08:17→21:00)
[2020-10-06] MEDS: FERROUS SULFATE 325MG TAB PO SCH ×2 (08:17→21:00)
[2020-10-06] MEDS: MAGNESIUM OXIDE 400MG TAB (MAG-OX) PO SCH (08:17)
[2020-10-06] MEDS: TAMSULOSIN 0.4 MG CAP PO SCH (08:18)
[2020-10-06] MEDS: ATORVASTATIN 20 MG TAB PO SCH (08:28)
[2020-10-06] MEDS: METOPROLOL TART 12.5 MG PER 1/2 TAB PO SCH ×2 (09:00→21:00)
[2020-10-06 10:39] LABS: VITAMIN B12 LEVEL 522 PG/ML (247-911)
[2020-10-06 10:40] LABS: FOLATE > 24.0 NG/ML (>5.4)
--- NOTE | 2020-10-06 11:44 | IPNPDOC ---
Subjective Date Seen The patient was seen on 10/06/20. Subjective Chief Complaint/HPI Does not offer any complaints this morning. Says no appetite. No fever or chills, did work a little with PT however still not wanting ot move much. Updated daughter Delmy on the patient. Delmy does not want him to go to ARU. will ask case management director to look for STR beds. Objective Physical Examination General Exam: Positive: Alert, Cooperative, No Acute Distress Eye Exam: Positive: PERRLA, Conjunctiva & lids normal, EOMI; Negative: Sclera icteric ENT Exam: Positive: Atraumatic, Mucous membr. moist/pink, Pharynx Normal Neck Exam: Positive: Supple; Negative: JVD, thyromegaly Chest Exam: Positive: Clear to auscultation, Normal air movement Heart Exam: Positive: Rate Normal, Irregular Rhythm, Normal S1, Normal S2, Murmurs (systolic murmur); Negative: Rubs Abdomen Exam: Positive: Normal bowel sounds, Soft; Negative: Tenderness, Hepatospenomegaly Extremity Exam: Negative: Clubbing, Cyanosis, Edema Assessment /Plan Assessment 85 year old male with PMHx including Parkinson's disease, mild cognitive impairment, CKD, atrial fib, PVD, CAD/ CABG, Diastolic congestive heart failure, severe pulmonary hypertension, HTN, Dysphagia, PAD, Abdominal aortic aneurysm repair, Protein calorie malnutrition with albumin 2.5, Chronic anemia, Moderate mitral insufficiency, Right upper lobe 9 mm pulmonary nodule presented to the ED after a mechanical fall at home found to have L hip fracture and pneumonia by CT chest. Left hip fracture secondary to mechanical fall s/p Left hip ORIF Short Gamma Nail pain control with oxycodone. PT/OT bowel meds. heparin for DVT prophylaxis. Acute Blood loss anemia on Chronic anemia due to fracture hematoma, operative blood loss and dilutional. Chronic anemia likely due to CKD iron panel , folate and vit b12 no gross deficiencies. Received PRBC transfusion x 4 Delirium on the background of mild cognitive impairment postoperative delirium cont mirtazepine. seroquel Pneumonia CAP vs aspiration. Found on chest CT, patient is asymptomatic patient reports that he has trouble swallowing and sometimes chokes on food so may have silent aspirations and this aspiration pneumonia will get swallow eval On pureed diet. Finished 5 days of antibiotics. Blood cultures negative till date Parkinson's disease continue home meds Atrial Fibrillation, rate controlled not on anticoagulation at home metoprolol CKD with chronic anemia Cr appears at baseline about 1.6 to 1.8 continue iron supplement CAD and PAD/ Aortic aneurysm repair with graft/ CABG on aspirin and plavix at home. will resume when OK with surgeon. HTN metoprolol Diastolic CHF with Valvular heart disease ( moderate mitral regurgitation) and severe pulmonary hypertension Patient is euvolemic at present BPH flomax and tolterodine Plan/VTE VTE Prophylaxis Ordered?: Yes VS, I&O, 24H, Fishbone Vital Signs/I&O Vital Signs Date Time Temp Pulse Resp B/P (MAP) Pulse Ox O2 Delivery O2 Flow Rate FiO2 10/06/20 06:00 97.6 84 17 107/56 (73) 92 Room Air 10/05/20 20:33 1.0 I&O- Last 24 Hours up to 6 AM 10/06/20 06:00 Intake Total 2070 ml Output Total 725 ml Balance 1345 ml Laboratory Data 24H LABS Laboratory Tests 2 10/05/20 21:38: Immature Granulocyte % (Auto) 1.5, Neutrophils (%) (Auto) 77.7H, Lymphocytes (%) (Auto) 6.8L, Monocytes (%) (Auto) 12.9H, Eosinophils (%) (Auto) 0.6, Basophils (%) (Auto) 0.5, Neutrophils # (Auto) 7.3, Lymphocytes # (Auto) 0.6L, Monocytes # (Auto) 1.2H, Eosinophils # (Auto) 0.1, Basophils # (Auto) 0.1, Nucleated Red Blood Cells % (auto) 0.0, Iron Level 82, Total Iron Binding Capacity 152L, Transferrin % Saturation 53.9H, Ferritin 300, Vitamin B12 Level 522, Folate > 24.0 10/06/20 06:25: Immature Granulocyte % (Auto) 1.7, Neutrophils (%) (Auto) 80.3H, Lymphocytes (%) (Auto) 6.9L, Monocytes (%) (Auto) 10.3H, Eosinophils (%) (Auto) 0.4, Basophils (%) (Auto) 0.4, Neutrophils # (Auto) 7.8, Lymphocytes # (Auto) 0.7L, Monocytes # (Auto) 1.0H, Eosinophils # (Auto) 0.0, Basophils # (Auto) 0.0, Nucleated Red Blood Cells % (auto) 0.0, Anion Gap 5L, Glomerular Filtration Rate 42.2, Calcium Level 8.7L CBC/BMP Laboratory Tests 10/05/20 21:38 10/06/20 06:25 Microbiology Microbiology 10/02/20 Blood Culture - Preliminary, Resulted No Growth after 72 hours. All specime... 10/01/20 Blood Culture - Preliminary, Resulted No Growth after 72 hours. All specime... SAMREEN PASTRANA MD Oct 06, 2020 11:44
[2020-10-06] MEDS: ACETAMINOPHEN TAB 650MG DOSE (2X325MG) PO PRN (16:04)
--- NOTE | 2020-10-06 16:17 | IPNPDOC ---
Text Note Date of Service The patient was seen on 10/06/20. NOTE POD3 for Left hip ORIF with IMN for fracture. Pt alert. Pain with movement of left leg and palpation of left hip wounds. Possibly some guarding. Proximal dressing intact, but peeling off. 2 distal dressings have been removed with wounds exposed. Dressing Change: Remaining telfa and tegaderm dressing removed. Steri strips in place. All 3 wounds cleansed with NSS. Painted with Betadine over incision line. Telfa island dressings applied with tegaderm to reinforce proximal dressing. Patient tolerated dressing change with no known complications. Discussed Anticoagulation with Dr. Minor this morning. Patient has received 4 units of PRBC post op. Currently off home cardioprotective ASA and Plavix. The patient is at high risk for bleeding, so he cannot be on combined antiplatelet and anticoagulant therapy, such as Xarelto. The patient was at a high cardiac r isk pre op. The Antiplatelet action of ASA and Plavix should also act as a 'blood thinner'. I have discussed with Dr. Minor and his home ASA and Plavix will be restarted in the morning. XIMENA stockings and compression devices should continue to be used and calf pump exercises should be encouraged. Alexx Sauer MD VS,Saritha, I+O VS, Saritha I+O Laboratory Tests 10/05/20 21:38 10/06/20 06:25 Vital Signs Date Time Temp Pulse Resp B/P (MAP) Pulse Ox O2 Delivery O2 Flow Rate FiO2 10/06/20 09:00 1.0 10/06/20 09:00 82 108/57 10/06/20 06:00 97.6 17 92 Room Air I&O- Last 24 Hours up to 6 AM 10/06/20 06:00 Intake Total 2070 ml Output Total 725 ml Balance 1345 ml ALEXX SAUER MD Oct 06, 2020 16:17
[2020-10-06 20:19] VITALS: BP 140/79
[2020-10-06] MEDS: NYSTATIN 100,000 UNITS/GM TOPICAL PWD 15 GM TOP SCH (21:00)
[2020-10-06] MEDS: MIRTAZAPINE 15 MG TAB PO SCH (21:00)
[2020-10-06] MEDS: LACTOBACILLUS ACIDOPHILUS CAP (BACID) PO SCH (21:00)
[2020-10-07] MEDS: oxyCODONE 5MG TAB PO PRN (05:02)
[2020-10-07 06:58] LABS: BASO % 0.4 % (0.0-1.0); EOS # 0.1 10^3/uL (0.0-0.5); EOS % 0.9 % (0.0-3.0); HEMATOCRIT 28.3 % (42.0-52.0); LYMPH # 0.6 10^3/uL (1.5-5.0); LYMPH % 8.4 % (24.0-44.0); MEAN CORPUSCULAR HEMOGLOBIN 32.1 pg (27.0-33.0); MEAN CORPUSCULAR HGB CONC 31.8 g/dl (32.0-36.5); MEAN CORPUSCULAR VOLUME 101.1 fl (80.0-96.0); MONO # 0.7 10^3/uL (0.0-0.8); MONO % 10.5 % (2.0-8.0); NEUTROPHILS # 5.2 10^3/uL (1.5-8.5); NEUTROPHILS % 77.9 % (36.0-66.0); PLATELET COUNT, AUTOMATED 148 10^3/uL (150-450); WHITE BLOOD COUNT 6.7 10^3/uL (4.0-10.0)
[2020-10-07 07:24] LABS: CALCIUM LEVEL 9.1 MG/DL (8.8-10.2); CREATININE FOR GFR 1.52 MG/DL (0.70-1.30); GLOMERULAR FILTRATION RATE 46.7 (>35); POTASSIUM SERUM 4.1 MEQ/L (3.5-5.1)
[2020-10-07] MEDS: PANTOPRAZOLE 40MG TAB (PROTONIX) PO SCH ×2 (08:10→19:56)
[2020-10-07] MEDS: SINEMET 25-100 MG TAB PO SCH ×2 (08:11→19:56)
[2020-10-07] MEDS: ATORVASTATIN 20 MG TAB PO SCH (08:11)
[2020-10-07] MEDS: SENOKOT S TAB PO SCH ×2 (08:11→19:53)
[2020-10-07] MEDS: MAGNESIUM OXIDE 400MG TAB (MAG-OX) PO SCH (08:11)
[2020-10-07] MEDS: FERROUS SULFATE 325MG TAB PO SCH ×2 (08:11→19:56)
[2020-10-07] MEDS: CLOPIDOGREL 75 MG TAB PO SCH (08:11)
[2020-10-07] MEDS: TAMSULOSIN 0.4 MG CAP PO SCH (08:11)
[2020-10-07] MEDS: QUEtiapine FUMARATE 12.5 MG HALF-TAB PO SCH (08:14)
[2020-10-07] MEDS: FOLIC ACID 1 MG TAB PO SCH (08:14)
[2020-10-07] MEDS: ASPIRIN 81MG ENTERIC TABLET PO SCH (08:14)
[2020-10-07] MEDS: METOPROLOL TART 12.5 MG PER 1/2 TAB PO SCH ×2 (08:14→19:56)
[2020-10-07] MEDS: MOM 30ML SUSPENSION UDC PO SCH ×2 (08:15→08:33)
[2020-10-07] MEDS: TOLTERODINE TARTRATE 2 MG LA CAP (DETROL LA) PO SCH (08:15)
[2020-10-07] MEDS: NYSTATIN 100,000 UNITS/GM TOPICAL PWD 15 GM TOP SCH ×2 (08:15→19:57)
[2020-10-07] MEDS: FAMOTIDINE 20 MG TAB PO SCH (08:15)
[2020-10-07] MEDS ORDERED: OXYC-517 PO (09:48)
[2020-10-07] MEDS ORDERED: NYST10006 TOP (09:48)
[2020-10-07] MEDS ORDERED: BISACODYL 10 MG SUPP PR ONE (13:30)
[2020-10-07 14:00] VITALS: BP 118/63
[2020-10-07] MEDS ORDERED: MIRALAX *UNIT DOSE* 17GM PACKET PO ONE (14:00)
[2020-10-07] MEDS: ACETAMINOPHEN TAB 650MG DOSE (2X325MG) PO PRN (18:01)
[2020-10-07] MEDS: LACTOBACILLUS ACIDOPHILUS CAP (BACID) PO SCH (19:53)
[2020-10-07] MEDS: MIRTAZAPINE 15 MG TAB PO SCH (19:56)
[2020-10-07] MEDS: MIRALAX *UNIT DOSE* 17GM PACKET PO SCH (20:01)
[2020-10-08] MEDS: MIRALAX *UNIT DOSE* 17GM PACKET PO SCH ×2 (08:37→21:00)
[2020-10-08] MEDS: MOM 30ML SUSPENSION UDC PO SCH (08:37)
[2020-10-08] MEDS: QUEtiapine FUMARATE 12.5 MG HALF-TAB PO SCH (08:38)
[2020-10-08] MEDS: ASPIRIN 81MG ENTERIC TABLET PO SCH (08:38)
[2020-10-08] MEDS: FERROUS SULFATE 325MG TAB PO SCH ×2 (08:38→21:00)
[2020-10-08] MEDS: SENOKOT S TAB PO SCH ×2 (08:38→20:59)
[2020-10-08] MEDS: TOLTERODINE TARTRATE 2 MG LA CAP (DETROL LA) PO SCH (08:38)
[2020-10-08] MEDS: SINEMET 25-100 MG TAB PO SCH ×2 (08:38→21:00)
[2020-10-08] MEDS: FOLIC ACID 1 MG TAB PO SCH (08:38)
[2020-10-08] MEDS: METOPROLOL TART 12.5 MG PER 1/2 TAB PO SCH ×2 (08:38→20:50)
[2020-10-08] MEDS: CLOPIDOGREL 75 MG TAB PO SCH (08:39)
[2020-10-08] MEDS: TAMSULOSIN 0.4 MG CAP PO SCH (08:39)
[2020-10-08] MEDS: ATORVASTATIN 20 MG TAB PO SCH (08:39)
[2020-10-08] MEDS: MAGNESIUM OXIDE 400MG TAB (MAG-OX) PO SCH (08:39)
[2020-10-08] MEDS: PANTOPRAZOLE 40MG TAB (PROTONIX) PO SCH ×2 (08:39→21:00)
--- NOTE | 2020-10-08 08:39 | IPNPDOC ---
Subjective Date Seen The patient was seen on 10/07/20. Subjective Chief Complaint/HPI No issues overnight. Patient has a bed in [facility] however he needs to have a bowel movement till he can go there. Objective Physical Examination General Exam: Positive: Alert, Cooperative, No Acute Distress Eye Exam: Positive: PERRLA, Conjunctiva & lids normal, EOMI; Negative: Sclera icteric ENT Exam: Positive: Atraumatic, Mucous membr. moist/pink, Pharynx Normal Neck Exam: Positive: Supple; Negative: JVD, thyromegaly Chest Exam: Positive: Clear to auscultation, Normal air movement Heart Exam: Positive: Rate Normal, Irregular Rhythm, Normal S1, Normal S2, Murmurs (systolic murmur); Negative: Rubs Abdomen Exam: Positive: Normal bowel sounds, Soft; Negative: Tenderness, Hepatospenomegaly Extremity Exam: Negative: Clubbing, Cyanosis, Edema Assessment /Plan Assessment 85 year old male with PMHx including Parkinson's disease, mild cognitive impairment, CKD, atrial fib, PVD, CAD/ CABG, Diastolic congestive heart failure, severe pulmonary hypertension, HTN, Dysphagia, PAD, Abdominal aortic aneurysm repair, Protein calorie malnutrition with albumin 2.5, Chronic anemia, Moderate mitral insufficiency, Right upper lobe 9 mm pulmonary nodule presented to the ED after a mechanical fall at home found to have L hip fracture and pneumonia by CT chest. Left hip fracture secondary to mechanical fall s/p Left hip ORIF Short Gamma Nail pain control with oxycodone. PT/OT bowel meds. ASA and Plavix started. Orhto surgeon did not want any AC. Acute Blood loss anemia on Chronic anemia due to fracture hematoma, operative blood loss and dilutional. Chronic anemia likely due to CKD iron panel , folate and vit b12 no gross deficiencies. Received PRBC transfusion x 4 Delirium on the background of mild cognitive impairment postoperative delirium cont mirtazepine. seroquel Pneumonia CAP vs aspiration. Found on chest CT, patient is asymptomatic patient reports that he has trouble swallowing and sometimes chokes on food so may have silent aspirations and this aspiration pneumonia Had swallow eval done will follow recommendations. On pureed diet. Finished 5 days of antibiotics. Blood cultures negative till date Parkinson's disease continue home meds Atrial Fibrillation, rate controlled not on anticoagulation at home metoprolol CKD with chronic anemia Cr appears at baseline about 1.6 to 1.8 continue iron supplement CAD and PAD/ Aortic aneurysm repair with graft/ CABG on aspirin and plavix at home. will resume HTN metoprolol Diastolic CHF with Valvular heart disease ( moderate mitral regurgitation) and severe pulmonary hypertension Patient is euvolemic at present will restart Lasix BPH flomax and tolterodine Plan/VTE VTE Prophylaxis Ordered?: Yes VS, I&O, 24H, Fishbone Vital Signs/I&O Vital Signs Date Time Temp Pulse Resp B/P (MAP) Pulse Ox O2 Delivery O2 Flow Rate FiO2 10/07/20 22:00 97.4 66 17 96 Room Air 10/07/20 19:56 104/73 10/06/20 09:00 1.0 I&O- Last 24 Hours up to 6 AM 10/08/20 06:00 Intake Total 480 ml Balance 480 ml Laboratory Data 24H LABS Laboratory Tests 2 10/07/20 09:48: Coronavirus (COVID-19)(PCR) NEGATIVE Microbiology Microbiology 10/02/20 Blood Culture - Final, Complete NO GROWTH AFTER 5 DAYS 10/01/20 Blood Culture - Final, Complete NO GROWTH AFTER 5 DAYS SAMREEN PASTRANA MD Oct 08, 2020 08:39
[2020-10-08] MEDS: ACETAMINOPHEN TAB 650MG DOSE (2X325MG) PO PRN ×2 (08:42→21:01)
--- NOTE | 2020-10-08 08:42 | DS.PDOC ---
Discharge Summary General Date of Admission Oct 01, 2020 at 23:57 Date of Discharge 10/08/20 Discharge Summary PROCEDURES PERFORMED DURING STAY: Left hip ORIF Short Gamma Nail on 10/03/20 DISCHARGE DIAGNOSES: Left Hip fracture s/p mechanical fall Acute blood loss anemia on chronic anemia Pneumonia CAP Vs aspiration Delirium on the back ground of dementia. SECONDARY DIAGNOSIS: Parkinson's disease, Cognitive impairment with sundowning, CKD stge 3, atrial fib, PVD, CAD/ CABG, Diastolic congestive heart failure, Severe pulmonary hypertension, HTN, Dysphagia, PAD, Abdominal aortic aneurysm repair, Protein calorie malnutrition, Chronic anemia, Moderate mitral insufficiency, BPH, Right upper lobe 9 mm pulmonary nodule COMPLICATIONS/CHIEF COMPLAINT: Fracture Of L Hip. HOSPITAL COURSE: 85 year old male with PMHx including Parkinson's disease, mild cognitive impairment, CKD, atrial fib, PVD, CAD/ CABG, Diastolic congestive heart failure, severe pulmonary hypertension, HTN, Dysphagia, PAD, Abdominal a ortic aneurysm repair, Protein calorie malnutrition, Chronic anemia, Moderate mitral insufficiency, Right upper lobe 9 mm pulmonary nodule presented to the ED after a mechanical fall at home found to have L hip fracture and pneumonia by CT chest. Hospital course was complicated by more than expected bleeding during surgery and the post op period felt to be due to being on ASA and Plavix at home. Large fracture hematoma. He required 4 units of PRBC transfusion. He also had some delirium in the postoperative period which has now resolved. Left hip fracture secondary to mechanical fall s/p Left hip ORIF Short Gamma Nail pain control with oxycodone. PT/OT continue bowel meds. DVT prophylaxis with ASA and Plavix. Ortho surgeon did not want any AC. Acute Blood loss anemia on Chronic anemia due to fracture hematoma, operative blood loss and dilutional. Chronic anemia likely due to CKD iron panel , folate and vit b12 no gross deficiencies. Received PRBC transfusion x 4 Delirium on the background of mild cognitive impairment with postopertive delirium resolved. Needed seroquel in hospital. cont mirtazepine. Pneumonia CAP vs aspiration. Found on chest CT, patient is asymptomatic patient reports that he has trouble swallowing and sometimes chokes on food so may have silent aspirations and this aspiration pneumonia On pureed diet with thin liquids. Will follow reccomendations from [facility] swallow evaluation. Finished 5 days of antibiotics. Blood cultures negative till date Dysphagia recommendations from ST. Level 1/pureed solids Thin liquids NO STRAWS staff assist as needed to maximize pt's success in being able to retrieve solids and liquids ST services 3-5x wk to determine most appropriate diet for pt based on needs Parkinson's disease continue home meds Atrial Fibrillation, rate controlled not on anticoagulation at home metoprolol CKD with chronic anemia Cr appears at baseline about 1.6 to 1.8 continue iron supplement CAD and PAD/ Aortic aneurysm repair with graft/ CABG will restart ASA and Plavix. HTN metoprolol Diastolic CHF with Valvular heart disease ( moderate mitral regurgitation) and severe pulmonary hypertension Patient is euvolemic at present will resume lasix. BPH flomax and tolterodine DISCHARGE MEDICATIONS: Please see below. ALLERGIES: Please see below. PHYSICAL EXAMINATION ON DISCHARGE: VITAL SIGNS: Please see below. General Exam: Positive: Alert, Cooperative, No Acute Distress Eye Exam: Positive: PERRLA, Conjunctiva & lids normal, EOMI; Negative: Sclera icteric ENT Exam: Positive: Atraumatic, Mucous membr. moist/pink, Pharynx Normal Neck Exam: Positive: Supple; Negative: JVD, thyromegaly Chest Exam: Positive: Clear to auscultation, Normal air movement Heart Exam: Positive: Rate Normal, Irregular Rhythm, Normal S1, Normal S2, Murmurs (systolic murmur); Negative: Rubs Abdomen Exam: Positive: Normal bowel sounds, Soft; Negative: Tenderness, Hepatosplenomegaly Extremity Exam: Negative: Clubbing, Cyanosis, Edema LABORATORY DATA: Please see below. ACTIVITY: [As tolerated]. DIET: Pureed with thin liquids DIS[facility] PLAN[facility] DIS[facility]: . DISCHARGE INSTRUCTIONS: Follow up with Ortho in 2 weeks DISCHARGE CONDITION: [Stable]. TIME SPENT ON DISCHARGE: 35 minutes. Vital Signs/I&Os Vital Signs Date Time Temp Pulse Resp B/P (MAP) Pulse Ox O2 Delivery O2 Flow Rate FiO2 10/07/20 22:00 97.4 66 17 96 Room Air 10/07/20 19:56 104/73 10/06/20 09:00 1.0 I&O- Last 24 Hours up to 6 AM 10/08/20 06:00 Intake Total 480 ml Balance 480 ml Laboratory Data Labs 24H Laboratory Tests 2 10/07/20 09:48: Coronavirus (COVID-19)(PCR) NEGATIVE Microbiology Microbiology 10/02/20 Blood Culture - Final, Complete NO GROWTH AFTER 5 DAYS 10/01/20 Blood Culture - Final, Complete NO GROWTH AFTER 5 DAYS Discharge Medications Scheduled Aspirin (Aspirin EC) 81 Mg Tablet.dr, 81 MG PO DAILY, (Reported) Atorvastatin Calcium (Atorvastatin Calcium) 20 Mg Tablet, 20 MG PO DAILY, (Reported) Carbidopa/Levodopa (Carbidopa-Levodopa 25-100 Tab) 1 Each Tablet, 1 TAB PO BID, (Reported) Cholecalciferol (Vitamin D3) (Vitamin D3) 1,000 Unit Tablet, 2,000 UNITS PO DAILY, (Reported) Clopidogrel Bisulfate (Clopidogrel) 75 Mg Tablet, 75 MG PO DAILY, (Reported) Cyanocobalamin (Vitamin B-12) (B-12) 1,000 Mcg Tablet, 1,000 MCG PO DAILY, (Reported) Famotidine (Famotidine) 20 Mg Tablet, 20 MG PO DAILY, (Reported) Ferrous Sulfate (Ferrous Sulfate) 325 Mg Tablet, 325 MG PO BID, (Reported) Folic Acid (Folic Acid) 1 Mg Tablet, 1 MG PO DAILY, (Reported) Furosemide (Furosemide) 40 Mg Tablet, 20 MG PO DAILY, (Reported) L.acidoph/L.bulg/B.bif/S.therm (Bacid Caplet) 1 Each Tablet, 1 TAB PO QHS, (Reported) Magnesium Oxide (Magnesium Oxide) 400 Mg Tablet, 400 MG PO DAILY, (Reported) Metoprolol Tartrate (Metoprolol Tartrate) 25 Mg Tablet, 12.5 MG PO BID, (Reported) Mirtazapine (Remeron) 15 Mg Tablet, 15 MG PO QHS, (Reported) Nystatin (Nystop) 60 Gm Powder, 0 DOSE TOP BID Pantoprazole Sodium (Pantoprazole Sodium) 40 Mg Tablet.dr, 40 MG PO BID, (Re ported) Tamsulosin HCl (Flomax) 0.4 Mg Capsule, 0.4 MG PO DAILY, (Reported) Tolterodine Tartrate (Tolterodine Tartrate ER) 2 Mg Cap.er.24h, 2 MG PO DAILY, (Reported) Scheduled PRN Acetaminophen (Acetaminophen) 500 Mg Tablet, 1,000 MG PO Q6H PRN for PAIN, (Reported) Oxycodone HCl (Oxycodone HCl) 5 Mg Tablet, 1-2 MG PO Q8HP PRN for MODERATE PAIN (PS 5-7) Miscellaneous Medications [Med Rec Comment] , (Reported) MED REC COMPLETED VIA MED LIST AND EXTERNAL MED HISTORY Allergies Coded Allergies: No Known Drug Allergies (Verified Allergy, Unknown, 04/15/19) SAMREEN PASTRANA MD Oct 08, 2020 08:42
[2020-10-08] MEDS: NYSTATIN 100,000 UNITS/GM TOPICAL PWD 15 GM TOP SCH ×2 (08:45→21:01)
[2020-10-08] MEDS ORDERED: MIRALAX *UNIT DOSE* 17GM PACKET PO SCH (09:00)
[2020-10-08] MEDS: LACTOBACILLUS ACIDOPHILUS CAP (BACID) PO SCH (20:59)
[2020-10-08] MEDS: MIRTAZAPINE 15 MG TAB PO SCH (20:59)
[2020-10-09] MEDS: ACETAMINOPHEN TAB 650MG DOSE (2X325MG) PO PRN ×2 (05:54→23:05)
[2020-10-09 06:00] VITALS: BP 111/62
[2020-10-09 06:52] LABS: BASO % 0.5 % (0.0-1.0); EOS # 0.1 10^3/uL (0.0-0.5); EOS % 1.9 % (0.0-3.0); HEMATOCRIT 29.1 % (42.0-52.0); HEMOGLOBIN 9.2 g/dl (13.5-17.5); LYMPH # 0.6 10^3/uL (1.5-5.0); LYMPH % 8.8 % (24.0-44.0); MEAN CORPUSCULAR HEMOGLOBIN 32.4 pg (27.0-33.0); MEAN CORPUSCULAR HGB CONC 31.6 g/dl (32.0-36.5); MEAN CORPUSCULAR VOLUME 102.5 fl (80.0-96.0); MONO # 0.8 10^3/uL (0.0-0.8); MONO % 11.4 % (2.0-8.0); NEUTROPHILS # 5.4 10^3/uL (1.5-8.5); NEUTROPHILS % 74.1 % (36.0-66.0); PLATELET COUNT, AUTOMATED 186 10^3/uL (150-450); RED BLOOD COUNT 2.84 10^6/uL (4.30-6.10); WHITE BLOOD COUNT 7.3 10^3/uL (4.0-10.0)
[2020-10-09 07:23] LABS: CREATININE FOR GFR 1.37 MG/DL (0.70-1.30); GLOMERULAR FILTRATION RATE 52.7 (>35); POTASSIUM SERUM 4.3 MEQ/L (3.5-5.1)
[2020-10-09] MEDS: MOM 30ML SUSPENSION UDC PO SCH (09:00)
[2020-10-09] MEDS: MIRALAX *UNIT DOSE* 17GM PACKET PO SCH ×3 (09:00→23:04)
[2020-10-09] MEDS: METOPROLOL TART 12.5 MG PER 1/2 TAB PO SCH ×2 (09:12→21:00)
[2020-10-09] MEDS: ASPIRIN 81MG ENTERIC TABLET PO SCH (09:13)
[2020-10-09] MEDS: FAMOTIDINE 20 MG TAB PO SCH (09:13)
[2020-10-09] MEDS: SENOKOT S TAB PO SCH ×2 (09:13→23:02)
[2020-10-09] MEDS: TAMSULOSIN 0.4 MG CAP PO SCH (09:14)
[2020-10-09] MEDS: TOLTERODINE TARTRATE 2 MG LA CAP (DETROL LA) PO SCH (09:14)
[2020-10-09] MEDS: QUEtiapine FUMARATE 12.5 MG HALF-TAB PO SCH (09:14)
[2020-10-09] MEDS: ATORVASTATIN 20 MG TAB PO SCH (09:14)
[2020-10-09] MEDS: CLOPIDOGREL 75 MG TAB PO SCH (09:14)
[2020-10-09] MEDS: oxyCODONE 5MG TAB PO PRN ×2 (09:14→14:39)
[2020-10-09] MEDS: FERROUS SULFATE 325MG TAB PO SCH ×2 (09:14→23:04)
[2020-10-09] MEDS: FOLIC ACID 1 MG TAB PO SCH (09:15)
[2020-10-09] MEDS: PANTOPRAZOLE 40MG TAB (PROTONIX) PO SCH ×2 (09:15→23:02)
[2020-10-09] MEDS: SINEMET 25-100 MG TAB PO SCH ×2 (09:15→23:04)
[2020-10-09] MEDS: NYSTATIN 100,000 UNITS/GM TOPICAL PWD 15 GM TOP SCH ×2 (09:15→23:04)
[2020-10-09] MEDS: MAGNESIUM OXIDE 400MG TAB (MAG-OX) PO SCH (09:15)
[2020-10-09] MEDS: LACTOBACILLUS ACIDOPHILUS CAP (BACID) PO SCH (23:04)
[2020-10-09] MEDS: MIRTAZAPINE 15 MG TAB PO SCH (23:04)
[2020-10-10 06:00] VITALS: BP 135/74
[2020-10-10] MEDS: ACETAMINOPHEN TAB 650MG DOSE (2X325MG) PO PRN (06:49)
[2020-10-10] MEDS: SENOKOT S TAB PO SCH (07:44)
[2020-10-10] MEDS: PANTOPRAZOLE 40MG TAB (PROTONIX) PO SCH (07:44)
[2020-10-10 07:45] VITALS: BP 135/74
[2020-10-10] MEDS: ATORVASTATIN 20 MG TAB PO SCH (07:45)
[2020-10-10] MEDS: CLOPIDOGREL 75 MG TAB PO SCH (07:45)
[2020-10-10] MEDS: SINEMET 25-100 MG TAB PO SCH (07:45)
[2020-10-10] MEDS: QUEtiapine FUMARATE 12.5 MG HALF-TAB PO SCH (07:45)
[2020-10-10] MEDS: METOPROLOL TART 12.5 MG PER 1/2 TAB PO SCH (07:45)
[2020-10-10] MEDS: ASPIRIN 81MG ENTERIC TABLET PO SCH (07:45)
[2020-10-10] MEDS: FOLIC ACID 1 MG TAB PO SCH (07:46)
[2020-10-10] MEDS: FERROUS SULFATE 325MG TAB PO SCH (07:46)
[2020-10-10] MEDS: TOLTERODINE TARTRATE 2 MG LA CAP (DETROL LA) PO SCH (07:46)
[2020-10-10] MEDS: MOM 30ML SUSPENSION UDC PO SCH (07:46)
[2020-10-10] MEDS: TAMSULOSIN 0.4 MG CAP PO SCH (07:46)
[2020-10-10] MEDS: MAGNESIUM OXIDE 400MG TAB (MAG-OX) PO SCH (07:46)
[2020-10-10] MEDS: MIRALAX *UNIT DOSE* 17GM PACKET PO SCH (07:47)
[2020-10-10] MEDS: NYSTATIN 100,000 UNITS/GM TOPICAL PWD 15 GM TOP SCH (07:48)
[2020-10-10] MEDS: oxyCODONE 5MG TAB PO PRN (08:01)
[2020-10-10 08:48] LABS: BASO # 0.1 10^3/uL (0.0-0.2); BASO % 0.5 % (0.0-1.0); EOS # 0.2 10^3/uL (0.0-0.5); EOS % 2.1 % (0.0-3.0); HEMOGLOBIN 9.7 g/dl (13.5-17.5); LYMPH # 0.9 10^3/uL (1.5-5.0); LYMPH % 9.7 % (24.0-44.0); MEAN CORPUSCULAR HEMOGLOBIN 32.3 pg (27.0-33.0); MEAN CORPUSCULAR HGB CONC 31.3 g/dl (32.0-36.5); MEAN CORPUSCULAR VOLUME 103.3 fl (80.0-96.0); MONO # 1.1 10^3/uL (0.0-0.8); MONO % 11.1 % (2.0-8.0); NEUTROPHILS # 7.1 10^3/uL (1.5-8.5); NEUTROPHILS % 73.2 % (36.0-66.0); PLATELET COUNT, AUTOMATED 211 10^3/uL (150-450); WHITE BLOOD COUNT 9.7 10^3/uL (4.0-10.0)
[2020-10-10 09:02] LABS: CALCIUM LEVEL 9.3 MG/DL (8.8-10.2); CREATININE FOR GFR 1.36 MG/DL (0.70-1.30); GLOMERULAR FILTRATION RATE 53.1 (>35); POTASSIUM SERUM 4.6 MEQ/L (3.5-5.1)
[2020-10-10] MEDS ORDERED: LASI20TA3 PO (10:00)
--- NOTE | 2020-10-10 12:27 | IPNPDOC ---
Subjective Date Seen The patient was seen on 10/10/20. Subjective Chief Complaint/HPI Patient stayed extra days due to paperwork that needed to be filled out for NH. No new issues. However he is not working much with PT. For details of discharge summary and hospital course please refer to the discharge summary on 10/08/20 Objective Physical Examination General Exam: Positive: Alert, Cooperative, No Acute Distress Eye Exam: Positive: PERRLA, Conjunctiva & lids normal, EOMI; Negative: Sclera icteric ENT Exam: Positive: Atraumatic, Mucous membr. moist/pink, Pharynx Normal Neck Exam: Positive: Supple; Negative: JVD, thyromegaly Chest Exam: Positive: Clear to auscultation, Normal air movement Heart Exam: Positive: Rate Normal, Irregular Rhythm, Normal S1, Normal S2, Murmurs (systolic murmur); Negative: Rubs Abdomen Exam: Positive: Normal bowel sounds, Soft; Negative: Tenderness, Hepatospenomegaly Extremity Exam: Negative: Clubbing, Cyanosis, Edema Assessment /Plan Assessment 85 year old male with PMHx including Parkinson's disease, mild cognitive impairment, CKD, atrial fib, PVD, CAD/ CABG, Diastolic congestive heart failure, severe pulmonary hypertension, HTN, Dysphagia, PAD, Abdominal aortic aneurysm repair, Protein calorie malnutrition with albumin 2.5, Chronic anemia, Moderate mitral insufficiency, Right upper lobe 9 mm pulmonary nodule presented to the ED after a mechanical fall at home found to have L hip fracture and pneumonia by CT chest. Left hip fracture secondary to mechanical fall s/p Left hip ORIF Short Gamma Nail pain control with oxycodone. PT/OT bowel meds. ASA and Plavix started. Ortho surgeon did not want any AC. Acute Blood loss anemia on Chronic anemia due to fracture hematoma, operative blood loss and dilutional. Chronic anemia likely due to CKD iron panel , folate and vit b12 no gross deficiencies. Received PRBC transfusion x 4 Delirium on the background of mild cognitive impairment postoperative delirium cont mirtazepine. Pneumonia CAP vs aspiration. Found on chest CT, patient is asymptomatic patient reports that he has trouble swallowing and sometimes chokes on food so may have silent aspirations and this aspiration pneumonia Had swallow eval done will follow recommendations. On pureed diet. Finished 5 days of antibiotics. Parkinson's disease continue home meds Atrial Fibrillation, rate controlled not on anticoagulation at home metoprolol CKD with chronic anemia Cr appears at baseline about 1.6 to 1.8 continue iron supplement CAD and PAD/ Aortic aneurysm repair with graft/ CABG on aspirin and plavix at home. will resume HTN metoprolol Diastolic CHF with Valvular heart disease ( moderate mitral regurgitation) and severe pulmonary hypertension Patient is euvolemic at present will restart Lasix every other day. BPH flomax and tolterodine Hypernatremia likely due to poor oral intake will reduce dose of lasix from daily to every other day. Plan/VTE VTE Prophylaxis Ordered?: Yes VS, I&O, 24H, Fishbone Vital Signs/I&O Vital Signs Date Time Temp Pulse Resp B/P (MAP) Pulse Ox O2 Delivery O2 Flow Rate FiO2 10/10/20 08:31 18 Room Air 10/10/20 07:45 78 135/74 10/10/20 06:00 97.5 92 10/06/20 09:00 1.0 I&O- Last 24 Hours up to 6 AM 10/10/20 06:00 Intake Total 840 ml Output Total 0 ml Balance 840 ml Laboratory Data 24H LABS Laboratory Tests 2 10/10/20 07:59: Immature Granulocyte % (Auto) 3.4H, Neutrophils (%) (Auto) 73.2H, Lymphocytes (%) (Auto) 9.7L, Monocytes (%) (Auto) 11.1H, Eosinophils (%) (Auto) 2.1, Basophils (%) (Auto) 0.5, Neutrophils # (Auto) 7.1, Lymphocytes # (Auto) 0.9L, Monocytes # (Auto) 1.1H, Eosinophils # (Auto) 0.2, Basophils # (Auto) 0.1, Nucleated Red Blood Cells % (auto) 0.0, Anion Gap 4L, Glomerular Filtration Rate 53.1, Calcium Level 9.3 CBC/BMP Laboratory Tests 10/10/20 07:59 Microbiology Microbiology 10/02/20 Blood Culture - Final, Complete NO GROWTH AFTER 5 DAYS 10/01/20 Blood Culture - Final, Complete NO GROWTH AFTER 5 DAYS SAMREEN PASTRANA MD Oct 10, 2020 12:27
== END 2020-10-10 12:10 | DRG 480 ==
LOC: M ED 20:53 → M ED INP 23:57 → ENRESERV 10-02 00:36 → M MS5PR 10-02 03:08 → M RR INP 10-03 17:25 → M MS5PR 10-03 17:46
PROVIDERS: ADMIT Family Medicine; ATTEND Internal Medicine Nephrology
PROC: 0QS704Z Reposition Left Upper Femur with Internal Fixation Device, Open Approach (ICD-10-PCS; principal; 2020-10-03 12:15)
PROC: 30233N1 Transfusion of Nonautologous Red Blood Cells into Peripheral Vein, Percutaneous Approach (ICD-10-PCS; 2020-10-04)
DX: S72.142A Displaced intertrochanteric fracture of left femur, initial encounter for closed fracture (principal); J69.0 Pneumonitis due to inhalation of food and vomit; I50.32 Chronic diastolic (congestive) heart failure; I13.0 Hypertensive heart and chronic kidney disease with heart failure and stage 1 through stage 4 chronic kidney disease, or unspecified chronic kidney disease; E46 Unspecified protein-calorie malnutrition; D62 Acute posthemorrhagic anemia; E87.0 Hyperosmolality and hypernatremia; F05 Delirium due to known physiological condition; G20 Parkinson's disease; S72.012A Unspecified intracapsular fracture of left femur, initial encounter for closed fracture; I48.91 Unspecified atrial fibrillation; N18.9 Chronic kidney disease, unspecified; D63.1 Anemia in chronic kidney disease; I25.10 Atherosclerotic heart disease of native coronary artery without angina pectoris; I73.9 Peripheral vascular disease, unspecified; Z66 Do not resuscitate; Z95.1 Presence of aortocoronary bypass graft; Z98.62 Peripheral vascular angioplasty status; Z87.891 Personal history of nicotine dependence; W18.30XA Fall on same level, unspecified, initial encounter; Y92.012 Bathroom of single-family (private) house as the place of occurrence of the external cause; Y99.8 Other external cause status; Z20.822 Contact with and (suspected) exposure to COVID-19; Z79.82 Long term (current) use of aspirin; Z79.899 Other long term (current) drug therapy; Z79.02 Long term (current) use of antithrombotics/antiplatelets; G31.84 Mild cognitive impairment of uncertain or unknown etiology; I27.20 Pulmonary hypertension, unspecified; R13.10 Dysphagia, unspecified; N40.0 Benign prostatic hyperplasia without lower urinary tract symptoms; R91.1 Solitary pulmonary nodule; Y93.9 Activity, unspecified

== ENCOUNTER → 2020-10-15 | Outpatient (REF) ==
[~2020-10-15] MED LIST changes: +BACITAB PO; +LASI20TA3 PO; +NYST10006 TOP; +OXYC-517 PO
[2020-10-15 07:45] LABS: HEMATOCRIT 31.4 % (42.0-52.0); HEMOGLOBIN 9.8 g/dl (13.5-17.5); MEAN CORPUSCULAR HEMOGLOBIN 32.5 pg (27.0-33.0); MEAN CORPUSCULAR HGB CONC 31.2 g/dl (32.0-36.5); PLATELET COUNT, AUTOMATED 226 10^3/uL (150-450); RED BLOOD COUNT 3.02 10^6/uL (4.30-6.10); WHITE BLOOD COUNT 8.7 10^3/uL (4.0-10.0)
[2020-10-15 08:05] LABS: CALCIUM LEVEL 8.6 MG/DL (8.8-10.2); CREATININE FOR GFR 1.61 MG/DL (0.70-1.30); GLOMERULAR FILTRATION RATE 43.7 (>35); POTASSIUM SERUM 4.1 MEQ/L (3.5-5.1)
== END ==
LOC: SKLAB2 15:31
DX: D64.9 Anemia, unspecified (principal)

== ENCOUNTER → 2020-10-16 | Outpatient (REF) ==
[2020-10-16 07:48] LABS: CALCIUM LEVEL 8.6 MG/DL (8.8-10.2); CREATININE FOR GFR 1.57 MG/DL (0.70-1.30); POTASSIUM SERUM 4.2 MEQ/L (3.5-5.1)
== END ==
LOC: SKLAB2 15:32
DX: E86.0 Dehydration (principal)

== ENCOUNTER → 2020-10-17 | Outpatient (REF) ==
[2020-10-17 08:27] LABS: CALCIUM LEVEL 9.1 MG/DL (8.8-10.2); CREATININE FOR GFR 1.24 MG/DL (0.70-1.30); GLOMERULAR FILTRATION RATE 59.1 (>35); POTASSIUM SERUM 5.1 MEQ/L (3.5-5.1)
== END ==
LOC: SKLAB2 15:33
DX: E86.0 Dehydration (principal)

== ENCOUNTER → 2020-10-21 | Outpatient (REF) ==
[2020-10-21 09:51] LABS: CALCIUM LEVEL 9.4 MG/DL (8.8-10.2); CREATININE FOR GFR 1.34 MG/DL (0.70-1.30); GLOMERULAR FILTRATION RATE 54.1 (>35); POTASSIUM SERUM 4.3 MEQ/L (3.5-5.1)
== END ==
LOC: SKLAB2 15:36
DX: D64.9 Anemia, unspecified (principal)

== ENCOUNTER → 2020-10-22 | Outpatient (REF) ==
[2020-10-22 09:07] LABS: HEMATOCRIT 32.1 % (42.0-52.0); MEAN CORPUSCULAR HEMOGLOBIN 32.6 pg (27.0-33.0); MEAN CORPUSCULAR HGB CONC 31.2 g/dl (32.0-36.5); MEAN CORPUSCULAR VOLUME 104.6 fl (80.0-96.0); PLATELET COUNT, AUTOMATED 266 10^3/uL (150-450); RED BLOOD COUNT 3.07 10^6/uL (4.30-6.10); WHITE BLOOD COUNT 4.4 10^3/uL (4.0-10.0)
== END ==
LOC: SKLAB2 15:44
DX: I10 Essential (primary) hypertension (principal)

== ENCOUNTER → 2020-10-24 | Outpatient (REF) | LOC: SKLAB2 15:45 | PROVIDERS: ATTEND Internal Medicine | DX: Z20.822 Contact with and (suspected) exposure to COVID-19 (principal) ==

== ENCOUNTER → 2020-10-27 | Outpatient (CLI) | payer MEDICARE ==
--- NOTE | 2020-10-27 17:08 | REP ---
INDICATION: F/U FX. COMPARISON: 10/01/2020. TECHNIQUE: There are two views. FINDINGS: There is gamma nail internal fixation of an intertrochanteric fracture with the fracture and hardware in satisfactory positions and alignment. There are surgical vaishnavi in the inguinal area. 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 IMPRESSION: There is gamma nail internal fixation of an intertrochanteric fracture with the fracture and hardware in satisfactory positions and alignment. There are surgical vaishnavi in the inguinal area. 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 <Electronically signed by Danish Ron > 10/27/20 0817
== END ==
LOC: M SOG 12:53
PROVIDERS: ATTEND Family Medicine
DX: S72.002D Fracture of unspecified part of neck of left femur, subsequent encounter for closed fracture with routine healing (principal); X58.XXXD Exposure to other specified factors, subsequent encounter; Z96.7 Presence of other bone and tendon implants

== ENCOUNTER → 2020-10-29 | Outpatient (REF) ==
[2020-10-29 10:41] LABS: HEMOGLOBIN 11.2 g/dl (13.5-17.5); MEAN CORPUSCULAR HEMOGLOBIN 32.5 pg (27.0-33.0); MEAN CORPUSCULAR HGB CONC 31.1 g/dl (32.0-36.5); MEAN CORPUSCULAR VOLUME 104.3 fl (80.0-96.0); PLATELET COUNT, AUTOMATED 242 10^3/uL (150-450); RED BLOOD COUNT 3.45 10^6/uL (4.30-6.10); WHITE BLOOD COUNT 4.4 10^3/uL (4.0-10.0)
[2020-10-29 11:09] LABS: CALCIUM LEVEL 9.9 MG/DL (8.8-10.2); CREATININE FOR GFR 1.57 MG/DL (0.70-1.30); POTASSIUM SERUM 4.5 MEQ/L (3.5-5.1)
== END ==
LOC: SKLAB2 15:48
DX: D64.9 Anemia, unspecified (principal)

== ENCOUNTER → 2020-11-04 | Outpatient (REF) ==
[~2020-11-04] MED LIST changes: +CARB-89 PO; -SINE25TA5 PO
[2020-11-04 09:10] LABS: HEMATOCRIT 37.4 % (42.0-52.0); HEMOGLOBIN 11.7 g/dl (13.5-17.5); MEAN CORPUSCULAR HEMOGLOBIN 32.5 pg (27.0-33.0); MEAN CORPUSCULAR HGB CONC 31.3 g/dl (32.0-36.5); MEAN CORPUSCULAR VOLUME 103.9 fl (80.0-96.0); PLATELET COUNT, AUTOMATED 159 10^3/uL (150-450); WHITE BLOOD COUNT 7.3 10^3/uL (4.0-10.0)
[2020-11-04 09:39] LABS: CREATININE FOR GFR 1.39 MG/DL (0.70-1.30); GLOMERULAR FILTRATION RATE 51.8 (>35); POTASSIUM SERUM 5.2 MEQ/L (3.5-5.1)
== END ==
LOC: SKLAB2 15:22
DX: D64.9 Anemia, unspecified (principal); I10 Essential (primary) hypertension; E83.42 Hypomagnesemia; R60.9 Edema, unspecified

== ENCOUNTER → 2020-11-13 | Outpatient (REF) | payer MEDICARE ==
[2020-11-13 10:29] LABS: HEMATOCRIT 36.2 % (42.0-52.0); HEMOGLOBIN 11.3 g/dl (13.5-17.5); MEAN CORPUSCULAR HEMOGLOBIN 32.6 pg (27.0-33.0); MEAN CORPUSCULAR HGB CONC 31.2 g/dl (32.0-36.5); MEAN CORPUSCULAR VOLUME 104.3 fl (80.0-96.0); PLATELET COUNT, AUTOMATED 178 10^3/uL (150-450); RED BLOOD COUNT 3.47 10^6/uL (4.30-6.10); WHITE BLOOD COUNT 5.8 10^3/uL (4.0-10.0)
[2020-11-13 11:09] LABS: BILIRUBIN,TOTAL 0.5 MG/DL (0.2-1.0); CALCIUM LEVEL 10.7 MG/DL (8.8-10.2); CREATININE FOR GFR 1.32 MG/DL (0.70-1.30); POTASSIUM SERUM 4.4 MEQ/L (3.5-5.1); TOTAL PROTEIN 7.5 GM/DL (6.4-8.2)
== END ==
LOC: SKLAB2 08:00
DX: R63.4 Abnormal weight loss (principal)

== ENCOUNTER → 2020-11-18 | Outpatient (REF) | payer MEDICARE, SELFPAY ==
[~2020-11-18] MED LIST changes: +ACET-907 PO; +ATIV1TAB10 PO; +BISA10SU PR; +CARB1TAB PO; +ENSU1LIQ36 PO; +FLEEENE12 PR; +HYOS125TA PO; +JUVEPOW3 PO; +MIRA1POW3 PO; +MOM30SS PO; +MORP20SO3 PO; +SENN-23 PO; +VITMTA PO
[2020-11-18 09:36] LABS: CALCIUM LEVEL 9.8 MG/DL (8.8-10.2); CREATININE FOR GFR 1.41 MG/DL (0.70-1.30); MAGNESIUM LEVEL 2.4 MG/DL (1.8-2.4); POTASSIUM SERUM 4.6 MEQ/L (3.5-5.1)
== END ==
LOC: SKLAB2 08:00
DX: E83.52 Hypercalcemia (principal)

== ENCOUNTER → 2020-12-01 | Outpatient (CLI) | payer MEDICARE ==
[~2020-12-01] MED LIST changes: -ACET-907 PO; -ATIV1TAB10 PO; -BISA10SU PR; -CARB1TAB PO; -ENSU1LIQ36 PO; -FLEEENE12 PR; -HYOS125TA PO; -JUVEPOW3 PO; -MIRA1POW3 PO; -MOM30SS PO; -MORP20SO3 PO; -SENN-23 PO; -VITMTA PO
--- NOTE | 2020-12-01 13:00 | REP ---
INDICATION: PAIN. COMPARISON: 10/27/2020. TECHNIQUE: Two views left hip. FINDINGS: Metallic internal fixation in the proximal left femur is unchanged. The osseous structures are well-aligned, unchanged. Metallic clips overlie the medial aspect of the femoral head. There is a left iliac stent. There are diffuse vascular calcifications. There are moderate degenerative changes at the left hip joint. IMPRESSION: Healing fracture proximal left femur with no change in position or alignment. <Electronically signed by Danish Medina > 12/01/20 0424
== END ==
LOC: M SOG 11:23
PROVIDERS: ATTEND Orthopaedic Surgery Adult Reconstructive Orthopaedic Surgery
DX: M25.552 Pain in left hip (principal)

== ENCOUNTER → 2020-12-09 | Outpatient (REF) ==
[2020-12-09 11:09] LABS: CALCIUM LEVEL 9.9 MG/DL (8.8-10.2); CREATININE FOR GFR 1.23 MG/DL (0.70-1.30); GLOMERULAR FILTRATION RATE 59.7 (>35); POTASSIUM SERUM 4.3 MEQ/L (3.5-5.1); THYROID STIMULATING HORMONE 1.1 uIU/ML (0.358-3.740)
== END ==
LOC: SKLAB2 08:18
DX: R63.4 Abnormal weight loss (principal)

== ENCOUNTER 2020-12-11 20:24 | Inpatient (IN) | payer MEDICARE ==
[~2020-12-11] VITALS: Ht 188 cm; Wt 58.6 kg
[~2020-12-11 20:24] MED LIST changes: -ACET-907 PO; -ATIV1TAB10 PO; -BISA10SU PR; -CARB1TAB PO; -ENSU1LIQ36 PO; -FLEEENE12 PR; -HYOS125TA PO; -JUVEPOW3 PO; -MIRA1POW3 PO; -MOM30SS PO; -MORP20SO3 PO; -SENN-23 PO; -VITMTA PO
[2020-12-11 21:04] LABS: HEMOGLOBIN 10.4 g/dl (13.5-17.5); MEAN CORPUSCULAR HEMOGLOBIN 33.2 pg (27.0-33.0); MEAN CORPUSCULAR HGB CONC 32.5 g/dl (32.0-36.5); MEAN CORPUSCULAR VOLUME 102.2 fl (80.0-96.0); PLATELET COUNT, AUTOMATED 181 10^3/uL (150-450); RED BLOOD COUNT 3.13 10^6/uL (4.30-6.10)
[2020-12-11] MEDS ORDERED: ACETAMINOPHEN TAB 650MG DOSE (2X325MG) PO ONE (21:15)
[2020-12-11] MEDS ORDERED: NS 1,760 ML in IV 1 EA IV ONE (21:15)
[2020-12-11] MEDS ORDERED: PIPERACILLIN/TAZOBACTAM SOD 4.5 GM in D5W MINI-BAG PLUS 50 ML IV ONE (21:15)
[2020-12-11 21:26] LABS: INR 1.45
[2020-12-11 21:27] LABS: PARTIAL THROMBOPLASTIN TIME 34.3 SECONDS (24.2-38.5)
[2020-12-11 21:34] LABS: WHITE BLOOD COUNT 28.1 10^3/uL (4.0-10.0)
[2020-12-11 21:36] LABS: ALBUMIN 2.7 GM/DL (3.2-5.2); ALT/SGPT 13 U/L (12-78); AMYLASE 48 U/L (25-115); BILIRUBIN,DIRECT 0.3 MG/DL (0.0-0.2); BILIRUBIN,TOTAL 0.7 MG/DL (0.2-1.0); BLOOD UREA NITROGEN 37 MG/DL (7-18); CALCIUM LEVEL 8.9 MG/DL (8.8-10.2); CARBON DIOXIDE LEVEL 25 MEQ/L (21-32); CHLORIDE LEVEL 102 MEQ/L (98-107); CK-MB VALUE MASS < 1.0 NG/ML (<3.6); CPK CREATINE PHOSPHOKINASE 13 U/L (39-308); GLOMERULAR FILTRATION RATE 51.4 (>35); GLUCOSE, FASTING 101 MG/DL (70-100); MB/CK RELATIVE INDEX 7.69 (< OR =4); POTASSIUM SERUM 4.4 MEQ/L (3.5-5.1); SODIUM LEVEL 134 MEQ/L (136-145); TROPONIN I 0.09 NG/ML (< 0.10)
[2020-12-11 21:41] LABS: LYMPHOCYTES 2 % (16-44); MONOCYTES 10 % (0-5); NEUTROPHILS 82 % (28-66)
[2020-12-11 21:42] LABS: ANISOCYTOSIS 1+
[2020-12-11 21:43] LABS: PLATELET ESTIMATE NORMAL (NORMAL)
--- NOTE | 2020-12-11 22:40 | REPVR ---
PROCEDURE INFORMATION: Exam: XR Chest Exam date and time: 12/11/2020 9:40 PM Age: 85 years old Clinical indication: Other: Sepsis/shock TECHNIQUE: Imaging protocol: XR of the chest. Views: 1 view. COMPARISON: CT Chest without contrast 10/01/2020 10:40 PM FINDINGS: Lungs: Right basilar airspace infiltrate. Lungs are otherwise clear. Pleural spaces: Unremarkable. No pleural effusion. No pneumothorax. Heart/Mediastinum: Normal heart size. There is a small hiatal hernia. Bones/joints: Skeletal degenerative changes are noted. Prior sternotomy and CABG. IMPRESSION: Right basilar pneumonia. Electronically signed by: Godwin Jackson On 12/11/2020 22:39:48 PM
--- NOTE | 2020-12-11 23:48 | HPEPDOC ---
[facility] Medical History & Physical Date of Admission December 11, 2020 Date of Service: December 11, 2020 Primary Care Physician: Heavenly Villanueva DO Attending Physician: HYUN REYES MD History and Physical TIME OF SERVICE: 1157 pm CHIEF COMPLAINT: fever HISTORY OF PRESENT ILLNESS: The hx was obtained from the patients daughter the pt was to lethargic and confused. This 85 yr old M has declined after his and he was hospitalized to manage a hematoma 2/2 mechanical fall & PNA last year; he has been more confused and bed bound. [facility] notice he had a fever and elevated WBC# and sent him to the ER for evaluation. REVIEW OF SYSTEMS: unable to assess bc pt is confused PAST MEDICAL/ SURGICAL HISTORY: Parkinson's disease w dementia & dysphagia, CKD, atrial fib, PVD, CAD, HTN, CABG, Femoropopliteal bypass. SOCIAL HISTORY: Former pipe smoker for about 55 years. Lives at [facility] FAMILY HISTORY: Mother: [place] ALLERGIES: Please see below. HOME MEDICATIONS: Please see below. PHYSICAL EXAMINATION: Vital Signs Date Time Temp Pulse Resp B/P (MAP) Pulse Ox O2 Delivery O2 Flow Rate FiO2 12/11/20 20:51 109 22 97/51 (66) 90 Room Air 12/11/20 21:11 101.6 12/11/20 23:15 2.0 GENERAL APPEARANCE: cachectic / lethargic HEENT:temporal wasting / mucus membranes dry CARDIOVASCULAR: tachycardic /NMRG LUNGS: CTAB ABDOMEN: scaphoid MUSCULOSKELETAL: muscle wasting INTEGUMENT: pale / not flushed or diaphoretic NEUROLOGICAL: unable to assess bc of confusion LABORATORY DATA: Neutrophils (%) (Auto) , Nucleated Red Blood Cells % (auto) 0.0, Neutrophils 8 2H, Band Neutrophils 6, Lymphocytes (Manual) 2L, Monocytes (Manual) 10H, Anisocytosis 1+, Macrocytosis 1+, Platelet Estimate NORMAL, Prothrombin Time 18.0H, Prothromb Time International Ratio 1.45, Activated Partial Thromboplast Time 34.3, Anion Gap 7L, Glomerular Filtration Rate 51.4, Lactic Acid Level 2.0, Calcium Level 8.9, Total Bilirubin 0.7, Direct Bilirubin 0.3H, Aspartate Amino Transf (AST/SGOT) 9, Alanine Aminotransferase (ALT/SGPT) 13, Alkaline Phosphatase 96, Total Creatine Kinase 13L, Creatine Kinase MB < 1.0, Creatine Kinase MB Relative Index 7.69H, Troponin I 0.09, C-Reactive Protein, Quantitative 15.10H, Total Protein 7.0, Albumin 2.7L, Albumin/Globulin Ratio 0.6, Amylase Level 48 IMAGING: XRC IMPRESSION: Right basilar pneumonia. MICROBIOLOGY: respiratory panel December 11 + rhinovirus ASSESSMENT: Mr Miner is an 85 yr old w Parkinsons disease, CKD, atrial fib, PVD, CAD, HTN, sacral wounds & sarcopenia, who was sent from his NH for evaluation of AMS and fever and was diagnosed with sepsis 2/2 PNA / rhinovirus; his daughter elected to transition to [employer]. PLAN: 1 Sepsis 2/2 rhinovirus PNA - [employer] order set / c/w abx for now 2 Sacral wounds - frequent repositioning if he will tolerate it Dispo: possibly back to [place] w Hospice will ask day time team to place consult Home Medications Scheduled Arginine/Glutamine/Calcium Bmb (Artemio Packet) 1 Each Powd.pack, 1 DOSE PO BID Aspirin (Aspirin EC) 81 Mg Tablet.dr, 81 MG PO DAILY Atorvastatin Calcium (Atorvastatin Calcium) 20 Mg Tablet, 20 MG PO DAILY Carbidopa/Levodopa (Carbidopa-Levo ER 25-100 Tab) 1 Each Tablet.er, 1 TAB PO BID Clopidogrel Bisulfate (Clopidogrel) 75 Mg Tablet, 75 MG PO DAILY Cyanocobalamin (Vitamin B-12) (B-12) 1,000 Mcg Tablet, 1,000 MCG PO DAILY Lactose-Reduced Food (Ensure Enlive) 237 Ml Liquid, 180 ML PO DAILY Mirtazapine (Remeron) 15 Mg Tablet, 15 MG PO QHS Multivitamins (Thera M Plus Tablet) 1 Each Tablet, 1 TAB PO DAILY Pantoprazole Sodium (Pantoprazole Sodium) 40 Mg Tablet.dr, 40 MG PO DAILY Polyethylene Glycol 3350 (Miralax) 17 Gm Powd.pack, 17 GM PO DAILY Sennosides/Docusate Sodium (Senna-S Tablet) 1 Each Tablet, 2 TAB PO BID Tamsulosin HCl (Flomax) 0.4 Mg Capsule, 0.4 MG PO DAILY Scheduled PRN Acetaminophen (Acetaminophen) 500 Mg Tablet, 1,000 MG PO Q6H PRN for PAIN Acetaminophen (Tylenol) 325 Mg Tablet, 650 MG PO Q4H PRN for PAIN / FEVER Bisacodyl (Bisacodyl) 10 Mg Supp.rect, 10 MG IN DAILY PRN for CONSTIPATION Milk Of Magnesia (Milk of Magnesia) 2,400 Mg/10 Ml Oral.susp, 10 ML PO DAILY PRN for CONSTIPATION Sodium Phosphate,Mcminn-Dibasic (Fleet Enema) 133 Ml Enema, 1 NIDA IN DAILY PRN for CONSTIPATION Allergies Coded Allergies: No Known Drug Allergies (Verified Allergy, Unknown, 04/15/19) A-FIB/CHADSVASC A-FIB History Current/History of A-Fib/PAF?: No Current PO Anticoag Therapy: No HYUN REYES MD December 11, 2020 23:48
[2020-12-12] MEDS ORDERED: CARB1TAB PO (00:08)
[2020-12-12] MEDS ORDERED: MOM30SS PO (00:08)
[2020-12-12] MEDS ORDERED: SENN-23 PO (00:08)
[2020-12-12] MEDS ORDERED: MIRA1POW3 PO (00:08)
[2020-12-12] MEDS ORDERED: ACET-907 PO (00:08)
[2020-12-12] MEDS ORDERED: ENSU1LIQ36 PO (00:08)
[2020-12-12] MEDS ORDERED: FLEEENE12 PR (00:08)
[2020-12-12] MEDS ORDERED: BISA10SU PR (00:08)
[2020-12-12] MEDS ORDERED: VITMTA PO (00:08)
[2020-12-12] MEDS ORDERED: JUVEPOW3 PO (00:08)
[2020-12-12] MEDS ORDERED: SCOPOLAMINE 1MG TRANSDERMAL PATCH TOP PRN (00:30)
[2020-12-12] MEDS ORDERED: LORazepam 2 MG/ML VIAL IV PRN (00:30)
[2020-12-12] MEDS ORDERED: MORPHINE 10MG/0.5ML ORAL CONCENTRATE SOLUTION U/D SL PRN (00:30)
[2020-12-12] MEDS ORDERED: FLEET ENEMA PR PRN (00:30)
[2020-12-12] MEDS ORDERED: ACETAMINOPHEN TAB 650MG DOSE (2X325MG) PO PRN (00:30)
[2020-12-12 02:00] VITALS: BP 86/56
[2020-12-12] MEDS ORDERED: PIPERACILLIN/TAZOBACTAM SOD 3.375 GM in D5W MINI-BAG PLUS 50 ML IV SCH (05:00)
[2020-12-12] MEDS ORDERED: MORP20SO3 PO (11:41)
[2020-12-12] MEDS ORDERED: HYOS125TA PO (11:41)
[2020-12-12] MEDS ORDERED: ATIV1TAB10 PO (11:41)
--- NOTE | 2020-12-12 17:17 | DS.PDOC ---
Discharge Summary General Date of Admission December 11, 2020 at 23:49 Date of Discharge 12/12/20 Discharge Summary PROCEDURES PERFORMED DURING STAY: [None]. DISCHARGE DIAGNOSES: Pneumonia Sepsis Rhinovirus infection SECONDARY DIAGNOSIS: Left Hip fracture s/p mechanical fall in September 2020 Aspiration pneumonia September 2020. Chronic anemia Dementia. Parkinson's disease, CKD stage 3, atrial fib, PVD, CAD/ CABG, Diastolic congestive heart failure, Severe pulmonary hypertension, HTN, Dysphagia/ Aspiration PAD, Abdominal aortic aneurysm repair, Severe Protein calorie malnutrition with BMI of 16.6 Moderate mitral insufficiency, BPH, Right upper lobe 9 mm pulmonary nodule COMPLICATIONS/CHIEF COMPLAINT: Sepsis. HOSPITAL COURSE: 85-year-old male with history of dementia, severe protein calorie malnutrition, dysphagia, Parkinson's disease CTD stage III, CAD, peripheral vascular disease, severe pulmonary hypertension, diastolic CHF, who lost his about a year ago and since then has been deteriorating rapidly was recently admitted in the hospital in September 2020 after a mechanical fall at home and he fractured his left hip. He had surgical fixation done and was discharged to [facility] for rehabilitation. The patient has been more or less bedbound, has not been progressing with physical therapy has been refusing to eat food. Has been refusing his medications. On 12/11/20 nurses noted the patient to be febrile and confused and sent the patient to the ED. In the hospital, patient was found to have rhinovirus infection and left lower lobe pneumonia. Patient's blood pressure was in 80s, which did not improve with them fluid bolus. Patient was diagnosed with pneumonia and sepsis and admitted to the hospital. After further discussion with options of care and about central line vasopressors HCP wanted him to be kept comfortable and did not want to escalate any care. Patient was transitioned into [employer] measure. Patient was discharged back to the intermediate in [employer] status. DISCHARGE MEDICATIONS: Please see below. ALLERGIES: Please see below. PHYSICAL EXAMINATION ON DISCHARGE: VITAL SIGNS: Please see below. GENERAL: awake and alert HEENT: NC and Atraumatic, bitemporal wasting CARDIOVASCULAR EXAMINATION: S1, S2 regular RESPIRATORY EXAMINATION: left basal crackles ABDOMINAL EXAMINATION: soft nontender. EXTREMITIES: No edema, wasting of smallmuscles of hands and feet. LABORATORY DATA: Please see below. ACTIVITY: [As tolerated]. DIET: As tolerated DISPOSITION: [facility] in [employer] status. DISCHARGE CONDITION: [Stable]. TIME SPENT ON DISCHARGE: 35 minutes. Vital Signs/I&Os Vital Signs Date Time Temp Pulse Resp B/P (MAP) Pulse Ox O2 Delivery O2 Flow Rate FiO2 12/12/20 02:51 18 12/12/20 02:00 79 86/56 (66) 94 Nasal Cannula 2.0 12/11/20 21:11 101.6 I&O- Last 24 Hours up to 6 AM 12/12/20 06:00 Intake Total 1810 ml Output Total 0 ml Balance 1810 ml Laboratory Data Labs 24H Laboratory Tests 2 12/11/20 20:56: Neutrophils (%) (Auto) , Nucleated Red Blood Cells % (auto) 0.0, Neutrophils 82H, Band Neutrophils 6, Lymphocytes (Manual) 2L, Monocytes (Manual) 10H, Anisocytosis 1+, Macrocytosis 1+, Platelet Estimate NORMAL, Prothrombin Time 18.0H, Prothromb Time International Ratio 1.45, Activated Partial Thromboplast Time 34.3, Anion Gap 7L, Glomerular Filtration Rate 51.4, Lactic Acid Level 2.0, Calcium Level 8.9, Total Bilirubin 0.7, Direct Bilirubin 0.3H, Aspartate Amino Transf (AST/SGOT) 9, Alanine Aminotransferase (ALT/SGPT) 13, Alkaline Phosphatase 96, Total Creatine Kinase 13L, Creatine Kinase MB < 1.0, Creatine Kinase MB Relative Index 7.69H, Troponin I 0.09, C-Reactive Protein, Quantita tive 15.10H, Total Protein 7.0, Albumin 2.7L, Albumin/Globulin Ratio 0.6, Amylase Level 48 CBC/BMP Laboratory Tests 12/11/20 20:56 Microbiology Microbiology 12/12/20 Blood Culture, Received Pending 12/11/20 Blood Culture, Received Pending Discharge Medications Scheduled Aspirin (Aspirin EC) 81 Mg Tablet.dr, 81 MG PO DAILY, (Reported) Carbidopa/Levodopa (Carbidopa-Levo ER 25-100 Tab) 1 Each Tablet.er, 1 TAB PO BID, (Reported) Clopidogrel Bisulfate (Clopidogrel) 75 Mg Tablet, 75 MG PO DAILY, (Reported) Mirtazapine (Remeron) 15 Mg Tablet, 15 MG PO QHS, (Reported) Tamsulosin HCl (Flomax) 0.4 Mg Capsule, 0.4 MG PO DAILY, (Reported) Scheduled PRN Acetaminophen (Tylenol) 325 Mg Tablet, 650 MG PO Q4H PRN for PAIN / FEVER, (Reported) Hyoscyamine Sulfate (Hyoscyamine Sulfate) 0.125 Mg Tab.subl, 0.125 MG PO Q4HP PRN for TERMINAL SECRETIONS Use sublingually if unable to swallow Lorazepam (Ativan) 0.5 Mg Tablet, 0.5 MG PO Q4HP PRN for ANXIETY/AGITATION Use sublingually if unable to swallow Milk Of Magnesia (Milk of Magnesia) 2,400 Mg/10 Ml Oral.susp, 10 ML PO DAILY PRN for CONSTIPATION, (Reported) Morphine Sulfate (Morphine Sulfate) 100 Mg/5 Ml Solution, 0.25-1 ML PO Q2H PRN for PAIN OR DYSPNEA Use sublingually if unable to swallow Sodium Phosphate,Slope-Dibasic (Fleet Enema) 133 Ml Enema, 1 NIDA CO DAILY PRN for CONSTIPATION, (Reported) Allergies Coded Allergies: No Known Drug Allergies (Verified Allergy, Unknown, 04/15/19) SAMREEN PASTRANA MD December 12, 2020 16:54
--- NOTE | 2020-12-12 20:27 | ECGEPIP ---
[facility] [place] - ED Test Date: 2020-12-11 Pat Name: TORIBIO ZARAGOZA Department: Room: [place] [address] Gender: Male Oracle Dba: HC : [id number] Requested By: RADHA Duarte Order Number: [id number] Reading MD: Elva Tsang Measurements Intervals [place] Rate: 108 P: IA: QRS: 16 QRSD: 100 T: 19 QT: 360 QTc: 482 Interpretive Statements Atrial fibrillation with rapid ventricular response with premature ventricular or aberrantly conducted complexes RSR' or QR pattern in V1 suggests right ventricular conduction delay Cannot rule out Anterior infarct , age undetermined NSTTW abnormalities increased rate 10/01/20 Electronically Signed on 12-12-2020 20:27:29 EDT by Elva Tsang
== END 2020-12-12 12:51 | DRG 951 ==
LOC: M ED 20:24 → M ED INP 23:49 → M MS5PR 12-12 02:17
PROVIDERS: ADMIT Internal Medicine; ATTEND Internal Medicine Nephrology
DX: Z51.5 Encounter for palliative care (principal); J12.89 Other viral pneumonia; E43 Unspecified severe protein-calorie malnutrition; A41.9 Sepsis, unspecified organism; I50.32 Chronic diastolic (congestive) heart failure; I13.0 Hypertensive heart and chronic kidney disease with heart failure and stage 1 through stage 4 chronic kidney disease, or unspecified chronic kidney disease; G20 Parkinson's disease; F03.90 Unspecified dementia, unspecified severity, without behavioral disturbance, psychotic disturbance, mood disturbance, and anxiety; I27.20 Pulmonary hypertension, unspecified; Z66 Do not resuscitate; I48.91 Unspecified atrial fibrillation; N18.30 Chronic kidney disease, stage 3 unspecified; M62.50 Muscle wasting and atrophy, not elsewhere classified, unspecified site; R13.10 Dysphagia, unspecified; I73.9 Peripheral vascular disease, unspecified; I25.10 Atherosclerotic heart disease of native coronary artery without angina pectoris; Z87.891 Personal history of nicotine dependence; Z95.1 Presence of aortocoronary bypass graft; Z98.62 Peripheral vascular angioplasty status; Z79.82 Long term (current) use of aspirin; Z79.02 Long term (current) use of antithrombotics/antiplatelets; Z79.899 Other long term (current) drug therapy

== ENCOUNTER → 2020-12-11 | Outpatient (REF) ==
[~2020-12-11] MED LIST changes: +ACET-907 PO; +ATIV1TAB10 PO; +BISA10SU PR; +CARB1TAB PO; +ENSU1LIQ36 PO; +FLEEENE12 PR; +HYOS125TA PO; +JUVEPOW3 PO; +MIRA1POW3 PO; +MOM30SS PO; +MORP20SO3 PO; +SENN-23 PO; +VITMTA PO
[2020-12-11 17:03] LABS: HEMATOCRIT 33.4 % (42.0-52.0); HEMOGLOBIN 10.8 g/dl (13.5-17.5); MEAN CORPUSCULAR HEMOGLOBIN 33.6 pg (27.0-33.0); MEAN CORPUSCULAR HGB CONC 32.3 g/dl (32.0-36.5); PLATELET COUNT, AUTOMATED 186 10^3/uL (150-450); RED BLOOD COUNT 3.21 10^6/uL (4.30-6.10); WHITE BLOOD COUNT 23.8 10^3/uL (4.0-10.0)
[2020-12-11 17:12] LABS: APPEARANCE, URINE CLEAR (CLEAR); BACTERIA, URINE AUTO NEGATIVE (NEGATIVE); BILIRUBIN, URINE AUTO NEGATIVE (NEGATIVE); BLOOD, URINE BLOOD NEGATIVE (NEGATIVE); COLOR, URINE YELLOW (YELLOW); GLUCOSE, URINE (UA) AUTO NEGATIVE (NEGATIVE); GRANULAR CAST, URINE AUTO 1 /LPF; KETONE, URINE AUTO NEGATIVE (NEGATIVE); LEUKOCYTE ESTERASE, URINE AUTO NEGATIVE (NEGATIVE); MUCUS, URINE SMALL (NEGATIVE); NITRITE, URINE AUTO NEGATIVE (NEGATIVE); PROTEIN, URINE AUTO 1+ mg/dL (NEGATIVE); RBC, URINE AUTO 1 /HPF (0-3); SPECIFIC GRAVITY URINE AUTO 1.018 (1.002-1.035); SQUAMOUS EPITHELIAL CELL UR AU 0 /HPF (0-6); WBC, URINE AUTO 0 /HPF (0-3)
[2020-12-11 17:16] LABS: CALCIUM LEVEL 9.5 MG/DL (8.8-10.2); CREATININE FOR GFR 1.38 MG/DL (0.70-1.30); GLOMERULAR FILTRATION RATE 52.3 (>35); POTASSIUM SERUM 4.7 MEQ/L (3.5-5.1)
== END ==
LOC: SKLAB2 16:16
DX: R50.9 Fever, unspecified (principal)